=== PATIENT | female | born 1970 | race Caucasian/White ===

== ENCOUNTER 2020-09-08 06:05 | Outpatient (REF) | payer OTHER, SELFPAY ==
--- NOTE | 2020-09-08 08:57 | XR_ITS ---
EXAMINATION: XR ANKLE, BILATERAL CLINICAL INFORMATION: Bilateral ankle pain COMPARISON: None TECHNIQUE: Bilateral ankles each 3 views. FINDINGS: RIGHT ANKLE: No evidence of acute fracture or dislocation. Ankle mortise is maintained. Minimal spurring of the tip of the medial malleolus. Small spurring from the dorsal aspect of navicula. Small plantar and posterior calcaneal spur. Base of the 5th metatarsal is intact. LEFT ANKLE: Mild lateral ankle soft tissue swelling. There are corticated ossifications adjacent to the medial malleolus/talar dome. Ankle mortise is maintained. No evidence of acute fracture or dislocation. Base of the 5th metatarsal is intact. Small plantar and posterior calcaneal spurring. XR/XR ankle LT min 3V IMPRESSION: 1. No radiographic evidence of discrete acute fracture. 2. Calcaneal spurring. 3. Additional chronic-appearing findings, as detailed above.
--- NOTE | 2020-09-08 08:57 | XR_ITS ---
EXAMINATION: XR ANKLE, BILATERAL CLINICAL INFORMATION: Bilateral ankle pain COMPARISON: None TECHNIQUE: Bilateral ankles each 3 views. FINDINGS: RIGHT ANKLE: No evidence of acute fracture or dislocation. Ankle mortise is maintained. Minimal spurring of the tip of the medial malleolus. Small spurring from the dorsal aspect of navicula. Small plantar and posterior calcaneal spur. Base of the 5th metatarsal is intact. LEFT ANKLE: Mild lateral ankle soft tissue swelling. There are corticated ossifications adjacent to the medial malleolus/talar dome. Ankle mortise is maintained. No evidence of acute fracture or dislocation. Base of the 5th metatarsal is intact. Small plantar and posterior calcaneal spurring. XR/XR ankle RT min 3V IMPRESSION: 1. No radiographic evidence of discrete acute fracture. 2. Calcaneal spurring. 3. Additional chronic-appearing findings, as detailed above.
--- NOTE | 2020-09-08 08:57 | XR_ITS ---
EXAMINATION: XR HIPS, BILATERAL CLINICAL INFORMATION: Bilateral hip pain COMPARISON: None TECHNIQUE: Two views of each hip were obtained. FINDINGS: LEFT HIP: Normal alignment. Joint space is maintained. No fracture or dislocation. RIGHT HIP: Normal alignment. Joint spaces are relatively maintained. Small ossicle or osteophyte along the lateral acetabular rim. No acute fracture or dislocation. Regional soft tissue appears unremarkable. XR/XR hips AMERICA min 3V IMPRESSION: 1. Small ossicle or osteophyte along the lateral acetabular rim of the right hip. Otherwise unremarkable right hip radiographs. 2. No evidence of acute osseous abnormality.
[2020-09-08 11:38] LABS: Rheumatoid Factor < 15.0 IU/mL (<15.0)
[2020-09-08 12:18] LABS: Erythrocyte Sedimentation Rate 14 MM/HR (0-20)
[2020-09-09 15:32] LABS: Cyclic Citrullinated Peptide <16 UNITS
== END 2020-09-08 06:06 | disposition home or self-care (01) ==
LOC: HO.HMGCLDS 06:05
PROVIDERS: PCP Internal Medicine; Visit Provider Internal Medicine
DX: Z20.828 Contact with and (suspected) exposure to other viral communicable diseases (principal); M25.571 Pain in right ankle and joints of right foot; M25.572 Pain in left ankle and joints of left foot; M25.552 Pain in left hip; M25.551 Pain in right hip
CPT/HCPCS: 36415; 73522; 73610; 85652; 86200; 86431

== ENCOUNTER 2021-02-01 13:03 | Outpatient (REF) | payer OTHER, SELFPAY | END 2021-02-01 13:04 | disposition home or self-care (01) | LOC: HO.LAB 13:03 | PROVIDERS: Visit Provider Internal Medicine | DX: Z20.822 Contact with and (suspected) exposure to COVID-19 (principal) | CPT/HCPCS: C9803; U0003; U0005 ==

== ENCOUNTER 2021-05-26 12:08 | Outpatient (REF) | payer OTHER, SELFPAY | END 2021-05-26 12:09 | disposition home or self-care (01) | LOC: HO.LNP 12:08 | PROVIDERS: Visit Provider Internal Medicine | DX: Z20.822 Contact with and (suspected) exposure to COVID-19 (principal); J06.9 Acute upper respiratory infection, unspecified | CPT/HCPCS: U0003; U0005 ==

== ENCOUNTER 2021-11-09 09:08 | Outpatient (REF) | payer OTHER, SELFPAY ==
[2021-11-09 11:43] LABS: Hematocrit 41.4 % (37.0-47.0); Hemoglobin 13.3 g/dl (12.0-16.0); Mean Corpuscular HGB Conc 32.1 g/dl (31.0-35.0); Mean Corpuscular Hemoglobin 28.5 pg (27.0-33.0); Mean Corpuscular Volume 88.7 fL (80.0-98.0); Mean Platelet Volume 10.3 fL (9.4-12.3); Platelet Count 198 X10*3/uL (160-400); Red Blood Count 4.67 X10*6/uL (4.20-5.50); Red Cell Distribution Width 13.4 % (11.0-16.0); White Blood Count 6.1 X10*3/uL (4.8-10.8)
[2021-11-09 12:07] LABS: Alanine Aminotransferase 11 U/L (0-31); Albumin Level 4.1 g/dL (3.5-5.0); Alkaline Phosphatase 73 U/L (39-117); Anion Gap 11 (12-20); Aspartate Amino Transferase 14 U/L (5-31); Bilirubin Total 0.4 mg/dL (0.0-1.0); Blood Urea Nitrogen 14 mg/dL (9-16); C Reactive Protein 0.37 mg/dL (< or = 0.50); Calcium 9.5 mg/dL (8.4-10.2); Carbon Dioxide 29 mmol/L (22-29); Chloride 107 mmol/L (96-108); Cholesterol 214 mg/dL; Estimated Glomerular Filt Rate > 60; Glucose Fasting 88 mg/dL (60-99); HDL Cholesterol 36 mg/dL; LDL Cholesterol Calculated 146 mg/dl; Potassium 4.7 mmol/L (3.3-5.1); Sodium 142 mmol/L (135-145); Total Protein 6.6 g/dL (6.5-8.0); Triglycerides 164 mg/dL
[2021-11-09 12:15] LABS: TSH reflex Free T4 0.52 uIU/mL (0.32-4.0); Vitamin D 25-OH Total 31.8 ng/mL (>30)
[2021-11-09 12:36] LABS: Folate 7.2 ng/mL (> or = 4.0); Vitamin B12 292 pg/mL (200-900)
== END 2021-11-09 09:09 | disposition home or self-care (01) ==
LOC: HO.HMGCLDS 09:08
PROVIDERS: PCP Internal Medicine; Visit Provider Internal Medicine
DX: Z00.00 Encounter for general adult medical examination without abnormal findings (principal)
CPT/HCPCS: 36415; 80053; 80061; 82306; 82607; 82746; 84443; 85027; 86140

== ENCOUNTER 2022-02-03 14:09 | Outpatient (REF) | payer OTHER, SELFPAY ==
[2022-02-03 14:58] LABS: Influenza A PCR NEGATIVE (Negative); Influenza B PCR NEGATIVE (Negative); Resp Syncy Virus RNA Qual PCR NEGATIVE (Negative); SARS COV2 PCR INHOUSE POSITIVE (Negative)
== END 2022-02-03 14:10 | disposition home or self-care (01) ==
LOC: HO.LNP 14:09
PROVIDERS: Visit Provider Internal Medicine
DX: Z20.822 Contact with and (suspected) exposure to COVID-19 (principal); J34.89 Other specified disorders of nose and nasal sinuses; M79.10 Myalgia, unspecified site; R50.9 Fever, unspecified; R51.9 Headache, unspecified; R53.83 Other fatigue
CPT/HCPCS: 0241U

== ENCOUNTER 2022-04-27 07:45 | Outpatient (REF) | payer OTHER, SELFPAY | END 2022-04-27 07:46 | disposition home or self-care (01) | LOC: HO.HOSX 07:45 | PROVIDERS: Visit Provider Physician Assistant | DX: Z13.89 Encounter for screening for other disorder (principal) ==

== ENCOUNTER 2022-04-29 07:00 | Outpatient (REF) | payer OTHER, SELFPAY ==
[2022-04-29 12:18] LABS: Cholesterol 222 mg/dL; HDL Cholesterol 38 mg/dL; LDL Cholesterol Calculated 147 mg/dl; Triglycerides 189 mg/dL
== END 2022-04-29 07:01 | disposition home or self-care (01) ==
LOC: HO.HMGCLDS 07:00
PROVIDERS: Visit Provider Internal Medicine
DX: E78.5 Hyperlipidemia, unspecified (principal)
CPT/HCPCS: 36415; 80061

== ENCOUNTER 2023-06-06 06:33 | Emergency (ER) | payer OTHER, SELFPAY ==
--- NOTE | ~2023-06-06 | XR_ITS ---
EXAMINATION: XR LUMBOSACRAL SPINE CLINICAL INFORMATION: Pain COMPARISON: MRI lumbar spine from 04/01/2017 TECHNIQUE: Three views of the lumbosacral spine. FINDINGS: Transitional lumbosacral anatomy. There is lumbarization of S1. The lumbar vertebra have well preserved height and alignment. No compression fractures. No pars interarticularis defects. Degenerative narrowing of disc space is qpbu-to-tawzozbs at L4-L5 and ajbzyfzj-ax-zfznjs at L5-S1. There is vacuum disc phenomenon at L5-S1. There appears to be moderate facet arthropathy at L5-S1. No suspicious lytic or blastic lesion. Atherosclerotic calcification of the aorta is noted. XR/XR lumbar spine 2-3V IMPRESSION: * No acute abnormalities in the lumbar spine. No fracture or malalignment. * Disc degenerative changes of lower lumbar spine is worst at lumbosacral junction (and there is transitional lumbosacral anatomy).
[2023-06-06 06:45] VITALS: BP 136/82; PULSE 80; RESP 20; TEMP 36.8; O2SAT 98; BMI 31.2
[2023-06-06 07:02] VITALS: BP 127/77; PULSE 77; RESP 18; TEMP 36.8; O2SAT 98
--- NOTE | 2023-06-06 07:02 | ED_ITS ---
HPI - Back Pain/Injury General Chief Complaint: Back Pain/Injury Stated Complaint: Back Time Seen by Provider: 06/06/23 07:00 Source: patient and old records reviewed Mode of arrival: ambulatory Limitations: no limitations History of Present Illness HPI Narrative: 53 yo female with hx of HLD, asthma, fibromyalgia, here with c/o low back pain has known issues states she needs a vaughn reports she woke up Monday AM with mid low back pain worse with movements stabbing across without b/b incontinence, fevers, GI or symptoms. No AC Therapy, IVDA. Took motrin with little relief. no saddle anesthesia MD elicited complaint: back pain Pertinent past history: prior back pain Onset (ago): day(s) (2) Timing: constant Severity: severe Similar Symptoms Previously: Yes Quality: sharp Location: lumbar spine Radiation: none Exacerbating factors: movement Relieving factors: immobilization Context: unknown Associated symptoms: denies other symptoms Treatments prior to arrival: NSAIDS Related Data Home Medications Medication Instructions Recorded Confirmed nystatin 100,000 unit/mL oral 3 PO PRN 09/07/20 09/07/20 suspension pregabalin 100 mg capsule (Lyrica) 100 mg PO BID 09/07/20 09/07/20 Previous Rx's Medication Instructions Recorded meclizine 25 mg tablet 25 mg PO TID PRN dizziness #30 tabs 07/27/21 buspirone 5 mg tablet 5 mg PO BID #180 tabs 11/09/21 nicotine 21 mg/24 hr daily 1 patch transdermal DAILY #28 ea 11/09/21 transdermal patch albuterol sulfate 90 mcg/actuation 2 puff inhalation Q6H PRN 12/23/21 aerosol inhaler shortness of breath or wheezing #8.5 grams nirmatrelvir 300 mg (150 mg See Rx Instructions PO .COMPLEX 02/03/22 x2)-ritonavir 100 mg tablet,dose #30 tabs pack oseltamivir 75 mg capsule (Tamiflu) 75 mg PO BID 5 days #10 caps 02/03/22 amoxicillin 875 mg-potassium 1 tab PO Q12H 7 days #14 tabs 03/15/22 clavulanate 125 mg tablet ProAir HFA 90 mcg/actuation 2 puff inhalation Q6H PRN 04/08/22 aerosol inhaler (albuterol sulfate) shortness of breath or wheezing #8.5 grams montelukast 10 mg tablet 10 mg PO DAILY #90 tabs 04/08/22 ezetimibe 10 mg tablet (Zetia) 10 mg PO DAILY #90 tabs 05/03/22 Breo Ellipta 100 mcg-25 mcg/dose 1 inh inhalation DAILY #60 ea 06/02/22 powder for inhalation (fluticasone furoate-vilanterol) meloxicam 15 mg tablet 15 mg PO DAILY #30 tabs 06/08/22 lidocaine 5 % topical patch 1 patch topical DAILY #30 ea 06/06/23 Allergies Allergy/AdvReac Type Severity Reaction Status Date / Time citalopram [From CELEXA] Allergy Unknown PANIC Verified 04/27/22 08:08 ATTACK clarithromycin [From BIAXIN] Allergy Unknown UNKNOWN Verified 04/27/22 08:08 moxifloxacin [From AVELOX] Allergy Unknown RASH Verified 04/27/22 08:08 Sulfa (Sulfonamide Allergy Unknown rash/joint Verified 04/27/22 08:08 Antibiotics) pain Review of Systems Review of Systems: Constitutional : No Weight loss, No Fever, No Chills, ENT/Mouth : No Hearing loss, No Ear Pain, No Nasal Congestion, No Sinus Pain, No Hoarseness, No sore throat, No Rhinorrhea, No Swallowing Difficulty Cardiovascular : No Chest Pain, No SOB Respiratory : No Cough, No Dyspnea Gastrointestinal : No Nausea, No Vomiting, No Diarrhea, No abdominal Pain, No Hematochezia, No Melena Genitourinary : No Dysuria, No Urinary Frequency, No Hematuria, No Urinary Incontinence, Musculoskeletal : positive back pain Skin : No Skin Lesions, No rash Neuro : No Weakness, No Numbness, No Paresthesias, no loss of bowel or bladder incontinence, no saddle anesthesia All other systems reviewed and are negative [facility] Past Medical History Attestation statement: The following information was validated with the patient. Source: old records reviewed Medical History Hyperlipidemia Annual physical exam Vertigo Shoulder pain, bilateral Injury of left brachial plexus Normal Pap smear Tobacco dependence Fibromyalgia Degeneration of lumbar intervertebral disc Cervical radiculopathy due to degenerative joint disease of spine Arthritis Bilateral ankle pain Hip pain, bilateral Neck pain Surgical History No pertinent past surgical history Family History Family History Father Bladder cancer History of heart attack Mother No problems noted. Brother Substance use disorder Brother Substance use disorder Social History Social History Housing: House Alcohol intake: never Cigarette Packs Per Day: 0 Cigarettes Per Day: 15 Advance Directives: No Advance Directives Information Provided: No Patient : No Current occupational status: disabled Physical Exam Vital Signs: Vital Signs: Last Vital Signs Temp 98.3 F 06/06/23 07:02 Pulse 77 06/06/23 07:02 Resp 18 06/06/23 07:02 BP 127/77 06/06/23 07:02 Pulse Ox 98 06/06/23 07:02 O2 Del Method Room Air 06/06/23 07:02 BMI result Body Mass Index 31.2 Appearance: Alert. Oriented X3. No acute distress. Eyes: Pupils equal, round and reactive to light. ENT: Pharynx normal. Neck: Normal inspection. Neck supple. CVS: Normal heart rate and rhythm. Pulses normal. Respiratory: No respiratory distress. Breath sounds normal. Abdomen: Soft and nontender. Back: ttp along mid lumbar spine area Skin: Skin warm and dry. Normal skin color. Normal skin turgor. Extremities: No lower extremity edema. Neuro: Oriented X 3. No motor deficit. No sensory deficit. SILT intact 2+ DTR in patella bilaterally Medications Administered Discontinued Medications Generic Name Dose Route Start Last Admin Trade Name Phillipq PRN Reason Stop Dose Admin Acetaminophen 650 mg 06/06/23 07:18 06/06/23 07:34 Acetaminophen 325 Mg Tablet PO 06/06/23 07:19 650 mg ONCE ONE Administration Lidocaine 1 patch 06/06/23 07:18 06/06/23 07:34 Lidocaine 4 % Patch Adh..Patch TRANSDERMA 06/06/23 07:19 1 patch ONCE ONE Administration Protocol Medical Decision Making Medical Decision Making MDM Narrative: 53 yo female with hx of HLD, asthma, fibromyalgia, prior back pain here with low back pain no trauma - NV intact, no b/b incontinence no saddle anesthesia it is midline no abdominal pain, fevers, AC therapy, IVDA or red flags at this time s eems MSK will start on tylenol, pain patches obtain xray for compression fracture/alignment. Differential Diagnosis Differential Diagnoses: The differential diagnosis associated with the presentation includes strain, disc protrusion, compression fracture Admission/Observation Consideration of admission/observation: Escalation of care including admission/observation considered able to walk no need for high dose narcotics stable for DC Lab Data [facility] Lab Attestation statement: I reviewed the patient's lab results. Independent Interpretation I performed an independent interpretation of an: Plain X-Ray Interpretation: no fracture Radiology Impression Discussion of test interpretation with radiology: I have reviewed the radiologist's reading. External Record Review External record reviewed: Inpatient record Prescription Management I considered prescription management with: Other (lidocaine patches) Discharge Plan Discharge Clinical Impression: Acute lumbar back pain Qualifiers: Back pain laterality: bilateral Sciatica presence: without sciatica Qualified Code(s): M54.50 - Low back pain, unspecified Patient Disposition: Home, Self-Care Instructions: Acute Low Back Pain (ED) Additional Instructions: return for worsening back pain, numbness, weakness, loss of control of bowel and bladder, fevers or any other concerns. talk to your doctor about possible MRI and physical therapy if not better. XR/XR lumbar spine 2-3V IMPRESSION: * No acute abnormalities in the lumbar spine. No fracture or malalignment. * Disc degenerative changes of lower lumbar spine is worst at lumbosacral junction (and there is transitional lumbosacral anatomy). Prescriptions: New lidocaine 5 % adhesive patch,medicated 1 patch topical DAILY Qty: 30 0RF Rx Instructions: leave on most painful area for up to 12 hrs No Action meclizine 25 mg tablet 25 mg PO TID PRN (Reason: dizziness) Qty: 30 2RF albuterol sulfate 90 mcg/actuation HFA aerosol inhaler 2 puff inhalation Q6H PRN (Reason: shortness of breath or wheezing) Qty: 8.5 1RF nirmatrelvir-ritonavir 150 mg x 2- 100 mg tablet See Rx Instructions PO .COMPLEX Qty: 30 0RF Rx Instructions: take TWO 150 mg tablets of nirmatrelvir with ONE 100 mg tablet of ritonavir twice daily for 5 days PO albuterol sulfate [ProAir HFA] 90 mcg/actuation HFA aerosol inhaler 2 puff inhalation Q6H PRN (Reason: shortness of breath or wheezing) Qty: 8.5 1RF montelukast 10 mg tablet 10 mg PO DAILY Qty: 90 1RF ezetimibe [Zetia] 10 mg tablet 10 mg PO DAILY Qty: 90 3RF Breo Ellipta 100-25 mcg/dose blister with device 1 inh inhalation DAILY Qty: 60 6RF meloxicam 15 mg tablet 15 mg PO DAILY Qty: 30 4RF pregabalin [Lyrica] 100 mg capsule 100 mg PO BID nystatin 100,000 unit/mL suspension 3 PO PRN nicotine 21 mg/24 hr patch 24 hour 1 patch transdermal DAILY Qty: 28 4RF buspirone 5 mg tablet 5 mg PO BID Qty: 180 3RF oseltamivir [Tamiflu] 75 mg capsule 75 mg PO BID 5 Days Qty: 10 0RF amoxicillin-pot clavulanate 875-125 mg tablet 1 tab PO Q12H 7 Days Qty: 14 0RF
--- OUTSIDE RECORDS SUMMARY | 2023-06-06 07:14 | XMS_ITS | Continuity of Care Document ---
Author Name Unknown Organization [facility] Address [address] [place] [address], [address], [address] [place] [address]- Care Team Providers Care Cook Pie Name Role Phone Vannessa Rivas MD Primary Care Physician [place] [facility] [place] [facility] [address] [facility], 3rd Floor, [address] [place] [address]- [place] Allergies, Adverse Reactions, Alerts Substance Reaction Severity Status Biaxin diarrhea Active Vicodin shallow breathing Active Avelox rash Active CeleXA tachycardia, burning sensation Active Immunizations Given and Recorded Vaccine Date Status Refusal Reason influenza virus vaccine, inactivated 08/21/13 Give n influenza virus vaccine, inactivated 1, 2 08/11/11 Given pneumococcal 23-valent vaccine 03/12/10 Given tetanus/diphtheria/pertussis, acel(Tdap) 03/12/10 Given 1Result Comment: wrong patient 2Admin Note: CDC info given to patient Medications Aerochamber See Instructions, # 1 units, Maintenance, use with Q bryanna bid, 09/22/17 8:48:39, Compound Start Date: 09/22/17 Status: Ordered Aerochamber for Pro air inhaler. Aerochamber for Pro air inhaler., See Instructions, # 1 each, Refills 0, Tot. Refills 0, Maintenance, Uses with Pro Air inhaler. 2 puffs q 4 hours for wheezing, 01/07/14 16:09:44, Compound Start Date: 01/07/14 Status: Ordered atorvastatin 10 mg oral tablet 1 tablet = 10 mg, By Mouth, Daily, # 30 tablet, 5 Refills, Maintenance, Route to Pharmacy Electronically, [id number], [facility] [id number] Start Date: 10/01/18 Status: Ordered Azithromycin 5 Day Dose Pack 250 mg oral tablet 1 pack/packet, By Mouth, Once, # 6 tablet, 0 Refills, Soft Stop, 08/13/18 9:14:21 EST, Tablet Start Date: 08/13/18 Status: Ordered Flonase 50 mcg/inh nasal spray 2 sprays, Nares, Both, Daily, # 16 Gm, 0 Refills, Maintenance, 10/02/21 10:00:00 EST, [place], [facility]/pharmacy #[id number], Partial fill upon patient request if the prescription is for a schedule II opioid drug., 2 sprays Nares, Both Daily, 175.26, cm, 10/02/21... Start Date: 10/02/21 Status: Ordered Flonase 50 mcg/inh nasal spray 1 sprays, Nares, Both, 2 times a day, # 1 each, 5 Refills, Maintenance, 09/22/17 8:21:25, [place], 1 sprays Nares, Both 2 times a day Start Date: 09/22/17 Status: Ordered gabapentin 300 mg oral capsule 300 mg, 1, capsule, By Mouth, 3 times a day, # 90 capsule, Refills 0, Maintenance, 02/26/18 14:00:41 EDT Start Date: 02/26/18 Status: Ordered gabapentin 400 mg oral capsule 400 mg, 1, capsule, By Mouth, 3 times a day, # 90 capsule, Refills 5, Tot. Refills 5, Maintenance, 11/02/18 11:25:40 EST, Route to Pharmacy Electronically, [id number], [facility] [id number] Start Date: 11/02/18 Stop Date: 05/01/19 Status: Ordered left arm sling left arm sling, See Instructions, # 1 units, Refills 0, Tot. Refills 0, Maintenance, use daily dx: arm pain neuropathic, 10/08/18 10:58:37 EST, [facility] Start Date: 10/08/18 Status: Ordered montelukast 10 mg oral tablet See Instructions, # 90 tablet, TAKE 1 TABLET BY MOUTH DAILY IN THE EVENING, [facility] [id number] Start Date: 01/09/19 Status: Ordered ProAir HFA 90 mcg/inh inhalation aerosol with adapter 2, puffs, Inhalation, 4 times a day, # 1 each, Refills 6, Tot. Refills 6, Maintenance, wheezing, 10/01/18 10:34:38 EST, Route to Pharmacy Electronically, [id number], [facility] [id number] Start Date: 10/01/18 Stop Date: 04/29/19 Status: Ordered Qvar with Dose Counter 80 mcg/inh inhalation aerosol 1 puffs, Inhalation, 2 times a day, # 1 each, 7 Refills, Maintenance, 10/01/18 10:33:40 EST, 1 puffs Inhalation 2 times a day Start Date: 10/01/18 Status: Ordered Problem List Condition Effective Dates Status Health Status Inform ant Abnormal findings on diagnos tic imaging of breast(Confirmed) Active Asthma(Confirmed)(Stable) Active FH(Confirmed) 1, 2 03/12/10 Active Fibromyalgia(Confirmed) Active Gastroesophageal reflux disease(Confirmed) Active Hyperlipidemia(Confirmed) Active [place]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 Panic attacks(Confirmed) Active Photosensitivity dermatitis(Confirmed) Active SH - Social history(Confirmed) 3 03/12/10 Active Lateral meniscal tear(Confirmed) Active Tobacco abuse(Confirmed) Active 1hepatitis C and depression 2high cholesterol, alcoholism, hypertension, paternal grandmother with head and neck cancer and 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
--- OUTSIDE RECORDS SUMMARY | 2023-06-06 07:14 | XMS_ITS | Continuity of Care Document ---
Author Name Unknown Organization [facility] Address [address] [facility] [place] [address]- Care Team Providers Care Member Services Representative Name Role Phone Vannessa Rivas MD Primary Care Physician [phone] Encounter 12/09/20 - 12/16/20 [facility] [address], [address] [place], [place] [address] Attending Physician: Albania Martin MD Admitting Physician: Albania Martin MD Referring Physician: Albania Martin MD Allergies, Adverse Reactions, Alerts Substance Reaction Severity [...] 5 Refills, Maintenance, Route to Pharmacy Electronically, [id number], [facility] [id number] Start Date: 10/01/18 Status: Ordered Azithromycin 5 Day Dose Pack 250 mg oral tablet 1 pack/packet, By Mouth, Once, # 6 tablet, 0 Refills, Soft Stop, 08/13/18 9:14:21 EST, Tablet Start Date: 08/13/18 Status: Ordered Flonase 50 mcg/inh nasal spray 1 sprays, Nares, Both, 2 times a day, # 1 each, 5 Refills, Maintenance, 09/22/17 8:21:25, [facility] [place], 1 sprays Nares, Both 2 times a [...] 11/02/18 11:25:40 EST, Route to Pharmacy Electronically, [id number], [facility] [id number] Start Date: 11/02/18 Stop Date: 05/01/19 Status: Ordered left arm sling left arm sling, See Instructions, # 1 units, Refills 0, Tot. Refills 0, Maintenance, use daily dx: arm pain neuropathic, 10/08/18 10:58:37 EST, [facility] Start Date: 10/08/18 Status: Ordered montelukast 10 mg oral tablet See Instructions, # 90 tablet, TAKE 1 TABLET BY MOUTH DAILY IN THE EVENING, [facility] [id number] Start Date: 01/09/19 Status: Ordered ProAir HFA 90 mcg/inh inhalation aerosol with adapter 2, puffs, Inhalation, 4 times a day, # 1 each, Refills 6, Tot. 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
--- OUTSIDE RECORDS SUMMARY | 2023-06-06 07:14 | XMS_ITS | Continuity of Care Document ---
Author Name Unknown Organization [facility] Address [address] [place] [address]- Care Team Providers Care Furniture Repair Technician Name Role Phone Vannessa Rivas MD Primary Care Physician [phone] Encounter [facility] Date(s): 10/02/21 - 11/01/21 [facility] [address] [place], [place] [address] Attending Physician: Admtr, [id number] Admitting Physician: Admtr, Ar8 Referring Physician: Admtr, Ar8 Allergies, Adverse Reactions, Alerts Substance Reaction Severity Status Avelox rash Active Biaxin diarrhea Active CeleXA tachycardia, burning sensation Active Vicodin shallow breathing Active Immunizations Given and Recorded Vaccine Date [...] 5 Refills, Maintenance, Route to Pharmacy Electronically, [id number], [facility] [id number] Start Date: 10/01/18 Status: Ordered Azithromycin 5 Day Dose Pack 250 mg oral tablet 1 pack/packet, By Mouth, Once, # 6 tablet, 0 Refills, Soft Stop, 08/13/18 9:14:21 EST, Tablet Start Date: 08/13/18 Status: Ordered Flonase 50 mcg/inh nasal spray 2 sprays, Nares, Both, Daily, # 16 Gm, 0 Refills, Maintenance, 10/02/21 10:00:00 EST, [place], [facility]/pharmacy #[id number], Partial fill upon patient request if the prescription is for a schedule II opioid drug., 2 sprays Nares, Both Daily, 175.26, cm, 10/02/21... Start Date: 10/02/21 Status: Ordered Flonase 50 mcg/inh nasal spray 1 sprays, Nares, Both, 2 times a day, # 1 each, 5 Refills, Maintenance, 09/22/17 8:21:25, [place], 1 sprays Nares, Both 2 times a [...] 11/02/18 11:25:40 EST, Route to Pharmacy Electronically, [id number], [facility] [id number] Start Date: 11/02/18 Stop Date: 05/01/19 Status: Ordered left arm sling left arm sling, See Instructions, # 1 units, Refills 0, Tot. Refills 0, Maintenance, use daily dx: arm pain neuropathic, 10/08/18 10:58:37 EST, Compound Start Date: 10/08/18 Status: Ordered montelukast 10 mg oral tablet See Instructions, # 90 tablet, TAKE 1 TABLET BY MOUTH DAILY IN THE EVENING, [facility] Start Date: 01/09/19 Status: Ordered ProAir HFA 90 mcg/inh inhalation aerosol with adapter 2, puffs, Inhalation, 4 times a day, # 1 each, Refills 6, Tot. Refills 6, Maintenance, wheezing, 10/01/18 10:34:38 EST, Route to Pharmacy Electronically, [id number], [facility] Start Date: 10/01/18 Stop Date: 04/29/19 Status: [...]
--- OUTSIDE RECORDS SUMMARY | 2023-06-06 07:14 | XMS_ITS | Patient Health Record ---
Author Name Unknown [facility] Address [address] [place] [address] Care Team Providers Care Mines Inspector Name Role Phone Vannessa Rivas MD Primary Care Provider Shanthi Limon Unavailable [phone] ALLERGIES Allergen (clinical drug ingredient) Drug/Non Drug Allergy documented on EMR Reaction Allergy Type Onset Date Status sulfamethoxazole / trimethoprim Bactrim rash Drug Allergy Active clarithromycin Biaxin Diarrhea Drug Allergy Ac tive REASON FOR REFERRAL No Information MEDICATIONS Medication SIG (Take, Route, Frequency, Duration) Notes Start Date End Date Status Nightsplint . . . AFO - L1930 for . Active ProAir HFA Active busPIRone HCl 5 MG 1 tablet Orally Twic e a day Active Singulair 10 MG 1 tablet Orally Once a day for 30 day(s) Active Lyrica Active Lynox Active Vitamin D Active Atorvastatin Calcium 10 MG 1 tablet Oral ly Once a day for 30 day(s) Active Breo Ellipta Active IMMUNIZATIONS Vaccine Route Administration Date Status Comme nts COVID-19 Moderna Vaccine Unknown 05/08/2021 Administered First Dose: 03/25 SOCIAL HISTORY Tobacco Use: Social History Observation Description Date Details (start date - stop date) Current Smoker NA - NA Sex Assigned At : Social History Observation Description Sex Assigned At Unknown Tobacco Use/Smoking Question Answer Notes Are you a: current smoker How often do you smoke cigarettes? every day Alcohol Screen Question Answer Notes Did you have a drink containing alcohol in the p ast year? No Points 0 Interpretation Negative Tobacco use other than smoking: Question Answer Notes Are you an other tobacco user? No PLAN OF TREATMENT Pending Test Test Name Order Date X ray : Foot, right 3V 05/19/2021 Insurance Providers Payer Name Payer Address Payer Phone Subscriber Number Group Number Insured Name Patient Relationship to Insured Coverage Start Date Coverage End Date [facility] [employer] Claims [address] [place] [address] [phone] [id number] Dorina Holguin Self - patient is the insured MEDICAL (GENERAL) HISTORY Medical History History ICD Code Anxiety asthma Back,Hip,and Knee pain CAD (Cholesterol) Fibromyalgia Gall bladder problems Numbness Reflux ( GERD) chronic sinusitis Surgical History Surgery Date(Month/Year) gall bladder 2005 ablation surgery 2013
--- OUTSIDE RECORDS SUMMARY | 2023-06-06 07:14 | XMS_ITS | Continuity of Care Document ---
Author Name Unknown Organization [facility] Address [address] [place] [address]- Care Team Providers Care Engraver Pantograph Name Role Phone Vannessa Rivas MD Primary Care Physician [phone] [place] [facility] Date(s): 10/02/21 - 10/09/21 [facility] [address], [place] [address] Attending Physician: Sandra Hilario MD Referring Physician: Vannessa Rivas MD Allergies, Adverse Reactions, Alerts Substance Reaction [...] 5 Refills, Maintenance, Route to Pharmacy Electronically, [id number], [facility] [id number] Start Date: 10/01/18 Status: Ordered Azithromycin 5 Day Dose Pack 250 mg oral tablet 1 pack/packet, By Mouth, Once, # 6 tablet, 0 Refills, Soft Stop, 08/13/18 9:14:21 EST, Tablet Start Date: 08/13/18 Status: Ordered Flonase 50 mcg/inh nasal spray 2 sprays, Nares, Both, Daily, # 16 Gm, 0 Refills, Maintenance, 10/02/21 10:00:00 EST, [place], [facility]/pharmacy #[id number], Partial fill upon patient request if [...] 11/02/18 11:25:40 EST, Route to Pharmacy Electronically, [id number], [facility] [id number] Start Date: 11/02/18 Stop Date: 05/01/19 Status: Ordered left arm sling left arm sling, See Instructions, # 1 units, Refills 0, Tot. Refills 0, Maintenance, use daily dx: arm pain neuropathic, 10/08/18 10:58:37 EST, Compound Start Date: 10/08/18 Status: Ordered montelukast 10 mg oral tablet See Instructions, # 90 tablet, TAKE 1 TABLET BY MOUTH DAILY IN THE EVENING, [email or web address] Start Date: 01/09/19 Status: Ordered ProAir HFA 90 mcg/inh inhalation aerosol with adapter 2, puffs, Inhalation, 4 times a day, # 1 each, Refills 6, Tot. 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, smokes one pack of cigarettes daily, and rarely drinks alcohol Vital Signs Most recent to oldest [Reference Range]: 1 Height 175.26 cm (10/02/21 9:11 AM) Oxygen Saturation [94-100 %] 100 % (10/02/21 9:11 AM) Pulse Rate [55-90 bpm] 81 bpm (10/02/21 9:11 AM) Blood Pressure [90-138/55-84 mm Hg] 130/ 77mm Hg (10/02/21 9:11 AM) Respiratory Rate [16-30 br/min] 18 br/mi n (10/02/21 9:11 AM) Temperature [96.8-100.4 DegF] 98.5 DegF (10/02/21 9:11 AM) Blood pressure sites Arm, left (10/02/21 9:11 AM) Temperature Route Temporal (10/02/21 9:11 AM) Social History Social History Type Response Smoking Status Current every day rahul moreno; Tobacco use times per day: 3/4 pack; entered on: 08/26/14 Sex
--- OUTSIDE RECORDS SUMMARY | 2023-06-06 07:14 | XMS_ITS | Continuity of Care Document ---
Author Name Unknown Organization [facility] Address [address] [place] [address]- Care Team Providers Care Syrup Machine Laborer Name Role Phone Vannessa Rivas MD Primary Care Physician [phone] Encounter 11/03/21 - 01/09/22 [facility] [address], [facility] [address] [place], [place] [address] Attending Physician: Harry Choi MD Admitting Physician: Harry Choi MD Referring Physician: Harry Choi MD Allergies, Adverse Reactions, Alerts Substance Reaction [...] 5 Refills, Maintenance, Route to Pharmacy Electronically, [id number], [id number] Start Date: 10/01/18 Status: Ordered Azithromycin 5 Day Dose Pack 250 mg oral tablet 1 pack/packet, By Mouth, Once, # 6 tablet, 0 Refills, Soft Stop, 08/13/18 9:14:21 EST, Tablet Start Date: 08/13/18 Status: Ordered Flonase 50 mcg/inh nasal spray 2 sprays, Nares, Both, Daily, # 16 Gm, 0 Refills, Maintenance, 10/02/21 10:00:00 EST, [place], [facility]/pharmacy #[id number], Partial fill upon patient request if the prescription is for a schedule II opioid drug., 2 sprays Nares, Both Daily, 175.26, cm, 10/02/21... Start Date: 10/02/21 Status: Ordered Flonase 50 mcg/inh nasal spray 1 sprays, Nares, Both, 2 times a day, # 1 each, 5 Refills, Maintenance, 09/22/17 8:21:25, [place], 1 sprays Nares, Both 2 times a [...] 11/02/18 11:25:40 EST, Route to Pharmacy Electronically, [id number], [facility] [id number] Start Date: 11/02/18 Stop Date: 05/01/19 Status: Ordered left arm sling left arm sling, See Instructions, # 1 units, Refills 0, Tot. Refills 0, Maintenance, use daily dx: arm pain neuropathic, 10/08/18 10:58:37 EST, Compound Start Date: 10/08/18 Status: Ordered montelukast 10 mg oral tablet See Instructions, # 90 tablet, TAKE 1 TABLET BY MOUTH DAILY IN THE EVENING, [facility] Start Date: 01/09/19 Status: Ordered ProAir HFA 90 mcg/inh inhalation aerosol with adapter 2, puffs, Inhalation, 4 times a day, # 1 each, Refills 6, Tot. 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
--- OUTSIDE RECORDS SUMMARY | 2023-06-06 07:14 | XMS_ITS | Continuity of Care Document ---
Author Name Unknown Organization [facility] Address [address] [place] [address]- Care Team Providers Care Jewelry Casting Model Maker Apprentice Name Role Phone Vannessa Rivas MD Primary Care Physician [phone] Encounter 12/05/19 - 12/12/19 [facility] [address], [facility] [address] [place] [address]- [phone] Attending Physician: Albania Martin MD Admitting Physician: [...] 5 Refills, Maintenance, Route to Pharmacy Electronically, [id number], [facility] [id number] Start Date: 10/01/18 Status: Ordered Azithromycin 5 Day Dose Pack 250 mg oral tablet 1 pack/packet, By Mouth, Once, # 6 tablet, 0 Refills, Soft Stop, 08/13/18 9:14:21 EST, Tablet Start Date: 08/13/18 Status: Ordered Flonase 50 mcg/inh nasal spray 1 sprays, Nares, Both, 2 times a day, # 1 each, 5 Refills, Maintenance, 09/22/17 8:21:25, [place], 1 sprays Nares, Both 2 times a [...] 11/02/18 11:25:40 EST, Route to Pharmacy Electronically, [id number], [facility] [address] Start Date: 11/02/18 Stop Date: 05/01/19 Status: Ordered left arm sling left arm sling, See Instructions, # 1 units, Refills 0, Tot. Refills 0, Maintenance, use daily dx: arm pain neuropathic, 10/08/18 10:58:37 EST, Compound Start Date: 10/08/18 Status: Ordered montelukast 10 mg oral tablet See Instructions, # 90 tablet, TAKE 1 TABLET BY MOUTH DAILY IN THE EVENING, [facility] Start Date: 01/09/19 Status: Ordered ProAir HFA 90 mcg/inh inhalation aerosol with adapter 2, puffs, Inhalation, 4 times a day, # 1 each, Refills 6, Tot. 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
--- OUTSIDE RECORDS SUMMARY | 2023-06-06 07:14 | XMS_ITS | Continuity of Care Document ---
Author Name Unknown Organization [facility] Address [address] [place] [address]- Care Team Providers Care Cnc Maintenance Technician Name Role Phone Albania Martin MD Primary Care Physician [phone] Encounter [facility] Date(s): 11/07/22 - 01/13/[address] [address]- Attending Physician: Albania Martin MD Admitting Physician: Albania Martin MD Referring Physician: Albania Martin MD Allergies, Adverse Reactions, Alerts Substance Reaction Severity Status sulfADIAZINE Active Biaxin diarrhea Active Vicodin shallow breathing Active Avelox rash Active CeleXA tachycardia, burning sensation Active Immunizations Given and Recorded Vaccine Date Status Refusal Reason tetanus/diphtheria/pertussis, acel(Tdap) 08/08/22 Given tetanus/diphtheria/pertussis, acel(Tdap) 03/12/10 Given SARS-CoV-2 (COVID-19) mRNA-1273 vaccine 05/08/21 R ecorded SARS-CoV-2 (COVID-19) mRNA-1273 vaccine 04/10/21 R ecorded influenza virus vaccine, inactivated 08/21/13 Give n influenza virus vaccine, inactivated 1, 2 08/11/11 Given pneumococcal 23-valent vaccine 03/12/10 Given 1Result Comment: wrong patient 2Admin [...] 16:09:44, Compound Start Date: 01/07/14 Status: Ordered Breo Ellipta 100 mcg-25 mcg/inh inhalation powder 1 puffs, Inhalation, Daily, # 30 each, 5 Refills, Maintenance, 01/09/23 9:26:00 EDT, Powder, [id number], Partial fill upon patient request if the prescription is for a schedule II opioid drug., 1 puffs Inhalation Daily,x30 days, 175.26, cm, 04... Start Date: 01/09/23 Stop Date: 07/08/23 Status: Ordered busPIRone 5 mg oral tablet 5 mg, 1, tablet, By Mouth, 2 times a day, # 180 tablet, Refills 2, Tot. Refills 2, Maintenance, 01/09/23 9:27:00 EDT, Route to Pharmacy Electronically, [id number], Partial fill upon patient request if the prescription is for a schedule II opio... Start Date: 01/09/23 Stop Date: 10/06/23 Status: Ordered ezetimibe 10 mg oral tablet 1 tablet = 10 mg, By Mouth, Daily, # 90 tablet, 3 Refills, Maintenance, 01/09/23 9:25:00 EDT, Tablet, [id number], Partial fill upon patient request if the prescription is for a schedule II opioid drug., 175.26, cm, 01/09/23 8:54:00 EDT, Height Start Date: 01/09/23 Status: Ordered fluticasone 50 mcg/inh nasal spray See Instructions, USE 1 SPRAY IN BOTTH NOSTRILS TWICE A DAY NEEDED FOR NASAL AND SINUS CONGESTION, # 48 mL, 1 Refills, Maintenance, 12/14/22 7:35:00 EDT, [id number], 90, USE 1 SPRAY IN BOTTH NOSTRILS TWICE A DAY NEEDED FOR NASAL AND SINU... Start Date: 12/14/22 Status: Ordered left arm sling left arm sling, See Instructions, # 1 units, Refills 0, Tot. Refills 0, Maintenance, use daily dx: arm pain neuropathic, 10/08/18 10:58:37 EST, Compound Start Date: 10/08/18 Status: Ordered meloxicam 15 mg oral tablet 1 tablet = 15 mg, By Mouth, Daily, # 90 tablet, 1 Refills, Maintenance, 08/08/22 9:48:00 EST, Tablet, [facility]/pharmacy #[id number], Partial fill upon patient request if the prescription is for a schedule II opioid drug., 175.26, cm, 08/08/22 9:28:00 EST, Height Start Date: 08/08/22 Stop Date: 02/04/23 Status: Ordered montelukast 10 mg oral tablet See Instructions, TAKE 1 TABLET BY MOUTH DAILY IN THE EVENING, # 90 tablet, Refills 2, Tot. Refills2, Soft Stop, 08/08/22 9:47:00 EST, Instructions Replace Required Details, Route to Pharmacy Electronically, [facility]/pharmacy #[id number], 175.26, cm, 08/08/22 9... Start Date: 08/08/22 Status: Ordered nystatin 116828 u/ml oral suspension 5 mL = 500,000 units, By Mouth, 4 times a day, for 7 days, swish and swallow, # 140 mL, 3 Refills, Acute 02/06/23 9:27:00 EDT, 01/09/23 9:27:00 EDT, Suspension, [id number], Partial fill upon patient request if the prescription is for a schedul... Start Date: 01/09/23 Stop Date: 02/06/23 Status: Ordered Ventolin HFA 108 mcg/inh inhalation aerosol with adapter 2 puffs, Inhalation, Every 4 hours, PRN for wheezing, # 18 Gm, 4 Refills, Maintenance, 08/08/22 9:46:00 EST, Aerosol, [facility]/pharmacy #[id number], Partial fill upon patient request if the prescription is for a schedule II opioid drug., 175.26, cm, 08/08/22 9:2... 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 Obese class I Confirmed Active Panic attacks Confirmed Active Photosensitivity dermatitis Confirmed Active SH - Social history 3 Confirmed 03/12/10 Active Lateral meniscal tear Confirmed Active Tobacco abuse Confirmed Active 1hepatitis C and depression 2high cholesterol, alcoholism, hypertension, paternal grandmother with head and neck cancer 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, 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, 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, smokes one pack of cigarettes daily, and rarely drinks alcohol Social History Social History Type Response Smoking Status Current every day sm oker; Tobacco use times per day: 3/4 pack; entered on: 08/26/14 Sex Female Patient Care team information Care Team Personnel Name: Albania Martin MD Position: [facility] Primary Care Physician Member Role: PCP Address: Address: [address] [place] [address] [place] [address]- [place] Care Team Related Persons Name: FAVIAN SWARTZ Address: home [address] [place] [address] Name: FAVIAN SWARTZ Address: home [address] [place] [address]
--- OUTSIDE RECORDS SUMMARY | 2023-06-06 07:14 | XMS_ITS | Continuity of Care Document ---
Author Name Unknown Organization [facility] Address [address] [place] [address]- Care Team Providers Care Spreading Machine Operator Name Role Phone Albania Martin MD Primary Care Physician [phone] Encounter 12/19/22 - 12/26/22 [facility] [address], [address] [place], [place] [address] Attending Physician: Albania Martin MD Admitting [...] 16:09:44, Compound Start Date: 01/07/14 Status: Ordered azithromycin 250 mg oral tablet 1 tablet = 250 mg, By Mouth, Daily, 2 tablets on first day, then one tablet daily for 4 days, # 6 tablet, 0 Refills, Acute 12/27/22 10:15:00 EDT, 12/21/22 10:14:00 EDT, Tablet, [facility]/pharmacy #[id number], Partial fill upon patient request if the prescription... Start Date: 12/21/22 Stop Date: 12/27/22 Status: Ordered Breo Ellipta 100 mcg-25 mcg/inh inhalation powder 1 puffs, Inhalation, Daily, # 30 each, 5 Refills, Maintenance, 08/08/22 14:55:00 EST, Powder, [facility]/pharmacy #[id number], Partial fill upon patient request if the prescription is for a schedule II opioid drug., 1 puffs Inhalation Daily,x30 days, 175.26, cm, 1... Start Date: 08/08/22 Stop Date: 02/04/23 Status: Ordered busPIRone 5 mg oral tablet 5 mg, 1, tablet, By Mouth, 2 times a day, # 180 tablet, Refills 1, Tot. Refills 1, Maintenance, 08/16/22 16:25:00 EST, Route to Pharmacy Electronically, [facility]/pharmacy #[id number], Partial fill upon patient request if the prescription is for a schedule II opi... Start Date: 08/16/22 Stop Date: 02/12/23 Status: Ordered ezetimibe 10 mg oral tablet 1 tablet = 10 mg, By Mouth, Daily, # 90 tablet, 1 Refills, Maintenance, 08/08/22 10:06:00 EST, Tablet, [facility]/pharmacy #[id number], Partial fill upon patient request if the prescription is for a schedule II opioid drug., 175.26, cm, 08/08/22 9:28:00 EST, Height Start Date: 08/08/22 Status: Ordered fluticasone 50 mcg/inh nasal spray See Instructions, USE 1 SPRAY IN BOTTH NOSTRILS TWICE A DAY NEEDED FOR NASAL AND SINUS CONGESTION, # 48 mL, 1 Refills, Maintenance, 12/14/22 7:35:00 EDT, [facility]/pharmacy #[id number], 90, USE 1 SPRAY IN BOTTH [...] 1 Refills, Maintenance, 08/08/22 9:48:00 EST, Tablet, [facility]/pharmacy #[id number], Partial fill upon patient request if [...] Replace Required Details, Route to Pharmacy Electronically, [facility]/pharmacy #[id number], 175.26, cm, 08/08/22 9... Start Date: 08/08/22 Status: Ordered Qvar with Dose Counter 80 mcg/inh inhalation aerosol 1 puffs, Inhalation, 2 times a day, # 1 each, 7 Refills, Maintenance, 10/01/18 10:33:40 EST, 1 puffs Inhalation 2 times a day Start Date: 10/01/18 Status: Ordered Tessalon Perles 100 mg oral capsule 1 capsule = 100 mg, By Mouth, 3 times a day, for 10 days, # 30 capsule, 0 Refills, Acute 12/31/22 10:15:00 EDT, 12/21/22 10:15:00 EDT, Capsule, [facility]/pharmacy #[id number], Partial fill upon patient request if the prescription is for a schedule II opioid drug.... 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 COMPARISON: Multiple priors, most recent from 12/11/2021. TECHNIQUE: Full-field digital CC and MLO 3-D tomosynthesis images of both breasts were acquired. Computer-aided detection (CAD) was utilized in the interpretation of this study. DENSITY: The breast tissue contains scattered areas of fibroglandular density. FINDINGS: No suspicious masses, suspicious microcalcifications, or areas of architectural distortion are seen in either breast to suggest malignancy. Unchanged mass with a ribbon-shaped clip in the upper outer right breast, corresponding with the biopsy-proven fibroadenoma. Top hat clip noted at the mid depth of the right breast laterally. IMPRESSION: No mammographic evidence of malignancy. RECOMMENDATION: Annual mammographic screening BI-RADS: 2 (Benign) Lay letter mailed to patient I have personally reviewed the images and I agree with this report. WSN: [id number] Ordering Physician: Albania Martin Dictated By: Paulo Grigsby MD Dictated Date/Time: 12/19/22 11:10 am Reviewed By: Jose Cortez MD Signed By: Jose Cortez MD Signed Date/Time: 12/19/22 11:15 am Transcribed By: JESSE Engineering Director Date/Time: 12/19/22 11:05 am Birads: Social History Social History Type Response Smoking Status Current every day sm oker; Tobacco use times per day: 3/4 pack; entered on: 08/26/14 Sex Female MG Breast Screening * BHSPowerscribe , CIS S: TRANSCRIBE Jose Cortez MD: VERIFY Paulo Grigsby MD: SIGN Event Display: Result: Authored Date: PROCEDURE: MM Digital Mammo Screening INDICATION: Screening for breast cancer. COMPARISON: Multiple priors, most recent from 12/11/2021. TECHNIQUE: Full-field digital CC and MLO 3-D tomosynthesis images of both breasts were acquired. Computer-aided detection (CAD) was utilized in the interpretation of this study. DENSITY: The breast tissue contains scattered areas of fibroglandular density. FINDINGS: No suspicious masses, suspicious microcalcifications, or areas of architectural distortion are seen in either breast to suggest malignancy. Unchanged mass with a ribbon-shaped clip in the upper outer right breast, corresponding with the biopsy-proven fibroadenoma. Top hat clip noted at the mid depth of the right breast laterally. IMPRESSION: No mammographic evidence of malignancy. RECOMMENDATION: Annual mammographic screening BI-RADS: 2 (Benign) Lay letter mailed to patient I have personally reviewed the images and I agree with this report. WSN: [id number] Ordering Physician: Albania Martin Dictated By: Paulo Grigsby MD Dictated Date/Time: 12/19/22 11:10 am Reviewed By: Jose Cortez MD Signed By: Jose Cortez MD Signed Date/Time: 12/19/22 11:15 am Transcribed By: JESSE Engineering Director Date/Time: 12/19/22 11:05 am Birads: Patient Care team information Care Team Personnel Name: Albania Martin MD Position: [facility] Primary Care Physician Member Role: PCP Address: Address: [address] [place] [address] [place] [address]- Care Team Related Persons Name: FAVIAN SWARTZ Address: home [address] [place] [address] Name: FAVIAN SWARTZ Address: home [address] [place] [address]
--- OUTSIDE RECORDS SUMMARY | 2023-06-06 07:14 | XMS_ITS | Continuity of Care Document ---
Author Name Unknown Organization [facility] Address [address] [place] [address], [address] d Floor, [address] [place] [address]- Care Team Providers Care Reed Press Feeder Name Role Phone Vannessa Rivas MD Primary Care Physician [place] [facility] [place]): [place]06[place]22 - 06/05/22 [facility] [address] [facility], 3rd Floor, [address] [place] [address]- Attending Physician: AdmRica avila Admitting Physician: Admtr, Ar8 Referring Physician: Admtr, [...] 5 Refills, Maintenance, Route to Pharmacy Electronically, [id number], [facility] [id number] Start Date: 10/01/18 Status: Ordered Azithromycin 5 Day Dose Pack 250 mg oral tablet 1 pack/packet, By Mouth, Once, # 6 tablet, 0 Refills, Soft Stop, 08/13/18 9:14:21 EST, Tablet Start Date: 08/13/18 Status: Ordered Flonase 50 mcg/inh nasal spray 2 sprays, Nares, Both, Daily, # 16 Gm, 0 Refills, Maintenance, 10/02/21 10:00:00 EST, [place], [facility]/pharmacy #[id number], Partial fill upon patient request if the prescription is for a schedule II opioid drug., 2 sprays Nares, Both Daily, 175.26, cm, 10/02/21... Start Date: 10/02/21 Status: Ordered Flonase 50 mcg/inh nasal spray 1 sprays, Nares, Both, 2 times a day, # 1 each, 5 Refills, Maintenance, 09/22/17 8:21:25, [place], 1 sprays Nares, Both 2 times a [...] 11/02/18 11:25:40 EST, Route to Pharmacy Electronically, [id number], [facility] [id number] Start Date: 11/02/18 Stop Date: 05/01/19 Status: Ordered left arm sling left arm sling, See Instructions, # 1 units, Refills 0, Tot. Refills 0, Maintenance, use daily dx: arm pain neuropathic, 10/08/18 10:58:37 EST, [facility] Start Date: 10/08/18 Status: Ordered montelukast 10 mg oral tablet See Instructions, # 90 tablet, TAKE 1 TABLET BY MOUTH DAILY IN THE EVENING, [facility] Start Date: 01/09/19 Status: Ordered ProAir HFA 90 mcg/inh inhalation aerosol with adapter 2, puffs, Inhalation, 4 times a day, # 1 each, Refills 6, Tot. 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
[2023-06-06] MEDS: Lidocaine 4 % Patch ADH..PATCH 1 PATCH TRANSDERMA (07:34)
[2023-06-06] MEDS: Acetaminophen 325 MG TABLET 650 MG PO (07:34)
--- NOTE | 2023-06-06 09:49 | PC.NURSE ---
FIRST ENCOUNTER WITH PATIENT FOR DC PURPOSES. PT AWAKE, ALERT AND ORIENTED X 3. SKIN WARM AND DRY. RESP UNLABORED. PT DRESSED, SITTING UP IN CHAIR AWAITING DC INSTRUCTIONS. DC REVIEWED WITH PATIENT BY DR TRAN. NEUROS INTACT. NO ACUTE DISTRESS NOTED. +CMS. PT AWARE AND AGREEABLE TO PLAN
== END 2023-06-06 09:53 | disposition home or self-care (01) ==
PROVIDERS: Emergency Provider Emergency Medicine; PCP Internal Medicine
DX: M54.50 Low back pain, unspecified (principal); E78.5 Hyperlipidemia, unspecified; F17.210 Nicotine dependence, cigarettes, uncomplicated; Z79.899 Other long term (current) drug therapy
CPT/HCPCS: 72100; 99283; 99284

== ENCOUNTER 2024-02-01 15:42 | Outpatient (AMB) | payer OTHER, SELFPAY ==
--- NOTE | 2024-02-01 15:48 | MHC.PC.OV ---
Vital Signs 02/01/24 15:50 Height 5 ft 8 in Weight 206 lb BMI 31.3 BP 120/80 Blood Pressure Location Rt brachial Position Sitting Pulse 86 Pulse Source Pulse Oximeter Pulse Oximetry (%) 97 Oxygen Delivery Method Room Air Intake Visit Reasons: NPV/ requesting phy Intake Note: Patient here to establish care Allergies citalopram [From CELEXA] Allergy (Unknown, Verified 02/01/24 15:57) PANIC ATTACK clarithromycin [From BIAXIN] Allergy (Unknown, Verified 02/01/24 15:57) UNKNOWN moxifloxacin [From AVELOX] Allergy (Unknown, Verified 02/01/24 15:57) RASH Sulfa (Sulfonamide Antibiotics) Allergy (Unknown, Verified 02/01/24 15:57) rash/joint pain Medication List - Last Reconciled 02/01/24 by MATI Johnson- acetaminophen 325 mg PO Q6H PRN albuterol sulfate 90 mcg/actuation 2 puffs inhalation Q6H PRN Breo Ellipta 100-25 mcg/dose (fluticasone furoate-vilanterol) 1 inh inhalation DAILY NS buspirone 5 mg PO BID ezetimibe (Zetia) 10 mg PO DAILY lorazepam (Ativan) 0.5 mg PO BEDTIME PRN meclizine 25 mg PO TID PRN montelukast 10 mg PO DAILY nirmatrelvir-ritonavir 300 mg (150 mg x 2)-100 mg take TWO 150 mg tablets of nirmatrelvir with ONE 100 mg tablet of ritonavir twice daily for 5 days PO nystatin 3 PO PRN pregabalin (Lyrica) 100 mg PO BID ProAir HFA 90 mcg/actuation (albuterol sulfate) 2 puffs inhalation Q6H PRN NS Tobacco use date assessed: 02/01/24 Dental Screening Dental Screen Date: 02/01/24 Did you have a dental visit in the last 12 months?: Yes Did you have a dental problem in the last 6 months where you did not have access to dental care?: No Was dental information given to patient?: Patient has dentist HPI NPV/ requesting phy HPI Details New pt is here for a PE. Will order labs. Due for colon screen, will refer to GI. Mammo is up to date according to pt. 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 Pt follows up with neurosurgery and ortho. She also goes to PT and acupuncture. Pt has a hx of left-sided ulnar neuropathy. Pt is a smoker, she will think about low-dose CTs. Pt sees a therapist. Pt c/o pelvic pain. She reports that this is constant. Will order US. Pt reports enlarged thyroid. Will order US PENDING SALE TO [facility] Medical History (Updated 02/01/24 @ 16:52 by HARDY Johnson) JORDAN (obstructive sleep apnea) PAC (premature atrial contraction) Hyperlipidemia Annual physical exam Vertigo Shoulder pain, bilateral Injury of left brachial plexus Normal Pap smear Tobacco dependence Fibromyalgia Degeneration of lumbar intervertebral disc Cervical radiculopathy due to degenerative joint disease of spine Arthritis Bilateral ankle pain Hip pain, bilateral Neck pain Surgical History No pertinent past surgical history Family History Father Bladder cancer History of heart attack Mother No problems noted. Brother Substance use disorder Brother Substance use disorder Social History Housing: House Alcohol intake: never Cigarette Packs Per Day: 0 Cigarettes Per Day: 15 Current occupational status: disabled Cognitive needs: No Hearing needs: No Vision needs: No Questionnaire Thrive Questionnaire Date Thrive assessed: 11/09/21 GENEVA-7 AMB Questionnaire GENEVA-7 Date GENEVA - 7 assessed: 11/09/21 Source: Developed by Drs. David Boyd, Antoinette Johnson, Andreas Guzmán and colleagues, with an educational addie from [employer]. Review of Systems Const Denies chills and Denies fever(s) Eyes Denies blurry vision ENT Reports vertigo, Reports dizziness and Denies sore throat Card Denies chest pain at rest, Denies chest pain with activity, Denies diaphoresis, Denies dyspnea and Denies dyspnea on exertion Resp Denies cough, Denies dyspnea, Denies dyspnea on exertion and Denies wheezing GI Reports abdominal pain, Denies melena, Denies hematochezia, Denies constipation, Denies diarrhea and Denies loose stools Denies hematuria Musc Reports numbness and Reports tingling Skin/Breast Denies lesions Neuro Reports vertigo, Reports dizziness, Reports numbness and Reports tingling Psych Denies anxiety, Denies depression, Denies homicidal ideation, Denies suicidal ideation and Denies other (substance abuse) Aller/Immun Denies wheezing Physical exam (Primary Care) Vital Signs: Last Vital Signs Pulse 86 02/01/24 15:50 BP 120/80 02/01/24 15:50 Pulse Ox 97 02/01/24 15:50 Oxygen Delivery Method Room Air 02/01/24 15:50 BMI result Body Mass Index 31.3 Tobacco/Smoking Status: Tobacco use Status Tobacco use date assessed 02/01/24 02/01/24 16:05 Thrive Assessment: Date of Thrive Assessment Date Thrive assessed 11/09/21 02/01/24 15:49 Const General: cooperative Nutritional Appearance: well nourished Orientation/consciousness: patient oriented x3 HENMT Head: Yes normal to inspection, Yes normocephalic and Yes atraumatic Ears: TM's normal bilaterally Eyes General: appearance normal, both eyes and all related structures Alignment and Position: alignment normal and position normal Neck Neck: Yes normal visual inspection and Yes no lymphadenopathy Thyroid: Thyroid normal Resp Other: lungs fairly clear Effort & Inspection: normal respiratory effort Cardio Rate: regular rate Rhythm: regular rhythm Heart sounds: S1 normal heart sound present, S2 normal heart sound present and no murmurs GI Other: tenderness with palpation of right pelvic region Palpation (GI): Soft to palpation Auscultation: normal bowel sounds Skin Rashes: no rashes Neuro General: patient oriented x3, moves all extremities, no focal motor deficits and deep tendon reflexes 2+ bilaterally Romberg Test: Negative Extrem Other: large hinged knee brace attached to mid thigh to calf Psych Appearance: grossly normal Mental Status: mental status grossly normal Speech and movement: Normal speech and movement present Affect: normal affect Attitude: cooperative Thought process: Normal thought process present Thought content: Normal thought content present Insight: Good insight present (Psych) Judgement: Good judgement present (Psych) Assessment and Plan Assessment & Plan (1) Screening for colon cancer: Code(s): Z12.11 - Encounter for screening for malignant neoplasm of colon (2) Physical exam: Code(s): Z00.00 - Encounter for general adult medical examination without abnormal findings (3) Postmenopausal: Code(s): Z78.0 - Asymptomatic menopausal state (4) Pelvic pain: Code(s): R10.2 - Pelvic and perineal pain (5) Enlarged thyroid: Code(s): E04.9 - Nontoxic goiter, unspecified Plan The patient agreed to the use of a medical authorization specialist for this encounter. Scribed for MATI Ardon- by Nicole Martinez medical authorization specialist, on 02/01/2024 at 16:15 EST. Orders: Orders Complete Blood Count Auto Diff Today Z00.00 - Encounter for general adult medical examination without abnormal findings Comprehensive [place]. Panel Fast Today Z00.00 - Encounter for general adult medical examination without abnormal findings TSH reflex Free T4 Today Z00.00 - Encounter for general adult medical examination without abnormal findings Vitamin D 25-OH Total Today Z78.0 - Asymptomatic menopausal state UA CC w/rflx Micro + Cult Today Z00.00 - Encounter for general adult medical examination without abnormal findings Lipid Panel Today Z00.00 - Encounter for general adult medical examination without abnormal findings US pelvic and transvaginal Today R10.2 - Pelvic and perineal pain US thyroid Today E04.9 - Nontoxic goiter, unspecified Referrals Gastroenterology Referral Z12.11 - Encounter for screening for malignant neoplasm of colon Medications: New fluticasone propionate 50 mcg/actuation (Allergy Relief (fluticasone)) administer into each nostril 1 spray intranasal BID 16 grams 2RF 30 days Changed From nystatin 3 PO PRN To nystatin 4 mL PO TID PRN 60 mL 2RF thrush 10 days Refilled ezetimibe (Zetia) 10 mg PO DAILY 90 tabs 3RF montelukast 10 mg PO DAILY 90 tabs 1RF J45.909 - Unspecified asthma, uncomplicated Breo Ellipta 100-25 mcg/dose (fluticasone furoate-vilanterol) 1 inh inhalation DAILY 60 ea 6RF NS J45.909 - Unspecified asthma, uncomplicated Coding Level of Care Code New Pt Prev Care 40-64y([address]) Diagnoses Screening for colon cancer Z12.11 Physical exam Z00.00 Postmenopausal Z78.0 Pelvic pain R10.2 Enlarged thyroid E04.9
[2024-02-01 15:50] VITALS: BP 120/80; PULSE 86; O2SAT 97; BMI 31.3
== END 2024-02-01 16:56 | disposition home or self-care (01) ==
PROVIDERS: PCP Internal Medicine; Visit Provider Nurse Practitioner Family
DX: Z12.11 Encounter for screening for malignant neoplasm of colon (principal); Z00.00 Encounter for general adult medical examination without abnormal findings; Z78.0 Asymptomatic menopausal state; R10.2 Pelvic and perineal pain; E04.9 Nontoxic goiter, unspecified
CPT/HCPCS: 99386

== ENCOUNTER 2024-02-12 06:14 | Outpatient (REF) | payer OTHER, SELFPAY ==
[2024-02-12 10:29] LABS: MANUAL DIFF FLAG NO
[2024-02-12 10:35] LABS: Basophils Absolute Auto 0.1 X10*3/uL (0.0-0.2); Basophils Percent Auto 0.8 % (0-2); Eosinophils Absolute Auto 0.3 X10*3/uL (0.0-0.4); Eosinophils Percent Auto 5.2 % (0-4); Hematocrit 39.1 % (37.0-47.0); Hemoglobin 12.4 g/dl (12.0-16.0); Imm Gran Abs Auto 0.02 X10*3/uL (0.00-0.03); Imm Gran Pct Auto 0.3 % (0.0-0.4); Lymphocytes Absolute Auto 1.8 X10*3/uL (1.2-4.9); Lymphocytes Percent Auto 28.6 % (20-40); Mean Corpuscular HGB Conc 31.7 g/dl (31.0-35.0); Mean Corpuscular Hemoglobin 26.8 pg (27.0-33.0); Mean Corpuscular Volume 84.4 fL (80.0-98.0); Mean Platelet Volume 10.3 fL (9.4-12.3); Monocytes Absolute Auto 0.4 X10*3/uL (0.1-1.2); Neutrophils Absolute Auto 3.7 x10*3/uL (2.0-8.3); Neutrophils Percent Auto 59.1 % (45-73); Platelet Count 221 X10*3/uL (160-400); Red Blood Count 4.63 X10*6/uL (4.20-5.50); Red Cell Distribution Width 14.3 % (11.0-16.0); White Blood Count 6.2 X10*3/uL (4.8-10.8)
[2024-02-12 10:38] LABS: Appearance Urine Clear; Color Urine Yellow; Glucose Urine UA Negative (Negative); Leukocyte Esterase Urine Negative (Negative); Nitrite Urine Negative (Negative); PH 5.5 (5.0-9.0); Urine Blood Negative (Negative); Urine Ketones Negative (Negative); Urine Protein Negative (Neg-Trace)
[2024-02-12 11:05] LABS: Alanine Aminotransferase 12 U/L (0-31); Albumin Level 3.8 g/dL (3.5-5.0); Alkaline Phosphatase 81 U/L (39-117); Anion Gap 15 (12-20); Aspartate Amino Transferase 14 U/L (5-31); Bilirubin Total 0.4 mg/dL (0.0-1.0); Blood Urea Nitrogen 12 mg/dL (9-16); Calcium 9.4 mg/dL (8.4-10.2); Carbon Dioxide 25 mmol/L (22-29); Chloride 107 mmol/L (96-108); Cholesterol 162 mg/dL (<200); Estimated Glomerular Filt Rate > 60; Glucose Fasting 87 mg/dL (60-99); HDL Cholesterol 36 mg/dL (>40); LDL Cholesterol Calculated 98 mg/dL (<100); Potassium 3.9 mmol/L (3.3-5.1); Sodium 143 mmol/L (135-145); Total Protein 6.9 g/dL (6.5-8.0); Triglycerides 142 mg/dL (<150)
[2024-02-12 11:10] LABS: TSH reflex Free T4 0.71 uIU/mL (0.32-4.0); Vitamin D 25-OH Total 32.9 ng/mL (>30)
== END 2024-02-12 06:15 | disposition home or self-care (01) ==
LOC: HO.HMGCLDS 06:14
PROVIDERS: PCP Nurse Practitioner Family; Visit Provider Nurse Practitioner Family
DX: Z00.00 Encounter for general adult medical examination without abnormal findings (principal); Z78.0 Asymptomatic menopausal state
CPT/HCPCS: 36415; 80053; 80061; 81003; 82306; 84443; 85025

== ENCOUNTER 2024-02-12 16:52 | Emergency (ER) | payer OTHER, SELFPAY ==
--- NOTE | ~2024-02-12 | US_ITS ---
STUDY: Focused right lower quadrant ultrasound. INDICATION/CLINICAL HISTORY: Right lower quadrant pain. White blood cell count is 7.5. COMPARISON: None available. TECHNIQUE: Focused ultrasound of the right lower quadrant was performed. US/US appendix FINDINGS/IMPRESSION: The appendix is not identified by ultrasound. There is no free fluid identified within the right lower quadrant. The right ovary is not identified.
[2024-02-12 17:28] VITALS: BP 120/87; PULSE 86; RESP 16; TEMP 36.6; O2SAT 100; BMI 31.7
--- NOTE | 2024-02-12 17:31 | ED_ITS ---
HPI - Abdominal Pain General Chief Complaint: Abdominal Pain Stated Complaint: abd pain Related Data Home Medications ?Medication ?Instructions ?Recorded ?Confirmed pregabalin 100 mg capsule (Lyrica) 100 mg PO BID 09/07/20 02/01/24 lorazepam 0.5 mg tablet (Ativan) 0.5 mg PO BEDTIME PRN 02/01/24 02/01/24 Previous Rx's ?Medication ?Instructions ?Recorded meclizine 25 mg tablet 25 mg PO TID PRN dizziness #30 tabs 07/27/21 buspirone 5 mg tablet 5 mg PO BID #180 tabs 11/09/21 albuterol sulfate 90 mcg/actuation 2 puff inhalation Q6H PRN 12/23/21 aerosol inhaler shortness of breath or wheezing #8.5 grams nirmatrelvir 300 mg (150 mg See Rx Instructions PO .COMPLEX 02/03/22 x2)-ritonavir 100 mg tablet,dose #30 tabs pack ProAir HFA 90 mcg/actuation 2 puff inhalation Q6H PRN 04/08/22 aerosol inhaler (albuterol sulfate) shortness of breath or wheezing #8.5 grams acetaminophen 325 mg tablet 325 mg PO Q6H PRN pain #60 tabs 06/06/23 Breo Ellipta 100 mcg-25 mcg/dose 1 inh inhalation DAILY #60 ea 02/01/24 powder for inhalation (fluticasone furoate-vilanterol) ezetimibe 10 mg tablet (Zetia) 10 mg PO DAILY #90 tabs 02/01/24 fluticasone propionate 50 1 spray intranasal BID 30 days #16 02/01/24 mcg/actuation nasal grams spray,suspension (Allergy Relief (fluticasone)) montelukast 10 mg tablet 10 mg PO DAILY #90 tabs 02/01/24 nystatin 100,000 unit/mL oral 4 ml PO TID PRN thrush 10 days #60 02/01/24 suspension mL Allergies Allergy/AdvReac Type Severity Reaction Status Date / Time citalopram [From CELEXA] Allergy Unknown PANIC Verified 02/13/24 08:36 ATTACK clarithromycin [From BIAXIN] Allergy Unknown UNKNOWN Verified 02/13/24 08:36 moxifloxacin [From AVELOX] Allergy Unknown RASH Verified 02/13/24 08:36 Sulfa (Sulfonamide Allergy Unknown rash/joint Verified 02/13/24 08:36 Antibiotics) pain PMFSH Past Medical History Medical History (Updated 02/13/24 @ 17:00 by CORINNA Estes) JORDAN (obstructive sleep apnea) PAC (premature atrial contraction) Hyperlipidemia Annual physical exam Vertigo Shoulder pain, bilateral Injury of left brachial plexus Normal Pap smear Tobacco dependence Fibromyalgia Degeneration of lumbar intervertebral disc Cervical radiculopathy due to degenerative joint disease of spine Arthritis Bilateral ankle pain Hip pain, bilateral Neck pain Surgical History No pertinent past surgical history Family History Family History Father Bladder cancer History of heart attack Mother No problems noted. Brother Substance use disorder Brother Substance use disorder Social History Social History Housing: House Alcohol intake: never Patient Tobacco Use Status: Current everyday Tobacco user Cigarette Packs Per Day: 0 Cigarettes Per Day: 15 Current occupational status: disabled Cognitive needs: No Hearing needs: No Vision needs: No Physical Exam ED Vital Signs: Vital Signs - 24 hr 02/12/24 17:28 Temperature 97.8 F Pulse Rate 86 Respiratory Rate 16 Blood Pressure 120/87 Pulse Oximetry 100 Oxygen Delivery Method Room Air BMI result Body Mass Index 31.7 Course Course Course Narrative: This is an RME: Additional HPI, ROS, PE not included below will be deferred to primary provider. RME assessment and note performed by: Arpita aSnchez PA-C This is a 34-qxut-ski-female presenting to the emergency department with complaints of right lower abdominal pain. Patient states that she has had ongoing right lower quadrant pain for ?some time?, however states that this has since worsened since yesterday. Reporting sharp pain starting in her umbilical region and radiates into her right lower quadrant. Positive Rovsing's as well as sharp right-sided abdominal pain with palpation. Plan: Labs, ultrasound appendix, UA, further ER evaluation needed. Reevaluation(s) Reevaluation #1: Patient left without completing treatment. Medical Decision Making Lab Data 02/12/24 17:50 02/12/24 17:50 Labs: Lab Results 02/12/24 Range/Units 17:50 WBC 7.5 (4.8-10.8) X10*3/uL RBC 4.81 (4.20-5.50) X10*6/uL Hgb 13.2 (12.0-16.0) g/dl Hct 40.5 (37.0-47.0) % MCV 84.2 (80.0-98.0) fL MCH 27.4 (27.0-33.0) pg MCHC 32.6 (31.0-35.0) g/dl RDW 13.9 (11.0-16.0) % Plt Count 225 (160-400) X10*3/uL MPV 9.9 (9.4-12.3) fL Immature Gran % (Auto) 0.3 (0.0-0.4) % Neut % (Auto) 62.0 (45-73) % Lymph % (Auto) 27.3 (20-40) % Chambers % (Auto) 5.7 (2-11) % Eos % (Auto) 4.0 (0-4) % Baso % (Auto) 0.7 (0-2) % Lymph # (Auto) 2.1 (1.2-4.9) X10*3/uL Chambers # (Auto) 0.4 (0.1-1.2) X10*3/uL Eos # (Auto) 0.3 (0.0-0.4) X10*3/uL Baso # (Auto) 0.1 (0.0-0.2) X10*3/uL Abs Immat Gran (auto) 0.02 (0.00-0.03) X10*3/uL Absolute Neuts (auto) 4.7 (2.0-8.3) x10*3/uL Absolute Nucleated RBC 0.000 (0.0-0.012) X10*3/uL Nucleated RBC % (auto) 0.0 (0.0-0.2) /100WBC Sodium 142 (135-145) mmol/L Potassium 4.2 (3.3-5.1) mmol/L Chloride 106 (96-108) mmol/L Carbon Dioxide 23 (22-29) mmol/L Anion Gap 17 (12-20) BUN 14 (9-16) mg/dL Creatinine 0.81 (0.5-1.4) mg/dL Estim Creat Clear Calc 98.7 Estimated GFR > 60 Random Glucose 94 (60-115) mg/dL Calcium 10.3 H D (8.4-10.2) mg/dL Magnesium 2.2 (1.6-2.6) mg/dL Total Bilirubin 0.3 (0.0-1.0) mg/dL Direct Bilirubin 0.1 (0.0-0.5) mg/dL AST 14 (5-31) U/L ALT 11 (0-31) U/L Alkaline Phosphatase 94 (39-117) U/L Total Protein 7.4 (6.5-8.0) g/dL Albumin 4.2 (3.5-5.0) g/dL Lipase 29 (8-78) U/L Urine Color Yellow Urine Appearance Clear Urine pH 5.5 (5.0-9.0) Ur Specific [place] 1.020 (1.005-1.025) Urine Protein Negative (Neg-Trace) mg/dL Urine Glucose (UA) Negative (Negative) mg/dL Urine Ketones Negative (Negative) mg/dL Urine Blood Negative (Negative) Urine Nitrite Negative (Negative) Ur Leukocyte Esterase Negative (Negative) Discharge Plan Discharge Clinical Impression: Abdominal pain Patient Disposition: Left W/O Completing Treatment Prescriptions: No Action meclizine 25 mg tablet 25 mg PO TID PRN (Reason: dizziness) Qty: 30 2RF albuterol sulfate 90 mcg/actuation HFA aerosol inhaler 2 puff inhalation Q6H PRN (Reason: shortness of breath or wheezing) Qty: 8.5 1RF nirmatrelvir-ritonavir 150 mg x 2- 100 mg tablet See Rx Instructions PO .COMPLEX Qty: 30 0RF Rx Instructions: take TWO 150 mg tablets of nirmatrelvir with ONE 100 mg tablet of ritonavir twice daily for 5 days PO albuterol sulfate [ProAir HFA] 90 mcg/actuation HFA aerosol inhaler 2 puff inhalation Q6H PRN (Reason: shortness of breath or wheezing) Qty: 8.5 1RF acetaminophen 325 mg tablet 325 mg PO Q6H PRN (Reason: pain) Qty: 60 0RF pregabalin [Lyrica] 100 mg capsule 100 mg PO BID buspirone 5 mg tablet 5 mg PO BID Qty: 180 3RF lorazepam [Ativan] 0.5 mg tablet 0.5 mg PO BEDTIME PRN ezetimibe [Zetia] 10 mg tablet 10 mg PO DAILY Qty: 90 3RF nystatin 100,000 unit/mL suspension 4 ml PO TID PRN (Reason: thrush) 10 Days Qty: 60 2RF montelukast 10 mg tablet 10 mg PO DAILY Qty: 90 1RF Breo Ellipta 100-25 mcg/dose blister with device 1 inh inhalation DAILY Qty: 60 6RF fluticasone propionate [Allergy Relief (fluticasone)] 50 mcg/actuation spray,suspension 1 spray intranasal BID 30 Days Qty: 16 2RF Rx Instructions: administer into each nostril Discharge Date/Time: 02/12/24 23:04
[2024-02-12 17:55] LABS: MANUAL DIFF FLAG NO
[2024-02-12 17:56] LABS: Basophils Absolute Auto 0.1 X10*3/uL (0.0-0.2); Basophils Percent Auto 0.7 % (0-2); Eosinophils Absolute Auto 0.3 X10*3/uL (0.0-0.4); Hematocrit 40.5 % (37.0-47.0); Hemoglobin 13.2 g/dl (12.0-16.0); Imm Gran Abs Auto 0.02 X10*3/uL (0.00-0.03); Imm Gran Pct Auto 0.3 % (0.0-0.4); Lymphocytes Absolute Auto 2.1 X10*3/uL (1.2-4.9); Lymphocytes Percent Auto 27.3 % (20-40); Mean Corpuscular HGB Conc 32.6 g/dl (31.0-35.0); Mean Corpuscular Hemoglobin 27.4 pg (27.0-33.0); Mean Corpuscular Volume 84.2 fL (80.0-98.0); Mean Platelet Volume 9.9 fL (9.4-12.3); Monocytes Absolute Auto 0.4 X10*3/uL (0.1-1.2); Monocytes Percent Auto 5.7 % (2-11); Neutrophils Absolute Auto 4.7 x10*3/uL (2.0-8.3); Platelet Count 225 X10*3/uL (160-400); Red Blood Count 4.81 X10*6/uL (4.20-5.50); Red Cell Distribution Width 13.9 % (11.0-16.0); White Blood Count 7.5 X10*3/uL (4.8-10.8)
[2024-02-12 17:57] LABS: Appearance Urine Clear; Color Urine Yellow; Glucose Urine UA Negative (Negative); Leukocyte Esterase Urine Negative (Negative); Nitrite Urine Negative (Negative); PH 5.5 (5.0-9.0); Urine Blood Negative (Negative); Urine Ketones Negative (Negative); Urine Protein Negative (Neg-Trace)
[2024-02-12 18:19] LABS: Alanine Aminotransferase 11 U/L (0-31); Albumin Level 4.2 g/dL (3.5-5.0); Alkaline Phosphatase 94 U/L (39-117); Anion Gap 17 (12-20); Aspartate Amino Transferase 14 U/L (5-31); Bilirubin Direct 0.1 mg/dL (0.0-0.5); Bilirubin Total 0.3 mg/dL (0.0-1.0); Blood Urea Nitrogen 14 mg/dL (9-16); Calcium 10.3 mg/dL (8.4-10.2); Carbon Dioxide 23 mmol/L (22-29); Chloride 106 mmol/L (96-108); Creatinine Clr Calc Pharmacy 98.7; Estimated Glomerular Filt Rate > 60; Glucose Random 94 mg/dL (60-115); Lipase 29 U/L (8-78); Magnesium 2.2 mg/dL (1.6-2.6); Potassium 4.2 mmol/L (3.3-5.1); Sodium 142 mmol/L (135-145); Total Protein 7.4 g/dL (6.5-8.0)
--- OUTSIDE RECORDS SUMMARY | 2024-02-12 23:02 | XMS_ITS | Continuity of Care Document ---
Author Organization [facility] Address [address] [facility] [address] [facility] [address] [place] [address]- Care Team Providers Care Salesperson Art Objects Name Role Phone Albania Martin MD Primary Care Physician Encounter 12/22/23 - 12/29/23 [facility] [address], [address] [place], [place] [address] Attending Physician: Harry Choi MD Admitting [...] influenza virus vaccine, inactivated 08/21/13 Give n pneumococcal 23-valent vaccine 03/12/10 Given Medications Aerochamber See Instructions, # 1 units, Maintenance, use with Q bryanna bid, 09/22/17 8:48:39, Compound Start Date: 09/22/17 Status: Ordered Aerochamber for Pro air inhaler. Aerochamber for Pro air inhaler., See Instructions, # 1 each, Refills 0, Tot. Refills 0, Maintenance, Uses with Pro Air inhaler. 2 puffs q 4 hours for wheezing, 01/07/14 16:09:44, Compound Start Date: 01/07/14 Status: Ordered Ativan 0.5 mg oral tablet 1 tablet = 0.5 mg, By Mouth, 2 times a day, PRN as needed for anxiety, # 14 tablet, 0 Refills, Acute 03/05/24 12:37:00 EDT, 12/04/23 12:36:00 EDT, Tablet, [facility]/pharmacy #[id number], Partial fill upon patient request if the prescription is for a schedule II o... Start Date: 12/04/23 Stop Date: 03/05/24 Status: Ordered Breo Ellipta 100 mcg-25 mcg/inh inhalation powder See Instructions, INHALE 1 PUFF EVERY DAY FOR 30 DAYS, # 60 each, 5 Refills, Maintenance, 12/04/23 12:37:00 EDT, [id number], 30, INHALE 1 PUFF EVERY DAY FOR 30 DAYS, 175.26, cm, 11/13/23 12:38:00 EST, Height Start Date: 12/04/23 Status: Ordered Breo Ellipta 100 mcg-25 mcg/inh inhalation powder 1 puffs, Inhalation, Daily, # 30 each, 1 Refills, Maintenance, 11/30/23 10:04:00 EST, Powder, [facility]/pharmacy #[id number], Partial fill upon patient request if the prescription is for a schedule II opioid drug., 1 puffs Inhalation Daily,x30 days, 175.26, cm, 0... Start Date: 11/30/23 Stop Date: 01/29/24 Status: Ordered busPIRone 5 mg oral tablet 1, tablet, By Mouth, 2 times a day, # 180 tablet, Refills 1, Maintenance, 11/13/23 16:57:00 EST, Route to Pharmacy Electronically, [id number], 175.26, cm, 11/13/23 12:38:00 EST, Height Start Date: 11/13/23 Status: Ordered cyclobenzaprine 5 mg oral tablet 1 tablet = 5 mg, By Mouth, 3 times a day, # 40 tablet, 1 Refills, Acute 09/04/24 12:10:00 EST, 07/05/23 12:10:00 EDT, [id number], Partial fill upon patient request if the prescription is for a schedule II opioid drug., 175.26, cm, 07/05/23 11:... Start Date: 07/05/23 Stop Date: 09/04/24 Status: Ordered Diflucan 150 mg oral tablet See Instructions, 1 tablet By mouth every 3 days, # 3 tablet, 0 Refills, Maintenance, 11/13/23 13:09:00 EST, Tablet, [id number], Partial fill upon patient request if the prescription is for aschedule II opioid drug., 175.26, cm, 11/13/23 12:3... Start Date: 11/13/23 Status: Ordered ezetimibe 10 mg oral tablet 1 tablet = 10 mg, By Mouth, Daily, # 90 tablet, 0 Refills, Maintenance, 10/11/23 10:51:00 EST, Tablet, [id number], Partial fill upon patient request if the prescription is for a schedule II opioid drug., 175.26, cm, 08/01/23 8:35:00 EST, Height Start Date: 10/11/23 Status: Ordered fluticasone 50 mcg/inh nasal spray [...] EST, Compound Start Date: 10/08/18 Status: Ordered Lidocaine Viscous 2% solution See Instructions, PRN for mouth sore pain, 10 mL by mouth, Swish, hold in mouth then Spit , 3x Daily, # 100 mL, 0 Refills, Maintenance, 11/13/23 13:12:00 EST, Solution, [id number], Partial fill upon patient request if the prescription is for a... Start Date: 11/13/23 Status: Ordered montelukast 10 mg oral tablet See Instructions, TAKE 1 TABLET BY MOUTH DAILY IN THE EVENING, # 90 tablet, Refills 3, Tot. Refills3, Soft Stop, 07/05/23 12:11:00 EDT, Instructions Replace Required Details, Route to Pharmacy Electronically, [id number], 175.26, cm, 07/05/23... Start Date: 07/05/23 Status: Ordered pregabalin 100 mg oral capsule 1 capsule = 100 mg, By Mouth, 3 times a day, # 90 capsule, 5 Refills, Maintenance, 07/05/23 12:12:00 EDT, Capsule, [id number], Partial fill upon patient request if the prescription is for a schedule II opioid drug., 175.26, cm, 07/05/23 11:35:... Start Date: 07/05/23 Stop Date: 01/01/24 Status: Ordered Ventolin HFA 108 mcg/inh inhalation aerosol with adapter 2 puffs, Inhalation, Every 4 hours, PRN for wheezing, # 18 Gm, 5 Refills, Maintenance, 07/05/23 12:13:00 EDT, Aerosol, [id number], Partial fill upon patient request if the prescription is fora schedule II opioid drug., 175.26, cm, 07/05/23 11... 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 No known palpable abnormalities. History of benign right needle biopsies in 2012 and 2016. COMPARISON: Priors, most recent dated 12/19/2022 TECHNIQUE: Full-field digital CC and MLO 3D tomosynthesis images of both breasts were acquired. Computer-aided detection (CAD) was utilized in the interpretation of this study. DENSITY: The breast tissue There are scattered areas of fibroglandular density. FINDINGS: No suspicious masses, suspicious microcalcifications, or areas of architectural distortion are seen in either breast to suggest malignancy. Stable biopsy-proven fibroadenoma with associatedbiopsy clip in the upper outer right breast. Stable additional biopsy clip in the lateral midright breast. IMPRESSION: No mammographic evidence of malignancy. RECOMMENDATION: Annual mammographic screening BI-RADS: 2 (Benign) Lay letter mailed to patient WSN: [id number] Ordering Physician: Harry Choi MD Dictated By: Soumya Mcfadden MD Dictated Date/Time: 12/22/23 10:35 am Reviewed By: Soumya Mcfadden MD Signed By: Soumya Mcfadden MD Signed Date/Time: 12/22/23 10:35 am Transcribed By: JESSE Enologist Date/Time: 12/22/23 10:24 am Birads: Social History Social History Type Response Smoking Status Current every day sm oker; Tobacco use times per day: 3/4 pack; entered on: 08/26/14 Sex Female Patient Care team information Care Team Personnel Name: Albania Martin MD Position: [facility] Physician - Primary Care Member Role: PCP Address: Address: [address] [place] [address]- [place] Care Team Related Persons Name: FAVIAN SWARTZ Address: [address] [place] [address] Name: FAVIAN SWARTZ Address: home [address] [place] [address]
--- OUTSIDE RECORDS SUMMARY | 2024-02-12 23:02 | XMS_ITS | Continuity of Care Document ---
Author Organization [facility] Address [address] [place] [address] [address], [address] [place] [address]- Care Team Providers Care Service Order Dispatcher Chief Name Role Phone Albania Martin MD Primary Care Physician [phone] Encounter [facility] [place] Date(s): 07/06/23 - 08/05/23 [facility] [address] [place] [address], [address] [place], [place] [address] Allergies, Adverse Reactions, Alerts Substance Reaction Severity Status sulfADIAZINE Active Vicodin shallow breathing Active Avelox rash Active Biaxin diarrhea Active CeleXA tachycardia, burning sensation Active Immunizations [...] Date: 01/09/23 Stop Date: 10/06/23 Status: Ordered cyclobenzaprine 5 mg oral tablet 1 tablet = 5 mg, By Mouth, 3 times a day, # 40 tablet, 1 Refills, Acute 09/04/24 12:10:00 EST, 07/05/23 12:10:00 EDT, [facility]/pharmacy #[id number], Partial fill upon patient request if the prescription is for a schedule II opioid drug., 175.26, cm, 07/05/23 11:... Start Date: 07/05/23 Stop Date: 09/04/24 Status: Ordered ezetimibe 10 mg oral tablet [...] AND SINU... Start Date: 12/14/22 Status: Ordered ibuprofen 800 mg oral tablet 800 mg, 1, tablet, By Mouth, 3 times a day, with food or milk, may take less , may give abdominal pain, # 90 tablet, Refills 1, Tot. Refills 1, Acute 10/05/23 12:14:00 EST, 07/05/23 12:14:00 EDT, Route to Pharmacy Electronically, [facility]/pharmacy #[id number], P... Start Date: 07/05/23 Stop Date: 10/05/23 Status: Ordered left arm sling left arm sling, See Instructions, # 1 units, Refills 0, Tot. Refills 0, Maintenance, use daily dx: arm pain neuropathic, 10/08/18 10:58:37 EST, Compound Start Date: 10/08/18 Status: Ordered meclizine 25 mg oral tablet 1 tablet = 25 mg, By Mouth, 3 times a day, PRN for dizziness, # 30 tablet, 1 Refills, Acute 11/11/23 15:43:00 EST, 07/11/23 15:43:00 EDT, Tablet, [facility]/pharmacy #[id number], 175.26, cm, 07/05/23 11:35:00 EDT, Height Start Date: 07/11/23 Stop Date: 11/11/23 Status: Ordered montelukast 10 mg oral tablet See Instructions, TAKE 1 TABLET BY MOUTH DAILY IN THE EVENING, # 90 tablet, Refills 3, Tot. Refills3, Soft Stop, 07/05/23 12:11:00 EDT, Instructions Replace Required Details, Route to Pharmacy Electronically, [facility]/pharmacy #[id number], 175.26, cm, 07/05/23... Start Date: 07/05/23 Status: Ordered nicotine 4 mg oral transmucosal gum 1 each = 4 mg, Chew, Every 2 hours, PRN as needed for smoking cessation, for 6 week(s), as directedon package labeling, # 160 each, 1 Refills, Acute 09/27/23 12:15:00 EST, 07/05/23 12:15:00 EDT, Gum, [facility]/pharmacy #[id number], Partial fill upon patient requ... 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
--- OUTSIDE RECORDS SUMMARY | 2024-02-12 23:02 | XMS_ITS | Patient Health Record ---
Author [facility] Address [address] [facility] [place] [address] Care Team Providers Care Sales Trader Name Role Phone Vannessa Rivas MD Primary Care Provider Unavaila Shanthi Fermin Unavailable [phone] Lyndon Villavicencio Unavailable [phone] ALLERGIES Allergen (clinical drug ingredient) Drug/Non Drug Allergy documented on EMR Reaction Allergy Type Onset Date Status nicotine patch (uncoded) drooling at night Allergy Active sulfamethoxazole / trimethoprim Bactrim rash Drug Allergy Active clarithromycin Biaxin Diarrhea Drug Allergy Ac tive REASON FOR REFERRAL No Information MEDICATIONS Medication SIG (Take, Route, Frequency, Duration) Notes Start Date End Date Status Atorvastatin Calcium 10 MG 1 tablet Orally Once a day for 30 day(s) Not-Taking Myrbetriq Active Zetia Active Vitamin D Active Breo Ellipta Active ProAir HFA Active busPIRone HCl 5 MG 1 tablet Orally Twic e a day Active Singulair 10 MG 1 tablet Orally Once a day for 30 day(s) Active Lyrica Active Nightsplint . . . AFO - L1930 for . Active Lynox Not-Taking Ativan PRN Active Ciclopirox 0.77 % 1 application Externally Twice a day for 365 days Active IMMUNIZATIONS Vaccine Route Administration Date Status [...] often do you smoke cigarettes? every day How many cigarettes a day do you smoke? 11-20 How soon after you wake up do you smoke your fir st cigarette? 6-30 minutes Are you interested in quitting? Ready to quit Alcohol Screen Question Answer Notes Did you have a drink containing alcohol in the p ast year? No Points 0 Interpretation Negative Tobacco use other than smoking: Question Answer Notes Are you an other tobacco user? No VITAL SIGNS Height 5 ft 8 in in 01/23/2024 Weight 205 lbs 01/23/2024 BMI 31.17 kg/m2 01/23/2024 Encounters Encounter Location Date [facility] [address] [place] [address] 01/23/2024 Shanthi Marrufoa Fungal infection of nail B35.1 and Pain in left toe(s) M79.675 [facility] [address] [place] [address] 01/24/2024 [facility] Donovan [facility] [address] [facility] [address] [place] [address] 01/29/2024 Lyndon Villavicencio ASSESSMENTS Encounter Date Diagnosis Assessment Notes Treatment Notes Treatment Clinical Notes 01/23/2024 Pain in left toe(s) (ICD-10 - M79.675) 01/23/2024 Fungal infection of nail (ICD-10 - B35.1) Rx management (4) PLAN OF TREATMENT Pending Test Test Name Order Date X ray : Foot, right 3V 05/19/2021 Insurance Providers Payer Name Payer Address Payer Phone Subscriber Number Group Number Insured Name Patient Relationship to Insured Coverage Start Date Coverage End Date [facility] [employer] Claims [address] [place] [phone] [id number] Dorina Holguin Self - patient is the insured MEDICAL (GENERAL) HISTORY Medical History History ICD Code Anxiety asthma Back,Hip,and Knee pain CAD (Cholesterol) Fibromyalgia Gall bladder problems Numbness Reflux ( GERD) chronic sinusitis Surgical History Surgery Date(Month/Year) gall bladder 2005 ablation surgery 2013
--- OUTSIDE RECORDS SUMMARY | 2024-02-12 23:03 | XMS_ITS | Continuity of Care Document ---
Author Organization [facility] Address [address] [place] [address]- Care Team Providers Care Pest Control Service Technician Name Role Phone Albania Martin MD Primary Care Physician En[place] [facility] [place] Date(s): 08/07/23 - 09/06/23 [facility] [address] [place], [place] [address] Attending Physician: Rica Tony Admitting Physician: AdmtrRica Referring Physician: Admtr, ArMike Allergies, Adverse Reactions, Alerts Substance Reaction Severity Status sulfADIAZINE Active Biaxin diarrhea Active Vicodin shallow breathing Active CeleXA tachycardia, burning sensation Active Avelox rash Active Immunizations Given and Recorded Vaccine Date [...] 5 Refills, Maintenance, 01/09/23 9:26:00 EDT, Powder, [facility]/pharmacy #[id number], Partial fill upon patient request [...] 01/09/23 9:27:00 EDT, Route to Pharmacy Electronically, [facility]/pharmacy #[id number], Partial fill upon patient request [...] 3 Refills, Maintenance, 01/09/23 9:25:00 EDT, Tablet, [facility]/pharmacy #[id number], Partial fill upon patient request [...] 07/05/23 12:14:00 EDT, Route to Pharmacy Electronically, [facility]/pharmacy #[id number], P... Start Date: 07/05/23 Stop Date: [...] 11/11/23 15:43:00 EST, 07/11/23 15:43:00 EDT, Tablet, [facility]/pharmacy #[id number], 175.26, cm, 07/05/23 11:35:00 EDT, Height Start Date: 07/11/23 Stop Date: 11/11/23 Status: Ordered montelukast 10 mg oral tablet See Instructions, TAKE 1 TABLET BY MOUTH DAILY IN THE EVENING, # 90 tablet, Refills 3, Tot. Refills3, Soft Stop, 07/05/23 12:11:00 EDT, Instructions Replace Required Details, Route to Pharmacy Electronically, [facility]/pharmacy #[id number], 175.26, cm, 07/05/23... Start Date: 07/05/23 Status: Ordered nicotine 4 mg oral transmucosal gum 1 each = 4 mg, Chew, Every 2 hours, PRN as needed for smoking cessation, for 6 week(s), as directedon package labeling, # 160 each, 1 Refills, Acute 09/27/23 12:15:00 EST, 07/05/23 12:15:00 EDT, Gum, [facility]/pharmacy #[id number], Partial fill upon patient requ... 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, smokes one pack of cigarettes daily, and rarely drinks alcohol Social History Social History Type Response Smoking Status Current every day sm oker; Tobacco use times per day: 3/4 pack; entered on: 08/26/14 Sex Female Patient Care team information Care Team Personnel Name: Albania Martin MD Position: [facility] Physician - Primary Care Member Role: PCP Address: Address: [address] [place] [address] [place] [address]- Care Team Related Persons Name: FAVIAN SWARTZ Address: [address] [address] Name: FAVIAN SWARTZ Address: home [address] [place] [address]
--- OUTSIDE RECORDS SUMMARY | 2024-02-12 23:03 | XMS_ITS | Continuity of Care Document ---
Author Organization [facility] [address], [address] [place] [address]- Care Team Providers Care Machine Filler Name Role Phone Albania Martin MD Primary Care Physician [phone] [place] [facility] [place] - 08/08/[address], [address] [place], [place] [address] Attending Physician: Michael MELENDEZ, Fatmata Lance Referring Physician: Albania Martin MD Allergies, Adverse [...] 01/09/23 9:27:00 EDT, Route to Pharmacy Electronically, [facility]/pharmacy #[id number], Partial fill upon [...] 07/05/23 12:14:00 EDT, Route to Pharmacy Electronically, [facility]/pharmacy #[id number], P... Start Date: 07/05/23 Stop Date: [...] 11/11/23 15:43:00 EST, 07/11/23 15:43:00 EDT, Tablet, [facility]/pharmacy #[id number], 175.26, cm, 07/05/23 11:35:00 EDT, Height Start Date: 07/11/23 Stop Date: 11/11/23 Status: Ordered montelukast 10 mg oral tablet See Instructions, TAKE 1 TABLET BY MOUTH DAILY IN THE EVENING, # 90 tablet, Refills 3, Tot. Refills3, Soft Stop, 07/05/23 12:11:00 EDT, Instructions Replace Required Details, Route to Pharmacy Electronically, [facility]/pharmacy #[id number], 175.26, cm, 07/05/23... Start Date: 07/05/23 Status: Ordered nicotine 4 mg oral transmucosal gum 1 each = 4 mg, Chew, Every 2 hours, PRN as needed for smoking cessation, for 6 week(s), as directedon package labeling, # 160 each, 1 Refills, Acute 09/27/23 12:15:00 EST, 07/05/23 12:15:00 EDT, Gum, [facility]/pharmacy #[id number], Partial fill upon patient requ... 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, smokes one pack of cigarettes daily, and rarely drinks alcohol Vital Signs Most recent to oldest [Reference Range]: 1 Height 175.26 cm (08/01/23 8:35 AM) Weight 93 kg (08/01/23 8:35 AM) Body Mass Index [18.5-24.99 kg/m2] 30.28 kg/m2 *>HHI* (08/01/23 8:35 AM) Social History Social History Type Response Smoking Status Current every day sm oker; Tobacco use times per day: 3/4 pack; entered on: 08/26/14 Sex Female Patient Care team information Care Team Personnel Name: Albania Martin MD Position: [facility] Physician - Primary Care Member Role: PCP Address: Address: [address] [place] [address] [place] [address]- Care Team Related Persons Name: FAVIAN SWARTZ Address: home [address] [place] [address] Name: FAVIAN SWARTZ Address: [address] [address]
--- OUTSIDE RECORDS SUMMARY | 2024-02-12 23:03 | XMS_ITS | Continuity of Care Document ---
Author Organization [facility] ter Address [address] [place] [address]- Care Team Providers Care It Consulting Director Name Role Phone Albania Martin MD Primary Care Physician [place] [facility] [place] - 12/02/[address] [address]- Encounter Diagnosis Anxiety(Final) - 12/02/23 Panic attack(Final) - 12/02/23 Premature atrial complexes(Final) - 12/02/23 Discharge Disposition: A-D/C Home Attending Physician: Karyn Zhou MD Admitting Physician: Karyn Zhou MD Referring Physician: Not on Staff, Referring MD Allergies, Adverse Reactions, Alerts Substance Reaction [...] 1 Refills, Maintenance, 11/30/23 10:04:00 EST, Powder, [facility]/pharmacy #[id number], Partial fill upon patient request if the prescription is for a schedule II opioid drug., 1 puffs Inhalation Daily,x30 days, 175.26, cm, 0... Start Date: 11/30/23 Stop Date: 01/29/24 Status: Ordered busPIRone 5 mg oral tablet 1, tablet, By Mouth, 2 times a day, # 180 tablet, Refills 1, Maintenance, 11/13/23 16:57:00 EST, Route to Pharmacy Electronically, [id number], 175.26, cm, 11/13/23 12:38:00 EST, Height Start Date: 11/13/23 Status: Ordered cyclobenzaprine 5 mg oral tablet 1 tablet = 5 mg, By Mouth, 3 times a day, # 40 tablet, 1 Refills, Acute 09/04/24 12:10:00 EST, 07/05/23 12:10:00 EDT, [facility]/pharmacy #[id number], Partial fill upon patient request if the prescription is for a schedule II opioid drug., 175.26, cm, 07/05/23 11:... Start Date: 07/05/23 Stop Date: 09/04/24 Status: Ordered Diflucan 150 mg oral tablet See Instructions, 1 tablet By mouth every 3 days, # 3 tablet, 0 Refills, Maintenance, 11/13/23 13:09:00 EST, Tablet, [facility]/pharmacy #[id number], Partial fill upon patient request if the prescription is for aschedule II opioid drug., 175.26, cm, 11/13/23 12:3... Start Date: 11/13/23 Status: Ordered ezetimibe 10 mg oral tablet 1 tablet = 10 mg, By Mouth, Daily, # 90 tablet, 0 Refills, Maintenance, 10/11/23 10:51:00 EST, Tablet, [facility]/pharmacy #[id number], Partial fill upon patient request if the prescription is for a schedule II opioid drug., 175.26, cm, 08/01/23 8:35:00 EST, Height Start Date: 10/11/23 Status: Ordered fluticasone 50 mcg/inh nasal spray See Instructions, USE 1 SPRAY IN BOTTH NOSTRILS TWICE A DAY NEEDED FOR NASAL AND SINUS CONGESTION, # 48 mL, 1 Refills, Maintenance, 12/14/22 7:35:00 EDT, [facility]/pharmacy #[id number], 90, USE 1 SPRAY IN BOTTH [...] 0 Refills, Maintenance, 11/13/23 13:12:00 EST, Solution, [facility]/pharmacy #[id number], Partial fill upon patient request if the prescription is for a... Start Date: 11/13/23 Status: Ordered montelukast 10 mg oral tablet See Instructions, TAKE 1 TABLET BY MOUTH DAILY IN THE EVENING, # 90 tablet, Refills 3, Tot. Refills3, Soft Stop, 07/05/23 12:11:00 EDT, Instructions Replace Required Details, Route to Pharmacy Electronically, [facility]/pharmacy #[id number], 175.26, cm, 07/05/23... Start Date: 07/05/23 Status: Ordered pregabalin 100 mg oral capsule 1 capsule = 100 mg, By Mouth, 3 times a day, # 90 capsule, 5 Refills, Maintenance, 07/05/23 12:12:00 EDT, Capsule, [facility]/pharmacy #[id number], Partial fill upon patient request if the prescription is for a schedule II opioid drug., 175.26, cm, 07/05/23 11:35:... 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 she says this time it felt like her heart was skipping a beat. hx anxiety panic attacks. denies sob, nvd, dizziness; Reason: Angina; Clinical Question(s): Atelectasis COMPARISON: None. FINDINGS: LINES AND TUBES: None. LUNGS AND PLEURA: No pneumothorax. No pleural effusion. The lungs are clear. Pulmonary vascularity is normal. HEART, MEDIASTINUM AND MARCELINO: Heart is normal in size. Normal mediastinal silhouette. BONES AND SOFT TISSUES: No acute bony abnormalities. IMPRESSION: No acute abnormality. WSN: [id number] Ordering Physician: Keith Owen Dictated By: Sean Pimentel MD Dictated Date/Time: 12/02/23 9:55 pm Reviewed By: Sean Pimentel MD Signed By: Sean Pimentel MD Signed Date/Time: 12/02/23 9:55 pm Transcribed By: JESSE Transcribed Date/Time: 12/02/23 9:54 pm Vital Signs Most recent to oldest [Reference Range]: 1 2 Oxygen Saturation [94-100 %] 100 % (12/02/23 10:24 PM) 99 % (12/02/23 8:33 PM) Pulse Rate [55-90 bpm] 86 bpm (12/02/23 10:24 PM) 88 bpm (12/02/23 8:33 PM) Blood Pressure [90-138/55-84 mm Hg] 126/ 73mm Hg (12/02/23 10:24 PM) 135/89mm Hg (12/02/23 8:33 PM) Respiratory Rate [16-30 br/min] 18 br/mi n (12/02/23 10:24 PM) 17 br/min (12/02/23 8:33 PM) Temperature [96.8-100.4 DegF] 98.0 DegF (12/02/23 8:33 PM) Mode of Delivery (Oxygen) Room air (12/02/23 10:24 PM) Room air (12/02/23 8:33 PM) Blood pressure sites Arm, left (12/02/23 10:24 PM) Arm, right (12/02/23 8:33 PM) Temperature Route Oral (12/02/23 8:33 PM) Social History Social History Type Response Smoking Status Current every day sm oker; Tobacco use times per day: 3/4 pack; entered on: 08/26/14 Sex Female Note * Keith Owen DO: PERFORM Event Display: Patient Education Leaflets Authored Date: [id number] Heart Palpitations ?? [id number] Heart Palpitations Palpitations are the feeling that your heart is beating hard, fast, or irregular. Some describe it as pounding, flip-flopping in the chest, or skipped beats. Palpitations may occur in someone with heart disease. But they can also occur in a healthy person. Heart-related causes: ??? Heart rhythm problem (arrhythmia) ??? Heart valve disease ??? Disease of the heart muscle (cardiomyopathy) ??? Coronary artery disease ??? High blood pressure Dhi-yxtmi-amvrjtp causes: ??? Certain medicines such as asthma inhalers and decongestants ??? Some herbal supplements, energydrinks and pills, and weight loss pills ??? Illegal stimulant drugs such as cocaine, crank, methamphetamine, PCP, and ecstasy ??? Caffeine, alcohol, and tobacco ??? Health conditions such as thyroid disease, anemia, anxiety, and panic disorder Sometimes the cause can't be found. Home care Follow these home care tips: ??? Don't use too much caffeine, alcohol, or tobacco, or any stimulantdrugs. ??? Tell your doctor about any prescription or oegg-ucp-bkonbiw or herbal medicines you take. ?? Follow-up care ??? Follow up with your doctor, or as advised. ?? Call 911 This is the fastest and safest way to get to the emergency department. The paramedics can also start treatment on the way to the hospital, if needed. Don't wait until your symptoms are severe to call 911. These are reasons to call 911: ??? Chest pain ??? Shortness of breath ??? Feeling lightheaded, faint, or dizzy, or losing consciousness ??? Veryirregular heartbeat ??? Rapid heartbeat that makes you uncomfortable ??? Slower than usual heart rate along with symptoms ??? Chest pain with weakness, dizziness,??heavy sweating, nausea, or vomiting??? Extreme drowsiness, confusion, or weakness ??? Weakness of an arm or leg, or on one side of theface ??? Trouble with speech or vision ?? When to seek medical advice Call your healthcare provider right away if you have palpitations that last longer than normal, or are different from your past palpitations. ?? Last Reviewed Date: 2021 ?? [id number] The [employer]. All rights reserved. This information is not intended as a substitute for professional medical care. Always follow your healthcare professional's instructions. ?? * Keith Owen DO: PERFORM Event Display: Patient Education Leaflets Authored Date: [id number] Panic Attack ?? [id number] Panic Attack A panic attack is an extreme fear reaction that happens for no clear reason. You may have a fear that something terrible will happen or that you may . The attack may last a few minutes up to a fewhours. Between attacks, things will seem quite normal. This condition is a mental health disorder that can be treated with the help of a therapist or psychiatrist. If panic attacks happen often, you may have a panic disorder. Medicine and psychotherapy can be very helpful for a panic disorder. Panic attacks usually come on suddenly, reach a peak within minutes, and include at least 4 of these symptoms: ??? Fluttering feeling in the heart (palpitations), pounding heart, or fast heart rate ??? Sweating??? Chills or feeling warm ??? Trembling or shaking ??? Sensations of shortness of breath or smothering ??? Feelings of choking ??? Chest pain or discomfort ??? Nausea or stomachache ??? Feeling dizzy, unsteady, lightheaded, or faint ??? Numbness or tingling sensations ??? Fear of dying ??? Fear ofgoing crazy or of losing control ??? Feelings of unreality, strangeness, or detachment from the environment Many of these symptoms can be linked to??physical problems. Sometimes a healthcare provider will need to rule out conditions such as thyroid disorders, heart disease, or digestive problems. These conditions can also start as physical symptoms. But you may react to the symptoms in a fearful way. That can make you feel worse. Home care ??? Try to find the sources of stress in your life.??They may not be obvious. These may include: o Daily hassles of life piling up (traffic jams, missed appointments, or car troubles). o Major life changes, both good (new baby, job promotion) and bad (loss of job, loss of loved one). o Feeling that you have too many responsibilities and can't take care of everything at once. o Helplessness. This is feeling like your problems are too much for you to handle. ??? Notice how your body reacts to stress. Learn to listen to your body signals so that you can take action before the stress becomes severe. ??? Try to be aware of what you were doing before the reaction started. This may give you clues to things that can trigger a reaction. It may be situations in your life, or what you weredoing at the time. ??? When possible,??prevent or reduce your stress. Avoid hassles and limit the amount of change that is happening in your life at one time. Or take a break when you feel overloaded. ??? Unfortunately, you can't stay away from all stressful situations. So you need to??learn how to manage stress better. Many proven methods??will reduce your anxiety. These include simple things like exercise, good nutrition, and adequate rest. Certain techniques also are helpful: relaxation and breathing exercises, visualization, biofeedback, meditation, or simply taking??time out to clear your mind. For more information about this, ask your healthcare provider. ?? Follow-up care Follow-up with your healthcare provider as advised. If you keep having panic attacks or change yourbehaviors to avoid situations that may cause an attack, you may have a panic disorder. Treatment usually helps control the symptoms of a panic disorder. Psychotherapy (cognitive -behavior therapy, exposure therapy) and medicines (anti-depressants or benzodiazepines) are the primary ways it is treated. A panic disorder is a chronic (long-term) condition. Without treatment, the symptoms will continue to be disabling. ?? Call or text 988 Call 988 if you: ??? Have suicidal thoughts, a suicide plan, and the means to carry out the plan ??? Have serious thoughts of hurting someone else ??? Have trouble breathing ??? Are very confused ??? Feel very drowsyor have trouble awakening ??? Faint or lose consciousness ??? Have new chest pain that becomes moresevere, lasts longer, or spreads into your shoulder, arm, neck, jaw, or back ??? Have a very rapid or irregular heartbeat ??? Have a seizure When you call or text 988, you will be connected to trained crisis counselors. An online chat option is also available. [employer] is free and available 17/04. The 988 counselors will work closely with [facility] to get you the care you need. ?? When to seek medical advice Call your healthcare provider right away if any of these occur: ??? Panic attacks happen often and are no longer isolated events ??? Symptoms get worse to the point of feeling tne-wk-ubfvbac ??? Feeling that you may try to harm yourself or another (call or text 988) ??? Can't sleep or eat for 3 days in a row ??? Increased pain with breathing ??? Increasing feeling of weakness or dizziness ??? Cough with dark-colored sputum (phlegm) or blood ??? Fever of 100.4??F (38??C) or higher, or as advisedby??your healthcare provider ??? Swelling, pain, or redness in one leg ??? Requests by family or friends for you to seek help for your symptoms ?? Last Reviewed Date: 2023 ?? [employer]. All rights reserved. This information is not intended as a substitute for professional medical care. Always follow your healthcare professional's instructions. ?? * Keith Owen DO: PERFORM Event Display: Patient Education Leaflets Authored Date: [id number] Anxiety??Reaction ?? [id number] Anxiety??Reaction Anxiety is the feeling we all get when we think something bad might happen. It is a normal responseto stress. It most often causes only a mild reaction. But it can interfere with daily life when anxiety is more severe. In some cases, you may not know what you???re anxious about. Anxiety seems to have both mental and physical triggers. You may have stress from home and family. Or work and social relationships. Anxiety tends to run in families. This may mean it???s linked to genes. During an anxiety reaction, you may feel: ??? Helpless ??? Nervous ??? Depressed ??? Grouchy Your body may show signs of anxiety in many ways. You may have: ??? Dry mouth ??? Shakiness ??? Dizziness ??? Weakness ??? Trouble breathing ??? Fast breathing ???Chest pressure ??? Sweating ??? Headache ??? Nausea ??? Diarrhea ??? Tiredness ??? Inability to sleep ??? Sexual problems Home care Try to find those things that set off anxiety in your life. They may not be obvious. They may include: ??? Daily hassles of life. This can include traffic jams, missed appointments, or car troubles. ???Major life changes. This means both good changes, such as a new baby or job promotion. This can also mean tough life changes, such as loss of a job or loss of a loved one. ??? Overload. This means feeling that you have too many responsibilities. And that you can't take care of all of them. ??? Feeling helpless. You may feel you don???t have any control or choices. You may feel that your problems can't be solved. Notice how your body reacts to stress. This will help you take action before the stress sets off anxiety. When you can, make changes to reduce the sources of your stress. But stress in life often can't be prevented. It is important to learn how to manage stress to reduce anxiety. There are many proven methods that will reduce your anxiety. These include: ??? Exercise ??? Good nutrition ??? Getting enough sleep ??? Relaxation methods ??? Breathing exercises ??? Visualization ??? Biofeedback ??? Meditation ??? Counseling ??? Medicine For more information about this, talk with your healthcare provider. Or check online or at your local library or bookstore. You'll find many books and audiobooks on this subject. ?? Follow-up care If you feel your anxiety is not getting better with self-help, call your healthcare provider. Or make an appointment with a counselor. You may need short-term counseling or medicine to help you manage anxiety. ?? Call 911 Call 911 if any of the following occur: ??? Trouble breathing ??? Confusion ??? Drowsiness or trouble waking up ??? Fainting ??? Rapid heart rate ??? Seizure ??? New chest pain that becomes more severe, lasts longer, or spreads into your shoulder, arm, neck, jaw, or back Call or text 988 if you have thoughts of harming yourself or others. You will be connected to trained crisis counselors at the National Suicide Prevention Lifeline. An online chat option is also available at www.suicidepreventionlifeline.org. You can also call Lifeline at 749-869-DQSE (109-434-1446). Lifeline is free and available 17/04. ?? When to get medical advice Call your healthcare provider right away if any of the following occur: ??? Symptoms that don't improve or get worse, such as feelings of hopelessness or overwhelming sadness ??? Severe headache not eased by rest and mild pain medicine The National Suicide Prevention Lifeline is available at 800-273-talk (325.822.3029). The Lifeline is available 17/04 and provides free and confidential support. The [employer] also has an online chat at www.suicidepreventionlifeline.org. ?? Last Reviewed Date: 2022 ?? 3334-8351 The [employer]. All rights reserved. This information is not intended as a substitute for professional medical care. Always follow your healthcare professional's instructions. ?? Patient Care team information Care Team Personnel Name: Albania Martin MD Position: [facility] Physician - Primary Care Member Role: PCP Address: Address: [address] [place] [address]- Care Team Related Persons Name: FAVIAN SWARTZ Address: home [address] [place] [id number] Name: FAVIAN SWARTZ Address: [address] [address]
--- OUTSIDE RECORDS SUMMARY | 2024-02-12 23:03 | XMS_ITS | Continuity of Care Document ---
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 Name Role Phone Veronica MELENDEZ, [place] Primary Care Physician [phone] [place] [facility] [place]): [place] - 08/31/[address], [address] [place], [place] [address] Attending Physician: AdmRica avila Admitting Physician: AdmtrRica Referring Physician: Admtr, Ar8 Allergies, Adverse Reactions, Alerts Substance Reaction Severity Status sulfADIAZINE Active Avelox rash Active Biaxin diarrhea Active [...] 5 Refills, Maintenance, 01/09/23 9:26:00 EDT, Powder, [facility]/pharmacy #[id number], Partial fill upon patient request [...] 01/09/23 9:27:00 EDT, Route to Pharmacy Electronically, [facility]/pharmacy #[id number], Partial fill upon patient request [...] 07/05/23 12:14:00 EDT, Route to Pharmacy Electronically, [facility]/pharmacy #[id number], P... Start Date: 07/05/23 Stop [...] 11/11/23 15:43:00 EST, 07/11/23 15:43:00 EDT, Tablet, [facility]/pharmacy #[id number], 175.26, cm, 07/05/23 11:35:00 EDT, Height Start Date: 07/11/23 Stop Date: 11/11/23 Status: Ordered montelukast 10 mg oral tablet See Instructions, TAKE 1 TABLET BY MOUTH DAILY IN THE EVENING, # 90 tablet, Refills 3, Tot. Refills3, Soft Stop, 07/05/23 12:11:00 EDT, Instructions Replace Required Details, Route to Pharmacy Electronically, [facility]/pharmacy #[id number], 175.26, cm, 07/05/23... Start Date: 07/05/23 Status: Ordered nicotine 4 mg oral transmucosal gum 1 each = 4 mg, Chew, Every 2 hours, PRN as needed for smoking cessation, for 6 week(s), as directedon package labeling, # 160 each, 1 Refills, Acute 09/27/23 12:15:00 EST, 07/05/23 12:15:00 EDT, Gum, [facility]/pharmacy #[id number], Partial fill upon patient requ... 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, smokes one pack of cigarettes daily, and rarely drinks alcohol Social History Social History Type Response Smoking Status Current every day sm oker; Tobacco use times per day: 3/4 pack; entered on: 08/26/14 Sex Female Patient Care team information Care Team Personnel Name: Albania Martin MD Position: [facility] Physician - Primary Care Member Role: PCP Address: Address: [address] [place] [address] [place] [address]- Care Team Related Persons Name: FAVIAN SWARTZ Address: home [address] [place] [id number] Name: FAVIAN SWARTZ Address: home [address] [place] [address]
--- OUTSIDE RECORDS SUMMARY | 2024-02-12 23:03 | XMS_ITS | Continuity of Care Document ---
Author Organization [facility] Address [address] [place] [address]- Care Team Providers Care Vice President Of Software Engineering Name Role Phone Albania Martin MD Primary Care Physician Encounter [facility] [place] Date(s): 08/07/23 - 08/14/23 [facility] [address] [place], [place] [address] Attending Physician: Not on Staff, Attending MD Referring Physician: Albania Martin MD Allergies, [...] 5 Refills, Maintenance, 01/09/23 9:26:00 EDT, Powder, [facility]/pharmacy #[id number], Partial fill upon patient request if the prescription is for a schedule II opioid drug., 1 puffs Inhalation Daily,x30 days, 175.26, cm, 04... Start Date: 01/09/23 Stop Date: 07/08/23 Status: Ordered busPIRone 5 mg oral tablet 5 mg, 1, tablet, By Mouth, 2 times a day, # 180 tablet, Refills 2, Tot. Refills 2, Maintenance, 01/09/23 9:27:00 EDT, Route to Pharmacy Electronically, [facility]/pharmacy #[id number], Partial fill upon patient request if the prescription is for a schedule II opio... Start Date: 01/09/23 Stop Date: 10/06/23 Status: Ordered cyclobenzaprine 5 mg oral tablet 1 tablet = 5 mg, By Mouth, 3 times a day, # 40 tablet, 1 Refills, Acute 09/04/24 12:10:00 EST, 07/05/23 12:10:00 EDT, [facility]/pharmacy #[id number], Partial fill upon patient request if the prescription is for a schedule II opioid drug., 175.26, cm, 07/05/23 11:... Start Date: 07/05/23 Stop Date: 09/04/24 Status: Ordered ezetimibe 10 mg oral tablet 1 tablet = 10 mg, By Mouth, Daily, # 90 tablet, 3 Refills, Maintenance, 01/09/23 9:25:00 EDT, Tablet, [facility]/pharmacy #[id number], Partial fill upon patient request if [...] EDT, Route to Pharmacy Electronically, [facility]/pharmacy #[id number], P... Start Date: 07/05/23 Stop Date: [...] EST, 07/11/23 15:43:00 EDT, Tablet, [facility]/pharmacy #[id number], 175.26, cm, 07/05/23 11:35:00 EDT, Height Start Date: 07/11/23 Stop Date: 11/11/23 Status: Ordered montelukast 10 mg oral tablet See Instructions, TAKE 1 TABLET BY MOUTH DAILY IN THE EVENING, # 90 tablet, Refills 3, Tot. Refills3, Soft Stop, 07/05/23 12:11:00 EDT, Instructions Replace Required Details, Route to Pharmacy Electronically, [facility]/pharmacy #[id number], 175.26, cm, 07/05/23... Start Date: 07/05/23 Status: Ordered nicotine 4 mg oral transmucosal gum 1 each = 4 mg, Chew, Every 2 hours, PRN as needed for smoking cessation, for 6 week(s), as directedon package labeling, # 160 each, 1 Refills, Acute 09/27/23 12:15:00 EST, 07/05/23 12:15:00 EDT, Gum, [facility]/pharmacy #[id number], Partial fill upon patient requ... 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, smokes one pack of cigarettes daily, and rarely drinks alcohol Social History Social History Type Response Smoking Status Current every day sm oker; Tobacco use times per day: 3/4 pack; entered on: 08/26/14 Sex Female Patient Care team information Care Team Personnel Name: Albania Martin MD Position: [facility] Physician - Primary Care Member Role: PCP Address: Address: [address] [place] [address] [place] [address]- Care Team Related Persons Name: FAVIAN SWARTZ Address: home [address] [place] [id number] Name: FAVIAN SWARTZ Address: [address] [address]
--- OUTSIDE RECORDS SUMMARY | 2024-02-12 23:03 | XMS_ITS | Continuity of Care Document ---
Author Organization [facility] Address [address] [place] [address]- Care Team Providers Care Windows Phone Developer Name Role Phone Veronica MELENDEZ, [place] Primary Care Physician [phone] Encounter [facility] Date(s): 07/14/23 - 08/13/23 [facility] [address] [address] Attending Physician: Rica Tony Admitting Physician: AdmRica avila Referring Physician: Admtr ArMike Allergies, Adverse Reactions, Alerts Substance Reaction [...] 5 Refills, Maintenance, 01/09/23 9:26:00 EDT, Powder, [facility]/pharmacy #[id number], Partial fill upon patient request if the prescription is for a schedule II opioid drug., 1 puffs Inhalation Daily,x30 days, 175.26, cm, 04... Start Date: 01/09/23 Stop Date: 07/08/23 Status: Ordered busPIRone 5 mg oral tablet 5 mg, 1, tablet, By Mouth, 2 times a day, # 180 tablet, Refills 2, Tot. Refills 2, Maintenance, 01/09/23 9:27:00 EDT, Route to Pharmacy Electronically, [facility]/pharmacy #[id number], Partial fill upon patient request if [...] 07/05/23 12:14:00 EDT, Route to Pharmacy Electronically, [facility]/pharmacy #[id number], P... Start Date: 07/05/23 Stop Date: [...] 11/11/23 15:43:00 EST, 07/11/23 15:43:00 EDT, Tablet, [facility]/pharmacy #[id number], 175.26, cm, 07/05/23 11:35:00 EDT, Height Start Date: 07/11/23 Stop Date: 11/11/23 Status: Ordered montelukast 10 mg oral tablet See Instructions, TAKE 1 TABLET BY MOUTH DAILY IN THE EVENING, # 90 tablet, Refills 3, Tot. Refills3, Soft Stop, 07/05/23 12:11:00 EDT, Instructions Replace Required Details, Route to Pharmacy Electronically, [facility]/pharmacy #[id number], 175.26, cm, 07/05/23... Start Date: 07/05/23 Status: Ordered nicotine 4 mg oral transmucosal gum 1 each = 4 mg, Chew, Every 2 hours, PRN as needed for smoking cessation, for 6 week(s), as directedon package labeling, # 160 each, 1 Refills, Acute 09/27/23 12:15:00 EST, 07/05/23 12:15:00 EDT, Gum, [facility]/pharmacy #[id number], Partial fill upon patient requ... 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, smokes one pack of cigarettes daily, and rarely drinks alcohol Social History Social History Type Response Smoking Status Current every day sm oker; Tobacco use times per day: 3/4 pack; entered on: 08/26/14 Sex Female Patient Care team information Care Team Personnel Name: Albania Martin MD Position: [facility] Physician - Primary Care Member Role: PCP Address: Address: [address] [place] [address] [place] [address]- Care Team Related Persons Name: FAVIAN SWARTZ Address: home [address] [place] [address] Name: FAVIAN SWARTZ Address: home [address] [place] [address]
== END 2024-02-12 23:04 | disposition left against medical advice (07) ==
LOC: HO.ED 23:00
PROVIDERS: Physician Assistant Medical; Emergency Provider Emergency Medicine; PCP Nurse Practitioner Family
DX: R10.31 Right lower quadrant pain (principal); Z53.21 Procedure and treatment not carried out due to patient leaving prior to being seen by health care provider; E78.5 Hyperlipidemia, unspecified; F17.200 Nicotine dependence, unspecified, uncomplicated; Z79.899 Other long term (current) drug therapy
CPT/HCPCS: 36415; 76705; 80048; 80076; 81003; 83690; 83735; 85025; 99282; 99284

== ENCOUNTER 2024-02-13 08:08 | Outpatient (AMB) | payer OTHER, SELFPAY ==
--- OUTSIDE RECORDS SUMMARY | 2024-02-13 08:10 | XMS_ITS | Patient Health Record ---
Author Organization [facility] Address [address] [facility] [place] [address] Care Team Providers Care Insole Tack Puller Hand Name Role Phone Vannessa Rivas MD Primary Care Provider Unavaila Shanthi Fermin Unavailable [phone] Lyndon Villavicencio Unavailable [phone] ALLERGIES Allergen (clinical drug ingredient) Drug/Non Drug [...] 01/23/2024 Encounters Encounter Location Date Provider Diagnosis [facility] [address] [place] [address] 01/23/2024 Shanthi Marrufoa Fungal infection of nail B35.1 and Pain in left toe(s) M79.675 [facility] [address] [place] [address] 01/24/2024 [facility] [address] [facility] [address] [place] [address] 01/29/2024 Lyndon Villavicencio ASSESSMENTS Encounter Date Diagnosis [...] Insured Coverage Start Date Coverage End Date [facility] SCO Claims [address] [place] [phone] [id number] Dorina Holguin Self - patient is the insured MEDICAL (GENERAL) HISTORY Medical History History ICD Code Anxiety asthma Back,Hip,and Knee pain CAD (Cholesterol) Fibromyalgia Gall bladder problems Numbness Reflux ( GERD) chronic sinusitis Surgical History Surgery Date(Month/Year) gall bladder 2005 ablation surgery 2013
[2024-02-13 08:33] VITALS: BP 116/70; PULSE 82; TEMP 36.4; O2SAT 97; BMI 31.3
--- NOTE | 2024-02-13 08:33 | MHC.OFFWIV ---
Intake Vital Signs 02/13/24 08:33 Height 5 ft 8 in Weight 206 lb BMI 31.3 BP 116/70 Blood Pressure Location Lt brachial Position Sitting Pulse 82 Pulse Source Pulse Oximeter Temp 97.6 F Temp Source Temporal Artery Scan Pulse Oximetry (%) 97 Oxygen Delivery Method Room Air Intake Visit Reasons: ep/stomach pain lower right Intake Note: pt is here today for stomach pain started 1 week ago Patient Tobacco Use Status: Current everyday Tobacco user Allergies citalopram [From CELEXA] Allergy (Unknown, Verified 02/13/24 08:36) PANIC ATTACK clarithromycin [From BIAXIN] Allergy (Unknown, Verified 02/13/24 08:36) UNKNOWN moxifloxacin [From AVELOX] Allergy (Unknown, Verified 02/13/24 08:36) RASH Sulfa (Sulfonamide Antibiotics) Allergy (Unknown, Verified 02/13/24 08:36) rash/joint pain Do you need a note to return to daycare/school/sports/work: No HPI HPI Comments History of Present Illness Details 53-year-old female presents today complaining of right lower quadrant pain for the last 3 or 4 days. She was seen at the emergency department but left prior to completion of the workup. She presents today with increasing pain. Also has diarrhea associated with the symptoms [facility] Medical History (Updated 02/13/24 @ 13:53 by CORINNA Carrington) JORDAN (obstructive sleep apnea) PAC (premature atrial contraction) Hyperlipidemia Annual physical exam Vertigo Shoulder pain, bilateral Injury of left brachial plexus Normal Pap smear Tobacco dependence Fibromyalgia Degeneration of lumbar intervertebral disc Cervical radiculopathy due to degenerative joint disease of spine Arthritis Bilateral ankle pain Hip pain, bilateral Neck pain Surgical History No pertinent past surgical history Family History Father Bladder cancer History of heart attack Mother No problems noted. Brother Substance use disorder Brother Substance use disorder Social History Housing: House Alcohol intake: never Patient Tobacco Use Status: Current everyday Tobacco user Cigarette Packs Per Day: 0 Cigarettes Per Day: 15 Current occupational status: disabled Cognitive needs: No Hearing needs: No Vision needs: No Review of Systems Const All systems reviewed & are unremarkable except as noted in HPI and below GI Reports abdominal pain (Right lower quadrant) and Reports diarrhea Reports no additional complaints Physical Exam Vital Signs: Last Vital Signs Temp 97.6 F 02/13/24 08:33 Pulse 82 02/13/24 08:33 BP 116/70 02/13/24 08:33 Pulse Ox 97 02/13/24 08:33 Oxygen Delivery Method Room Air 02/13/24 08:33 BMI result Body Mass Index 31.3 Const General: healthy appearing and acute distress moderate GI Inspection: Yes normal to inspection Palpation (GI): Tenderness to palpation present (GI) in the RLQ, Guarding due to palpation present (GI) and Rebound tenderness present Auscultation: abnormal bowel sounds and Hyperactive bowel sounds present Assessment & Plan Assessment & Plan (1) Acute abdominal pain in right lower quadrant: Code(s): R10.31 - Right lower quadrant pain Plan: The patient agreed to go to the ER for acute abdomen work -up. PCP assisted with the patient so is aware of the ER visit Coding Level of Care Code Est Pt Level 3 (23011) Diagnoses Acute abdominal pain in right lower quadrant R10.31
== END 2024-02-13 09:50 | disposition home or self-care (01) ==
PROVIDERS: PCP Nurse Practitioner Family; Visit Provider Physician Assistant Medical
DX: R10.31 Right lower quadrant pain (principal)
CPT/HCPCS: 99213

== ENCOUNTER 2024-02-26 07:58 | Outpatient (AMB) | payer OTHER, SELFPAY ==
--- NOTE | 2024-02-26 08:07 | MHC.PC.OV ---
Vital Signs 02/26/24 08:09 Height 5 ft 8 in Weight 202 lb BMI 30.7 BP 120/80 Blood Pressure Location Rt brachial Position Sitting Pulse 74 Pulse Source Pulse Oximeter Pulse Oximetry (%) 98 Oxygen Delivery Method Room Air Intake Visit Reasons: HDF ~ Post hospital discharge FU Intake Note: Patient here to follow up on Hospital visit where she was diagnosed with colon cancer Allergies citalopram [From CELEXA] Allergy (Unknown, Verified 02/26/24 08:10) PANIC ATTACK clarithromycin [From BIAXIN] Allergy (Unknown, Verified 02/26/24 08:10) UNKNOWN moxifloxacin [From AVELOX] Allergy (Unknown, Verified 02/26/24 08:10) RASH Sulfa (Sulfonamide Antibiotics) Allergy (Unknown, Verified 02/26/24 08:10) rash/joint pain Tobacco use date assessed: 02/01/24 Dental Screening Dental Screen Date: 02/01/24 HPI HDF ~ Post hospital discharge FU HPI Details Pt was seen in the ER on 02/15 c/o nausea and abdominal pain. She had undergone a laparoscopic right colectomy for cecal mass on 02/13. Imaging was consistent with expected postoperative ileus. She was admitted and made NPO with IV fluids. Pt's symptoms improved the following day, placed on sips of clear liquids. On 02/18 pt developed belching and vomiting. NG tube was placed with immediate output of 500cc. Pt was started on peripheral nutrition on 02/19. On 02/20 pt had several loose BMs with no nausea or vomiting. She passed NG tube clamp trial, this was removed and she was started on sips of clear liquids. Pt was feeling well on post-op day 8 and was d/c. Pt reports doing well overall. She is still having diarrhea with every bowel movement, though reports it is getting more solid. Pt will be following up with general surgery in 2 days. Denies fever, chills, rectal bleeding, and N/V. She is tolerating small amounts of bland food. [facility] Medical History JORDAN (obstructive sleep apnea) PAC (premature atrial contraction) Hyperlipidemia Annual physical exam Vertigo Shoulder pain, bilateral Injury of left brachial plexus Normal Pap smear Tobacco dependence Fibromyalgia Degeneration of lumbar intervertebral disc Cervical radiculopathy due to degenerative joint disease of spine Arthritis Bilateral ankle pain Hip pain, bilateral Neck pain Surgical History History of colectomy No pertinent past surgical history Family History Father Bladder cancer History of heart attack Mother No problems noted. Brother Substance use disorder Brother Substance use disorder Social History Housing: House Alcohol intake: never Patient Tobacco Use Status: Former Tobacco user Cigarette Packs Per Day: 0 Cigarettes Per Day: 15 Current occupational status: disabled Cognitive needs: No Hearing needs: No Vision needs: No Questionnaire Thrive Questionnaire Date Thrive assessed: 11/09/21 GENEVA-7 AMB Questionnaire GENEVA-7 Date GENEVA - 7 assessed: 11/09/21 Source: Developed by Drs. David Boyd, Antoinette Johnson, Andreas Guzmán and colleagues, with an educational addie from [employer]. Review of Systems Const Reports as per HPI Physical exam (Primary Care) Vital Signs: Last Vital Signs Pulse 74 02/26/24 08:09 BP 120/80 02/26/24 08:09 Pulse Ox 98 02/26/24 08:09 Oxygen Delivery Method Room Air 02/26/24 08:09 BMI result Body Mass Index 30.7 Tobacco/Smoking Status: Tobacco use Status Tobacco use date assessed 02/01/24 02/26/24 08:08 Patient Tobacco Use Status Former Tobacco user 02/26/24 08:14 Thrive Assessment: Date of Thrive Assessment Date Thrive assessed 11/09/21 02/26/24 08:08 Const General: cooperative Orientation/consciousness: patient oriented x3 Resp Other: lungs fairly clear Effort & Inspection: normal respiratory effort Cardio Rate: regular rate Rhythm: regular rhythm Heart sounds: S1 normal heart sound present and S2 normal heart sound present GI Other: minimal tenderness to generalized abd with palpation Auscultation: Hypoactive bowel sounds present Skin Other: just above umbilicus with vertical incision, nina intact, well approximated, no signs of infection, LLQ with lap site with 2 nina, no signs of infection, RUQ with a well approximated healing lap site, 2 nina intact, no signs of infection, scattered ecchymosis throughout abdomen Neuro General: patient oriented x3 Assessment and Plan Assessment & Plan (1) Acute abdominal pain in right lower quadrant: Code(s): R10.31 - Right lower quadrant pain Plan: following up with [facility] in 2 days, ? oncology eval. (2) Cecum mass: Code(s): K63.89 - Other specified diseases of intestine (3) S/P right colectomy: Comment: 02/14/2024 Code(s): Z90.49 - Acquired absence of other specified parts of digestive tract Plan The patient agreed to the use of a certified medical aide for this encounter. Scribed for MATI Ardon-RAIZA by Nicole Martinez certified medical aide, on 02/26/2024 at 08:35 EST. Coding Level of Care Code Est Pt Level 3 (49481) Diagnoses Acute abdominal pain in right lower quadrant R10.31 Cecum mass K63.89 S/P right colectomy Z90.49
[2024-02-26 08:09] VITALS: BP 120/80; PULSE 74; O2SAT 98; BMI 30.7
== END 2024-02-26 08:53 | disposition home or self-care (01) ==
PROVIDERS: PCP Nurse Practitioner Family; Visit Provider Nurse Practitioner Family
DX: R10.31 Right lower quadrant pain (principal); K63.89 Other specified diseases of intestine; Z90.49 Acquired absence of other specified parts of digestive tract
CPT/HCPCS: 99213

== ENCOUNTER 2024-03-04 15:35 | Outpatient (AMB) | payer OTHER, SELFPAY ==
--- NOTE | 2024-03-04 16:12 | MHC.PC.OV ---
Vital Signs 03/04/24 16:15 03/04/24 16:46 Height 5 ft 8 in Weight 205 lb BMI 31.2 BP 140/80 H 124/80 Blood Pressure Location Rt brachial Rt brachial Position Sitting Sitting Pulse 76 Pulse Source Pulse Oximeter Pulse Oximetry (%) 97 Oxygen Delivery Method Room Air Intake Visit Reasons: Elevated BP Intake Note: Patient here to discuss elevated BP Allergies citalopram [From CELEXA] Allergy (Unknown, Verified 03/04/24 16:15) PANIC ATTACK clarithromycin [From BIAXIN] Allergy (Unknown, Verified 03/04/24 16:15) UNKNOWN moxifloxacin [From AVELOX] Allergy (Unknown, Verified 03/04/24 16:15) RASH Sulfa (Sulfonamide Antibiotics) Allergy (Unknown, Verified 03/04/24 16:15) rash/joint pain Tobacco use date assessed: 02/01/24 Dental Screening Dental Screen Date: 02/01/24 HPI Elevated BP HPI Details Pt reports having elevated blood pressure at her oncology visit. BP is stable in office today. Denies chest pain, shortness of breath, headache, dizziness, and blurred vision. She is starting chemo in the near future. [facility] Medical History JORDAN (obstructive sleep apnea) PAC (premature atrial contraction) Hyperlipidemia Annual physical exam Vertigo Shoulder pain, bilateral Injury of left brachial plexus Normal Pap smear Tobacco dependence Fibromyalgia Degeneration of lumbar intervertebral disc Cervical radiculopathy due to degenerative joint disease of spine Arthritis Bilateral ankle pain Hip pain, bilateral Neck pain Surgical History History of colectomy No pertinent past surgical history Family History Father Bladder cancer History of heart attack Mother No problems noted. Brother Substance use disorder Brother Substance use disorder Social History Housing: House Alcohol intake: never Patient Tobacco Use Status: Former Tobacco user Cigarette Packs Per Day: 0 Cigarettes Per Day: 15 Current occupational status: disabled Cognitive needs: No Hearing needs: No Vision needs: No Questionnaire Thrive Questionnaire Date Thrive assessed: 11/09/21 GENEVA-7 AMB Questionnaire GENEVA-7 Date GENEVA - 7 assessed: 11/09/21 Source: Developed by Drs. David Boyd, Antoinette Johnson, Andreas Guzmán and colleagues, with an educational addie from [employer]. Review of Systems Const Reports as per HPI Physical exam (Primary Care) Vital Signs: Last Vital Signs Pulse 76 03/04/24 16:15 BP 140/80 H 03/04/24 16:15 Pulse Ox 97 03/04/24 16:15 Oxygen Delivery Method Room Air 03/04/24 16:15 BMI result Body Mass Index 31.2 Tobacco/Smoking Status: Tobacco use Status Tobacco use date assessed 02/01/24 03/04/24 16:14 Patient Tobacco Use Status Former Tobacco user 03/04/24 16:14 Thrive Assessment: Date of Thrive Assessment Date Thrive assessed 11/09/21 03/04/24 16:14 Const General: cooperative Nutritional Appearance: obese Orientation/consciousness: patient oriented x3 Resp Effort & Inspection: normal respiratory effort Auscultation: clear to auscultation bilaterally Cardio Rate: regular rate Rhythm: regular rhythm Heart sounds: S1 normal heart sound present and S2 normal heart sound present Neuro General: patient oriented x3 Psych Appearance: grossly normal Mental Status: mental status grossly normal Speech and movement: Normal speech and movement present Affect: normal affect Attitude: cooperative Thought process: Normal thought process present Thought content: Normal thought content present Insight: Good insight present (Psych) Judgement: Good judgement present (Psych) Assessment and Plan Assessment & Plan (1) Colon cancer: Code(s): C18.9 - Malignant neoplasm of colon, unspecified (2) Elevated BP without diagnosis of hypertension: Code(s): R03.0 - Elevated blood-pressure reading, without diagnosis of hypertension Plan: reinforced importance of relaxation techniques Plan The patient agreed to the use of a medical transcription supervisor for this encounter. Scribed for HARDY Ardon by Nicole Martinez medical transcription supervisor, on 03/04/2024 at 16:35 EST. Coding Level of Care Code Est Pt Level 3 (52680) Diagnoses Colon cancer C18.9 Elevated BP without diagnosis of hypertension R03.0
[2024-03-04 16:15] VITALS: BP 140/80; PULSE 76; O2SAT 97; BMI 31.2
[2024-03-04 16:46] VITALS: BP 124/80
== END 2024-03-04 17:31 | disposition home or self-care (01) ==
PROVIDERS: PCP Nurse Practitioner Family; Visit Provider Nurse Practitioner Family
DX: C18.9 Malignant neoplasm of colon, unspecified (principal); R03.0 Elevated blood-pressure reading, without diagnosis of hypertension
CPT/HCPCS: 99213

== ENCOUNTER 2024-03-25 08:01 | Outpatient (AMB) | payer OTHER, SELFPAY ==
--- OUTSIDE RECORDS SUMMARY | 2024-03-25 08:03 | XMS_ITS | Continuity of Care Document ---
Author Organization [facility] Address [address] [place] [address]- Care Team Providers Care Support Architect Name Role Phone [place] Martin MD Primary Care Physician [place] [facility] [place] Date(s): 01/19/24 - 02/18/[address] [address] Attending Physician: Admtr, Ar8 Admitting Physician: Admtr, Ar8 Referring Physician: Admtr, [...] 03/05/24 12:37:00 EDT, 12/04/23 12:36:00 EDT, Tablet, [facility]/pharmacy #[id number], Partial fill upon patient request if the prescription is for a schedule II o... Start Date: 12/04/23 Stop Date: 03/05/24 Status: Ordered Breo Ellipta 100 mcg-25 mcg/inh inhalation powder See Instructions, INHALE 1 PUFF EVERY DAY FOR 30 DAYS, # 60 each, 5 Refills, Maintenance, 12/04/23 12:37:00 EDT, [id number], 30, INHALE 1 PUFF EVERY DAY FOR 30 DAYS, 175.26, cm, 11/13/23 12:38:00 EST, Height Start Date: 12/04/23 Status: Ordered Breo Ellipta 100 mcg-25 mcg/inh inhalation powder 1 puffs, Inhalation, Daily, # 30 each, 1 Refills, Maintenance, 11/30/23 10:04:00 EST, Powder, [facility]/pharmacy #[id number], Partial fill upon patient request if the prescription is for a schedule II opioid drug., 1 puffs Inhalation Daily,x30 days, 175.26, cm, 0... 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, smokes one pack of cigarettes daily, and rarely drinks alcohol Social History Social History Type Response Smoking Status Current every day sm oker; Tobacco use times per day: 3/4 pack; entered on: 08/26/14 Sex Female Patient Care team information Care Team Personnel Name: Albania Martin MD Position: S Physician - Primary Care Member Role: PCP Address: Address: [address] [place] [address] [place] [address]- Care Team Related Persons Name: FAVIAN SWARTZ Address: home [address] [place] [address] Name: FAVIAN SWARTZ Address: home [address] [place] [address] Name: ALVARADO ROBERTSON Address: home [address] [place] [address]
--- OUTSIDE RECORDS SUMMARY | 2024-03-25 08:04 | XMS_ITS | Patient Health Record ---
Author Organization [facility] Address [address] [facility] [place] [address] Care Team Providers Care Product Distribution Specialist Name Role Phone Vannessa Rivas MD Primary Care Provider Unavaila Shanthi Fermin Unavailable [phone] Lyndon Villavicencio Unavailable [phone] ALLERGIES Allergen (clinical drug ingredient) Drug/Non Drug [...] 01/23/2024 Encounters Encounter Location Date [facility] [address] [place] [address] 01/23/2024 Shanthi Marrufoa Fungal infection of nail B35.1 and Pain in left toe(s) M79.675 [facility] [address] [place] [address] 01/24/2024 [facility] Donovan [facility] [address] [facility] [address] [place] [address] 01/29/2024 Lyndon Villavicencio ASSESSMENTS Encounter Date Diagnosis [...] Insured Coverage Start Date Coverage End Date [facility] SCO Claims [address] [place] [phone] [id number] Dorina Holguin Self - patient is the insured MEDICAL (GENERAL) HISTORY Medical History History ICD Code Anxiety asthma Back,Hip,and Knee pain CAD (Cholesterol) Fibromyalgia Gall bladder problems Numbness Reflux ( GERD) chronic sinusitis Surgical History Surgery Date(Month/Year) gall bladder 2005 ablation surgery 2013
--- OUTSIDE RECORDS SUMMARY | 2024-03-25 08:04 | XMS_ITS | Continuity of Care Document ---
Author Organization [facility] [facility] Address [address] [place] [address], [address] [place] [address]- Care Team Providers Care Gun Synchronizer Name Role Phone Albania Martin MD Primary Care Physician [phone] Encounter [facility] Date(s): 02/12/24 - 03/13/24 [facility] [address], [address]th [address] [place], [place] [address] Allergies, Adverse Reactions, Alerts [...] each, 5 Refills, Maintenance, 12/04/23 12:37:00 EDT, Issue STORE [id number], 30, INHALE 1 PUFF EVERY DAY FOR 30 DAYS, 175.26, cm, 11/13/23 12:38:00 EST, Height Start Date: 12/04/23 Status: Ordered Breo Ellipta 100 mcg-25 mcg/inh inhalation powder 1 puffs, Inhalation, Daily, # 30 each, 1 Refills, Maintenance, 11/30/23 10:04:00 EST, Powder, [facility]/pharmacy #[id number], Partial fill upon patient request if the prescription is for a schedule II opioid drug., 1 puffs Inhalation Daily,x30 days, 175.26, cm, 0... Start Date: 11/30/23 Stop Date: 01/29/24 Status: Ordered busPIRone 5 mg oral tablet 1, tablet, By Mouth, 2 times a day, # 180 tablet, Refills 1, Maintenance, 11/13/23 16:57:00 EST, Route to Pharmacy Electronically, Issue STORE [id number], 175.26, cm, 11/13/23 12:38:00 EST, Height Start Date: 11/13/23 Status: Ordered cyclobenzaprine 5 mg oral tablet 1 tablet = 5 mg, By Mouth, 3 times a day, # 40 tablet, 1 Refills, Acute 09/04/24 12:10:00 EST, 07/05/23 12:10:00 EDT, [facility]/pharmacy #[id number], Partial fill upon patient request if the prescription is for a schedule II opioid drug., 175.26, cm, 07/05/23 11:... Start Date: 07/05/23 Stop Date: 09/04/24 Status: Ordered Diflucan 150 mg oral tablet See Instructions, 1 tablet By mouth every 3 days, # 3 tablet, 0 Refills, Maintenance, 11/13/23 13:09:00 EST, Tablet, [facility]/pharmacy #[id number], Partial fill upon patient request if the prescription is for aschedule II opioid drug., 175.26, cm, 11/13/23 12:3... Start Date: 11/13/23 Status: Ordered ezetimibe 10 mg oral tablet 1 tablet = 10 mg, By Mouth, Daily, # 90 tablet, 0 Refills, Maintenance, 10/11/23 10:51:00 EST, Tablet, [facility]/pharmacy #[id number], Partial fill upon patient request if the prescription is for a schedule II opioid drug., 175.26, cm, 08/01/23 8:35:00 EST, Height Start Date: 10/11/23 Status: Ordered fluticasone 50 mcg/inh nasal spray See Instructions, USE 1 SPRAY IN BOTTH NOSTRILS TWICE A DAY NEEDED FOR NASAL AND SINUS CONGESTION, # 48 mL, 1 Refills, Maintenance, 12/14/22 7:35:00 EDT, [facility]/pharmacy #[id number], 90, USE 1 SPRAY IN BOTTH [...] 0 Refills, Maintenance, 11/13/23 13:12:00 EST, Solution, [facility]/pharmacy #[id number], Partial fill upon patient request [...] 5 Refills, Maintenance, 07/05/23 12:12:00 EDT, Capsule, [facility]/pharmacy #[id number], Partial fill upon patient request if the prescription is for a schedule II opioid drug., 175.26, cm, 07/05/23 11:35:... 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, no children, smokes one pack of cigarettes daily, and rarely drinks alcohol Social History Social History Type Response Smoking Status Current every day sm oker; Tobacco use times per day: 3/4 pack; entered on: 08/26/14 Sex Female Patient Care team information Care Team Personnel Name: Albania Martin MD Position: [facility] Physician - Primary Care Member Role: PCP Address: Address: [address] [place] [address] [place] [address]- Care Team Related Persons Name: FAVIAN SWARTZ Address: home [address], [place] Name: FAVIAN SWARTZ Address: home [address], [place] Name: ALVARADO ROBERTSON Address: home [address] [place] [id number]
[2024-03-25 08:05] VITALS: BP 120/82; PULSE 79; O2SAT 97; BMI 31.2
--- NOTE | 2024-03-25 08:05 | AM.OFFWIN_ITS ---
Intake Vital Signs 03/25/24 08:05 Height 5 ft 8 in Weight 205 lb BMI 31.2 BP 120/82 Blood Pressure Location Lt brachial Position Sitting Pulse 79 Pulse Source Pulse Oximeter Pulse Oximetry (%) 97 Oxygen Delivery Method Room Air Intake Visit Reasons: EP ?UTI Intake Note: pt is here for possible uti which has been present for about 2 weeks. pt recent ly had procedure done and had a catheter Patient Tobacco Use Status: Former Tobacco user Allergies citalopram [From CELEXA] Allergy (Unknown, Verified 03/25/24 08:17) PANIC ATTACK clarithromycin [From BIAXIN] Allergy (Unknown, Verified 03/25/24 08:17) UNKNOWN moxifloxacin [From AVELOX] Allergy (Unknown, Verified 03/25/24 08:17) RASH Sulfa (Sulfonamide Antibiotics) Allergy (Unknown, Verified 03/25/24 08:17) rash/joint pain Do you need a note to return to daycare/school/sports/work: No HPI HPI Comments History of Present Illness Details Patient is a 53-year-old female complaining of 2 days of 10.0 suprapubic pain and low back pain and increased frequency of urination. She denies any fevers, history of kidney stones are possibility of an STI. [facility] Medical History JORDAN (obstructive sleep apnea) PAC (premature atrial contraction) Hyperlipidemia Annual physical exam Vertigo Shoulder pain, bilateral Injury of left brachial plexus Normal Pap smear Tobacco dependence Fibromyalgia Degeneration of lumbar intervertebral disc Cervical radiculopathy due to degenerative joint disease of spine Arthritis Bilateral ankle pain Hip pain, bilateral Neck pain Surgical History History of colectomy No pertinent past surgical history Family History Father Bladder cancer History of heart attack Mother No problems noted. Brother Substance use disorder Brother Substance use disorder Social History Housing: House Alcohol intake: never Patient Tobacco Use Status: Former Tobacco user Cigarette Packs Per Day: 0 Cigarettes Per Day: 15 Current occupational status: disabled Cognitive needs: No Hearing needs: No Vision needs: No Physical Exam Vital Signs: Last Vital Signs Pulse 79 03/25/24 08:05 BP 120/82 03/25/24 08:05 Pulse Ox 97 03/25/24 08:05 Oxygen Delivery Method Room Air 03/25/24 08:05 BMI result Body Mass Index 31.2 Const General: cooperative, healthy appearing, comfortable, no acute distress and well developed Orientation/consciousness: patient oriented x3 Limitations: no limitations HEENT Head: Yes normal to inspection Eyes General: appearance normal, both eyes and all related structures Neck Neck: Yes normal visual inspection and Yes full ROM Resp Effort & Inspection: normal respiratory effort and able to speak in complete sentences General: Yes bladder normal to palpation and Yes no CVA tenderness Bimanual exam- vagina & uterus: bladder normal to palpation Back/Spine/Pelvis Back: no CVA tenderness Skin General skin exam: no rashes or lesions noted Neuro General: patient oriented x3 Extrem General: Yes normal to inspection Results AMB Urinalysis, Automated UA Leukoctes 0 Mireille/uL Last Edit by MAGGI Caldwell on 03/25/24 08:24 UA Nitrite Negative Last Edit by MAGGI Caldwell on 03/25/24 08:24 UA Urobilinogen 0.2 mg/dL Last Edit by MAGGI Caldwell on 03/25/24 08:24 UA Protein 0 mg/dL Last Edit by MAGGI Caldwell on 03/25/24 08:24 UA pH 6.0 Last Edit by MAGGI Caldwell on 03/25/24 08:24 UA Blood 0 Cosme/uL Last Edit by MAGGI Caldwell on 03/25/24 08:24 UA Specific Delight 1.030 Last Edit by MAGGI Caldwell on 03/25/24 08:24 UA Ketone Negative Last Edit by MAGGI Caldwell on 03/25/24 08:24 UA Bilirubin 0 mg/dL Last Edit by MAGGI Caldwell on 03/25/24 08:24 UA Glucose 0 mg/dL Last Edit by MAGGI Caldwell on 03/25/24 08:24 Results Reviewed Results Reviewed: Laboratory Last Values Urine pH (Auto) 6.0 03/25/24 08:21 Specific Delight (Auto) 1.030 03/25/24 08:21 Urine Protein (Auto) 0 mg/dL 03/25/24 08:21 Glucose (UA)(Auto) 0 mg/dL 03/25/24 08:21 Urine Ketones (Auto) Negative 03/25/24 08:21 Urine Blood (Auto) 0 Cosme/uL 03/25/24 08:21 Urine Nitrite (Auto) Negative 03/25/24 08:21 Urine Bilirubin (Auto) 0 mg/dL 03/25/24 08:21 Urine Urobilinogen (Auto) 0.2 mg/dL 03/25/24 08:21 Leukocyte Esterase (Auto) 0 Mireille/uL 03/25/24 08:21 Assessment & Plan Assessment & Plan (1) Urinary tract infection: Code(s): N39.0 - Urinary tract infection, site not specified Qualifiers: Urinary tract infection type: acute cystitis Hematuria presence: without hematuria Qualified Code(s): N30.00 - Acute cystitis without hematuria Plan: As patient is symptomatic and her at home UA was positive, will treat. Also will send for culture as she is starting chemotherapy on April 02, want to verify we have the right antibiotic for the pathogen Plan see above Orders: Orders AMB Urinalysis Automated Today Z13.9 - Encounter for screening, unspecified Urine Culture Today N39.0 - Urinary tract infection, site not specified Medications: New cefuroxime axetil 500 mg PO Q12H 10 tabs 0RF Coding Level of Care Code Est Pt Level 3 (71986) Diagnoses Acute cystitis without hematuria N30.00 Urinary tract infection type: acute cystitis Hematuria presence: without hematuria
== END 2024-03-25 08:42 | disposition home or self-care (01) ==
PROVIDERS: PCP Nurse Practitioner Family; Visit Provider Physician Assistant
DX: N30.00 Acute cystitis without hematuria (principal)
CPT/HCPCS: 81003; 99213

== ENCOUNTER 2024-03-25 08:39 | Outpatient (REF) | payer OTHER, SELFPAY | END 2024-03-25 08:40 | disposition home or self-care (01) | LOC: HO.LAB 08:39 | PROVIDERS: Visit Provider Physician Assistant | DX: Z13.89 Encounter for screening for other disorder (principal) ==

== ENCOUNTER 2024-04-22 05:56 | Emergency (ER) | payer OTHER, SELFPAY ==
--- NOTE | ~2024-04-22 | CT_ITS ---
EXAMINATION: CT ABDOMEN AND PELVIS WITH CONTRAST CLINICAL INFORMATION: Abdominal pain. COMPARISON: 07/03/2019 TECHNIQUE: Multidetector volumetric images were obtained from the superior aspect of the liver through the pubic symphysis following administration 85 mL of Omnipaque 350 intravenous contrast. Sagittal and coronal reformatted images were obtained on the technologist's workstation. Oral contrast: No This CT examination was performed using dose optimization techniques as appropriate, variously including the following: *Automated exposure control *Adjustment of mA and/or kV according to patient size (this includes techniques or standardized protocols for targeted exams where dose is matched to indication/reason for exam; i.e. extremities or head) *Use of iterative reconstruction technique DLP: 820 mGy-cm FINDINGS: LUNG BASES: No pleural or pericardial effusion. LIVER, GALLBLADDER, AND BILIARY TREE: The liver is normal in size and contour. No focal hepatic lesion or biliary ductal dilatation is present. The gallbladder is surgically absent. PANCREAS: Unremarkable. SPLEEN: Unremarkable. ADRENAL GLANDS: Unremarkable. KIDNEYS AND URETERS: The kidneys are symmetric in size and enhancement. 8 mm lower pole left renal cyst. No further imaging follow-up is needed. No hydronephrosis. No perinephric stranding. BLADDER: Unremarkable. GASTROINTESTINAL TRACT: Appendix is surgically absent. Minimal stranding/nodularity in the right lower quadrant may represent postsurgical changes. Submucosal fatty infiltration of the right colon/hepatic flexure and sigmoid colon. No small bowel obstruction. ABDOMINAL WALL: No significant hernia is appreciated. LYMPH NODES: No bulky lymphadenopathy. Marked atherosclerotic vascular calcification of the distal abdominal aorta. VASCULAR: Normal caliber abdominal aorta. Retroaortic left renal vein. PELVIC VISCERA: Fibroid uterus. OSSEOUS STRUCTURES: No destructive bone lesions. CT/CT abdomen pelvis w IV con IMPRESSION: Minimal peritoneal stranding/nodularity in the right lower quadrant at the site of appendectomy may represent postsurgical changes. There is no focal or drainable fluid collection. Short interval follow-up imaging is advised to assess for resolution of these findings.
[2024-04-22 06:03] VITALS: BP 115/74; PULSE 83; RESP 16; TEMP 36.6; O2SAT 97; BMI 29.8
--- OUTSIDE RECORDS SUMMARY | 2024-04-22 06:12 | XMS_ITS | Patient Health Record ---
[facility] Address [address] [facility] [place] [address] Care Team Providers Care Wire Preparation Machine Tender Name Role Phone Vannessa Rivas MD Primary Care Provider Unavaila Shanthi Fermin Unavailable [phone] Lyndon Villavicencio Unavailable [phone] ALLERGIES Allergen (clinical drug ingredient) Drug/Non Drug Allergy documented on EMR Reaction Allergy Type Onset Date Status nicotine patch (uncoded) drooling at night Allergy Active sulfamethoxazole / trimethoprim Bactrim rash Drug Allergy Active Biaxin Diarrhea Drug Allergy Active REASON FOR REFERRAL No Information MEDICATIONS Medication [...] 01/23/2024 Encounters Encounter Location Date [facility] [address] [place] [address] 01/23/2024 Shanthi Marrufoa Fungal infection of nail B35.1 and Pain in left toe(s) M79.[address] [facility] [address] 01/24/2024 [facility] [address] [facility] [address] [place] [address] 01/29/2024 Lyndon Villavicencio ASSESSMENTS Encounter Date Diagnosis [...] Insured Coverage Start Date Coverage End Date [facility] [employer] Claims [address] [place] [address] [phone] [id number] Dorina Holguin Self - patient is the insured MEDICAL (GENERAL) HISTORY Medical History History ICD Code Anxiety asthma Back,Hip,and Knee pain CAD (Cholesterol) Fibromyalgia Gall bladder problems Numbness Reflux ( GERD) chronic sinusitis Surgical History Surgery Date(Month/Year) gall bladder 2005 ablation surgery 2013
--- OUTSIDE RECORDS SUMMARY | 2024-04-22 06:12 | XMS_ITS ---
Author Organization [facility] Address [address] [place] [address] Care Team Providers Care Training Executive Name Role Phone Vannessa Rivas MD Primary Care Provider Unavaila Shanthi Fermin [phone] REASON FOR VISIT cx appt 01/28 Encounters Encounter Location Date Provider Diagnosis [facility] [address] [place] [address] 01/24/2024 Shanthi Donovan PLAN OF TREATMENT No Information
--- OUTSIDE RECORDS SUMMARY | 2024-04-22 06:12 | XMS_ITS ---
Author Organization [facility] Address [address] [place] [address] Care Team Providers Care Building Serviceman Name Role Phone Vannessa Rivas MD Primary Care Provider Unavaila Shanthi Fermin Unavailable [phone] Lyndon Villavicencio Unavailable [phone] Encounters Encounter Location Date Provider Diagnosis [facility] [address] 01/29/2024 Lyndon Villavicencio PLAN OF TREATMENT No Information
--- OUTSIDE RECORDS SUMMARY | 2024-04-22 06:12 | XMS_ITS ---
Author [facility] Address [address] [facility] [place] [address] Care Team Providers Care Gas Line Installer Name Role Phone Vannessa Rivas MD Primary Care Provider Shanthi Limon Unavailable [phone] ALLERGIES Allergen (clinical drug ingredient) Drug/Non Drug Allergy documented on EMR Reaction Allergy Type Onset Date Status nicotine patch (uncoded) drooling at night Allergy Active sulfamethoxazole / trimethoprim Bactrim rash Drug Allergy Active Biaxin Diarrhea Drug Allergy Active REASON FOR VISIT Pcp- 07/17, Fungal Nails MEDICATIONS Medication SIG (Take, Route, Frequency, Duration) Notes Start Date End Date Status Myrbetriq Active Zetia Active Vitamin D Active Breo Ellipta Active Ativan PRN Active Atorvastatin Calcium 10 MG 1 tablet Orally Once a day for 30 day(s) Not-Taking Lyrica Active Nightsplint . . . AFO - L1930 for . Active Lynox Not-Taking Ciclopirox 0.77 % 1 application Externally Twice a day for 365 days Active ProAir HFA Active busPIRone HCl 5 MG 1 tablet Orally Twic e a day Active Singulair 10 MG 1 tablet Orally Once a day for 30 day(s) Active SOCIAL HISTORY Tobacco Use: Social History Observation [...] 01/23/2024 Encounters Encounter Location Date Provider Diagnosis [facility] [address] [place] [address] 01/23/2024 Shanthi Donovan Fungal infection of nail B35.1 and Pain in left toe(s) M79.675 ASSESSMENTS Encounter Date Diagnosis Assessment Notes Treatment Notes Treatment Clinical Notes 01/23/2024 Fungal infection of nail (ICD-10 - B35.1) Rx management (4) 01/23/2024 Pain in left toe(s) (ICD-10 - M79.675) PLAN OF TREATMENT Medication Medication Name Sig Start Date Stop Date Notes Ciclopirox 0.77 % 1 application Morning Caregiver ally Twice a day for 365 days Next Appt Details Follow Up: prn, Reason: Progress Notes * Examination Category Sub-Category Detail Notes Neurological SENSORY: Neurological exa m reveals intact sensorium, pain sensation normal, vibration sensation intact, pinprick sensation is normal in the lower extremities, Pt denies, anesthesia, burning, paresthesia, tingling, B/L DEEP TENDON REFLEXES: Achilles, 2/4, B/L Dermatologic SKIN FINDINGS: Skin exam reveal s normal texture, elasticity, and turgor. There are no masses. The interspaces are clear Orthopedic MUSCLE STRENGTH: 5/5 all groups in a symmetrical fashion , B/L General Examination GENERAL APPEARANCE: Reveals a pleasant, alert, well- nourished, well-developed, well hydrated individual, who demonstrates proper attention to hygiene/body habitus, and is in no acute distress, Pt serves as own historian for office visit today ORIENTED: person, place, and t pelon Vascular DP PULSES: 3/4, B/L PT PULSES: 3/4, B/L CAPILLARY FILL TIME: immediate, all digi ts, B/L SKIN TEMPERTURE GRADIENT OF THE LOWER EXTERMITIES: warm to cool, proximal to distal, B/L HAIR GROWTH/TEXTURE/ELASTICITY/TURGOR: n ormal, B/L EDEMA: absent, B/L PIGMENTATION: normal, B/L Nails NAILS are: Elongated, overg rown, dystrophic, lytic, greater than 3mm thick, discolored and friable with crumbly malodorous subungual debris, with pain on palpation TA History and Physical Notes * HPI (History of Present Illness) Category Sub-Category Detail Notes Painful Nails Aggravated by: shoegear causing difficulty standing/walking Course: worse Location: Great toe Left foot Nature: aching, tender, disc olored, thick Treatments: none
--- NOTE | 2024-04-22 07:11 | ED.GENADULT ---
HPI - General Adult General Chief complaint: Nausea/Vomiting/Diarrhea Stated complaint: Diarrhea from chemo meds Time Seen by Provider: 04/22/24 07:04 Source: patient Mode of arrival: ambulatory Limitations: no limitations History of Present Illness HPI narrative: 53 years old patient with history of colon cancer on chemotherapy presented to emergency department complaining of diarrhea rectal pain the area systemic symptoms. Pain is localized in the anal area Onset (ago): day(s) (2) Location: abdomen (rectal area) Radiation: non-radiation Severity: moderate Quality: burning Pain Consistency: constant Exacerbating factors: none Associated symptoms: denies other symptoms Related Data Home Medications ?Medication ?Instructions ?Recorded ?Confirmed pregabalin 100 mg capsule (Lyrica) 100 mg PO BID 09/07/20 02/01/24 lorazepam 0.5 mg tablet (Ativan) 0.5 mg PO BEDTIME PRN 02/01/24 02/01/24 enoxaparin 40 mg/0.4 mL 40 mg subcut DAILY 02/26/24 subcutaneous syringe (Lovenox) Previous Rx's ?Medication ?Instructions ?Recorded meclizine 25 mg tablet 25 mg PO TID PRN dizziness #30 tabs 07/27/21 buspirone 5 mg tablet 5 mg PO BID #180 tabs 11/09/21 albuterol sulfate 90 mcg/actuation 2 puff inhalation Q6H PRN 12/23/21 aerosol inhaler shortness of breath or wheezing #8.5 grams nirmatrelvir 300 mg (150 mg See Rx Instructions PO .COMPLEX 02/03/22 x2)-ritonavir 100 mg tablet,dose #30 tabs pack acetaminophen 325 mg tablet 325 mg PO Q6H PRN pain #60 tabs 06/06/23 Breo Ellipta 100 mcg-25 mcg/dose 1 inh inhalation DAILY #60 ea 02/01/24 powder for inhalation (fluticasone furoate-vilanterol) ezetimibe 10 mg tablet (Zetia) 10 mg PO DAILY #90 tabs 02/01/24 fluticasone propionate 50 1 spray intranasal BID 30 days #16 02/01/24 mcg/actuation nasal grams spray,suspension (Allergy Relief (fluticasone)) montelukast 10 mg tablet 10 mg PO DAILY #90 tabs 02/01/24 nystatin 100,000 unit/mL oral 4 ml PO TID PRN thrush 10 days #60 02/01/24 suspension mL cefuroxime axetil 500 mg tablet 500 mg PO Q12H #10 tabs 03/25/24 fluconazole 150 mg tablet 150 mg PO Q3D 2 doses #2 tabs 03/27/24 hydrocortisone 2.5 % topical cream 1 appl MS BID-QID PRN hemorrhoids 04/18/24 with perineal applicator #30 grams (Proctosol HC) hydrocortisone acetate 25 mg 25 mg MS DAILY #12 ea 04/18/24 rectal suppository (Anusol-HC) Allergies Allergy/AdvReac Type Severity Reaction Status Date / Time citalopram [From CELEXA] Allergy Unknown PANIC Verified 04/22/24 06:07 ATTACK clarithromycin [From BIAXIN] Allergy Unknown UNKNOWN Verified 04/22/24 06:07 moxifloxacin [From AVELOX] Allergy Unknown RASH Verified 04/22/24 06:07 Sulfa (Sulfonamide Allergy Unknown rash/joint Verified 04/22/24 06:07 Antibiotics) pain Review of Systems Constitutional: Constitutional: Reports no additional constitutional complaints Cardiovascular: Cardiovascular: Reports no additional cardiovascular complaints [facility] Past Medical History [facility] Narrative: Colon cancer Medical History JORDAN (obstructive sleep apnea) PAC (premature atrial contraction) Hyperlipidemia Annual physical exam Vertigo Shoulder pain, bilateral Injury of left brachial plexus Normal Pap smear Tobacco dependence Fibromyalgia Degeneration of lumbar intervertebral disc Cervical radiculopathy due to degenerative joint disease of spine Arthritis Bilateral ankle pain Hip pain, bilateral Neck pain Surgical History History of colectomy No pertinent past surgical history Family History Family History Father Bladder cancer History of heart attack Mother No problems noted. Brother Substance use disorder Brother Substance use disorder Social History Social History Housing: House Alcohol intake: never Patient Tobacco Use Status: Former Tobacco user Cigarette Packs Per Day: 0 Cigarettes Per Day: 15 Advance Directives: No Advance Directives Information Provided: Yes Do you have a plan to hurt others: No Plan Current occupational status: disabled Cognitive needs: No Hearing needs: No Vision needs: No Physical Exam ED Vital Signs: Vital Signs - 24 hr 04/22/24 06:03 04/22/24 08:00 Temperature 97.9 F 97.9 F Pulse Rate 83 68 Respiratory Rate 16 16 Blood Pressure 115/74 143/76 H Pulse Oximetry 97 100 Oxygen Delivery Method Room Air Room Air BMI result Body Mass Index 29.8 She looks well she is not toxic-appearing Const General: cooperative Nutritional Appearance: average body habitus Orientation/consciousness: oriented to person, oriented to place, oriented to time and patient oriented x3 Limitations: no limitations HENMT Head: Yes normal to inspection Face and sinus: Yes normal facial exam Mouth: Normal oral and palatal mucosa present Throat: Yes posterior oropharynx normal Neck Neck: Yes normal visual inspection Chest Chest palpation & inspection: normal inspection of the chest Resp Effort & Inspection: normal respiratory effort Auscultation: clear to auscultation bilaterally Cardio Jugular venous distension: no JVD Rate: regular rate Rhythm: regular rhythm GI Inspection: Yes normal to inspection Palpation (GI): Soft to palpation, not firm, nontender and no guarding Auscultation: normal bowel sounds Skin General skin exam: no rashes or lesions noted, elasticity normal and turgor normal Lesions: no lesions Rashes: no rashes Neuro General: oriented to person, oriented to place, oriented to time and patient oriented x3 Cranial nerves: Yes CN's II-XII intact bilaterally Extrem General: Yes normal to inspection, Yes full ROM and Yes capillary refill normal Course Reevaluation(s) Reevaluation #1: Feels better CT no perf no bowel obstruction,labs ok wbc down expected with chemo, I think she can be discharged home follow-up with the primary care physician she has an appointment coming up with clinical resource nurse for colonoscopy Time: 10:48 Medications Administered Discontinued Medications Generic Name Dose Route Start Last Admin Trade Name Freq PRN Reason Stop Dose Admin Sodium Chloride 1,000 mls @ 999 mls/hr 04/22/24 07:15 04/22/24 09:12 Ns IVCONT 04/22/24 08:15 Infused .Q1H1M TERE Infusion Iohexol 100 ml 04/22/24 09:04 04/22/24 09:05 Iohexol 350 Mg/Ml 100 Ml Infus..Btl IV 04/22/24 09:05 85 ml ONCE ONE Administration Lidocaine HCl 1 appl 04/22/24 07:10 04/22/24 07:13 Lidocaine 4 % Cream Kit TOPICAL 04/22/24 07:11 1 appl ONCE ONE Administration Protocol Medical Decision Making Medical Decision Making [facility] Narrative: Patient presented with rectal pain and diarrhea, will obtain labs administer IV fluid and reassessed Differential Diagnosis Differential Diagnoses: The differential diagnosis associated with the presentation includes Gastroenteritis/hematuria side effect/proctitis Admission/Observation Consideration of admission/observation: Escalation of care including admission/observation considered Lab Data [facility] Lab Attestation statement: I reviewed the patient's lab results. 04/22/24 07:32 04/22/24 07:32 Labs: Lab Results 04/22/24 Range/Units 07:32 WBC 2.7 L (4.8-10.8) X10*3/uL RBC 4.39 (4.20-5.50) X10*6/uL Hgb 12.0 (12.0-16.0) g/dl Hct 36.0 L (37.0-47.0) % MCV 82.0 (80.0-98.0) fL MCH 27.3 (27.0-33.0) pg MCHC 33.3 (31.0-35.0) g/dl RDW 14.9 (11.0-16.0) % Plt Count 133 L D (160-400) X10*3/uL MPV 9.7 (9.4-12.3) fL Immature Gran % (Auto) 0.4 (0.0-0.4) % Neut % (Auto) 44.9 L (45-73) % Lymph % (Auto) 41.5 H (20-40) % Glascock % (Auto) 4.4 (2-11) % Eos % (Auto) 7.7 H (0-4) % Baso % (Auto) 1.1 (0-2) % Lymph # (Auto) 1.1 L (1.2-4.9) X10*3/uL Glascock # (Auto) 0.1 (0.1-1.2) X10*3/uL Eos # (Auto) 0.2 (0.0-0.4) X10*3/uL Baso # (Auto) 0.0 (0.0-0.2) X10*3/uL Abs Immat Gran (auto) 0.01 (0.00-0.03) X10*3/uL Absolute Neuts (auto) 1.2 L (2.0-8.3) x10*3/uL Absolute Nucleated RBC 0.000 (0.0-0.012) X10*3/uL Nucleated RBC % (auto) 0.0 (0.0-0.2) /100WBC Sodium 141 (135-145) mmol/L Potassium 4.1 (3.3-5.1) mmol/L Chloride 107 (96-108) mmol/L Carbon Dioxide 25 (22-29) mmol/L Anion Gap 13 (12-20) BUN 12 (9-16) mg/dL Creatinine 0.76 (0.5-1.4) mg/dL Estim Creat Clear Calc 102.1 Estimated GFR > 60 Random Glucose 85 (60-115) mg/dL Calcium 9.2 D (8.4-10.2) mg/dL Total Bilirubin 0.4 (0.0-1.0) mg/dL AST 29 (5-31) U/L ALT 35 H (0-31) U/L Alkaline Phosphatase 72 (39-117) U/L Total Protein 6.5 (6.5-8.0) g/dL Albumin 3.8 (3.5-5.0) g/dL Independent Interpretation I performed an independent interpretation of an: CT Scan Radiology Impression Discussion of test interpretation with radiology: I have reviewed the radiologist's reading. Discharge Plan Discharge Clinical Impression: Pain, rectal Patient Disposition: Home, Self-Care Instructions: Rectal Pain (ED) Additional Instructions: Follow-up with you primary care physician return if you worse also keep your appointment with the clinical resource nurse for the colonoscopy Prescriptions: No Action meclizine 25 mg tablet 25 mg PO TID PRN (Reason: dizziness) Qty: 30 2RF albuterol sulfate 90 mcg/actuation HFA aerosol inhaler 2 puff inhalation Q6H PRN (Reason: shortness of breath or wheezing) Qty: 8.5 1RF nirmatrelvir-ritonavir 150 mg x 2- 100 mg tablet See Rx Instructions PO .COMPLEX Qty: 30 0RF Rx Instructions: take TWO 150 mg tablets of nirmatrelvir with ONE 100 mg tablet of ritonavir twice daily for 5 days PO fluconazole 150 mg tablet 150 mg PO Q3D Qty: 2 0RF hydrocortisone acetate [Anusol-HC] 25 mg suppository 25 mg MS DAILY Qty: 12 0RF hydrocortisone [Proctosol HC] 2.5 % cream with perineal applicator 1 appl MS BID-QID PRN (Reason: hemorrhoids) Qty: 30 0RF acetaminophen 325 mg tablet 325 mg PO Q6H PRN (Reason: pain) Qty: 60 0RF pregabalin [Lyrica] 100 mg capsule 100 mg PO BID buspirone 5 mg tablet 5 mg PO BID Qty: 180 3RF lorazepam [Ativan] 0.5 mg tablet 0.5 mg PO BEDTIME PRN ezetimibe [Zetia] 10 mg tablet 10 mg PO DAILY Qty: 90 3RF nystatin 100,000 unit/mL suspension 4 ml PO TID PRN (Reason: thrush) 10 Days Qty: 60 2RF montelukast 10 mg tablet 10 mg PO DAILY Qty: 90 1RF Breo Ellipta 100-25 mcg/dose blister with device 1 inh inhalation DAILY Qty: 60 6RF fluticasone propionate [Allergy Relief (fluticasone)] 50 mcg/actuation spray,suspension 1 spray intranasal BID 30 Days Qty: 16 2RF Rx Instructions: administer into each nostril enoxaparin [Lovenox] 40 mg/0.4 mL syringe 40 mg subcut DAILY cefuroxime axetil 500 mg tablet 500 mg PO Q12H Qty: 10 0RF Referrals: Kevin Early, [employer] [Primary Care Provider] - 2 days Print Language: Divehi
[2024-04-22] MEDS: Lidocaine 4 % Cream KIT 1 APPL TOPICAL (07:13)
[2024-04-22] MEDS: 0.9 % Sodium Chloride 1,000 ML 999 ML IVCONT (07:37)
[2024-04-22 07:38] LABS: MANUAL DIFF FLAG NO
[2024-04-22 07:56] LABS: Basophils Percent Auto 1.1 % (0-2); Eosinophils Absolute Auto 0.2 X10*3/uL (0.0-0.4); Eosinophils Percent Auto 7.7 % (0-4); Imm Gran Abs Auto 0.01 X10*3/uL (0.00-0.03); Imm Gran Pct Auto 0.4 % (0.0-0.4); Lymphocytes Absolute Auto 1.1 X10*3/uL (1.2-4.9); Lymphocytes Percent Auto 41.5 % (20-40); Mean Corpuscular HGB Conc 33.3 g/dl (31.0-35.0); Mean Corpuscular Hemoglobin 27.3 pg (27.0-33.0); Mean Platelet Volume 9.7 fL (9.4-12.3); Monocytes Absolute Auto 0.1 X10*3/uL (0.1-1.2); Monocytes Percent Auto 4.4 % (2-11); Neutrophils Absolute Auto 1.2 x10*3/uL (2.0-8.3); Neutrophils Percent Auto 44.9 % (45-73); Platelet Count 133 X10*3/uL (160-400); Red Blood Count 4.39 X10*6/uL (4.20-5.50); Red Cell Distribution Width 14.9 % (11.0-16.0); White Blood Count 2.7 X10*3/uL (4.8-10.8)
[2024-04-22 08:00] VITALS: BP 143/76; PULSE 68; RESP 16; TEMP 36.6; O2SAT 100
[2024-04-22 08:02] LABS: Alanine Aminotransferase 35 U/L (0-31); Albumin Level 3.8 g/dL (3.5-5.0); Alkaline Phosphatase 72 U/L (39-117); Anion Gap 13 (12-20); Aspartate Amino Transferase 29 U/L (5-31); Bilirubin Total 0.4 mg/dL (0.0-1.0); Blood Urea Nitrogen 12 mg/dL (9-16); Calcium 9.2 mg/dL (8.4-10.2); Carbon Dioxide 25 mmol/L (22-29); Chloride 107 mmol/L (96-108); Creatinine Clr Calc Pharmacy 102.1; Estimated Glomerular Filt Rate > 60; Glucose Random 85 mg/dL (60-115); Potassium 4.1 mmol/L (3.3-5.1); Sodium 141 mmol/L (135-145); Total Protein 6.5 g/dL (6.5-8.0)
[2024-04-22] MEDS: iohexoL 350 MG/ML 100 ML INFUS..BTL IV (09:05)
[2024-04-22 11:07] VITALS: BP 133/81; PULSE 61; RESP 16; TEMP 36.6; O2SAT 98
== END 2024-04-22 11:07 | disposition home or self-care (01) ==
PROVIDERS: Emergency Provider Emergency Medicine; PCP Nurse Practitioner Family
DX: K62.89 Other specified diseases of anus and rectum (principal); R11.2 Nausea with vomiting, unspecified; Z85.038 Personal history of other malignant neoplasm of large intestine; Z79.899 Other long term (current) drug therapy; Z87.891 Personal history of nicotine dependence
CPT/HCPCS: 36415; 74177; 80053; 85025; 96360; 96361; 99284; Q9967

== ENCOUNTER 2024-04-26 15:32 | Outpatient (AMB) | payer OTHER, SELFPAY ==
[2024-04-26 15:45] VITALS: BP 162/80; PULSE 78; BMI 30.2
--- NOTE | 2024-04-26 15:45 | MHC.OFFVIS ---
Vital Signs 04/26/24 15:45 Height 5 ft 8 in Weight 198 lb 6.656 oz BMI 30.2 BP 162/80 H Blood Pressure Location Lt brachial Position Sitting Pulse 78 Intake Visit Reasons: *URGENT* Diarrhea, melena due to chemo Intake Note: Keith presents in the office as a new patient for diarrhea and melena. CC: She states that she started chemo April 02 and was having diarrhea. She states that the toilet would be bright red. Her rectum has been burning to the point she was unable to wipe - having almost 16 BM a day. She states that there will be bright red on the stool and she is not sure if she has a fissure or hemorrhoids. Special Makeup Fx Artist Instructor Required: No Allergies citalopram [From CELEXA] Allergy (Unknown, Verified 04/26/24 15:48) PANIC ATTACK clarithromycin [From BIAXIN] Allergy (Unknown, Verified 04/26/24 15:48) UNKNOWN moxifloxacin [From AVELOX] Allergy (Unknown, Verified 04/26/24 15:48) RASH Sulfa (Sulfonamide Antibiotics) Allergy (Unknown, Verified 04/26/24 15:48) rash/joint pain HPI HPI *URGENT* Diarrhea, melena due to chemo: Details: 53-year-old female with past medical history of hypertension, colon CA, right colectomy, hyperlipidemia, tobacco dependence, fibromyalgia, arthritis, asthma is here today for initial consultation. Patient was sent to us by his PCP. Patient has been treated by oncologist with chemo and recently developed severe diarrhea and rectal pain. Patient is scheduled for colonoscopy, however incidental finding of stage III adenocarcinoma of ascending colon was found patient has been going for chemotherapy. Patient reports melena and hematochezia occasional. Severe diarrhea. Patient also admits rectal pain from multiple loose stools each day. Patient states that she never had colonoscopy in the past. No family history of CRC. No trouble with anesthesia in the past. Patient is not on any anticoagulation medication. No history of sleep apnea. [facility] Medical History JORDAN (obstructive sleep apnea) PAC (premature atrial contraction) Hyperlipidemia Annual physical exam Vertigo Shoulder pain, bilateral Injury of left brachial plexus Normal Pap smear Tobacco dependence Fibromyalgia Degeneration of lumbar intervertebral disc Cervical radiculopathy due to degenerative joint disease of spine Arthritis Bilateral ankle pain Hip pain, bilateral Neck pain Surgical History History of colectomy No pertinent past surgical history Family History Father Bladder cancer History of heart attack Mother No problems noted. Brother Substance use disorder Brother Substance use disorder Social History Housing: House Alcohol intake: never Patient Tobacco Use Status: Former Tobacco user Cigarette Packs Per Day: 0 Cigarettes Per Day: 15 Current occupational status: disabled Cognitive needs: No Hearing needs: No Vision needs: No Review of Systems Const Denies weight gain and Denies weight loss ENT Reports no additional complaints, Denies dysphagia and Denies odynophagia Card Reports no additional complaints Resp Reports no additional complaints GI Denies abdominal pain, Denies belching, Denies melena, Denies bloating, Denies change in bowel habits, Denies dysphagia, Denies excessive flatus, Denies dyspepsia, Denies heartburn, Reports diarrhea, Denies loose stools, Denies nausea, Denies odynophagia and Denies vomiting Reports no additional complaints Musc Reports no additional complaints Neuro Reports no additional complaints Psych Reports no additional complaints Endo Reports no additional complaints Physical Exam Vital Signs: Last Vital Signs Pulse 78 04/26/24 15:45 BP 162/80 H 04/26/24 15:45 BMI result Body Mass Index 30.2 Const General: healthy appearing and no acute distress Nutritional Appearance: obese Orientation/consciousness: patient oriented x3 Resp Effort & Inspection: normal respiratory effort, able to speak in complete sentences, no tracheal deviation and symmetric chest movement Auscultation: clear to auscultation bilaterally Cardio Rate: regular rate GI Inspection: Yes normal to inspection, No distended and Yes obesity Palpation (GI): Soft to palpation, not firm, nontender and No hepatosplenomegaly present Auscultation: normal bowel sounds Rectal Exam - Female: External hemorrhoid(s) present General: Yes no CVA tenderness Back/Spine/Pelvis Back: no CVA tenderness Skin General skin exam: elasticity normal, turgor normal and dry skin Neuro General: patient oriented x3 Psych Appearance: grossly normal Mental Status: mental status grossly normal Assessment & Plan Assessment & Plan (1) Colon cancer: Comment: stage 3 Code(s): C18.9 - Malignant neoplasm of colon, unspecified Category: Medical Qualifiers: Colon location: ascending Qualified Code(s): C18.2 - Malignant neoplasm of ascending colon (2) S/P right colectomy: Comment: 02/14/2024 Code(s): Z90.49 - Acquired absence of other specified parts of digestive tract Category: Surgical (3) Screening for colon cancer: Code(s): Z12.11 - Encounter for screening for malignant neoplasm of colon Category: Medical Plan Patient will increase fiber intake. She will start taking Colace. Proctosol. Please book patient for colonoscopy. Patient wants to wait as she just recently had right collectomy and wants to heal. Currently going for chemotherapy. Patient will return in 2 months to discuss the prep and the procedure. Patient will call our office if her symptoms will get worse or she will experience any additional GI concerning symptoms. Patient is agreeable to this plan and verbalizes understanding of instructions. She was given the opportunity to ask questions and all questions answered. Thank you for allowing me to participate in her care Medications: New docusate sodium 100 mg PO BEDTIME 90 caps 3RF K59.00 - Constipation, unspecified Refilled hydrocortisone 2.5% (Proctosol HC) 1 appl OR BID-QID PRN 30 grams 2RF hemorrhoids Coding Level of Care Code New Pt Level 4 (76423) Diagnoses Malignant neoplasm of ascending colon C18.2 Colon location: ascending S/P right colectomy Z90.49 Screening for colon cancer Z12.11 Time Spent (min) 45 Comment 30 minutes spent with patient and additional 15 minutes spent reviewing her records
== END 2024-04-26 16:25 | disposition home or self-care (01) ==
PROVIDERS: PCP Nurse Practitioner Family; Visit Provider Nurse Practitioner Family
DX: C18.2 Malignant neoplasm of ascending colon (principal); Z90.49 Acquired absence of other specified parts of digestive tract; Z12.11 Encounter for screening for malignant neoplasm of colon
CPT/HCPCS: 99204

== ENCOUNTER → 2024-04-26 15:32 | Outpatient (BNVA) | payer OTHER, SELFPAY | PROVIDERS: PCP Nurse Practitioner Family; Visit Provider Nurse Practitioner Family | DX: Z12.11 Encounter for screening for malignant neoplasm of colon (principal); C18.2 Malignant neoplasm of ascending colon; Z90.49 Acquired absence of other specified parts of digestive tract | CPT/HCPCS: 99202 ==

== ENCOUNTER 2024-05-21 06:07 | Outpatient (REF) | payer OTHER, SELFPAY ==
[2024-05-21 10:43] LABS: D Dimer High Sensitivity 224 NG/ML
[2024-05-21 10:51] LABS: Basophils Absolute Auto 0.1 X10*3/uL (0.0-0.2); Basophils Percent Auto 2.8 % (0-2); Eosinophils Absolute Auto 0.1 X10*3/uL (0.0-0.4); Eosinophils Percent Auto 5.6 % (0-4); Hematocrit 39.3 % (37.0-47.0); Imm Gran Abs Auto 0.01 X10*3/uL (0.00-0.03); Imm Gran Pct Auto 0.5 % (0.0-0.4); Lymphocytes Absolute Auto 1.4 X10*3/uL (1.2-4.9); Lymphocytes Percent Auto 64.8 % (20-40); MANUAL DIFF FLAG SCAN; Mean Corpuscular HGB Conc 33.1 g/dl (31.0-35.0); Mean Corpuscular Hemoglobin 27.7 pg (27.0-33.0); Mean Corpuscular Volume 83.8 fL (80.0-98.0); Monocytes Absolute Auto 0.1 X10*3/uL (0.1-1.2); Monocytes Percent Auto 5.2 % (2-11); Neutrophils Absolute Auto 0.5 x10*3/uL (2.0-8.3); Neutrophils Percent Auto 21.1 % (45-73); Red Blood Count 4.69 X10*6/uL (4.20-5.50); Red Cell Distribution Width 17.2 % (11.0-16.0); SCAN SMEAR FLAG 1
[2024-05-21 10:53] LABS: Appearance Urine Clear; Color Urine Yellow; Glucose Urine UA Negative (Negative); Leukocyte Esterase Urine Negative (Negative); Nitrite Urine Negative (Negative); PH 5.5 (5.0-9.0); Specific Gravity - Urine 1.025 (1.005-1.025); Urine Blood Negative (Negative); Urine Ketones Negative (Negative); Urine Protein Negative (Neg-Trace)
[2024-05-21 10:54] LABS: White Blood Count 2.1 X10*3/uL (4.8-10.8)
[2024-05-21 11:02] LABS: Alanine Aminotransferase 47 U/L (0-31); Albumin Level 3.9 g/dL (3.5-5.0); Alkaline Phosphatase 78 U/L (39-117); Anion Gap 14 (12-20); Aspartate Amino Transferase 28 U/L (5-31); Bilirubin Total 0.8 mg/dL (0.0-1.0); Blood Urea Nitrogen 12 mg/dL (9-16); Calcium 9.6 mg/dL (8.4-10.2); Carbon Dioxide 24 mmol/L (22-29); Chloride 108 mmol/L (96-108); Cholesterol 171 mg/dL (<200); Estimated Glomerular Filt Rate > 60; Glucose Fasting 94 mg/dL (60-99); HDL Cholesterol 46 mg/dL (>40); LDL Cholesterol Calculated 101 mg/dL (<100); Potassium 4.5 mmol/L (3.3-5.1); Sodium 141 mmol/L (135-145); Total Protein 6.9 g/dL (6.5-8.0); Triglycerides 123 mg/dL (<150)
[2024-05-21 11:07] LABS: Platelet Count 74 X10*3/uL (160-400); SLIDE REVIEW VERIFIED
[2024-05-21 11:20] LABS: TSH reflex Free T4 1.06 uIU/mL (0.32-4.0)
== END 2024-05-21 06:08 | disposition home or self-care (01) ==
LOC: HO.HMGCLDS 06:07
PROVIDERS: PCP Nurse Practitioner Family; Visit Provider Nurse Practitioner Family
DX: R00.0 Tachycardia, unspecified (principal)
CPT/HCPCS: 36415; 80053; 80061; 81003; 84443; 85025; 85379

== ENCOUNTER 2024-05-31 09:50 | Outpatient (AMB) | payer OTHER, SELFPAY ==
[2024-05-31 09:52] VITALS: BP 118/70; PULSE 68; TEMP 37.1; O2SAT 97; BMI 30.4
--- NOTE | 2024-05-31 09:52 | AM.OFFWIN_ITS ---
Intake Vital Signs 05/31/24 09:52 Height 5 ft 8 in Weight 200 lb BMI 30.4 BP 118/70 Blood Pressure Location Lt brachial Position Sitting Pulse 68 Pulse Source Pulse Oximeter Temp 98.7 F Temp Source Oral Pulse Oximetry (%) 97 Oxygen Delivery Method Room Air Intake Visit Reasons: EP cough, congestion Intake Note: pt c/o cough and congestion. Ongoing for 2 weeks Patient Tobacco Use Status: Former Tobacco user Allergies citalopram [From CELEXA] Allergy (Unknown, Verified 05/31/24 10:03) PANIC ATTACK clarithromycin [From BIAXIN] Allergy (Unknown, Verified 05/31/24 10:03) UNKNOWN moxifloxacin [From AVELOX] Allergy (Unknown, Verified 05/31/24 10:03) RASH Sulfa (Sulfonamide Antibiotics) Allergy (Unknown, Verified 05/31/24 10:03) rash/joint pain Do you need a note to return to daycare/school/sports/work: No HPI EP cough, congestion HPI Details This is a 54 year old female patient who presents to the walk-in clinic today with report of a 2 week history of persistent productive cough, shortness of breath, nasal congestion. Denies any fever or chills. Has not had any treatment for this. Does have a history of asthma and has an albuterol inhaler home, however she does not like the side effect of the palpitations. She denies known exposure to sick contacts. [facility] Medical History JORDAN (obstructive sleep apnea) PAC (premature atrial contraction) Hyperlipidemia Annual physical exam Vertigo Shoulder pain, bilateral Injury of left brachial plexus Normal Pap smear Tobacco dependence Fibromyalgia Degeneration of lumbar intervertebral disc Cervical radiculopathy due to degenerative joint disease of spine Arthritis Bilateral ankle pain Hip pain, bilateral Neck pain Surgical History History of colectomy No pertinent past surgical history Family History Father Bladder cancer History of heart attack Mother No problems noted. Brother Substance use disorder Brother Substance use disorder Social History Housing: House Alcohol intake: never Patient Tobacco Use Status: Former Tobacco user Cigarette Packs Per Day: 0 Cigarettes Per Day: 15 Current occupational status: disabled Cognitive needs: No Hearing needs: No Vision needs: No Review of Systems Const All systems reviewed & are unremarkable except as noted in HPI and below Physical Exam Vital Signs: Last Vital Signs Temp 98.7 F 05/31/24 09:52 Pulse 68 05/31/24 09:52 BP 118/70 05/31/24 09:52 Pulse Ox 97 05/31/24 09:52 Oxygen Delivery Method Room Air 05/31/24 09:52 BMI result Body Mass Index 30.4 Const General: cooperative, no acute distress, ill appearing acutely and tired appearing HEENT Head: Yes normal to inspection Ears: hearing grossly normal bilaterally General nose exam: Normal external nose present and Nasal discharge present mucoid Face and sinus: Yes sinuses nontender Mouth: Normal oral and palatal mucosa present Throat: Yes posterior oropharynx abnormal (mild erythema) Neck Neck: Yes no lymphadenopathy Resp Effort & Inspection: able to speak in complete sentences and Actively coughing Quality: productive Auscultation: rhonchi left upper, right upper and right lower Cardio Rate: regular rate Rhythm: regular rhythm Skin General skin exam: no rashes or lesions noted Extrem General: Yes capillary refill normal and Yes no clubbing, cyanosis or edema Psych Appearance: grossly normal Mental Status: mental status grossly normal Speech and movement: Normal speech and movement present Assessment & Plan Assessment & Plan (1) Upper respiratory tract infection: Code(s): J06.9 - Acute upper respiratory infection, unspecified Qualifiers: URI type: unspecified URI Qualified Code(s): J06.9 - Acute upper respiratory infection, unspecified Plan: CXR was obtained in the office today and does not show acute process, however given history and LS at this time, I am going to start patient on Augmentin, which she has done well on in previous years. Her cough is severe and persiste nt, and I will start her on a short course of PO Prednisone for this. We reviewed indications, use, possible side effects of these medications. I encouraged some coughing/deep breathing exercises. She has a follow-up with PCP Kevin Early next week, however we discussed that in the meantime, should her symptoms worsen, or if she develops increasing shortness of breath or fever, she should go to the emergency department for evaluation. She verbalizes understanding and agrees to plan. (2) Asthma: Code(s): J45.909 - Unspecified asthma, uncomplicated Plan: History of asthma, exacerbated at this time with upper respiratory infection. Does not like to utilize albuterol due to the side effects. Has a Breo inhaler however reports that it is ineffective and she does not like it, and requests an alternate inhaler. I will start her on Symbicort to see if this provides any added benefit. Orders: Orders XR chest 2V Today J06.9 - Acute upper respiratory infection, unspecified SARS-CoV2/FLU/RSV Today J06.9 - Acute upper respiratory infection, unspecified Medications: New prednisone Take one tablet by mouth twice a day for 5 days. 20 mg PO BID 5 days 10 tabs 0RF J06.9 - Acute upper respiratory infection, unspecified amoxicillin-pot clavulanate 875-125 mg Take one tablet by mouth twice a day for 7 days. 1 tab PO BID 7 days 14 tabs 0RF J06.9 - Acute upper respiratory infection, unspecified budesonide-formoterol 80-4.5 mcg/actuation (Symbicort) 2 puffs inhalation BID 10.2 grams 0RF J45.909 - Unspecified asthma, uncomplicated, R06.02 - Shortness of breath Coding Level of Care Code Est Pt Level 4 (54448) Diagnoses Upper respiratory tract infection, unspecified type J06.9 URI type: unspecified URI Asthma J45.909
--- OUTSIDE RECORDS SUMMARY | 2024-05-31 09:52 | XMS_ITS ---
Author Organization [facility] Address [address] [place] [address] Care Team Providers Care Forensic Examiner Name Role Phone Vannessa Rivas MD Primary Care Provider Unavaila Shanthi Fermin Unavailable [phone] Lyndon Villavicencio Unavailable [phone] Encounters Encounter Location Date Provider Diagnosis [facility] [address] 01/29/2024 Lyndon Villavicencio PLAN OF TREATMENT No Information
--- OUTSIDE RECORDS SUMMARY | 2024-05-31 09:52 | XMS_ITS ---
Author Organization [facility] Address [address] [place] [address] Care Team Providers Care Clipper Machine Operator Name Role Phone Vannessa Rivas MD Primary Care Provider Unavaila Shanthi Fermin [phone] REASON FOR VISIT cx appt 01/28 Encounters Encounter Location Date Provider Diagnosis [facility] [address] [place] [address] 01/24/2024 Shanthi Donovan PLAN OF TREATMENT No Information
--- OUTSIDE RECORDS SUMMARY | 2024-05-31 09:52 | XMS_ITS ---
[facility] Address [address] [facility] [place] [address] Care Team Providers Care Career Development Consultant Name Role Phone Vannessa Rivas MD Primary Care Provider Shanthi Limon Unavailable [phone] ALLERGIES Allergen (clinical drug ingredient) Drug/Non Drug [...] 01/23/2024 Encounters Encounter Location Date Provider Diagnosis [facility] [address] [place] [address] 01/23/2024 Shanthi Donovan Fungal infection of nail B35.1 and Pain in left toe(s) M79.675 ASSESSMENTS Encounter Date Diagnosis Assessment Notes Treatment Notes Treatment Clinical Notes 01/23/2024 Fungal infection of nail (ICD-10 - B35.1) Rx management (4) 01/23/2024 Pain in left toe(s) (ICD-10 - M79.675) PLAN OF TREATMENT Medication Medication Name Sig Start Date Stop Date Notes Ciclopirox 0.77 % 1 application Check Processor ally Twice a day for 365 days [...]
--- OUTSIDE RECORDS SUMMARY | 2024-05-31 09:52 | XMS_ITS | Patient Health Record ---
Author Organization [facility] Address [address] [facility] [place] [address] Care Team Providers Care Data Warehousing Manager Name Role Phone Vannessa Rivas MD Primary Care Provider Unavaila Shanthi Fermin Unavailable [phone] Lyndon Villavicencio Unavailable [phone] ALLERGIES Allergen (clinical drug ingredient) Drug/Non Drug [...] 01/23/2024 Encounters Encounter Location Date [facility] [address] [place] [address] 01/23/2024 Shanthi Marrufoa Fungal infection of nail B35.1 and Pain in left toe(s) M79.[address] [facility] [address] 01/24/2024 [facility] [address] [facility] [address] [place] [address] 01/29/2024 Lyndon Villavicencio ASSESSMENTS Encounter Date Diagnosis [...] Coverage Start Date Coverage End Date [facility] [employer] Claims [address] [place] [address] [phone] [id number] Dorina Holguin Self - patient is the insured MEDICAL (GENERAL) HISTORY Medical History History ICD Code Anxiety asthma Back,Hip,and Knee pain CAD (Cholesterol) Fibromyalgia Gall bladder problems Numbness Reflux ( GERD) chronic sinusitis Surgical History Surgery Date(Month/Year) gall bladder 2005 ablation surgery 2013
--- OUTSIDE RECORDS SUMMARY | 2024-05-31 09:52 | XMS_ITS | Continuity of Care Document ---
Author Organization [facility] Address [address] [place] [address], [address] [place] [address]- Care Team Providers Care Rand Butter Name Role Phone Albania Martin MD Primary Care Physician [place] [facility] [place]): 04/08[place]24 - 05/08/24 [facility] Irvin Muñizs [facility] [address] [facility], 4th [address] [place], [place] [address] Allergies, Adverse Reactions, Alerts Substance Reaction Severity [...] each, 5 Refills, Maintenance, 12/04/23 12:37:00 EDT, [id number], 30, INHALE 1 PUFF EVERY DAY FOR 30 DAYS, 175.26, cm, 11/13/23 12:38:00 EST, Height Start Date: 12/04/23 Status: Ordered Breo Ellipta 100 mcg-25 mcg/inh inhalation powder 1 puffs, Inhalation, Daily, # 30 each, 1 Refills, Maintenance, 11/30/23 10:04:00 EST, Powder, [facility]/pharmacy #[id number], Partial fill upon patient request if the prescription is for a schedule II opioid drug., 1 puffs Inhalation Daily,x30 days, 175.26, cm, 0... Start Date: 11/30/23 Stop Date: 01/29/24 Status: Ordered busPIRone 5 mg oral tablet 1, tablet, By Mouth, 2 times a day, # 180 tablet, Refills 1, Maintenance, 11/13/23 16:57:00 EST, Route to Pharmacy Electronically, [id number], 175.26, cm, 11/13/23 12:38:00 EST, Height Start Date: 11/13/23 Status: Ordered cyclobenzaprine 5 mg oral tablet 1 tablet = 5 mg, By Mouth, 3 times a day, # 40 tablet, 1 Refills, Acute 09/04/24 12:10:00 EST, 07/05/23 12:10:00 EDT, [facility]/pharmacy #[id number], Partial fill upon patient request if the prescription is for a schedule II opioid drug., 175.26, cm, 07/05/23 11:... Start Date: 07/05/23 Stop Date: 09/04/24 Status: Ordered Diflucan 150 mg oral tablet See Instructions, 1 tablet By mouth every 3 days, # 3 tablet, 0 Refills, Maintenance, 11/13/23 13:09:00 EST, Tablet, [facility]/pharmacy #[id number], Partial fill upon patient request if the prescription is for aschedule II opioid drug., 175.26, cm, 11/13/23 12:3... Start Date: 11/13/23 Status: Ordered ezetimibe 10 mg oral tablet 1 tablet = 10 mg, By Mouth, Daily, # 90 tablet, 0 Refills, Maintenance, 10/11/23 10:51:00 EST, Tablet, [facility]/pharmacy #[id number], Partial fill upon patient request if the prescription is for a schedule II opioid drug., 175.26, cm, 08/01/23 8:35:00 EST, Height Start Date: 10/11/23 Status: Ordered fluticasone 50 mcg/inh nasal spray See Instructions, USE 1 SPRAY IN BOTTH NOSTRILS TWICE A DAY NEEDED FOR NASAL AND SINUS CONGESTION, # 48 mL, 1 Refills, Maintenance, 12/14/22 7:35:00 EDT, [facility]/pharmacy #[id number], 90, USE 1 SPRAY IN BOTTH [...] 0 Refills, Maintenance, 11/13/23 13:12:00 EST, Solution, [facility]/pharmacy #[id number], Partial fill upon [...] 5 Refills, Maintenance, 07/05/23 12:12:00 EDT, Capsule, [facility]/pharmacy #[id number], Partial fill upon patient request if the prescription is for a schedule II opioid drug., 175.26, cm, 07/05/23 11:35:... 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, no children, smokes one pack of cigarettes daily, and rarely drinks alcohol Social History Social History Type Response Smoking Status Current every day sm oker; Tobacco use times per day: 3/4 pack; entered on: 08/26/14 Sex Female Patient Care team information Care Team Personnel Name: Albania Martin MD Position: [facility] Physician - Primary Care Member Role: PCP Address: Address: [address] [place] [address] [place] [address]- Care Team Related Persons Name: FAVIAN [place] Address: home [address], [place] Name: FAVIAN [place] Address: home [address], [place] Name: ALVARADO ROBERTSON Address: home [address] [place] [address]
== END 2024-05-31 10:47 | disposition home or self-care (01) ==
PROVIDERS: PCP Nurse Practitioner Family; Visit Provider Nurse Practitioner Family
DX: J06.9 Acute upper respiratory infection, unspecified (principal); J45.909 Unspecified asthma, uncomplicated
CPT/HCPCS: 99214

== ENCOUNTER 2024-05-31 10:09 | Outpatient (REF) | payer OTHER, SELFPAY ==
[2024-05-31 13:54] LABS: Influenza A PCR NEGATIVE (Negative); Influenza B PCR NEGATIVE (Negative); Resp Syncy Virus RNA Qual PCR NEGATIVE (Negative); SARS COV2 PCR INHOUSE NEGATIVE (Negative)
== END 2024-05-31 10:10 | disposition home or self-care (01) ==
LOC: HO.LAB 10:09
PROVIDERS: Visit Provider Nurse Practitioner Family
DX: Z13.89 Encounter for screening for other disorder (principal)
CPT/HCPCS: 0241U

== ENCOUNTER 2024-05-31 10:22 | Outpatient (REF) | payer OTHER, SELFPAY ==
--- NOTE | ~2024-05-31 | XR_ITS ---
EXAMINATION: XR CHEST CLINICAL INFORMATION: Acute upper respiratory infection COMPARISON: Chest radiograph 06/13/2019 TECHNIQUE: 2 views of the chest were obtained. FINDINGS: Right chest port with central venous catheter tip projecting over the cavoatrial junction. Lungs are adequately expanded. No focal consolidation. No pleural effusions, edema or pneumothorax. The cardiac mediastinal silhouette is within normal limits. No acute osseous pathology. XR/XR chest 2V IMPRESSION: No acute pulmonary disease. Electronically signed by: Francis Fatima MD 05/31/2024 12:33 PM EDT
== END 2024-05-31 10:23 | disposition home or self-care (01) ==
LOC: HO.HMGCX 10:22
PROVIDERS: PCP Nurse Practitioner Family; Visit Provider Nurse Practitioner Family
DX: J06.9 Acute upper respiratory infection, unspecified (principal)
CPT/HCPCS: 71046

== ENCOUNTER → 2024-05-31 13:01 | Outpatient (REF) | payer OTHER, SELFPAY ==
--- NOTE | 2024-05-31 13:04 | HM_ITS ---
* Total monitoring time 3 days. * Underlying rhythm is sinus. Average ventricular rate 94/Min. About 27% of the time, rate > 100/Min. * Rare supraventricular ectopy. Very brief runs. * No significant pauses or high-grade AV blocks. * Patient markers used in association with sinus tachycardia and supraventricular ectopy. * Rapid/fast heartbeat during coughing, mentioned in patient diary, associated with mild sinus tachycardia and artifact. MTDD
== END ==
LOC: HO.CARD 13:01
PROVIDERS: PCP Nurse Practitioner Family; Visit Provider Nurse Practitioner Family
DX: R00.0 Tachycardia, unspecified (principal)
CPT/HCPCS: 0241U; 71046; 93242

== ENCOUNTER → 2024-05-31 13:04 | Outpatient (BNV) | payer OTHER, SELFPAY | PROVIDERS: PCP Nurse Practitioner Family; Visit Provider Internal Medicine | DX: R00.0 Tachycardia, unspecified (principal) | CPT/HCPCS: 93244 ==

== ENCOUNTER 2024-06-06 08:00 | Outpatient (AMB) | payer OTHER, SELFPAY ==
--- NOTE | 2024-06-06 08:03 | A.OFFPC_ITS ---
Vital Signs 06/06/24 08:04 Height 5 ft 8 in Weight 195 lb BMI 29.6 BP 130/78 Blood Pressure Location Rt brachial Position Sitting Pulse 106 H Pulse Source Pulse Oximeter Pulse Oximetry (%) 97 Intake Visit Reasons: 4 month follow up Intake Note: pt s here for 4 month follow up Allergies citalopram [From CELEXA] Allergy (Unknown, Verified 06/06/24 08:09) PANIC ATTACK clarithromycin [From BIAXIN] Allergy (Unknown, Verified 06/06/24 08:09) UNKNOWN moxifloxacin [From AVELOX] Allergy (Unknown, Verified 06/06/24 08:09) RASH Sulfa (Sulfonamide Antibiotics) Allergy (Unknown, Verified 06/06/24 08:09) rash/joint pain Tobacco use date assessed: 02/01/24 Dental Screening Dental Screen Date: 02/01/24 HPI 4 month follow up HPI Details Pt is currently seeing oncology due to colon cancer. She is receiving chemotherapy, has her last treatment on Monday. Denies fever and chills. Pt is tearful today. Pt reports increased anxiety. She is currently taking buspirone 5mg bid. Will increase this to 7.5mg bid. Denies any SI and HI. Pt was recently on augmentin which caused worsening diarrhea. Does not appear dehydrated. Encoruaged to push fluids PFSH Medical History JORDAN (obstructive sleep apnea) PAC (premature atrial contraction) Hyperlipidemia Annual physical exam Vertigo Shoulder pain, bilateral Injury of left brachial plexus Normal Pap smear Tobacco dependence Fibromyalgia Degeneration of lumbar intervertebral disc Cervical radiculopathy due to degenerative joint disease of spine Arthritis Bilateral ankle pain Hip pain, bilateral Neck pain Surgical History History of colectomy No pertinent past surgical history Family History Father Bladder cancer History of heart attack Mother No problems noted. Brother Substance use disorder Brother Substance use disorder Social History Housing: House Alcohol intake: never Patient Tobacco Use Status: Former Tobacco user Cigarette Packs Per Day: 0 Cigarettes Per Day: 15 Current occupational status: disabled Cognitive needs: No Hearing needs: No Vision needs: No Questionnaire PHQ-9 Over the last 2 weeks, how often have you been bothered by any of the following problems? 1. Little interest or pleasure in doing things: several days 2. Feeling down, depressed, or hopeless: not at all 3. Trouble falling or staying asleep, or sleeping too much: more than half the days 4. Feeling tired or having little energy: several days 5. Poor appetite or overeating: several days 6. Feeling bad about yourself - or that you are a failure or have let yourself or your family down: not at all 7. Trouble concentrating on things, such as reading the newspaper or watching television: not at all 8. Moving or speaking so slowly that other people could have noticed. Or the opposite - being so fidgety or restless that you have been moving around a lot more than usual: not at all 9. Thoughts that you would be better off or of hurting yourself in some way: not at all Total score: 5 Source: Developed by Drs. David Boyd, Antoinette Johnson, Andreas Guzmán and colleagues, with an educational addie from [employer]. Thrive Questionnaire Date Thrive assessed: 05/30/24 I am a: Patient What is your living situation today?: I have a steady place to live Within the past 12 months, did the food you bought not last and you didn't have the money to get more?: Never true Within the past 12 months, did you worry whether your food would run out before you got money to buy more?: Never true Do you have trouble paying for medicines?: No Do you have trouble getting transportation to medical appointments?: No Do you have trouble paying your heating and electricity bill?: No Do you have trouble taking care of your child, family member or friend?: I choose not to answer this question Do you have trouble with day-to-day activities such as bathing, preparing meals, shopping, managing finances, etc.?: Yes Are you currently unemployed and looking for a job?: No Are you interested in more education?: No Please select the resources that you would like help with: None Currently or been in a relationship where the following occur: No concerns reported THRIVE Score: 0 AUDIT C Alcohol Use Questionnaire (AUDIT-C) 1. How often do you have a drink containing alcohol?: Never 3. How often do you have six or more drinks on one occasion?: Never Total Score: 0 GENEVA-7 AMB Questionnaire GENEVA-7 Date GENEVA - 7 assessed: 11/09/21 Feeling nervous, anxious, or on edge: 2 = More than half the days Not being able to stop or control worryin = More than half the days Worrying too much about different things: 2 = More than half the days Trouble relaxin = Several days Being so restless that it is hard to sit still: 0 = Not at all Becoming easily annoyed or irritable: 1 = Several days Feeling afraid as if something awful might happen: 2 = More than half the days Total GENEVA-7 score (0-4 normal; 5-9 mild; 10-14 moderate; 15-21 severe): 10 Source: Developed by Drs. David Boyd, Antoinette Johnson, Andreas Guzmán and colleagues, with an educational addie from [employer]. Review of Systems Const Reports as per HPI Physical exam (Primary Care) Vital Signs: Last Vital Signs Pulse 106 H 06/06/24 08:04 BP 130/78 06/06/24 08:04 Pulse Ox 97 06/06/24 08:04 BMI result Body Mass Index 29.6 Tobacco/Smoking Status: Tobacco use Status Tobacco use date assessed 02/01/24 06/06/24 08:06 Patient Tobacco Use Status Former Tobacco user 06/06/24 08:06 PHQ-9: PHQ-9 Score PHQ-9: Total score 5 06/06/24 08:37 Thrive Assessment: Date of Thrive Assessment Date Thrive assessed 05/30/24 06/06/24 08:06 Currently or been in a relationship where the following occur: No concerns reported Const General: cooperative Orientation/consciousness: patient oriented x3 Resp Effort & Inspection: normal respiratory effort Auscultation: wheezes throughout Cardio Rate: regular rate Rhythm: regular rhythm Heart sounds: S1 normal heart sound present and S2 normal heart sound present Neuro General: patient oriented x3 Psych Appearance: grossly normal Mental Status: mental status grossly normal Speech and movement: Normal speech and movement present Affect: normal affect Attitude: cooperative Thought process: Normal thought process present Thought content: Normal thought content present Insight: Good insight present (Psych) Judgement: Good judgement present (Psych) Assessment and Plan Assessment & Plan (1) Colon cancer: Comment: stage 3 Code(s): C18.9 - Malignant neoplasm of colon, unspecified Qualifiers: Colon location: ascending Qualified Code(s): C18.2 - Malignant neoplasm of ascending colon Plan: Following up with oncology (2) S/P right colectomy: Comment: 02/14/2024 Code(s): Z90.49 - Acquired absence of other specified parts of digestive tract Plan: Following up with oncology (3) Chemotherapy adverse reaction: Code(s): T45.1X5A - Adverse effect of antineoplastic and immunosuppressive drugs, initial encounter Plan: Following up with oncology (4) Anxiety: Code(s): F41.9 - Anxiety disorder, unspecified Plan: Increasing buspirone from 5mg bid to 7.5mg bid Plan The patient agreed to the use of a bio medical technician for this encounter. Scribed for HARDY Ardon by Nicole Martinez bio medical technician, on 06/06/2024 at 08:15 EST. Medications: Changed From buspirone 5 mg PO BID 180 tabs 3RF To buspirone 7.5 mg PO BID 30 days 60 tabs 3RF From mirabegron ER (Myrbetriq) 25 mg PO DAILY To mirabegron ER (Myrbetriq) 25 mg PO DAILY 90 days 90 tabs 0RF From pregabalin (Lyrica) 100 mg PO BID To pregabalin (Lyrica) 100 mg PO BID 30 days 60 caps 2RF Refilled nystatin 4 mL PO TID 10 days PRN 60 mL 2RF thrush budesonide-formoterol 80-4.5 mcg/actuation (Symbicort) 2 puffs inhalation BID 10.2 grams 0RF J45.909 - Unspecified asthma, uncomplicated, R06.02 - Shortness of breath Coding Level of Care Code Est Pt Level 3 (45854) Diagnoses Malignant neoplasm of ascending colon C18.2 Colon location: ascending S/P right colectomy Z90.49 Chemotherapy adverse reaction T45.1X5A Anxiety F41.9
[2024-06-06 08:04] VITALS: BP 130/78; PULSE 106; O2SAT 97; BMI 29.6
== END 2024-06-06 09:43 | disposition home or self-care (01) ==
PROVIDERS: PCP Internal Medicine; Visit Provider Nurse Practitioner Family
DX: C18.2 Malignant neoplasm of ascending colon (principal); Z90.49 Acquired absence of other specified parts of digestive tract; T45.1X5A Adverse effect of antineoplastic and immunosuppressive drugs, initial encounter; F41.9 Anxiety disorder, unspecified
CPT/HCPCS: 99213

== ENCOUNTER → 2024-06-13 07:50 | Outpatient (REF) | payer OTHER, SELFPAY ==
--- NOTE | 2024-06-13 07:53 | CA_ITS ---
Transthoracic Echocardiogram Patient (Last, First, Middle): Dorina Holguin A Gender: Female Date of : 1970 Age: 54 Procedure Date: 06/13/2024 Procedure Type: Transthoracic Echocardiogram Location: OP Height: 172.72 cm Weight: 88. kg BSA: 2.02 m2 Heart Rate: bpm BP: 110 / 70 mmHg Medical Authorization Specialist: TO Referring MD: Kevin Early [facility] Building Services Supervisor: Williams Vicente MD Symptoms: R06.02 - Shortness of breath Study Quality: Adequate ECG Rhythm: Sinus Conclusions: - 1. Normal LV systolic function with LVEF of 60 65% 2. Normal cardiac valvular Dopplers 3. Trivial pericardial effusion Findings Left Ventricle Normal left ventricular size, thickness, and systolic function. The visually estimated ejection fraction is between 60-65%. Spectral Doppler is indicative of a normal filling pattern. Peak GLS is -17.9%, borderline normal Right Ventricle Normal right ventricular cavity size and systolic function. Atria Both atria are normal in size. There is no evidence of interatrial shunt. Aortic Valve Normal aortic valve structure and function. There is no aortic valve stenosis. There is no aortic valve regurgitation. Mitral Valve Normal mitral valve structure and function. There is trace mitral valve regurgitation. There is no mitral valve stenosis. Pulmonic Valve The pulmonic valve is likely normal. There is trace pulmonic valve regurgitation. Tricuspid Valve Normal tricuspid valve structure. Tricuspid regurgitation envelope is inadequate for calculation of right ventricular systolic pressure. Normal right atrial pressure. Great Vessels All visible segments of the aorta are normal in size. The pulmonary artery was not well visualized. There is no dilatation of the ascending aorta measuring 2.90 cm. Venous The inferior vena cava is normal in size and collapses greater than 50% with inspiration. Pericardium/Pleural There is a trivial circumferential pericardial effusion. Prior Study Comparison No prior study available for comparison. Measurements 2D Linear Measurements IVSd: 0.90 0.6-0.9/0.6-1.0 cm LVIDd: 4.50 3.9-5.3/4.2-5.9 cm LVIDd Index: 2.23 2.4-3.2/2.2-3.1 cm/m2 LVIDs: 3.05 2.0-3.6 cm LVPWd: 0.99 0.7-1.1 cm LA Diam: 2.80 2.7-3.8/3.0-4.0 cm LAIDs Index: 1.39 1.5-2.3 cm/m2 LV Mass: 175.95 67-162/88-224 g LV Mass Index: 87.10 43-95/49-115 g/m2 LVOT Diam: 2.10 3.0+(-)1.3 cm 2D Systolic Function EF 4C: 58.70 >55% EF 2C: 61.90 >55% EF BiP: 60.10 >55% Mitral Valve MV Pk E: 0.60 MV PK A: 0.49 MV Decel Time: 147.00 E/A: 1.20 E'Lateral: 9.68 E'Medial: 7.94 E/E' Med: 7.50 E/E' Lat: 6.20 PHT: 43.00 MVA PHT: 5.12 Decel [place]: 4.04 Aortic Valve AoV Pk Ethan: 1.61 AoV Mn Ethan: 1.06 AoV VTI: 0.29 AoV Pk Grad: 10.00 Aov Mn Grad: 5.00 ANIBAL Cont.VTI: 2.91 LVOT LVOT Pk Ethan: 1.29 LVOT Mn Ethan: 0.83 LVOT VTI: 0.24 LVOT Pk Grad: 7.00 LVOT Mn Grad: 3.00 LVOT Diam: 2.10 LVOT Area: 3.46 Diastolic Function MV Pk E: 0.60 MV Pk A: 0.49 E/A: 1.20 E'Medial: 7.94 E/E' Med: 7.50 E' Laterial: 9.68 E/E' Lat: 6.20 Right Ventricle TAPSE (mm): 18.00 TVS' Ethan: 9.57 Tricuspid Valve RA Press: 3.00 Great Vessels Aorta Sinus of Valsalva: 3.29 2.0-3.5 cm Ao Asc: 2.90 2.1-3.4 cm Ao Arch: 2.70 Updated in Other Vendor System with Status of Final Williams Vicente MD electronically signed on 06/13/2024 10:26:26 AM with status of Final
== END ==
LOC: HO.CARD 07:50
PROVIDERS: Absent Provider Internal Medicine; PCP Nurse Practitioner Family; Visit Provider Nurse Practitioner Family
DX: R06.02 Shortness of breath (principal)
CPT/HCPCS: 93005; 93306; 93356; 99212

== ENCOUNTER 2024-06-13 13:39 | Outpatient (AMB) | payer OTHER, SELFPAY ==
[2024-06-13 14:05] VITALS: BP 116/64; PULSE 111; BMI 30.4
--- NOTE | 2024-06-13 14:05 | MHC.OFFVIS ---
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 Life Cycle Assessment Analyst Required: No Accompanied by: Nephew or Niece Allergies citalopram [From CELEXA] Allergy (Unknown, Verified 06/06/24 08:09) PANIC ATTACK clarithromycin [From BIAXIN] Allergy (Unknown, Verified 06/06/24 08:09) UNKNOWN moxifloxacin [From AVELOX] Allergy (Unknown, Verified 06/06/24 08:09) RASH Sulfa (Sulfonamide Antibiotics) Allergy (Unknown, Verified 06/06/24 08:09) rash/joint pain Medication List - Last Reconciled 06/13/24 by Nolberto Elizabeth MD acetaminophen 325 mg PO Q6H PRN albuterol sulfate 90 mcg/actuation 2 puffs inhalation Q6H PRN albuterol sulfate 2.5 mg (3 mL) inhalation QID PRN 30 days betamethasone valerate 0.1% 1 appl topical BID budesonide-formoterol 80-4.5 mcg/actuation (Symbicort) 2 puffs inhalation BID buspirone 7.5 mg PO BID 30 days ciclopirox 0.77% topical PRN clindamycin phosphate 1% 1 ea topical BID PRN docusate sodium 100 mg PO BEDTIME PRN ezetimibe (Zetia) 10 mg PO DAILY fluticasone propionate 50 mcg/actuation (Allergy Relief (fluticasone)) 1 spray intranasal BID 30 days hydrocortisone 2.5% (Proctosol HC) 1 appl [place] BID-QID PRN ibuprofen 800 mg PO TID PRN ketoconazole 2% topical PRN latex gloves (Latex Gloves, Large) As directed-using 10 per day lorazepam (Ativan) 0.5 mg PO BEDTIME PRN meclizine 25 mg PO TID PRN mirabegron ER (Myrbetriq) 25 mg PO DAILY 90 days montelukast 10 mg PO DAILY nebulizers As directed for updraft treatments- with all needed supplies nystatin 1 appl topical BID-TID PRN nystatin 4 mL PO TID PRN 10 days polyethylene glycol 3350 (Purelax) grams PO PRN pregabalin (Lyrica) 100 mg PO BID 30 days simethicone mg PO BID PRN HPI Comments Details: Dorina is here for consultation regarding chest tightness. She got recently diagnosed with colon cancer and is getting chemotherapy for the same. During the times when she is actually getting the infusion, she is noticing chest tightness. Not at other times. In fact when she is doing something physical like walking, going up stairs, doing inclines, any form of physical exertion, she has got no symptoms. Otherwise, no known coronary disease or myocardial infarction or cardiomyopathy. She also gets palpitations /heart racing but she also has extreme degree of anxiety. Additionally, she states that her blood counts are low, which could be related to the chemotherapy. Chronic smoker. Suspect she has got some COPD. Significant baseline anxiety. [facility] Medical History JORDAN (obstructive sleep apnea) PAC (premature atrial contraction) Hyperlipidemia Annual physical exam Vertigo Shoulder pain, bilateral Injury of left brachial plexus Normal Pap smear Tobacco dependence Fibromyalgia Degeneration of lumbar intervertebral disc Cervical radiculopathy due to degenerative joint disease of spine Arthritis Bilateral ankle pain Hip pain, bilateral Neck pain Surgical History History of colectomy No pertinent past surgical history Family History Father Bladder cancer History of heart attack Mother No problems noted. Brother Substance use disorder Brother Substance use disorder Social History Housing: House Alcohol intake: never Patient Tobacco Use Status: Former Tobacco user Cigarette Packs Per Day: 0 Cigarettes Per Day: 15 Current occupational status: disabled Cognitive needs: No Hearing needs: No Vision needs: No Review of Systems Const Denies chills, Denies daytime sleepiness, Denies fatigue, Denies fever(s), Denies poor appetite, Denies snoring, Denies stops breathing during sleep, Denies weakness, Denies weight gain and Denies weight loss Eyes Denies loss of vision ENT Denies dizziness and Denies hearing loss Card Denies chest pain, Denies irregular heart rhythm, Denies claudication, Denies leg edema, Denies lightheadedness, Denies palpitations, Denies dyspnea on exertion and Denies orthopnea Resp Denies cough, Denies excessive phlegm production, Denies dyspnea on exertion, Denies snoring and Denies wheezing GI Denies abdominal pain, Denies hematochezia, Denies change in bowel habits, Denies nausea and Denies vomiting Denies urinary frequency and Denies dysuria Musc Denies arthralgias, Denies muscle weakness, Denies numbness and Denies other Skin/Breast Denies nail changes and Denies rash Neuro Denies Abnormal speech present, Denies dizziness, Denies loss of vision, Denies memory loss, Denies numbness and Denies weakness Psych Denies depression and Denies memory loss Endo Denies fatigue and Denies palpitations Jw/Lymph Denies easy bruising Aller/Immun Denies wheezing Physical Exam Vital Signs: Last Vital Signs Pulse 111 H 06/13/24 14:05 BP 116/64 06/13/24 14:05 BMI result Body Mass Index 30.4 Const General: comfortable and no acute distress Orientation/consciousness: patient oriented x3 HEENT Other: Unremarkable Head: Yes normal to inspection Neck Neck: Yes normal visual inspection Chest Chest palpation & inspection: normal inspection of the chest Resp Other: Some wheeze Cardio Palpation: normal PMI Heart sounds: S1 normal heart sound present, S2 normal heart sound present, no gallops, no murmurs and no rubs GI Palpation (GI): Soft to palpation Back/Spine/Pelvis Other: unremarkable Skin General skin exam: no rashes or lesions noted Neuro General: patient oriented x3 Speech: No Abnormal speech present Extrem General: Yes normal to inspection Psych Mental Status: mental status grossly normal Office Procedures EKG Details: EKG with mild sinus tachycardia 104/Min; no significant ST-T changes and otherwise unremarkable. Somewhat of low-voltage complexes. 43667-[id number], Complete Assessment & Plan Assessment & Plan (1) Chest tightness: Code(s): R07.89 - Other chest pain Category: Medical (2) Tachycardia: Code(s): R00.0 - Tachycardia, unspecified Category: Medical (3) Chemotherapy adverse reaction: Code(s): T45.1X5A - Adverse effect of antineoplastic and immunosuppressive drugs, initial encounter Category: Medical Plan In the echocardiogram, LVEF 60-65%; peak global longitudinal strain within limits; no significant valvular findings and trivial pericardial effusion. In the Holter, underlying rhythm is sinus with an average rate of 94/Min. About 27% the time, rate > 100/Min. Rare supraventricular ectopy. Overall, with regard to the chest tightness during chemo infusions, doubt any angina as she is not having these symptoms during physical exertion. She states she is getting her last chemo session in a couple of weeks. We can get an exercise stress perfusion study for further evaluation, but obstructive coronary disease seems less likely. With regard to the tachycardia, she does have sinus tachycardia. Could be related to underlying lung disease, smoking, inhaler use, ongoing chemotherapy, anxiety and hence multifactorial etiology. With preserved LVEF, no specific management for that. Would rather avoid beta-blockers as it may provoke wheezing. Could consider diltiazem if this issue is persisting. Plan discussed with patient. If any change in symptoms or worsening, she will contact us immediately. We will plan on following up after the stress test. Orders: Orders CA stress test Today R07.2 - Precordial pain NM cardiolite stress test Today R07.2 - Precordial pain Coding Level of Care Code New Pt Level 4 (06253) Diagnoses Chest tightness R07.89 Tachycardia R00.0 Chemotherapy adverse reaction T45.1X5A CPT Codes EKG - CPT: 86624-[id number], Complete ([id number])
== END 2024-06-13 14:48 | disposition home or self-care (01) ==
PROVIDERS: PCP Nurse Practitioner Family; Visit Provider Internal Medicine
DX: T45.1X5A Adverse effect of antineoplastic and immunosuppressive drugs, initial encounter (principal); R07.89 Other chest pain; R00.0 Tachycardia, unspecified
CPT/HCPCS: 93010; 93306; 93356; 99214

== ENCOUNTER 2024-07-03 07:50 | Outpatient (AMB) | payer OTHER, SELFPAY ==
[2024-07-03 08:07] VITALS: BP 122/64; PULSE 84; O2SAT 97; BMI 29.8
--- NOTE | 2024-07-03 08:07 | A.OFFVIS_ITS ---
Vital Signs 07/03/24 08:07 Height 5 ft 8 in Weight 196 lb 3.382 oz BMI 29.8 BP 122/64 Blood Pressure Location Lt brachial Position Sitting Pulse 84 Pulse Source Pulse Oximeter Pulse Oximetry (%) 97 Oxygen Delivery Method Room Air Intake Visit Reasons: Discuss colonoscopy Intake Note: Dorina presents in office today for a scheduled FUV. CC; Pt is here to discuss a possible colo procedure today. Pt denies any new sx or concerns that they need to discuss at this time. Pt reports that they could use a refill of the hemorrhoid cream if possible. Pt has been using PRN based on diarrhea per chemo tx. Data Base Design Analyst Required: No Allergies citalopram [From CELEXA] Allergy (Unknown, Verified 07/03/24 08:08) PANIC ATTACK clarithromycin [From BIAXIN] Allergy (Unknown, Verified 07/03/24 08:08) UNKNOWN moxifloxacin [From AVELOX] Allergy (Unknown, Verified 07/03/24 08:08) RASH Sulfa (Sulfonamide Antibiotics) Allergy (Unknown, Verified 07/03/24 08:08) rash/joint pain HPI HPI Discuss colonoscopy: Details: LAST VISIT Colon cancer S/P right colectomy Screening for colon cancer Plan Patient will increase fiber intake. She will start taking Colace. Proctosol. Please book patient for colonoscopy. Patient wants to wait as she just recently had right collectomy and wants to heal. Currently going for chemotherapy. Patient will return in 2 months to discuss the prep and the procedure. Patient w ill call our office if her symptoms will get worse or she will experience any additional GI concerning symptoms. Patient is agreeable to this plan and verbalizes understanding of instructions. She was given the opportunity to ask questions and all questions answered. ? Thank you for allowing me to participate in her care Medications New docusate sodium 100 mg PO BEDTIME 90 caps 3RF K59.00 Refilled hydrocortisone 2.5% (Proctosol HC) 1 appl AL BID-QID PRN 30 grams 2RF hemorrhoids TODAY'S VISIT: Patient is here today for follow-up and to discuss prep and what to expect before colonoscopy. Patient has a colonoscopy scheduled for August. This will be her 1st colonoscopy. Patient finished chemo treatment. As mentioned above patient had been diagnosed with colon cancer, incidental finding with CT scan when seen in the ER at [facility]. Patient never had colonoscopy in the past. Currently patient is having bowel movements, stops taking Colace. Patient believes that she is taking enough fiber. Patient denies any trouble with anesthesia in the past. No history of infectious diseases in the past or present. [facility] Medical History JORDAN (obstructive sleep apnea) PAC (premature atrial contraction) Hyperlipidemia Annual physical exam Vertigo Shoulder pain, bilateral Injury of left brachial plexus Normal Pap smear Tobacco dependence Fibromyalgia Degeneration of lumbar intervertebral disc Cervical radiculopathy due to degenerative joint disease of spine Arthritis Bilateral ankle pain Hip pain, bilateral Neck pain Surgical History History of colectomy No pertinent past surgical history Family History Father Bladder cancer History of heart attack Mother No problems noted. Brother Substance use disorder Brother Substance use disorder Social History Housing: House Alcohol intake: never Patient Tobacco Use Status: Former Tobacco user Cigarette Packs Per Day: 0 Cigarettes Per Day: 15 Current occupational status: disabled Cognitive needs: No Hearing needs: No Vision needs: No Review of Systems Const Denies weight gain and Denies weight loss ENT Reports no additional complaints, Denies dysphagia and Denies odynophagia Card Reports no additional complaints Resp Reports no additional complaints GI Denies abdominal pain, Denies belching, Denies melena, Denies bloating, Denies change in bowel habits, Denies dysphagia, Denies excessive flatus, Denies dyspepsia, Denies heartburn, Reports diarrhea, Denies loose stools, Denies nausea, Denies odynophagia and Denies vomiting Reports no additional complaints Musc Reports no additional complaints Neuro Reports no additional complaints Psych Reports no additional complaints Endo Reports no additional complaints Physical Exam Vital Signs: Last Vital Signs Pulse 84 07/03/24 08:07 BP 122/64 07/03/24 08:07 Pulse Ox 97 07/03/24 08:07 Oxygen Delivery Method Room Air 07/03/24 08:07 BMI result Body Mass Index 29.8 Const General: healthy appearing and no acute distress Nutritional Appearance: obese Orientation/consciousness: patient oriented x3 Resp Effort & Inspection: normal respiratory effort, able to speak in complete sentences, no tracheal deviation and symmetric chest movement Auscultation: clear to auscultation bilaterally Cardio Rate: regular rate GI Inspection: Yes normal to inspection, No distended and Yes obesity Palpation (GI): Soft to palpation, not firm, nontender and No hepatosplenomegaly present Auscultation: normal bowel sounds Rectal Exam - Female: External hemorrhoid(s) present General: Yes no CVA tenderness Back/Spine/Pelvis Back: no CVA tenderness Skin General skin exam: elasticity normal, turgor normal and dry skin Neuro General: patient oriented x3 Psych Appearance: grossly normal Mental Status: mental status grossly normal Assessment & Plan Assessment & Plan (1) Colon cancer: Comment: stage 3 Code(s): C18.9 - Malignant neoplasm of colon, unspecified Category: Medical Qualifiers: Colon location: ascending Qualified Code(s): C18.2 - Malignant neoplasm of ascending colon (2) S/P right colectomy: Comment: 02/14/2024 Code(s): Z90.49 - Acquired absence of other specified parts of digestive tract Category: Surgical (3) Screening for colon cancer: Code(s): Z12.11 - Encounter for screening for malignant neoplasm of colon Category: Medical Plan What to expect before during and after procedure discussed with patient. Stressed the importance of good bowel prep and clear liquid diet day before procedure. Currently patient is having loose bowel movements. Will start her on fiber supplement, however patient should fiber therapy before procedure to make sure that she has a good prep. Increase fluid intake and activity to promote better bowel motility. Patient is scheduled for colonoscopy in August. I will see her after the procedure, sooner on as needed basis. Patient is agreeable to plan of care and verbalizes understanding of instructions. She was given the opportunity to ask questions and all questions answered. Thank you for allowing me to participate in her care Medications: New methylcellulose (laxative) (Citrucel) take it with full glass of water 500 mg PO DAILY 30 tabs 2RF K59.00 - Constipation, unspecified Refilled hydrocortisone 2.5% (Proctosol HC) 1 appl AL BID-QID PRN 30 grams 2RF hemorrhoids Coding Level of Care Code Est Pt Level 3 (53642) Diagnoses Malignant neoplasm of ascending colon C18.2 Colon location: ascending S/P right colectomy Z90.49 Screening for colon cancer Z12.11 Time Spent (min) 30 Comment 20 minutes spent with patient and additional 10 minutes spent reviewing her records
== END 2024-07-03 08:42 | disposition home or self-care (01) ==
PROVIDERS: PCP Nurse Practitioner Family; Visit Provider Nurse Practitioner Family
DX: C18.2 Malignant neoplasm of ascending colon (principal); Z90.49 Acquired absence of other specified parts of digestive tract; Z12.11 Encounter for screening for malignant neoplasm of colon
CPT/HCPCS: 99213

== ENCOUNTER → 2024-07-03 07:50 | Outpatient (BNVA) | payer OTHER, SELFPAY | PROVIDERS: PCP Nurse Practitioner Family; Visit Provider Nurse Practitioner Family | DX: Z12.11 Encounter for screening for malignant neoplasm of colon (principal); C18.2 Malignant neoplasm of ascending colon; Z90.49 Acquired absence of other specified parts of digestive tract | CPT/HCPCS: 99212 ==

== ENCOUNTER → 2024-09-16 08:05 | Outpatient (REF) | payer OTHER, SELFPAY ==
--- NOTE | ~2024-09-16 | NM_ITS ---
EXERCISE MYOCARDIAL PERFUSION STUDY INDICATION: Chest discomfort TECHNIQUE: The patient was brought in for an exercise perfusion study on 09/16/2024. Patient performed exercise as per Tee protocol and was injected 28 mCi of sestamibi once target heart rate was achieved. Images were obtained using the SPECT gamma camera interlaced with the gating device. Images were obtained in supine position. Resting perfusion study was performed on 09/17/2024. Patient was administered 28 mCi of sestamibi intravenously at rest. Images were then obtained in supine position. Total DLP 149 mGy-cm. Images were processed with the software and compared side to side in short axis, horizontal long axis and vertical long axis views. FINDINGS: Raw aquisition reviewed. The stress perfusion study showed decreased tracer uptake in the distal part of lateral wall. There is improvement with CT attenuation correction suggestive of soft tissue attenuation artifact. The gated study shows normal LV systolic function with calculated LVEF of 56%. LV cavity is normal in size. The gated study shows normal wall thickening and contraction of segments. Resting study shows diminished tracer uptake in the distal part of lateral wall. There is improvement with CT attenuation correction suggestive of soft tissue attenuation artifact. Gating at rest reveals normal wall motion with ejection fraction at 68%. The findings are consistent with fixed lateral defect suspected to be from soft tissue attenuation artifact. No clear reversible defects. NM/NM cardiolite stress test IMPRESSION: 1. Myocardial perfusion imaging study shows probably normal myocardial perfusion. 2. Gated LVEF is 56% during stress and 68% during rest. 3. Transient ischemic dilatation not present. EKG component of the test reported separately. Electronically signed by: Nolberto Elizabeth MD 09/17/2024 09:17 AM EMILIA
--- NOTE | 2024-09-16 08:07 | CA_ITS ---
Acquisition Time: 2024-09-16 08:20:23 Total Exercise Time: 00:05:15 Test Indications: CP, PAC'S, TACHYCARDIA Medications: SEE H Protocol: TEE Max HR: 151 BPM 89% of Pred: 168 BPM Max BP: 152/086 mmHG Max Work Load: 7.0 METS Exercise Stress Test with exercise 5 mins 15 secs of Tee Protocol, achieving 89% MPHR, without any anginal symptoms, without any arrythmias, with normotensive response to exercise. Without EKG changes meeting criteria for ischemia. Nuclear images pending. Test reviewed with Dr. Cope. Test performed by Apple Renee NP and Azeem Han NP Referred By: Nolberto Elizabeth Overread By: APPLE RENEE
== END ==
LOC: HO.CARD 08:05
PROVIDERS: PCP Nurse Practitioner Family; Visit Provider Internal Medicine
DX: R07.2 Precordial pain (principal)
CPT/HCPCS: 78452; 93017; A9500

== ENCOUNTER → 2024-09-16 08:07 | Outpatient (BNV) | payer OTHER, SELFPAY | PROVIDERS: PCP Nurse Practitioner Family; Visit Provider Nurse Practitioner Family | DX: R07.9 Chest pain, unspecified (principal) | CPT/HCPCS: 78452; 93016; 93018 ==

== ENCOUNTER 2024-09-24 12:39 | Outpatient (AMB) | payer OTHER, SELFPAY ==
--- NOTE | 2024-09-24 12:58 | A.OFFVIS_ITS ---
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: No Accompanied by: Self / Same As Patient Allergies citalopram [From CELEXA] Allergy (Unknown, Verified 09/24/24 13:26) PANIC ATTACK clarithromycin [From BIAXIN] Allergy (Unknown, Verified 09/24/24 13:26) UNKNOWN moxifloxacin [From AVELOX] Allergy (Unknown, Verified 09/24/24 13:26) RASH Sulfa (Sulfonamide Antibiotics) Allergy (Unknown, Verified 09/24/24 13:26) rash/joint pain Medication List - Last Reconciled 09/24/24 by Azeem Han NP acetaminophen 325 mg PO Q6H PRN albuterol sulfate 90 mcg/actuation 2 puffs inhalation Q6H PRN albuterol sulfate 2.5 mg (3 mL) inhalation QID PRN 30 days betamethasone valerate 0.1% 1 appl topical BID bisacodyl (Dulcolax (bisacodyl)) 10 mg (2 x 5 mg) PO BEDTIME budesonide-formoterol 80-4.5 mcg/actuation (Symbicort) 2 puffs inhalation BID buspirone 7.5 mg PO BID 30 days ciclopirox 0.77% topical PRN clindamycin phosphate 1% 1 ea topical BID PRN docusate sodium 100 mg PO BEDTIME PRN ezetimibe (Zetia) 10 mg PO DAILY fluticasone propionate 50 mcg/actuation (Allergy Relief (fluticasone)) 1 spray intranasal BID 30 days hydrocortisone 2.5% (Proctosol HC) 1 appl NH BID-QID PRN ibuprofen 800 mg PO TID PRN ketoconazole 2% topical PRN latex gloves (Latex Gloves, Large) As directed-using 10 per day lorazepam (Ativan) 0.5 mg PO BEDTIME PRN meclizine 25 mg PO TID PRN methylcellulose (laxative) (Citrucel) 500 mg PO DAILY mirabegron ER (Myrbetriq) 25 mg PO DAILY 90 days montelukast 10 mg PO DAILY nebulizers As directed for updraft treatments- with all needed supplies nystatin 1 appl topical BID-TID PRN nystatin 4 mL PO TID PRN 10 days polyethylene glycol 3350 (Purelax) grams PO PRN polyethylene glycol 3350 (Miralax) 238 grams PO ONCE pregabalin (Lyrica) 100 mg PO BID 30 days simethicone 80 mg PO BID PRN HPI Comments Details: This is a 54-year-old female patient presenting for a follow-up after a stress test. She was undergoing chemotherapy for colon cancer and noticed chest tightness during the infusions. However, she reports no symptoms during physical exertion, such as walking or exercising. The patient has a significant history of anxiety and asthma, along with chronic smoking, raising concerns about potential COPD. She has completed her chemotherapy infusions and denies any chest tightness, pain, dizziness, presyncope, or syncope since finishing treatment. She states the she experiences palpitations at night, which she attributes to anxiety, and reports that her as-needed anxiolytic medication has been effective in managing these symptoms. [facility] Medical History (Updated 09/24/24 @ 15:20 by Azeem Han NP) Preop cardiovascular exam JORDAN (obstructive sleep apnea) PAC (premature atrial contraction) Hyperlipidemia Annual physical exam Vertigo Shoulder pain, bilateral Injury of left brachial plexus Normal Pap smear Tobacco dependence Fibromyalgia Degeneration of lumbar intervertebral disc Cervical radiculopathy due to degenerative joint disease of spine Arthritis Bilateral ankle pain Hip pain, bilateral Neck pain Surgical History History of colectomy Family History Father Bladder cancer History of heart attack Mother No problems noted. Brother Substance use disorder Brother Substance use disorder Social History Housing: House Alcohol intake: never Patient Tobacco Use Status: Former Tobacco user Cigarette Packs Per Day: 0 Cigarettes Per Day: 15 Current occupational status: disabled Cognitive needs: No Hearing needs: No Vision needs: No Review of Systems Const Denies chills, Denies fatigue, Denies fever(s), Denies weight gain and Denies weight loss ENT Denies dizziness Card Denies chest pain, Denies leg edema, Denies lightheadedness, Denies palpitations, Denies dyspnea on exertion, Denies orthopnea and Denies other Resp Denies cough and Denies dyspnea on exertion GI Denies hematochezia and Denies change in stool character Musc Denies abnormal gait, Denies muscle weakness, Denies numbness, Denies radiating pain into limb and Denies tingling Neuro Denies abnormal gait, Denies dizziness, Denies numbness and Denies tingling Endo Denies fatigue and Denies palpitations Jw/Lymph Denies no additional complaints, Denies as per HPI, Denies easy bleeding, Denies easy bruising, Denies lymphadenopathy and Denies other Physical Exam Vital Signs: Last Vital Signs Pulse 94 09/24/24 12:59 BP 110/52 L 09/24/24 12:59 BMI result Body Mass Index 32.4 Const General: cooperative, healthy appearing, comfortable and no acute distress Orientation/consciousness: patient oriented x3 HEENT Head: Yes normal to inspection Neck Neck: Yes normal visual inspection, Yes trachea midline and Yes supple Chest Chest palpation & inspection: normal inspection of the chest Resp Effort & Inspection: normal respiratory effort Auscultation: clear to auscultation bilaterally, no crackles, no rales, no rhon chi and no wheezes Cardio Jugular venous distension: no JVD Palpation: normal PMI Rate: regular rate Rhythm: regular rhythm Heart sounds: S1 normal heart sound present, S2 normal heart sound present, no click, no gallops, no murmurs and no rubs Peripheral pulses: Peripheral pulses 2+ throughout GI Inspection: Yes normal to inspection Palpation (GI): Soft to palpation Auscultation: normal bowel sounds Skin General skin exam: no rashes or lesions noted Neuro General: patient oriented x3 Extrem General: Yes normal to inspection, No no pedal edema and No calf tenderness Psych Appearance: grossly normal Mental Status: mental status grossly normal Speech and movement: Normal speech and movement present Assessment & Plan Assessment & Plan (1) Chest tightness: Code(s): R07.89 - Other chest pain Category: Medical Plan: 06/13/24- normal echo. 09/16/24-patient underwent exercise nuclear stress test, achieved an 89% MPHR with 7.0 Mets without any anginal symptoms or EKG changes; myocardial perfusion imaging was normal. No chest discomfort since completion of the chemotherapy treatment, likelihood patient has some sort of reaction to the chemo agent. (2) Tachycardia: Code(s): R00.0 - Tachycardia, unspecified Category: Medical Plan: 05/31/2024- Holter monitor showed sinus tach about 27% of the time. Today, the patient's heart rate is 94 beats per minute. Blood pressure within normal limitsl. At this time no med changes are necessary. Discussed diet, exercise, smoking cessation, stress management, staying hydrated and limiting caffeine. Advised to call if persisting palpitations/fluttering especially if accompanied with chest pain, shortness of breath, fatigue, or dizziness. (3) Preop cardiovascular exam: Code(s): Z01.810 - Encounter for preprocedural cardiovascular examination Category: Medical Plan: Patient states has an upcoming appointment for colonoscopy. Low risk from cardiac standpoint. Coding Level of Care Code Est Pt Level 4 (53721) Diagnoses Chest tightness R07.89 Tachycardia R00.0 Preop cardiovascular exam Z01.810 Time Spent (min) 31 Comment Time spent in reviewing the chart, test results, assessment, counseling and documentation.
[2024-09-24 12:59] VITALS: BP 110/52; PULSE 94; BMI 32.4
== END 2024-09-24 13:26 | disposition home or self-care (01) ==
PROVIDERS: PCP Nurse Practitioner Family
DX: R07.89 Other chest pain (principal); R00.0 Tachycardia, unspecified; Z01.810 Encounter for preprocedural cardiovascular examination
CPT/HCPCS: 99214

== ENCOUNTER → 2024-09-24 12:39 | Outpatient (BNVA) | payer OTHER, SELFPAY | PROVIDERS: PCP Nurse Practitioner Family | DX: Z01.810 Encounter for preprocedural cardiovascular examination (principal); R07.89 Other chest pain; R00.0 Tachycardia, unspecified | CPT/HCPCS: 99212 ==

== ENCOUNTER 2024-10-02 09:19 | Outpatient (AMB) | payer OTHER, SELFPAY ==
[2024-10-02 09:24] VITALS: BP 132/80; PULSE 91; O2SAT 98; BMI 32.4
--- NOTE | 2024-10-02 09:24 | MHC.PC.OV ---
Vital Signs 10/02/24 09:24 Height 5 ft 8 in Weight 213 lb BMI 32.4 BP 132/80 Blood Pressure Location Rt brachial Position Sitting Pulse 91 Pulse Source Pulse Oximeter Pulse Oximetry (%) 98 Intake Visit Reasons: 3 months f/up- appt from 09/24 Intake Note: pt is here for 3 mon f/up Winchman/Crane Operator Required: No Accompanied by: Self / Same As Patient Allergies citalopram [From CELEXA] Allergy (Unknown, Verified 10/02/24 09:49) PANIC ATTACK clarithromycin [From BIAXIN] Allergy (Unknown, Verified 10/02/24 09:49) UNKNOWN moxifloxacin [From AVELOX] Allergy (Unknown, Verified 10/02/24 09:49) RASH Sulfa (Sulfonamide Antibiotics) Allergy (Unknown, Verified 10/02/24 09:49) rash/joint pain Medication List - Last Reconciled 10/02/24 by Kevin Early, [facility]- acetaminophen 325 mg PO Q6H PRN albuterol sulfate 90 mcg/actuation 2 puffs inhalation Q6H PRN albuterol sulfate 2.5 mg (3 mL) inhalation QID PRN 30 days betamethasone valerate 0.1% 1 appl topical BID budesonide-formoterol 80-4.5 mcg/actuation (Symbicort) 2 puffs inhalation BID buspirone 7.5 mg PO BID 30 days ciclopirox 0.77% topical PRN clindamycin phosphate 1% 1 ea topical BID PRN docusate sodium 100 mg PO BEDTIME PRN ezetimibe (Zetia) 10 mg PO DAILY fluticasone propionate 50 mcg/actuation (Allergy Relief (fluticasone)) 1 spray intranasal BID 30 days hydrocortisone 2.5% (Proctosol HC) 1 appl SD BID-QID PRN ibuprofen 800 mg PO TID PRN ketoconazole 2% topical PRN latex gloves (Latex Gloves, Large) As directed-using 10 per day lorazepam (Ativan) 0.5 mg PO BEDTIME PRN meclizine 25 mg PO TID PRN methylcellulose (laxative) (Citrucel) 500 mg PO DAILY mirabegron ER (Myrbetriq) 25 mg PO DAILY 90 days montelukast 10 mg PO DAILY nebulizers As directed for updraft treatments- with all needed supplies nystatin 1 appl topical BID-TID PRN nystatin 4 mL PO TID PRN 10 days polyethylene glycol 3350 (Purelax) grams PO PRN polyethylene glycol 3350 (Miralax) 238 grams PO ONCE pregabalin (Lyrica) 100 mg PO BID 30 days simethicone 80 mg PO BID PRN Tobacco use date assessed: 10/02/24 Dental Screening Dental Screen Date: 10/02/24 Did you have a dental visit in the last 12 months?: Yes Did you have a dental problem in the last 6 months where you did not have access to dental care?: No Was dental information given to patient?: Patient has dentist HPI 3 months f/up- appt from 09/24 HPI Details Patient is here for generalized follow-up. She a subsequent colectomy for colon cancer back in January of 2024. She still does follow-up with oncology. She did have prior history of neuropathy to her bilateral lower extremities (feet). She reports since chemo which he finished approximately 3 months ago, she has worsening neuropathy. I plan to increase her Lyrica from 100 twice a day to 150 twice a day. She also reports ongoing Achilles calf tightness, which she has had previously, he reports that physical therapy did help. The plan is to get her into physical therapy. Her biggest complaint today is ongoing for a right axillary protrusion. She reports having this for many years without any tenderness or erythema. She reports that her mammogram is up-to-date. Of noted she does have a right chest port. NOTE: smoker, refuses LDCTs. [facility] Medical History Preop cardiovascular exam JORDAN (obstructive sleep apnea) PAC (premature atrial contraction) Hyperlipidemia Annual physical exam Vertigo Shoulder pain, bilateral Injury of left brachial plexus Normal Pap smear Tobacco dependence Fibromyalgia Degeneration of lumbar intervertebral disc Cervical radiculopathy due to degenerative joint disease of spine Arthritis Bilateral ankle pain Hip pain, bilateral Neck pain Surgical History History of colectomy Family History Father Bladder cancer History of heart attack Mother No problems noted. Brother Substance use disorder Brother Substance use disorder Social History Housing: House Alcohol intake: never Patient Tobacco Use Status: Former Tobacco user Cigarette Packs Per Day: 0 Cigarettes Per Day: 15 e-Cigarette/Vaping Use: Never Used service: No Current occupational status: disabled Current occupational exposures/hazards: No Cognitive needs: No Hearing needs: No Vision needs: No Questionnaire PHQ-9 Over the last 2 weeks, how often have you been bothered by any of the following problems? 1. Little interest or pleasure in doing things: several days 2. Feeling down, depressed, or hopeless: several days 3. Trouble falling or staying asleep, or sleeping too much: several days 4. Feeling tired or having little energy: several days 5. Poor appetite or overeating: not at all 6. Feeling bad about yourself - or that you are a failure or have let yourself or your family down: not at all 7. Trouble concentrating on things, such as reading the newspaper or watching television: not at all 8. Moving or speaking so slowly that other people could have noticed. Or the opposite - being so fidgety or restless that you have been moving around a lot more than usual: not at all 9. Thoughts that you would be better off or of hurting yourself in some way: not at all Total score: 4 Depression Screening Interpretation: Negative Depression Screening Done: Yes 28621 - PHQ-9 Billing: Yes Source: Developed by Drs. David Boyd, Antoinette Johnson, Andreas Guzmán and colleagues, with an educational addie from [employer]. Thrive Questionnaire Date Thrive assessed: 10/02/24 I am a: Patient What is your living situation today?: I have a steady place to live Within the past 12 months, did the food you bought not last and you didn't have the money to get more?: Never true Within the past 12 months, did you worry whether your food would run out before you got money to buy more?: Never true Do you have trouble paying for medicines?: No Do you have trouble getting transportation to medical appointments?: No Do you have trouble paying your heating and electricity bill?: No Do you have trouble taking care of your child, family member or friend?: No Do you have trouble with day-to-day activities such as bathing, preparing meals, shopping, managing finances, etc.?: Yes Are you currently unemployed and looking for a job?: No Are you interested in more education?: No Please select the resources that you would like help with: None Currently or been in a relationship where the following occur: No concerns reported THRIVE Score: 0 AUDIT C Alcohol Use Questionnaire (AUDIT-C) 1. How often do you have a drink containing alcohol?: Never 3. How often do you have six or more drinks on one occasion?: Never Total Score: 0 Score Reviewed/Action Taken: Yes GENEVA-7 AMB Questionnaire GENEVA-7 Date GENEVA - 7 assessed: 10/02/24 Feeling nervous, anxious, or on edge: 1 = Several days Not being able to stop or control worryin = Several days Worrying too much about different things: 1 = Several days Trouble relaxin = Several days Being so restless that it is hard to sit still: 0 = Not at all Becoming easily annoyed or irritable: 0 = Not at all Feeling afraid as if something awful might happen: 1 = Several days Total GENEVA-7 score (0-4 normal; 5-9 mild; 10-14 moderate; 15-21 severe): 5 Source: Developed by Drs. David Boyd, Antoinette Johnson, Andreas Guzmán and colleagues, with an educational addie from [employer]. GENEVA-7 Assessment Billing GENEVA-7 Assessment Tool: GENEVA-7 Assessment 49052 Review of Systems Const Details: Denies any fevers, chills, chest pain, shortness of breath, nausea, vomiting, inability to walk, axillary drainage. Physical exam (Primary Care) Vital Signs: Last Vital Signs Pulse 91 10/02/24 09:24 BP 132/80 10/02/24 09:24 Pulse Ox 98 10/02/24 09:24 BMI result Body Mass Index 32.4 Tobacco/Smoking Status: Tobacco use Status Tobacco use date assessed 10/02/24 10/02/24 09:27 Patient Tobacco Use Status Former Tobacco user 10/02/24 09:27 e-Cigarette/Vaping Use Never Used 10/02/24 09:27 PHQ-9: PHQ-9 Score PHQ-9: Total score 4 10/02/24 09:27 Depression Screening Interpretation: Negative Thrive Assessment: Date of Thrive Assessment Date Thrive assessed 10/02/24 10/02/24 09:27 Currently or been in a relationship where the following occur: No concerns reported Const General: cooperative, healthy appearing, comfortable, no acute distress and well developed Resp Effort & Inspection: normal respiratory effort Auscultation: clear to auscultation bilaterally (dim bilat) Cardio Rate: regular rate Rhythm: regular rhythm Heart sounds: S1 normal heart sound present and S2 normal heart sound present Extrem Other: Right axillary region with slight protrusion soft, nontender, North the erythema noted. Just inferior to this region with a slightly indurated region not tender with touch and no erythema. There is this also slight protrusion to her left axillary region, question genetic makeup. 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 (2) Achilles tendinosis: Code(s): M67.88 - Other specified disorders of synovium and tendon, other site Category: Medical Plan: Referred for physical therapy. (3) Neuropathy: Code(s): G62.9 - Polyneuropathy, unspecified Category: Medical Plan Increase her Lyrica from 100 twice a day to 150 twice a day Orders: Orders US extremity nonvascular hernández Today M79.89 - Other specified soft tissue disorders PT Evaluation and Treatment Today M67.88 - Other specified disorders of synovium and tendon, other site Medications: New docusate sodium 100 mg PO BEDTIME PRN 90 caps 0RF Constipation K59.00 - Constipation, unspecified Changed From ibuprofen 800 mg PO TID PRN Pain To ibuprofen 800 mg PO TID 30 days PRN 90 tabs 1RF Pain From lorazepam (Ativan) 0.5 mg PO BEDTIME PRN Anxiety To lorazepam (Ativan) 0.5 mg PO BEDTIME 20 days PRN 20 tabs 0RF Anxiety From pregabalin (Lyrica) 100 mg PO BID 30 days 60 caps 2RF To pregabalin 150 mg PO BID 30 days 60 caps 2RF Refilled albuterol sulfate for nebulizer 2.5 mg (3 mL) inhalation QID 30 days PRN 180 mL 0RF shortness of breath or wheezing J44.9 - Chronic obstructive pulmonary disease, unspecified budesonide-formoterol 80-4.5 mcg/actuation (Symbicort) 2 puffs inhalation BID 30.6 grams 1RF J45.909 - Unspecified asthma, uncomplicated, R06.02 - Shortness of breath ezetimibe (Zetia) 10 mg PO DAILY 90 tabs 3RF pregabalin (Lyrica) 100 mg PO BID 30 days 60 caps 2RF albuterol sulfate 90 mcg/actuation 2 puffs inhalation Q6H PRN 8.5 grams 1RF shortness of breath or wheezing buspirone 7.5 mg PO BID 30 days 60 tabs 1RF mirabegron ER (Myrbetriq) 25 mg PO DAILY 90 days 90 tabs 0RF montelukast 10 mg PO DAILY 90 tabs 1RF J45.909 - Unspecified asthma, uncomplicated
== END 2024-10-02 10:43 | disposition home or self-care (01) ==
PROVIDERS: PCP Nurse Practitioner Family; Visit Provider Nurse Practitioner Family
DX: M79.89 Other specified soft tissue disorders (principal); M67.88 Other specified disorders of synovium and tendon, other site; G62.9 Polyneuropathy, unspecified

== ENCOUNTER → 2024-10-02 09:19 | Outpatient (BNVA) | payer OTHER, SELFPAY | PROVIDERS: PCP Nurse Practitioner Family; Visit Provider Nurse Practitioner Family | DX: M79.89 Other specified soft tissue disorders (principal); M67.88 Other specified disorders of synovium and tendon, other site; G62.9 Polyneuropathy, unspecified; J44.9 Chronic obstructive pulmonary disease, unspecified; K59.00 Constipation, unspecified; Z87.891 Personal history of nicotine dependence | CPT/HCPCS: 96127; 99212 ==

== ENCOUNTER 2024-10-07 11:17 | Outpatient (REF) | payer OTHER, SELFPAY ==
--- NOTE | ~2024-10-07 | US_ITS ---
CLINICAL HISTORY: M79.89 - Other specified soft tissue disorders Examination: Limited soft tissue ultrasound of the right axilla Indication: Lump x years Comparison: None. Findings: No suspicious mass or fluid collection. There is a somewhat elongated lymph node noted, measuring 3.9 x 1.3 x 2.9 cm. The cortex is thin and the hilum demonstrates a normal fatty appearance. Impression: No suspicious mass. There is a lymph node image which is mildly enlarged by short axis criteria but appears normal with respect to cortex and fatty hilum. This document has been electronically signed by: Tyler Tomas MD on 10/08/2024 13:00:20
== END 2024-10-07 11:18 | disposition home or self-care (01) ==
LOC: HO.HMGCX 11:17
PROVIDERS: PCP Nurse Practitioner Family; Visit Provider Nurse Practitioner Family
DX: M79.89 Other specified soft tissue disorders (principal)
CPT/HCPCS: 76882

== ENCOUNTER → 2024-10-07 11:19 | Outpatient (BNV) | payer OTHER, SELFPAY | PROVIDERS: PCP Nurse Practitioner Family; Visit Provider Radiology Vascular & Interventional Radiology | DX: M79.89 Other specified soft tissue disorders (principal) | CPT/HCPCS: 76882 ==

== ENCOUNTER 2024-10-23 08:01 | Outpatient (REF) | payer OTHER, SELFPAY ==
--- OUTSIDE RECORDS SUMMARY | 2024-10-23 08:51 | XMS_ITS | Encounter Summary ---
Author Organization [facility] Address [address] [place] [address] Care Team Providers Care Social Media Intern Name Role Phone Kevin Early NP Primary Care Provider Encounter Details Date Type Department Care Team (Late st Contact Info) Description 06/25/2024 8:05 AM EDT Hospital Encounter TH HISTORIC ENCOUNTERS [facility] CONVERSION ONLY Social History Tobacco Use Types Packs/Day Years Used Date Smoking Tobacco: Every Day Smokeless Tobacco: Never Sex and Gender Information Value Date Recorded Sex Assigned at Female 06/30/2024 6:41 AM EDT Gender Identity Female 06/30/2024 6:41 AM EDT Sexual Orientation Not on file Job Start Date Occupation Industry Not on file Not on file Not on file documented as of this encounter Last Filed [...] Zarxio injections with this cycle of treatment. advised yes he would like Zarxio given [...] Care Team (Late st Contact Info) Description 11/11/2024 8:00 AM EST Appointment [facility] [address] [place] [phone] 11/19/2024 9:00 AM EST Office Visit [facility] Hematology Oncology [address] [place] [phone] Kelly Siddiqi MD [address] [place] [address] documented as of this encounter Visit Diagnoses Not on filedocumented in this encounter Care Teams Social Media Intern Relationship Specialty Start Date End Date Kevin Early NP [address] [place], [place] PCP - General 06/25/24 documented as of this encounter
--- OUTSIDE RECORDS SUMMARY | 2024-10-23 08:51 | XMS_ITS | Encounter Summary ---
Author Organization [facility] Address [address] [place] [address] Care Team Providers Care Furniture Shampooer Name Role Phone Kevin Early NP Primary [...] Info) Description 11/11/2024 8:00 AM EST Appointment [facility]fusion Center [address] [phone] 11/19/2024 9:00 AM EST Office Visit [facility] Hematology Oncology [address] [place] [phone] Kelly Siddiqi MD [address] [place] [address] documented as of this encounter Visit Diagnoses Not on filedocumented in this encounter Care Teams Furniture Shampooer Relationship Specialty Start Date End Date Kevin Early NP [address] [place], [place] PCP - General 06/25/24 documented as of this encounter
--- OUTSIDE RECORDS SUMMARY | 2024-10-23 08:51 | XMS_ITS | Encounter Summary ---
Author Organization [facility] Address [address] [place] [address] Care Team Providers Care Telephone Repairer Name Role Phone Kevin Early NP [...] Info) Description 11/11/2024 8:00 AM EST Appointment [facility] Infusion [facility] [address] [place] [phone] 11/19/2024 9:00 AM EST Office Visit [facility] Hematology Oncology [address] [place] [phone] Kelly Siddiqi MD [address] [place] [address] documented as of this encounter Visit Diagnoses Not on filedocumented in this encounter Care Teams Telephone Repairer Relationship Specialty Start Date End Date Kevin Early NP [address] [place], [place] PCP - General 06/25/24 documented as of this encounter
--- OUTSIDE RECORDS SUMMARY | 2024-10-23 08:51 | XMS_ITS | Encounter Summary ---
Author Organization [facility] Address [address] [place] [address] Care Team Providers Care Cardiac Catheterization Technician Name Role Phone Kevin Early NP [...] Info) Description 11/11/2024 8:00 AM EST Appointment [facility] [address] [phone] 11/19/2024 9:00 AM EST Office Visit [facility] Hematology Oncology [address] [place] [phone] Kelly Siddiqi MD [address] [place] [address] documented as of this encounter Visit Diagnoses Not on filedocumented in this encounter Care Teams Cardiac Catheterization Technician Relationship Specialty Start Date End Date Kevin Early NP [address] [place], [place] PCP - General 06/25/24 documented as of this encounter
--- OUTSIDE RECORDS SUMMARY | 2024-10-23 08:51 | XMS_ITS | Encounter Summary ---
Author Organization [facility] Address [address] [place] [address] Care Team Providers Care Asset Protection Agent Name Role Phone Kevin Early NP Primary [...] Info) Description 11/11/2024 8:00 AM EST Appointment [facility] In[facility] Center [address] [place] [phone] 11/19/2024 9:00 AM EST Office Visit [facility] Hematology Oncology [address] [place] [phone] Kelly Siddiqi MD [address] [place] [address] documented as of this encounter Visit Diagnoses Not on filedocumented in this encounter Care Teams Asset Protection Agent Relationship Specialty Start Date End Date Kevin Early NP [address] [place], [place] PCP - General 06/25/24 documented as of this encounter
--- OUTSIDE RECORDS SUMMARY | 2024-10-23 08:51 | XMS_ITS ---
Author Organization [facility] Address [address] [place] [address] Care Team Providers Care [employer] Consultant Name Role Phone Kevin Chadwick Primary Care Provider Unav ailable Shanthi Donovan Unavailable [phone] Evelyn MELENDEZ, Vannessa Hackett Unavailable REASON FOR VISIT [employer] 10/04/24 Encounters Encounter Location Date Provider Diagnosis [address] [phone] 08/16/2024 Shanthi Donovan Plan Of Treatment Next Appt Details Provider Name:Shanthi peña, 11/29/2024 01:45:00 PM, [address] [place], [address], Progress Notes * Federico HOLGUINOB:1970 (54 yo F)Acc No.[id number]:08/16/2024 Patient:?HOLGUINDorina :1970???Age:54 Y???Sex:Female Address:[address] [place] [address] [place], [address] * true * Date:? Generated for Printi ng/Faxing/eTransmitting on:?10/23/2024 08:51 AM EST
--- OUTSIDE RECORDS SUMMARY | 2024-10-23 08:51 | XMS_ITS | Encounter Summary ---
Author Organization [facility] Address [address] [place] [address] Care Team Providers Care Can Cleaner Name Role Phone Kevin Early NP Primary Care Provider Encounter Details Date Type Department Care Team (Late st Contact Info) Description 10/22/2024 Telephone [facility] Hematology Oncology [address] [place] [phone] Kelly Siddiqi MD [address] [place] [address] Social History Tobacco Use Types Packs/Day Years Used Date Smoking Tobacco: Every Day Smokeless Tobacco: Never Sex and Gender Information Value Date Recorded Sex Assigned at Female 06/30/2024 6:41 AM EDT Gender Identity Female 06/30/2024 6:41 AM EDT Sexual Orientation Not on file Job Start Date Occupation Industry Not on file Not on file Not on file documented as of this encounter Progress Notes * Stevan Scott MA - 10/22/2024 1:11 PM EST Returned call to pt, explained that Dr. Siddiqi said it is more than ok to get mammogram done while having port in. Pt had no further questions. * Lexus Tyler - 10/22/2024 11:49 AM EST Patient is due for a mammogram but they will not schedule w/o clearance from you as she has a port.Please call her at [phone] documented in this encounter Plan of Treatment Upcoming Encounters Date Type Department Care Team (Late st Contact Info) Description 11/11/2024 8:00 AM EST Appointment [facility] [address] [place] [phone] 11/19/2024 9:00 AM EST Office Visit [facility] Hematology Oncology [address] [place] [phone] Kelly Siddiqi MD [address] [place] [address] documented as of this encounter Visit Diagnoses Not on filedocumented in this encounter Care Teams Can Cleaner Relationship Specialty Start Date End Date Kevin Early NP [address] [place], [place] PCP - General 06/25/24 documented as of this encounter
--- OUTSIDE RECORDS SUMMARY | 2024-10-23 08:52 | XMS_ITS | Encounter Summary ---
Author Organization [facility] Address [address] [place] [address] Care Team Providers Care Counselor Supervisor Name Role Phone Kevin Early Primary Care Provider [phone] Encounter Details Date Type Department Care Team Description 04/02/2024 Social Work [facility] Oncology Services [address] [place] [address] Vinny Young [facility] Social History Tobacco Use Types Packs/Day Years Used Date Smoking Tobacco: Every Day Cigarettes Smokeless Tobacco: Never Sex and Gender Information Value Date Recorded Sex Assigned at Female 06/11/2024 3:47 PM EDT Gender Identity Not on file Sexual Orientation Not on file Job Start Date Occupation Industry Not on file Not on file Not on file documented as of this encounter Plan of Treatment Not on file documented as of this encounter Visit Diagnoses Not on filedocumented in this encounter Care Teams Counselor Supervisor Relationship Specialty Start Date End Date Kevin Early [address] [place] [address] PCP - General Family Medicine 02/28/24 documented as of this encounter
--- OUTSIDE RECORDS SUMMARY | 2024-10-23 08:52 | XMS_ITS | Encounter Summary ---
Author Organization [facility] Address [address] [place] [address] Care Team Providers Care Cake Icer And Packer Name Role Phone Kevin Early NP Primary [...] Info) Description 11/11/2024 8:00 AM EST Appointment [facility] Infusion [facility] [address] [phone] 11/19/2024 9:00 AM EST Office Visit [facility] Hematology Oncology [address] [place] [phone] Kelly Siddiqi MD [address] [place] [address] documented as of this encounter Visit Diagnoses Not on filedocumented in this encounter Care Teams Cake Icer And Packer Relationship Specialty Start Date End Date Kevin Early NP [address] [place], [place] PCP - General 06/25/24 documented as of this encounter
--- OUTSIDE RECORDS SUMMARY | 2024-10-23 08:52 | XMS_ITS | Encounter Summary ---
Author Organization [facility] Address [address] [place] [address] Care Team Providers Care Instrumentation And Control Technician Name Role Phone Kevin Early NP Primary Care Provider Encounter Details Date Type Department Care Team (Late st Contact Info) Description 10/10/2024 Telephone [facility] Hematology Oncology [address] [place] [phone] Kelly Siddiqi MD [address] [place] [address] Social History Tobacco Use Types Packs/Day Years [...] Progress Notes * Stevan Scott MA - 10/10/2024 9:38 AM EST Returned call to pt, explained that Dr. Siddiqi said it is more than okay to get hair colored at upcoming appt. Pt had no further questions. * Mellissa William - 10/10/2024 9:11 AM EST Pt calling she had her last infusion Jun 25, she is wondering if she can color her hair she has a hair appt coming up please call pt documented in this encounter Plan of Treatment Upcoming Encounters Date Type Department Care Team (Late st Contact Info) Description 11/11/2024 8:00 AM EST Appointment [facility] [address] [phone] 11/19/2024 9:00 AM EST Office Visit [facility] Hematology Oncology [address] [place] [phone] Kelly Siddiqi MD [address] [place] [address] documented as of this encounter Visit Diagnoses Not on filedocumented in this encounter Care Teams Instrumentation And Control Technician Relationship Specialty Start Date End Date Kevin Early NP [address] [place], [place] PCP - General 06/25/24 documented as of this encounter
--- OUTSIDE RECORDS SUMMARY | 2024-10-23 08:52 | XMS_ITS | Encounter Summary ---
Author Organization [facility] Address [address] [place] [address] Care Team Providers Care Overlock Sewing Machine Operator Name Role Phone Kevin Early NP Primary Care Provider Encounter Details Date Type Department Care Team (Latest Contact Info) Description 10/07/2024 8:23 AM EST - 10/07/2024 11:59 PM [facility] Encounter [facility] Infusion [facility] [address] [phone] Kelly Siddiqi MD [address] [place] [address] Malignant neoplasm of ascending colon (CMS/HCC) [C18.2] (Primary Dx) Discharge Disposition: Home or Self Care Social History Tobacco Use Types Packs/Day Years Used Date Smoking Tobacco: Every Day Smokeless Tobacco: Never Sex and Gender Information Value Date Recorded Sex Assigned at Female 06/30/2024 6:41 AM EDT Gender Identity Female 06/30/2024 6:41 AM EDT Sexual Orientation Not on file Job Start Date Occupation Industry Not on file Not on file Not on file documented as of this encounter Medications at Time of Discharge Medication Sig Dispensed Refills Start Date End Date albuterol HFA (PROVENTIL HFA;VENTOLIN HFA) 108 (90 Base) MCG/ACT inhaler Inhale by mouth. busPIRone (BUSPAR) 5 mg tablet Take 1 tablet (5 mg total) by mouth 2 (two) times a day. docusate sodium (COLACE) 100 mg capsule Take 1 capsule (100 mg total) by mouth. at bedtime 07/21/2024 ezetimibe (ZETIA) 10 mg tablet Take 1 tablet (10 mg total) by mouth daily. - Oral lidocaine-prilocaine (EMLA) 2.5-2.5 % cream Apply topically. Apply topically as needed. - Topical mirabegron 25 mg tablet extended release 24 hr Take 1 tablet (25 mg total) by mouth daily. - Oral montelukast (SINGULAIR) 10 mg tablet Take 1 tablet (10 mg total) by mouth 1 (one) time each day. pregabalin (LYRICA) 100 mg capsule Twice A Day documented as of this encounter Discharge Disposition Disposition Code Departure Means Destination Home or Self Care documented in this encounter Progress Notes * Tammy Boggs RN - 10/07/2024 8:30 AM EST Pt arrived today for port flush. Port accessed without difficulty. +BR noted after multiple flushes. Port flushed and deaccessed per protocol. Next appts made/provided. Pt reports needing blood work before next OV in October. This RN spoke to Dr. Siddiqi and obtained orders for pt to have CBC-D, CMP, and CEA drawn. Pt left unit, stable at D/C. documented in this encounter Plan of Treatment Upcoming Encounters Date Type Department Care Team (Late st Contact Info) Description 11/11/2024 8:[address] [facility] Infusion [facility] [address] [place] [phone] 11/19/2024 9:00 AM EST Office Visit [facility] Hematology Oncology [address] [place] [phone] Kelly Siddiqi MD [address] [place] [address] documented as of this encounter Visit Diagnoses Diagnosis Malignant neoplasm of ascending colon (CMS/HCC) [C18.2]- Primary Malignant neoplasm of ascending colon documented in this encounter Care Teams Overlock Sewing Machine Operator Relationship Specialty Start Date End Date Kevin Early NP [address] [facility] [place] PCP - General 06/25/24 documented as of this encounter
--- OUTSIDE RECORDS SUMMARY | 2024-10-23 08:52 | XMS_ITS ---
[facility] Organization [facility] Address [address] [place] [address] Care Team Providers Care Printing And Stamping Supervisor Name Role Phone Kevin Chadwick Primary Care Provider Unav ailShanthi Odom Unavailable [phone] Vannessa Rivas MD Unavailable Unavailable Allergies Allergen (clinical drug ingredient) Drug/Non Drug Allergy documented on EMR Reaction Allergy Type Onset Date Status nicotine patch (uncoded) drooling at night Allergy Active moxifloxacin Avelox Unknown Drug Allergy Acti ve sulfamethoxazole / trimethoprim Bactrim rash Drug Allergy Active Biaxin Diarrhea Drug Allergy Active REASON FOR VISIT Ankle pain, Fungal Nails, Heel pain Medications Medication SIG (Take, Route, Frequency, Duration) Notes Start Date End Date Status Physical Therapy . . . 2-3x/week for 3- 4 weeks 10/04/2024 Active Myrbetriq Active Zetia Active Vitamin D Active ProAir HFA Active Physical Therapy . . . 2-3x/week for 3- 4 weeks 10/04/2024 Active Symbicort 80-4.5 MCG/ACT 1 puff as neede d Inhalation every 4 hrs Active Ativan PRN Active Lynox Not-Taking Atorvastatin Calcium 10 MG 1 tablet Orally Once a day for 30 day(s) Not-Taking Singulair 10 MG 1 tablet Orally Once a day for 30 day(s) Active Lyrica 150mg Active Nightsplint . . . AFO - L1930 for . Active Ciclopirox 0.77 % 1 application Externally Twice a day for 365 days Active Breo Ellipta Not-Papi ing busPIRone HCl 7.5 MG 1 tablet Orally Twi ce a day Active Social History Tobacco Use: Social History Observation Description Date Details (start date - stop date) Current Smoker NA - NA Tobacco Use/Smoking Question Answer Notes Are you a: current smoker How often do you smoke cigarettes? every day How many cigarettes a day do you smoke? 11-20 How soon after you wake up do you smoke your fir st cigarette? 6-30 minutes Are you interested in quitting? Ready to quit Tobacco use other than smoking: Question Answer Notes Are you an other tobacco user? 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32 ; Interstitial myositis of left foot M60.172 and Bursitis of left foot M77.52 Assessments Encounter Date Diagnosis (ICD Code) Assessment Notes Treatment Notes Treatment Clinical Notes Section Notes 10/04/2024 Osteoarthritis of right ankle or foot (ICD-10 - M19.071) 10/04/2024 Plantar fasciitis, bilateral (ICD-10 - M72.2) 10/04/2024 Arthralgia of right ankle (ICD-10 - M25.571) 10/04/2024 Arthralgia of left ankle (ICD-10 - M25.572) 10/04/2024 Osteoarthritis of left ankle or foot (ICD-10 - M19.072) 10/04/2024 Onychomycosis (ICD-10 - B35.1) 10/04/2024 Calcaneal spur, left foot (ICD-10 - M77.32) 10/04/2024 Interstitial myositis of left foot (ICD-10 - M60.172) 10/04/2024 Bursitis of left foot (ICD-10 - M77.52) 10/04/2024 Other Patient Educated with: HEEL CORD STRETCHES.pdf (HEEL CORD STRETCHES.pdf ) Patient Educated with: RICE THERAPY.pdf (RICE THERAPY.pdf) Plan Of Treatment Medication Medication Name Sig Start Date Stop Date Notes Physical Therapy . . . 2-3x/week for 3-4 weeks 10/04/2024 Physical Therapy . . . 2-3x/week for 3-4 weeks 10/04/2024 Treatment Notes Assessment Notes Other Patient Educated wit h: HEEL CORD STRETCHES.pdf (HEEL CORD STRETCHES.pdf) Patient Educated with: RICE THERAPY.pdf (RICE THERAPY.pdf) Next Appt Details Follow Up: 2 Months, Reason: Provider Name:Shanthi peña, 11/29/2024 01:45:00 PM, [address] [place] [address], [id number], Progress Notes * Federico HOLGUINOB:1970 (54 yo F)Acc No.[id number]:10/04/2024 Progress Note Patient:?Dorina HOLGUIN Provider:?Shanthi Donovan DPM :1970???Age:54 Y???Sex:Female D ate:10/04/2024 Address:[address] [place] [address] [facility] Pcp:WILVER Ardon Subjective: * Chief Complaints: * ???Ankle painFungal NailsHee l pain * HPI: ???Ankle Pain:?Nature:?aching, throbbing.?Location:?B/L ankles.?Duration: ?several months.?Onset/Cause:?gradual, denies trauma.?Aggravated by:?any pressure, standing, walking.?Treatments:?rest/alter normal daily activity, change in shoes.?Painful Nails:?Nature:?aching, tender, discolored, thick.?Location:?Great toe, Right foot, Left foot.?Aggravated by:?shoegear causing difficulty standing/walking.?Treatments:?Ciclopirox topical gel.?Heel pain:?Nature:?aching, tenderness, throbbing.?Location:?Proximal plantar aspect of Heel, LEFT.?Duration:?several weeks.?Course:?worse.?Aggravated:?standing, walking, walking first thing in the morning/after rest.?Treatments:?rest/alter normal daily activity, oral anti-inflammatories.? * ROS:?General/Constitutional:?Nausea?denies, denies.?Vomiting?denies, denies.?Hunger Thirst?denies, denies.?Loss appetite?denies, denies.?Chills?denies, denies.?Fatigue?denies, denies.?Fever?denies, denies.?Night Sweats denies, denies.?Unexplained weight loss?denies, denies.?Unexplained weight gain?denies, denies.?HEENTM:?Dentures?denies, denies.?Dizziness?denies, denies.?Glasses/contacts?admits, admits.?Retinopathy?denies, denies.?Blurred/double vision?denies, denies.?TMJ?denies, denies.?Discharge/drainage?denies, denies.?Implants?denies, denies.?Sore throat?denies, denies.?Dental implants?denies, denies.?Hard of hearing ?denies, denies.?Difficulty chewing/swallowing/speaking?denies, denies.?Nose bleeds?denies, denies.?Sore mouth?denies, denies.?Respiratory:?On Oxygen?denies, denies.?Pneumonia/pleurisy?denies, denies.?Bronchitis?denies, denies.?Emphysema?denies, denies.?Coughing?denies, denies.?Cough blood?denies, denies.?Shortness of breath?denies, denies.?Wheezing?denies, denies.?Cardiovascular:?Pacemaker?denies, denies.?MVP?denies, denies.?WPW?denies, denies.?CHF?denies, denies.?Heart attack?denies, denies.?Septal defect?denies, denies.?Rapid beat?denies, denies.?Chest pain ?denies, denies.?Atrial Fib.?denies, denies.?Murmur/Palpitations?denies, denies.?Gastrointestinal:?Hemorrhoids?denies, denies.?Stomach/Abdominal pain?denies, denies.?Dark blood stool?denies, denies.?Irritable bowel ?denies, denies.?Constipation?denies, denies.?Diarrhea?denies, denies.?Hematology:?Swelling?denies, denies.?Clots?denies, denies.?Varicose Veins?denies, denies.?Bruising?denies, denies.?Bleeding problem?denies, denies.?Genitourinary:?Blood urine?denies, denies.?Frequent/Painfu/urination/bladder control?denies, denies.?Kidney stones?denies, denies.?Infection (UTI)?denies, denies.?Nephropathy?denies, denies.?sex trans dis (STD)?denies, denies.?Prostate?denies, denies.?Musculoskeletal:?Hammertoes?denies, denies.?Bunions?denies, denies.?Back Pain?admits, admits.?Muscle Cramps/ Resting?denies, denies.?Muscle cramps / walking?denies, denies.?Generalized aches and pains?admits, admits.?Weakness?denies, denies.?Integ.:?Mullins?denies, denies.?Scars?denies, denies.?Corns/calluses?denies, denies.?Ingrown nails?denies, denies.?Painful nails?denies, denies.?Open Sores?denies, denies.?Rashes?denies, denies.?Neurologic:?Difficulty sleeping?admits, admits.?Brain disorder?denies, denies.?Numbness?admits, admits.?Balance trouble?denies, denies.?Confusion?denies, denies.?Fainting/blackouts?denies, denies.?Tingling?denies, denies.?Tremors?denies, denies.? * Medical History:? * Surgical History:?[facility] 2005ablation surgery 2014colon cancer 02/14/2024 * Hospitalization/Major Diagno stic Procedure:?[facility] days colon cancer surgery 02/14/2024 * Family History:?Paternal unc le: diagnosed with Unspecified essential hypertension.? * Social History:?Tobacco Use:?Tobacco Use/Smoking?Are you a:?current smoker ?How often do you smoke cigarettes??every day ?How many cigarettes a day do you smoke??11-20 ?How soon after you wake up do you smoke your first cigarette??6-30 minutes ?Are you interested in quitting??Ready to quit ?Tobacco use other than smoking?Are you an other tobacco user??No ???Miscellaneous:?Caffeine: yes, 1-2 cups per day. ?Children: no. ?Exercise: yes, walking. ?Marital status: single. ?Occupation: Disabled. * Medications:?TakingSymbicort 80-4.5 MCG/ACT Aerosol 1 puff as needed Inhalation every 4 hrs Ativan , Notes to Pharmacist: PRNMyrbetriq Zetia Vitamin D ProAir HFA busPIRone HCl 7.5 MG Tablet 1 tablet Orally Twice a day Singulair 10 MG Tablet 1 tablet Orally Once a day Lyrica , Notes to Pharmacist: 150mgNightsplint . . . . AFO - L1930 Ciclopirox 0.77 % Gel 1 application Externally Twice a day Taking Symbicort 80- 4.5 MCG/ACT Aerosol 1 puff as needed Inhalation every 4 hrs Taking Ativan , Notes to Pharmacist: PRNTaking Myrbetriq Taking Zetia Taking Vitamin D Taking ProAir HFA Taking busPIRone HCl 7.5 MG Tablet 1 tablet Orally Twice a day Taking Singulair 10 MG Tablet 1 tablet Orally Once a day Taking Lyrica , Notes to Pharmacist: 150mgTaking Nightsplint . . . . AFO - L1930 Taking Ciclopirox 0.77 % Gel 1 application Externally Twice a day Not-Taking/PRNBreo Ellipta Lynox Atorvastatin Calcium 10 MG Tablet 1 tablet Orally Once a day Medication List reviewed and reconciled with the patientNot-Taking/PRN Breo Ellipta Not-Taking/PRN Lynox Not-Taking/PRN Atorvastatin Calcium 10 MG Tablet 1 tablet Orally Once a day Medication List reviewed and reconciled with the patient * Allergies:?Bactrim: rashBiax in: Diarrheanicotine patch: drooling at night - Side EffectsAveloxyes[Allergies Verified] Objective: * Vitals:?Ht: 5ft8in, Wt:205, BMI:31.17, Shoe size: 10.5-11, BP:120/80mm Hg, Ht- cm: 172.72 cm, Wt-k.99 kg. * Examination: ???Orthopedic: ?MUSCLE STRENGTH:?5/5 all groups in a symmetrical fashion, B/L.?GAIT ABNORMALITY:?Supinated , antalgic.?FOOT MORPHOLOGY:?B/L, Pes Cavus structure, Semi-flexible?.?ANKLE PAIN LOCATED:?B/L, Pain on palpation to, Lateral ankle, pain with ankle joint ROM, limited ankle joint range of motion.?FOOTWEAR:?good condition.?Nails: ?NAILS are:?Elongated, overgrown, dystrophic, lytic, greater than 3mm thick, discolored and friable with crumbly malodorous subungual debris, with pain on palpation, proximal clearing of nail approximately _20__ percent TA.?General Examination: ?GENERAL APPEARANCE:?Reveals a pleasant, alert, well nourished, well- developed, well hydrated individual, who demonstrates proper attention to hygiene/body habitus, and is in no acute distress, Pt serves as own historian for office visit today.?ORIENTED:?person, place, and time.?Vascular: ?DP PULSES (B):?3/4, B/L.?PT PULSES (B):?3/4, B/L.?CAPILLARY FILL TIME:?immediate, all digits, B/L.?TROPHIC CONDITION-TEXTURE/ELASTICITY/TURGOR/HAIR GROWTH (B):?normal, B/L.?TEMPERTURE GRADIENT (C):?normal, warm to cool, proximal to distal, B/L, B/L.?PIGMENTATION:?normal, B/L.?Neurological: ?SENSORY:?Neurological exam reveals intact sensorium, pain sensation normal, vibration sensation intact, pinprick sensation is normal in the lower extremities, Pt denies, anesthesia, burning, paresthesia, tingling, B/L.?Dermatologic: ?SKIN FINDINGS:?Skin exam reveals normal color, texture, elasticity, and turgor. There are no masses, nor excrescences. The interspaces are clear, B/L.?Heel Pain: ?INSPECTION:? Pain on Palpation to Plantar Fascia med. and central bands, intrinsic musc., infra-calcaneal bursa, and med calc tubercle , LEFT foot, No pain: posterior/superior heel, achilles bursa/tendon, sinus tarsi, peroneals, or with lateral heel compression; no limited STJ ROM, calor, or ecchymosis.?X-Rays - IMAGING REPORT: ?Views:?Are reviewed with the Pt.?Findings:?positive infra-calcaneal exostosis, positive retro-calcaneal exostosis.? * Physical Examination:?L3000 Custom Fabricated OT:?Custom Orthotic?Custom Fabricated Orthoses.? Assessment: * Assessment: 1.?Osteoarthritis of right a nkle or foot - M19.071???Specify :Acute problem, Complicated w/ Multiple Tx Options(4),Dx New problem, Prognosis Uncertain (4)???2.?Plantar fasciitis, bilateral - M72.2 (Primary)???3.?Arthralgia of right ankle - M25.571???4.?Arthralgia of left ankle - M25.572???5.?Osteoarthritis of left ankle or foot - M19.072???Specify :Acute problem, Complicated w/ Multiple Tx Options(4),Dx New problem, Prognosis Uncertain (4)???6.?Onychomycosis - B35.1???7.?Calcaneal spur, left foot - M77.32???8.?Interstitial myositis of left foot - M60.172???9.?Bursitis of left foot - M77.52??? Plan: * Treatment: 2.?Others? Start Physical Therapy ., ., ., ., 2-3x/week, 3-4 weeks, Dx:, Refills ..?? Notes: Patient Educated with: HEEL CORD STRETCHES.pdf (HEEL CORD STRETCHES.pdf) Patient Educated with: RICE THERAPY.pdf (RICE THERAPY.pdf)?? * Procedure Codes:? * Preventive Medicine:? ??Counseling:?Discussion:?-14: Office or other outpatient visit for the evaluation and management of an established patient, which required a medically appropriate history and/or examination and MODERATE level of DECISION MAKING for: 1 OR MORE CHRONIC PROBLEM(S) THATS WORSENING, 2 STABLE CHRONIC PROBLEMS, A NEWLY DIAGNOSED PROBLEM WITH UNCERTAIN PROGNOSIS, AN ACUTE COMPLICATED INJURY WITH MULTIPLE TREATMENT OPTIONS, OR AN ACUTE PROBLEM WITH ACCOMPANYING SYSTEMIC SYMPTOMS, THAT POSE(S) A MODERATE RISK OF MORBIDITY. THIS CONDITION MAY ALSO INCLUDE RX DRUG MANAGEMENT, OR A DECISON FOR MINOR SURGERY. The visit on the day of the encounter encompassed interpreting the data and educating the patient as to the nature of their condition, treatment options available according to their individual PMH, meds, allergies, and overall health/living conditions, as well as any potential risks or complications that may occur from a failure to adhere to, and participate in, the recommended course of therapy. The discussion included a complete verbal, and/or written explanation of the examination results, any x-rays taken, the proposed diagnosis, and outline of the treatment plan. A schedule for future care needs was also explained. The patient verbalized an understanding of the instructions at this time and agreed to be an active participant in their treatment. If the patient should think of any questions or concerns after the visit, I have encouraged the patient to call the office.?BioMech.:?I discussed the Pts foot biomechanics with them and how it relates to their problem.?Heel pain:?FASCIITIS: I explained to the patient the possible etiologies of Plantar Fasciitis including foot type/shoegear/activity level/exercise routine and the risks/benefits of all the different treatment options for heel pain including: No treatment at all, Rest, Ice, NSAIDs(only if well tolerated after meals), New/supportive Shoegear, Strappings and Tapings, Stretching exercises, Deep Tissue Massage, Heel cups/cushions, Arch support/shoe inserts, Custom orthoses, Topical analgesics including Aspercream/Voltaren gel, Night splint AFO for am stiffness, Cortisone injection therapy, Cast boot with crutches/cane/or walker for assisted ambulation, Physical Therapy, EPAT/ESWT, Interfil injection therapy, as well as surgical [place]/Endoscopic Fasciitomy surgical procedures if needed. Recommendations were made to limit barefoot walking, eliminate wearing nonsupportive shoegear (i.e. flip-flops or sandals, or a shoe with an easily bendable, foldable, or twistable sole) and wear shoegear with a good solid sole, a supportive arch, and plenty of room for an insert/orthotic if necessary. If wearing sandals was required by the patient, we recommended orthopedic sandals such as Orthoheel or Birkenstock even while in the home. If the patient wore heels in the past, we recommended they continue, but eliminate the use of flats. The advantages and disadvantages of each option were discussed and the patients questions re: types of shoegear, custom vs prefabricated inserts, activity level, PO vs Topical medications (and their respective potential complications/drug interactions/side effects), and consistency in home treatment regimens for optimal success were answered to their satisfaction. Literature detailing plantar fasciitis and the various treatment options were dispensed and reviewed.?Orthotic Dispensing:?The patient presents today for fitting and dispensing of orthotics. The inserts were checked against the prescription and found to be accurate. They were properly fitted to the patients feet and shoes in both weight-bearing and non-weight bearing attitudes. The patient was instructed to gradually increase the amount of time they are wearing the orthoses, starting with one hour the first day and thereon progressively increasing the amount of time used by one hours per day until they are comfortable to be worn all day and with all activities. They were asked to call the office if any signs of skin irritation were noted including redness, blistering or callous formation. The patient verbally indicated a full understanding of all the above information, Handout reviewed and dispensed, The patient signed confirmation form indicating receipt of DME device.?P.R.I.C.E.:?The patient was counseled on the use of P.R.I.C.E. and NSAIDS (if well tolerated) to aid in the recovery from their painful condition, Recommended Topical analgesics including Aspercream/Biofreeze/Voltaren gel as directed, The patient was counseled on the use of P.R.I.C.E. and NSAIDS (if well tolerated) to aid in the recovery from their painful condition.?Shoe Gear Counseling:?The patient and I reviewed the types of shoes they should be wearing. My recommendation included obtaining a well-fitted shoe with a good supportive, non-foldable nor twistable sole, plenty of toe/room for the forefoot, and proper arch support. Based on todays examination, I recommended the patient look for new shoes, by having their feet professionally measured. We discussed that generally the best time of the day for a shoe fitting is the afternoon. Different shoes types and brands to best match the patients occupation and vocation were discussed. Specific brand selection will be up to the patient, their individual foot condition/deformities, and fit. The patient and I reviewed the standard new shoe break in period by wearing them for a few hours a day while checking for redness or sores as wear time is increased. The patient verbally confirmed to understanding the information discussed, The patient and I reviewed the types of shoes they should be wearing. My recommendation included obtaining a well-fitted shoe with a good supportive, non-foldable nor twistable sole, plenty of toe/room for the forefoot, and proper arch support. Based on todays examination, I recommended the patient look for new shoes, by having their feet professionally measured. We discussed that generally the best time of the day for a shoe fitting is the afternoon. Different shoes types and brands to best match the patients occupation and vocation were discussed. Specific brand selection will be up to the patient, their individual foot condition/deformities, and fit. The patient and I reviewed the standard new shoe break in period by wearing them for a few hours a day while checking for redness or sores as wear time is increased. The patient verbally confirmed to understanding the information discussed.?Stretching Exercises:?Stretching and deep tissue massage exercises for the patients injury/diagnosis were discussed and demonstrated, handouts were dispensed.? ??Screening/Special Tests:?Fall Risk?Screening:?No falls in the past year ?FALLS: Screening for Future Fall Risk?Have you had any falls with injury in the past year??No * Follow Up:?2 Months * Images: * Sign off status: Completed true * Provider:?Shanthi Donovan, DPRosalinda Date:?06/2025 Generated for Marc stapleton/Sabra/eTransmitting on:?10/23/2024 08:51 AM EST History and Physical Notes * HPI (History of Present Illness) Category Sub-Category Detail Notes Category Not es Heel pain Duration: several weeks Nature: aching, tenderness, throbbing Location: Proximal plantar asp ect of Heel, LEFT Aggravated: standing, walking, w alking first thing in the morning/after rest Course: worse Treatments: rest/alter normal da laurie activity, oral anti-inflammatories Ankle Pain Duration: several months Nature: aching, throbbing Treatments: rest/alter normal da laurie activity, change in shoes Location: B/L ankles Onset/Cause: gradual, denies trau ma Aggravated by: any pressure, standi ng, walking Painful Nails Aggravated by: shoegear causing difficul ty standing/walking Location: Great toe, Right derrick t, Left foot Nature: aching, tender, disc olored, thick Treatments: Ciclopirox topical g el Physical Examination Category Sub-Category Detail Notes Section Note s L3000 Custom Fabricated OT Custom Orthotic Custom Fabricated Orthoses Examination Category Sub-Category Detail Notes Category Not es Neurological SENSORY: Neurological exa m reveals intact sensorium, pain sensation normal, vibration sensation intact, pinprick sensation is normal in the lower extremities, Pt denies, anesthesia, burning, paresthesia, tingling, B/L Dermatologic SKIN FINDINGS: Skin exam reveal s normal color, texture, elasticity, and turgor. There are no masses, nor excrescences. The interspaces are clear, B/L Orthopedic GAIT ABNORMALITY: Supinated , antalgic FOOT MORPHOLOGY: B/L, Pes Cavus struc ture, Semi-flexible ANKLE PAIN LOCATED: B/L, Pain on palpati on to, Lateral ankle, pain with ankle joint ROM, limited ankle joint range of motion FOOTWEAR: good condition MUSCLE STRENGTH: 5/5 all groups in a symmetrical fashion, B/L General Examination GENERAL APPEARANCE: Reveals a pleasant, alert, well nourished, well-developed, well hydrated individual, who demonstrates proper attention to hygiene/body habitus, and is in no acute distress, Pt serves as own historian for office visit today ORIENTED: person, place, and t pelon Vascular DP PULSES (B): 3, B/L PT PULSES (B): 3/4, B/L CAPILLARY FILL TIME: immediate, all digi ts, B/L TEMPERTURE GRADIENT (C): normal, warm to cool, proximal to distal, B/L, B/L TROPHIC CONDITION-TEXTURE/ELASTICITY/TURGOR/HAIR GROWTH (B): normal, B/L PIGMENTATION: normal, B/L Nails NAILS are: Elongated, overg rown, dystrophic, lytic, greater than 3mm thick, discolored and friable with crumbly malodorous subungual debris, with pain on palpation, proximal clearing of nail approximately _20__ percent TA X-Rays - IMAGING REPORT Findings: positive infra-calcaneal exostosis, positive retro-calcaneal exostosis Views: Are reviewed with th e Pt Heel Pain INSPECTION: Pain on Palpatio n to Plantar Fascia med. and central bands, intrinsic musc., infra-calcaneal bursa, and med calc tubercle , LEFT foot, No pain: posterior/superior heel, achilles bursa/tendon, sinus tarsi, peroneals, or with lateral heel compression; no limited STJ ROM, calor, or ecchymosis
--- OUTSIDE RECORDS SUMMARY | 2024-10-23 08:53 | XMS_ITS ---
Author Organization [facility] Address [address] [place] [address] Care Team Providers Care Systems Integrator Name Role Phone Kevin Chadwick Primary Care Provider Unav ailable Shanthi Donovan Unavailable [phone] Evelyn MELENDEZ, Vannessa Hackett Unavailable REASON FOR VISIT Purchased Formula 7 Encounters Encounter Location Date Provider Diagnosis [facility] [address] [place] [address] 08/16/2024 Shanthi Donovan Plan Of Treatment Next Appt Details Provider Name:Shanthi peña, 11/29/2024 01:45:00 PM, [address] [place], [address], Progress Notes * Federico HOLGUINOB:1970 (54 yo F)Acc No.[id number]:08/16/2024 Patient:?Dorina HOLGUIN :1970???Age:54 Y???Sex:Female Address:[address] [place] [address] [place], [address] * true * Date:? Generated for Printi ng/Faitalog/eTransmitting on:?10/23/2024 08:53 AM EST
--- OUTSIDE RECORDS SUMMARY | 2024-10-23 08:54 | XMS_ITS | Clinical Summary ---
Author Organization [facility] Address [address] [place] [address] Care Team Providers Care Mercury Purifier Name Role Phone Kevin Early Primary Care Provider [phone] Allergies Active Allergy Reactions Criticality Noted Date Comments Moxifloxacin 03/01/2024 Clarithromycin 03/01/2024 Citalopram 03/01/2024 Sulfa Antibiotics 03/01/2024 Medications Medication Sig Dispensed Refills Start Date End Date Status Fluticasone Furoate-Vilanterol (Breo Ellipta) 50-25 MCG/ACT AEPB Inhale into the lungs daily. 0 Active albuterol 108 (90 Base) MCG/ACT inhaler Inhale 2 puffs into the lungs as needed for wheezing. 0 Active pregabalin (LYRICA) capsule 100 mg Take 1 capsule (100 mg total) by mouth 2 (two) times a day. 0 Active busPIRone (BUSPAR) 5 MG tablet Take 1.5 tablets (7.5 mg total) by mouth 2 (two) times a day. 0 Active ezetimibe (ZETIA) tablet 10 mg Take 1 tablet (10 mg total) by mouth daily. 0 Active Mirabegron ER (Myrbetriq) 25 MG TB24 24 hr tablet Take 1 tablet (25 mg total) by mouth daily. 0 Active lidocaine-prilocaine (EMLA) cream Apply topically as needed. 30 g 1 03/18/2024 Active ondansetron (ZOFRAN-ODT) 8 MG disintegrating tablet Take 1 tablet (8 mg total) by mouth every 8 (eight) hours as needed for nausea. 20 tablet 0 04/04/2024 Active prochlorperazine (COMPAZINE) 10 MG tablet Take 1 tablet (10 mg total) by mouth every 6 (six) hours as needed. 30 tablet 0 04/04/2024 Active polyethylene glycol (MIRALAX) 17 g packet Take 17 g by mouth daily. 14 each 0 04/04/2024 Active diphenoxylate-atropine (LOMOTIL) 2.5-0.025 MG per tablet Take 1 tablet by mouth 4 (four) times a day as needed for diarrhea. 30 tablet 2 04/10/2024 Active fluconazole (DIFLUCAN) 100 MG tablet Take 1 tablet (100 mg total) by mouth 2 (two) times a day. 28 tablet 3 06/24/2024 Active Active Problems Problem Noted Date Diagnosed Date Malignant neoplasm of ascending colon 03/01/2024 Family History Medical History Relation Name Comments Cancer Father Relation Name Status Comments Father Social History Tobacco Use Types Packs/Day Years Used Date Smoking Tobacco: Every Day Cigarettes Smokeless Tobacco: Never Sex and Gender Information Value Date Recorded Sex Assigned at Female 06/11/2024 3:47 PM EDT Gender Identity Not on file Sexual Orientation Not on file Job Start Date Occupation Industry Not on file Not on file Not on file Last Filed Vital Signs Vital Sign Reading Time Taken Comments Blood Pressure 127/68 06/28/2024 8:33 AM EDT Pulse 100 06/28/2024 8:33 AM EDT Temperature 36.6 ??C (97.9 ??F) 06/28/2024 8:33 AM ED T Respiratory Rate 20 06/27/2024 9:35 AM EDT Oxygen Saturation 99% 06/28/2024 8:33 AM EDT Inhaled Oxygen Concentration - - Weight 92.9 kg (204 lb 12.8 oz) 06/25/2024 8:11 AM EDT Height 172.7 cm (5' 8 ) 03/01/2024 3:21 PM EDT Body Mass Index 31.14 03/01/2024 3:21 PM EDT Plan of Treatment Health Maintenance Due Date Last Done Comments Hepatitis B Vaccines (1 of 3 - 3-dose series) 1972 Hepatitis C Screening 1972 COVID-19 Vaccine (#1) 1977 Depression Screening 1984 BMI Counseling 1990 Preventative Health Evaluation 1990 Tobacco Cessation Counseling 1990 DTap / Tdap / Td (1 - Tdap) 1991 Shingrix-Zoster Vaccine (1 of 2) 1991 Cervical Cancer Screening (P ap Smear) 1993 Pneumococcal Vaccine (2 of 2 - PCV) 03/12/2011 03/12/2010 Colon Cancer Screening (Colonoscopy) 2017 Breast Cancer Screening (Mammogram) 2022 Influenza Vaccine (#1) 2024 08/21/2013 RSV Ped < 20 months Aged Out No longe r eligible based on patient's age to complete this topic Care Teams Mercury Purifier Relationship Specialty Start Date End Date Kevin Early [address] [place] [address] PCP - General Family Medicine 02/28/24
--- OUTSIDE RECORDS SUMMARY | 2024-10-23 08:54 | XMS_ITS | Patient Health Record ---
Author Organization [facility] Address [address] [facility] [place] [address] Care Team Providers Care Color Expert Name Role Phone Kevin Chadwick Primary Care Provider Unav ailable Shanthi Donovan Unavailable [phone] Vannessa Rivas MD Unavailable Unavailable Lyndon Villavicencio Unavailable [phone] Allergies Allergen (clinical drug ingredient) Drug/Non Drug Allergy documented on EMR Reaction Allergy Type Onset Date Status nicotine patch (uncoded) drooling at night Allergy Active moxifloxacin Avelox Unknown Drug Allergy Acti ve sulfamethoxazole / trimethoprim Bactrim rash Drug Allergy Active Biaxin Diarrhea Drug Allergy Active Reason For Referral No Information Medications Medication SIG (Take, Route, Frequency, Duration) Notes Start Date End Date Status Nightsplint . . . AFO - L1930 for . Active Physical Therapy . . . 2-3x/week for 3- 4 weeks 10/04/2024 Active Ciclopirox 0.77 % 1 application Externally Twice a day for 365 days Active Symbicort 80-4.5 MCG/ACT 1 puff as neede d Inhalation every 4 hrs Active Breo Ellipta Not-Papi ing Ativan PRN Active Lynox Not-Taking Physical Therapy . . . 2-3x/week for 3- 4 weeks 10/04/2024 Active Myrbetriq Active Atorvastatin Calcium 10 MG 1 tablet Orally Once a day for 30 day(s) Not-Taking Zetia Active Vitamin D Active ProAir HFA Active busPIRone HCl 7.5 MG 1 tablet Orally Twi ce a day Active Singulair 10 MG 1 tablet Orally Once a day for 30 day(s) Active Lyrica 150mg Active Immunizations Vaccine Route Administration Date Status Comme nts COVID-19 Moderna Vaccine Unknown 05/08/2021 Administered First Dose: 03/25 Social History Tobacco Use: Social History Observation [...] Notes Problem Plantar fasciitis of left foot (8990608950152038 1) Plantar fasciitis of left foot (M72.2) Active confirmed Problem Interstitial myositis (63725009) 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) Active confirmed Problem Localized, primary osteoarthritis of the ankle and/or foot (112863171) 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) Active confirmed Problem Localized, primary osteoarthritis of the ankle and/or foot (460553305) 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.072) Active confirmed Vital Signs Blood pressure diastolic 80 mm Hg 10/04/2024 Height 5ft8in in 10/04/2024 Blood pressure systolic 120 mm Hg 10/04/2024 Weight 205 lbs 10/04/2024 BMI 31.17 kg/m2 10/04/2024 Encounters Encounter Location Date Provider Diagnosis [facility] [address] [address] 01/23/2024 Shanthi Donovan Fungal infection of nail B35.1 and Pain in left toe(s) M79.675 [facility] [address] [address] 08/16/2024 Shanthi Donovan Arthralgia of right ankle M25.571 ; Osteoarthritis of right ankle or foot M19.071 ; Arthralgia of left ankle M25.572 ; Osteoarthritis of left ankle or foot M19.072 ; Pain in right toe(s) M79.674 and Onychomycosis B35.1 [facility] [address] 10/04/2024 Shanthi Donovan Osteoarthritis of right ankle or foot M19.071 ; Plantar fasciitis, bilateral M72.2 ; Arthralgia of right ankle M25.571 ; Arthralgia of left ankle M25.572 ; Osteoarthritis of left ankle or foot M19.072 ; Onychomycosis B35.1 ; Calcaneal spur, left foot M77.32 ; Interstitial myositis of left foot M60.172 and Bursitis of left foot M77.[address] [address] 01/24/2024 Shanthi Donovan [address] [address] 08/12/2024 Shanthi Donovan [facility] [address] 08/16/2024 Shanthi Donovan [address] [address] 08/16/2024 Shanthi Donovan Assessments Encounter Date Diagnosis (ICD Code) Assessment Notes Treatment Notes Treatment Clinical Notes Section Notes 01/23/2024 Pain in left toe(s) (ICD-10 - M79.675) 01/23/2024 Fungal infection of nail (ICD-10 - B35.1) Rx management (4) 08/16/2024 Arthralgia of right ankle (ICD-10 - M25.571) 08/16/2024 Osteoarthritis of right ankle or foot (ICD-10 - M19.071) 10/04/2024 Osteoarthritis of right ankle or foot (ICD-10 - M19.071) 10/04/2024 Plantar fasciitis, bilateral (ICD-10 - M72.2) 10/04/2024 Arthralgia of right ankle (ICD-10 - M25.571) 08/16/2024 Arthralgia of left ankle (ICD-10 - M25.572) 08/16/2024 Osteoarthritis of left ankle or foot (ICD-10 - M19.072) 10/04/2024 Arthralgia of left ankle (ICD-10 - M25.572) 10/04/2024 Osteoarthritis of left ankle or foot (ICD-10 - M19.072) 08/16/2024 Pain in right toe(s) (ICD-10 - M79.674) 08/16/2024 Onychomycosis (ICD-10 - B35.1) 10/04/2024 Onychomycosis (ICD-10 - B35.1) 10/04/2024 Calcaneal spur, left foot (ICD-10 - M77.32) 10/04/2024 Interstitial myositis of left foot (ICD-10 - M60.172) 10/04/2024 Bursitis of left foot (ICD-10 - M77.52) 10/04/2024 Other Patient Educated with: HEEL CORD STRETCHES.pdf (HEEL CORD STRETCHES.pdf ) Patient Educated with: RICE THERAPY.pdf (RICE THERAPY.pdf) Plan Of Treatment Pending Test Test Name Order Date X ray : Ankle, left 3V 08/16/2024 X ray : Foot, right 3V 05/19/2021 X ray : Ankle, right 3V 08/16/2024 Next Appt Details Provider Name:Shanthi peña, 11/29/2024 01:45:00 PM, [address] [place], [address], Insurance Providers Payer Name Payer Address Payer Phone Subscriber Number Group Number Insured Name Patient Relationship to Insured Coverage Start Date Coverage End Date [facility] [employer] Claims [address] [place] [id number] Dorina Holguin Self - patient is the insured Medical (General) History Medical History History ICD Code Anxiety asthma Back,Hip,and Knee pain CAD (Cholesterol) Fibromyalgia Gall bladder problems Numbness Reflux ( GERD) chronic sinusitis Surgical History Surgery Date(Month/Year) gall bladder 2005 ablation surgery 2014 colon cancer 02/14/2024 Hospitalization History Reason Date(Month/Year) [facility] - 8 days colon cancer surgery 01/24
--- OUTSIDE RECORDS SUMMARY | 2024-10-23 08:54 | XMS_ITS | Clinical Summary ---
Author Organization [facility] Address [address] [place] [address] Phone Care Team Providers Care Value Engineer Name Role Phone Kevin Early NP Primary Care Provider Allergies Active Allergy Reactions Criticality Noted Date Comments Moxifloxacin 06/12/2024 Citalopram Hives High 02/14/2024 Clarithromycin Diarrhea Low 02/14/2024 Biaxin Sulfa (Sulfonamide Antibiotics) 05/26 Medications Medication Sig Dispensed Refills Start Date End Date Status pregabalin (LYRICA) 100 mg capsule Twice A Day Active albuterol HFA (PROVENTIL HFA;VENTOLIN HFA) 108 (90 Base) MCG/ACT inhaler Inhale by mouth. Active busPIRone (BUSPAR) 5 mg tablet Take 1 tablet (5 mg total) by mouth 2 (two) times a day. Active ezetimibe (ZETIA) 10 mg tablet Take 1 tablet (10 mg total) by mouth daily. - Oral Active lidocaine-prilocaine (EMLA) 2.5-2.5 % cream Apply topically. Apply topically as needed. - Topical Active mirabegron 25 mg tablet extended release 24 hr Take 1 tablet (25 mg total) by mouth daily. - Oral Active montelukast (SINGULAIR) 10 mg tablet Take 1 tablet (10 mg total) by mouth 1 (one) time each day. Active docusate sodium (COLACE) 100 mg capsule Take 1 capsule (100 mg total) by mouth. at bedtime 07/21/2024 Active Active Problems Problem Noted Date Diagnosed Date Malignant neoplasm of ascending colon 08/26/2024 Encounters Date Type Department Care Team Description 10/22/2024 Telephone [facility] [address] [place] [phone] Kelly Siddiqi MD 10/10/2024 Telephone [facility] [address] [place] [phone] Kelly Siddiqi MD 10/07/2024 8:23 AM EST - 10/07/2024 11:59 PM EST Hospital Encounter [facility] [address] [place] [phone] Kelly Siddiqi MD Malignant neoplasm of ascending colon (CMS/HCC) [C18.2] (Primary Dx) Discharge Disposition: Home or Self Care 09/02/2024 10:30 AM EST Office Visit [facility] [address] [place] [phone] Kelly Siddiqi MD Malignant neoplasm of ascending colon (CMS/HCC) (Primary Dx) 08/26/2024 8:30 AM EST - 08/26/2024 11:59 PM EST Hospital Encounter [address] [address] Malignant neoplasm of ascending colon (CMS/HCC) (Primary Dx) Discharge Disposition: Home or Self Care 06/25/2024 8:04 AM EDT - 07/25/2024 11:59 PM EDT Hospital Encounter [facility] [address] [place] [phone] Kelly Siddiqi MD from Last 3 Months Surgical History Surgery Date Site/Laterality Comments CHOLECYSTECTOMY PROCEDURE:CHOLECYSTECTOMY COLON SURGERY PROCEDURE:COLON SURGERY Medical History Medical History Date Comments Colon cancer (CMS/HCC) DX:Colon cancer (HCC) Emphysema, unspecified (CMS/HCC) DX:Emphysema, unspecified (HCC) Family History Medical History Relation Name Comments [...] file Not on file Not on file Obstetrics History Last Filed Vital Signs Vital Sign Reading Time Taken Comments Blood Pressure 126/73 09/02/2024 10:47 AM EST Pulse 83 09/02/2024 10:47 AM EST Temperature 36.8 ??C (98.3 ??F) 09/02/2024 10:[address] Respiratory Rate - - Oxygen Saturation 100% 09/02/2024 10:47 AM EST Inhaled Oxygen Concentration - - Weight 96.2 kg (212 lb) 09/02/2024 10:47 AM EST Height 172.7 cm (5' 8 ) 03/01/2024 3:21 PM EDT Body Mass Index 32.23 03/01/2024 3:21 PM EDT Plan of Treatment Upcoming Encounters Date Type Department Care Team (Late st Contact Info) Description 11/11/2024 8:00 AM EST Appointment [facility] [address] [address] 11/19/2024 9:00 AM EST Office Visit [facility] [address] [place] [phone] Kelly Siddiqi MD [address] [place] [address] Health Maintenance Due Date Last Done Comments Breast Cancer Screening 1972 Hepatitis A Vaccines (1 of 2 - Risk 2-dose series) 1991 Hepatitis B Vaccines (1 of 3 - 19+ 3-dose series) 1991 Zoster Vaccines (1 of 2) 1991 Cervical Cancer Screening: P ap Smear 1993 Pneumococcal Vaccine: Pediatrics (0 to 5 Years) and At-Risk Patients (6 to 64 Years) (2 of 2 - PCV) 03/12/2011 03/12/2010 COVID-19 Vaccine (3 - Modern a risk series) 06/05/2021 05/08/2021, 04/10/2021 Cholesterol Screening (Lipid Panel) 08/27/2022 Colorectal Cancer Screening: Colonoscopy 08/27/2022 Depression Screening 08/27/2022 HIV Screening 08/27/2022 Hepatitis C Screening 08/27/2022 Medicare Annual Wellness Visit 08/27/2022 Social Influencers of Health Screening 08/27/2022 Influenza Vaccine (#1) 2024 08/21/2013 DTaP,Tdap,and Td Vaccines (3 - Td or Tdap) 08/08/2032 08/08/2022, 03/12/2010 HIB Vaccines Aged Out No longer eligi ble based on patient's age to complete this topic HPV Vaccines Aged Out No longer eligi ble based on patient's age to complete this topic IPV Vaccines Aged Out No longer eligi ble based on patient's age to complete this topic MMR Vaccines Aged Out No longer eligi ble based on patient's age to complete this topic Meningococcal ACWY Vaccine Aged Out N o longer eligible based on patient's age to complete this topic RSV Immunization Patients Under 20 months Aged Out No longer eligible b ased on patient's age to complete this topic Varicella Vaccines Aged Out No longer eligible based on patient's age to complete this topic Care Teams Value Engineer Relationship Specialty Start Date End Date Kevin Early NP [address] [place], [place] PCP - General 06/25/24
--- OUTSIDE RECORDS SUMMARY | 2024-10-23 08:54 | XMS_ITS ---
Author Organization [facility] Address [address] [place] [address] Care Team Providers Care Learning Disabilities Teacher Name Role Phone Kevin Early Primary Care Provider [phone] Active Problems Problem Noted Date Diagnosed Date Malignant neoplasm of ascending colon 03/01/2024 Current Oncology Plans No current plan information found. Past Plans ONCOLOGY TREATMENT Plan Name Start Date Discontinue Date Treatment Medications Discontinue Reason Plan Provider Cycles SFC BCN OP FOLFOX 6 (MODIFIED) - OXALIPLATIN + LEUCOVORIN + FLUOROURACIL (5 HRS) 4 07/12/2024 albuterol (PROVENTIL)dexamethaso ne (DECADRON)dextrose 5 %diphenhydrAMINE (BENADRYL)EPINEPHrinef amotidine (PF) (PEPCID)filgrastim-snd z (ZARXIO)fluorouracil (5 FU) 46 Hr Chemo infusion- Home Usefluorouracil (ADRUCIL)hydrocortison e (SOLU-CORTEF) IVleucovorin (WELLCOVORIN) infusionoxaliplatin (ELOXATIN) chemo infusionpalonosetron (ALOXI)prochlorperazin e (COMPAZINE)Saline Flush 0.9 %sodium chloride (NS) 0.9 %sodium chloride 0.9% bolus (NS) Therapy Complete Kelly Siddiqi MD 6 of 12 cycles started Radiation Treatments * No radiation treatments are documented for this patient in [facility]. Treatments may have been administered in another system.
--- OUTSIDE RECORDS SUMMARY | 2024-10-23 08:54 | XMS_ITS ---
Author Organization [facility] Address [address] [place] [address] Phone Care Team Providers Care Supervisor Melt House Name Role Phone Kevin Early NP Primary Care Provider Active Problems Problem Noted Date Diagnosed Date Malignant neoplasm of ascending colon 08/26/2024 Current Oncology Plans CENTRAL VENOUS ACCESS ( CVA ) MAINTENANCE / BLOOD DRAW / CATHETER CLEARANCE / DRESSING CHANGE / FLUSH* Plan Start Date:08/26/2024 Plan Provider:Kelly Siddiqi MD Linked Problems Malignant neoplasm of ascend ing colon (CMS/HCC) Treatment Medications No medications scheduled. Past Plans No past plan information found. Radiation Treatments * No radiation treatments are documented for this patient in [facility]. Treatments may have been administered in another system.
[2024-10-23 11:37] LABS: Influenza A PCR NEGATIVE (Negative); Influenza B PCR NEGATIVE (Negative); Resp Syncy Virus RNA Qual PCR NEGATIVE (Negative); SARS COV2 PCR INHOUSE NEGATIVE (Negative)
== END 2024-10-23 08:02 | disposition home or self-care (01) ==
LOC: HO.LAB 08:01
PROVIDERS: PCP Nurse Practitioner Family; Visit Provider Nurse Practitioner Family
DX: J00 Acute nasopharyngitis [common cold] (principal); R09.89 Other specified symptoms and signs involving the circulatory and respiratory systems
CPT/HCPCS: 0241U; 99212

== ENCOUNTER 2024-10-23 08:01 | Outpatient (AMB) | payer OTHER, SELFPAY ==
[2024-10-23 08:17] VITALS: BP 140/80; PULSE 84; O2SAT 95
--- NOTE | 2024-10-23 08:17 | AM.OFFWIN_ITS ---
Intake Vital Signs 10/23/24 08:17 Weight 214 lb BP 140/80 H Blood Pressure Location Lt brachial Position Sitting Pulse 84 Pulse Source Pulse Oximeter Pulse Oximetry (%) 95 Oxygen Delivery Method Room Air Intake Visit Reasons: EP-sinus infection Intake Note: Patient here for sinus congestion/pressure, headache and mucus which started about 1 week ago. Patient Tobacco Use Status: Former Tobacco user Allergies citalopram [From CELEXA] Allergy (Unknown, Verified 10/23/24 08:19) PANIC ATTACK clarithromycin [From BIAXIN] Allergy (Unknown, Verified 10/23/24 08:19) UNKNOWN moxifloxacin [From AVELOX] Allergy (Unknown, Verified 10/23/24 08:19) RASH Sulfa (Sulfonamide Antibiotics) Allergy (Unknown, Verified 10/23/24 08:19) rash/joint pain Do you need a note to return to daycare/school/sports/work: No HPI HPI Comments History of Present Illness Details 54 y/o female patient who presents to [facility] walk in clinic with c/o Sinus pressure and congestion for over 1 week. C/o Nasal bleeding when blowing her nose. Pt has referral to ENT pending appointment schedule. [facility] Medical History Preop cardiovascular exam JORDAN (obstructive sleep apnea) PAC (premature atrial contraction) Hyperlipidemia Annual physical exam Vertigo Shoulder pain, bilateral Injury of left brachial plexus Normal Pap smear Tobacco dependence Fibromyalgia Degeneration of lumbar intervertebral disc Cervical radiculopathy due to degenerative joint disease of spine Arthritis Bilateral ankle pain Hip pain, bilateral Neck pain Surgical History History of colectomy Family History Father Bladder cancer History of heart attack Mother No problems noted. Brother Substance use disorder Brother Substance use disorder Social History Housing: House Alcohol intake: never Patient Tobacco Use Status: Former Tobacco user Cigarette Packs Per Day: 0 Cigarettes Per Day: 15 e-Cigarette/Vaping Use: Never Used service: No Current occupational status: disabled Current occupational exposures/hazards: No Cognitive needs: No Hearing needs: No Vision needs: No Review of Systems Const All systems reviewed & are unremarkable except as noted in HPI and below Physical Exam Vital Signs: Last Vital Signs Pulse 84 10/23/24 08:17 BP 140/80 H 10/23/24 08:17 Pulse Ox 95 10/23/24 08:17 Oxygen Delivery Method Room Air 10/23/24 08:17 Const General: cooperative and no acute distress Nutritional Appearance: obese Orientation/consciousness: patient oriented x3 HEENT Head: Yes normocephalic Ears: external ears normal and TM abnormal with fluid behind the TM bilateral General nose exam: No nasal discharge present, Abnormal mucous membranes and turbinates present boggy and erythematous and no epistaxis Face and sinus: Yes sinuses nontender Mouth: moist mucous membranes Throat: Yes uvula midline Resp Effort & Inspection: normal respiratory effort and able to speak in complete sentences Auscultation: clear to auscultation bilaterally, no crackles, no rales, no rhonchi and no wheezes Cardio Heart sounds: S1 normal heart sound present and S2 normal heart sound present Neuro General: patient oriented x3 Assessment & Plan Assessment & Plan (1) Acute nasopharyngitis (common cold): Code(s): J00 - Acute nasopharyngitis [common cold] Plan: SARs ordered Ordered Abx F/U with ENT as planned. Orders: Orders SARS-CoV2/FLU/RSV Today R09.89 - Other specified symptoms and signs involving the circulatory and respiratory systems Medications: New penicillin V potassium 500 mg PO BID 5 days 10 tabs 0RF J00 - Acute nasopharyngitis [common cold] Coding Level of Care Code Est Pt Level 3 (11157) Diagnoses Acute nasopharyngitis (common cold) J00 Time Spent (min) 15
== END 2024-10-23 08:42 | disposition home or self-care (01) ==
PROVIDERS: PCP Nurse Practitioner Family; Visit Provider Nurse Practitioner Family
DX: J00 Acute nasopharyngitis [common cold] (principal)

== ENCOUNTER 2024-11-26 06:24 | Day surgery (SDC) | payer OTHER, SELFPAY ==
[2024-09-06 14:19] VITALS: BMI 29.8
--- NOTE | 2024-09-09 09:59 | HO.ANESPROP2 ---
HPI - Anesthesia Eval Consult details Narrative: 54yo F for Colonoscopy Colon ca s/p colectomy, chemo. Last plts low (downward trend since starting tx) Seen by cardiology for chest tightness during chemo - asymptomatic with exertion and unlikely cardiac related per 05/2024 office visit note. PMFSH Active Problems Active Problems: All Active Problems Chest tightness (Acute) COPD (chronic obstructive pulmonary disease) (Acute) Anxiety (Acute) Chemotherapy adverse reaction (Acute) Tachycardia (Acute) SOB (shortness of breath) (Acute) Urinary tract infection (Acute) Elevated BP without diagnosis of hypertension (Acute) Colon cancer (Acute) S/P right colectomy (Acute) Cecum mass (Acute) Acute abdominal pain in right lower quadrant (Acute) Enlarged thyroid (Acute) Pelvic pain (Acute) Postmenopausal (Acute) Physical exam (Acute) Screening for colon cancer (Acute) Fatigue (Acute) Sinus pain (Acute) Headache (Acute) Myalgia (Acute) Fever and chills (Acute) Acute sinusitis (Acute) Upper respiratory tract infection (Acute) Asthma (Acute) High cholesterol (Acute) Hyperlipidemia (Acute) Annual physical exam (Acute) Vertigo (Acute) Shoulder pain, bilateral (Acute) Injury of left brachial plexus (Acute) Normal Pap smear (Acute) Tobacco dependence (Acute) Fibromyalgia (Acute) Degeneration of lumbar intervertebral disc (Acute) Cervical radiculopathy due to degenerative joint disease of spine (Acute) Arthritis (Acute) Bilateral ankle pain (Acute) Hip pain, bilateral (Acute) Neck pain (Acute) Past Medical History Medical History JORDAN (obstructive sleep apnea) PAC (premature atrial contraction) Hyperlipidemia Annual physical exam Vertigo Shoulder pain, bilateral Injury of left brachial plexus Normal Pap smear Tobacco dependence Fibromyalgia Degeneration of lumbar intervertebral disc Cervical radiculopathy due to degenerative joint disease of spine Arthritis Bilateral ankle pain Hip pain, bilateral Neck pain Family History Family History Father Bladder cancer History of heart attack Mother No problems noted. Brother Substance use disorder Brother Substance use disorder Surgical History Surgical History (Updated 09/06/24 @ 14:02 by Salome Morrissey RN) History of colectomy Social History Social History Housing: House Alcohol intake: never Patient Tobacco Use Status: Former Tobacco user Cigarette Packs Per Day: 0 Cigarettes Per Day: 15 Current occupational status: disabled Cognitive needs: No Hearing needs: No Vision needs: No Meds Allergies Allergy/AdvReac Type Severity Reaction Status Date / Time citalopram [From CELEXA] Allergy Unknown PANIC Verified 07/03/24 08:08 ATTACK clarithromycin [From BIAXIN] Allergy Unknown UNKNOWN Verified 07/03/24 08:08 moxifloxacin [From AVELOX] Allergy Unknown RASH Verified 07/03/24 08:08 Sulfa (Sulfonamide Allergy Unknown rash/joint Verified 07/03/24 08:08 Antibiotics) pain Home Medications ?Medication ?Instructions ?Recorded ?Confirmed ?Last Taken ?Type lorazepam 0.5 mg tablet (Ativan) 0.5 mg PO BEDTIME PRN Anxiety 02/01/24 09/06/24 Unknown History betamethasone valerate 0.1 % 1 appl topical BID 04/26/24 06/13/24 Unknown History topical cream ciclopirox 0.77 % topical gel topical PRN 05/31/24 06/13/24 Unknown History clindamycin phosphate 1 % topical 1 ea topical BID PRN 05/31/24 06/13/24 Unknown History swab docusate sodium 100 mg capsule 100 mg PO BEDTIME PRN Constipation 05/31/24 09/06/24 Unknown History ibuprofen 800 mg tablet 800 mg PO TID PRN Pain 05/31/24 09/06/24 Unknown History ketoconazole 2 % shampoo topical PRN 05/31/24 06/13/24 Unknown History nystatin 100,000 unit/gram topical 1 appl topical BID-TID PRN 05/31/24 06/13/24 Unknown History powder polyethylene glycol 3350 17 gram g PO PRN 05/31/24 06/13/24 Unknown History oral powder packet (Purelax) simethicone 80 mg chewable tablet 80 mg PO BID PRN gas pains 05/31/24 09/06/24 Unknown History Exam Height,Weight and Vital Signs: Height 5 ft 8 in Weight 88.904 kg Narrative Narrative: EKG 05/2024 Details: EKG with mild sinus tachycardia 104/Min; no significant ST-T changes and otherwise unremarkable. Somewhat of low-voltage complexes. ECHO 05/2024 Conclusions: - 1. Normal LV systolic function with LVEF of 60 65% 2. Normal cardiac valvular Dopplers 3. Trivial pericardial effusion Assessment and Plan Assessment Anesthesia Assessment: Chart Reviewed
--- NOTE | 2024-11-25 13:57 | P.CONAN_ITS ---
HPI - Anesthesia Eval Consult details Narrative: 54yo F for Colonoscopy PMFSH Active Problems Active Problems: All Active Problems Osteoarthritis (Acute) Hemorrhage from nose (Acute) Neuropathy (Acute) Achilles tendinosis (Acute) Right axillary swelling (Acute) Preop cardiovascular exam (Acute) Chest tightness (Acute) COPD (chronic obstructive pulmonary disease) (Acute) Anxiety (Acute) Chemotherapy adverse reaction (Acute) Tachycardia (Acute) SOB (shortness of breath) (Acute) Urinary tract infection (Acute) Elevated BP without diagnosis of hypertension (Acute) Colon cancer (Acute) S/P right colectomy (Acute) Cecum mass (Acute) Acute abdominal pain in right lower quadrant (Acute) Enlarged thyroid (Acute) Pelvic pain (Acute) Postmenopausal (Acute) Physical exam (Acute) Screening for colon cancer (Acute) Fatigue (Acute) Sinus pain (Acute) Headache (Acute) Myalgia (Acute) Fever and chills (Acute) Acute sinusitis (Acute) Upper respiratory tract infection (Acute) Asthma (Acute) High cholesterol (Acute) Hyperlipidemia (Acute) Annual physical exam (Acute) Vertigo (Acute) Shoulder pain, bilateral (Acute) Injury of left brachial plexus (Acute) Normal Pap smear (Acute) Tobacco dependence (Acute) Fibromyalgia (Acute) Degeneration of lumbar intervertebral disc (Acute) Cervical radiculopathy due to degenerative joint disease of spine (Acute) Arthritis (Acute) Bilateral ankle pain (Acute) Hip pain, bilateral (Acute) Neck pain (Acute) Past Medical History Medical History Preop cardiovascular exam JORDAN (obstructive sleep apnea) PAC (premature atrial contraction) Hyperlipidemia Annual physical exam Vertigo Shoulder pain, bilateral Injury of left brachial plexus Normal Pap smear Tobacco dependence Fibromyalgia Degeneration of lumbar intervertebral disc Cervical radiculopathy due to degenerative joint disease of spine Arthritis Bilateral ankle pain Hip pain, bilateral Neck pain Family History Family History Father Bladder cancer History of heart attack Mother No problems noted. Brother Substance use disorder Brother Substance use disorder Surgical History Surgical History History of colectomy Social History Social History Housing: House Alcohol intake: never Patient Tobacco Use Status: Former Tobacco user Cigarette Packs Per Day: 0 Cigarettes Per Day: 15 e-Cigarette/Vaping Use: Never Used service: No Current occupational status: disabled Current occupational exposures/hazards: No Cognitive needs: No Hearing needs: No Vision needs: No Meds Allergies Allergy/AdvReac Type Severity Reaction Status Date / Time citalopram [From CELEXA] Allergy Unknown PANIC Verified 10/23/24 08:19 ATTACK clarithromycin [From BIAXIN] Allergy Unknown UNKNOWN Verified 10/23/24 08:19 moxifloxacin [From AVELOX] Allergy Unknown RASH Verified 10/23/24 08:19 Sulfa (Sulfonamide Allergy Unknown rash/joint Verified 10/23/24 08:19 Antibiotics) pain Home Medications ?Medication ?Instructions ?Recorded ?Confirmed ?Last Taken ?Type betamethasone valerate 0.1 % 1 appl topical BID 04/26/24 10/02/24 Unknown History topical cream ciclopirox 0.77 % topical gel topical PRN 05/31/24 10/02/24 Unknown History clindamycin phosphate 1 % topical 1 ea topical BID PRN 05/31/24 10/02/24 Unknown History swab ketoconazole 2 % shampoo topical PRN 05/31/24 10/02/24 Unknown History nystatin 100,000 unit/gram topical 1 appl topical BID-TID PRN 05/31/24 10/02/24 Unknown History powder polyethylene glycol 3350 17 gram g PO PRN 05/31/24 10/02/24 Unknown History oral powder packet (Purelax) simethicone 80 mg chewable tablet 80 mg PO BID PRN gas pains 05/31/24 10/02/24 Unknown History Exam Height,Weight and Vital Signs: Height 5 ft 8 in Weight 88.904 kg Assessment and Plan Assessment Anesthesia Assessment: Chart Reviewed
[2024-11-26 07:01] LABS: Hematocrit 43.8 % (37.0-47.0); Hemoglobin 14.8 g/dl (12.0-16.0); Mean Corpuscular HGB Conc 33.8 g/dl (31.0-35.0); Mean Corpuscular Volume 85.7 fL (80.0-98.0); Mean Platelet Volume 9.3 fL (9.4-12.3); Platelet Count 184 X10*3/uL (160-400); Red Blood Count 5.11 X10*6/uL (4.20-5.50); Red Cell Distribution Width 13.8 % (11.0-16.0)
[2024-11-26 07:16] VITALS: BP 114/74; PULSE 92; RESP 18; TEMP 37.1; O2SAT 97; BMI 31.9
[2024-11-26] MEDS: Lactated Ringers 1,000 ML 100 ML IVCONT (07:22)
--- NOTE | 2024-11-26 07:42 | MHC.SHP ---
Pre-Procedural Eval Section A - 24 Hr Update-Section A only Date of Service: 11/26/24 Section B - Complete if H&P > 30 days Chief Complaint: Constipation, unspecified Relevant Family History (Specify if Yes): No Relevant Social History: None Present Medications: see Short Stay Collaborative assessment Medical History: Significant History (JORDAN (obstructive sleep apnea) PAC (premature atrial contraction) Hyperlipidemia Annual physical exam Vertigo Shoulder pain, bilateral Injury of left brachial plexus Normal Pap smear Tobacco dependence Fibromyalgia Degeneration of lumbar intervertebral disc Cervical radiculopathy due to degenerative ) History of Previous Operations: Relevant previous surgery/procedure and date(s) ( History of colectomy) Allergies: Allergies Allergy/AdvReac Type Severity Reaction Status Date / Time citalopram [From CELEXA] Allergy Unknown PANIC Verified 11/26/24 06:54 ATTACK clarithromycin [From BIAXIN] Allergy Unknown UNKNOWN Verified 11/26/24 06:54 moxifloxacin [From AVELOX] Allergy Unknown RASH Verified 11/26/24 06:54 Sulfa (Sulfonamide Allergy Unknown rash/joint Verified 11/26/24 06:54 Antibiotics) pain Review of Systems Sugical H&P ROS: Negative: Constitution, Cardiovascular, Respiratory, Neurological, Psychiatric, Hem-Onc, Allergic/Immunologic, Gastrointestinal, Genitourinary, Musculoskeletal, Integumentary, Endocrine and Eyes/Ears/Nose/Throat Exam Surgical H&P Exam: Normal: HEENT, Normal: Heart, Normal: Lungs, Normal: Extremities, Normal: Abdomen, Normal: Skin and Normal: Neurological Plan Diagnosis/Plan: Unchanged I have reviewed the history and physical and performed a pertinent physical examination on my patient. No changes have occurred unless specified. Time Spent With Patient Time: Total time managing care of this patient today ____ minutes.
--- NOTE | 2024-11-26 08:00 | HO.ANESPROP2 ---
[facility] Active Problems Active Problems: All Active Problems Osteoarthritis (Acute) Hemorrhage from nose (Acute) Neuropathy (Acute) Achilles tendinosis (Acute) Right axillary swelling (Acute) Preop cardiovascular exam (Acute) Chest tightness (Acute) COPD (chronic obstructive pulmonary disease) (Acute) Anxiety (Acute) Chemotherapy adverse reaction (Acute) Tachycardia (Acute) SOB (shortness of breath) (Acute) Urinary tract infection (Acute) Elevated BP without diagnosis of hypertension (Acute) Colon cancer (Acute) S/P right colectomy (Acute) Cecum mass (Acute) Acute abdominal pain in right lower quadrant (Acute) Enlarged thyroid (Acute) Pelvic pain (Acute) Postmenopausal (Acute) Physical exam (Acute) Screening for colon cancer (Acute) Fatigue (Acute) Sinus pain (Acute) Headache (Acute) Myalgia (Acute) Fever and chills (Acute) Acute sinusitis (Acute) Upper respiratory tract infection (Acute) Asthma (Acute) High cholesterol (Acute) Hyperlipidemia (Acute) Annual physical exam (Acute) Vertigo (Acute) Shoulder pain, bilateral (Acute) Injury of left brachial plexus (Acute) Normal Pap smear (Acute) Tobacco dependence (Acute) Fibromyalgia (Acute) Degeneration of lumbar intervertebral disc (Acute) Cervical radiculopathy due to degenerative joint disease of spine (Acute) Arthritis (Acute) Bilateral ankle pain (Acute) Hip pain, bilateral (Acute) Neck pain (Acute) Past Medical History Medical History Preop cardiovascular exam JORDAN (obstructive sleep apnea) PAC (premature atrial contraction) Hyperlipidemia Annual physical exam Vertigo Shoulder pain, bilateral Injury of left brachial plexus Normal Pap smear Tobacco dependence Fibromyalgia Degeneration of lumbar intervertebral disc Cervical radiculopathy due to degenerative joint disease of spine Arthritis Bilateral ankle pain Hip pain, bilateral Neck pain Functional capacity: independent ambulation Family History Family History Father Bladder cancer History of heart attack Mother No problems noted. Brother Substance use disorder Brother Substance use disorder Family history of problems with anesthesia: No Surgical History Surgical History History of colectomy History of Problems with Anesthesia: No Social History Social History Housing: House Alcohol intake: never Patient Tobacco Use Status: Current everyday Tobacco user Tobacco use type: Cigarette Cigarette Packs Per Day: 0 Cigarettes Per Day: 10 e-Cigarette/Vaping Use: Never Used Use of substances other than those prescribed or required for medical reasons: No Are you DNR?: No Advance Directives: No Advance Directives Information Provided: Yes service: No Current occupational status: disabled Current occupational exposures/hazards: No Cognitive needs: No Hearing needs: No Vision needs: No Meds Allergies Allergy/AdvReac Type Severity Reaction Status Date / Time citalopram [From CELEXA] Allergy Unknown PANIC Verified 11/26/24 06:54 ATTACK clarithromycin [From BIAXIN] Allergy Unknown UNKNOWN Verified 11/26/24 06:54 moxifloxacin [From AVELOX] Allergy Unknown RASH Verified 11/26/24 06:54 Sulfa (Sulfonamide Allergy Unknown rash/joint Verified 11/26/24 06:54 Antibiotics) pain Active Medications: Current Medications Albuterol Sulfate (Albuterol Sulfate (0.083%) 2.5 Mg/3 Ml Vial.Neb) 2.5 mg INHALE ONCE PRN PRN Reason: Shortness of Breath/Wheezing Lactated Ringer's (Lr) 1,000 mls @ 100 mls/hr IVCONT .Q10H TERE Last Admin: 11/26/24 07:22 Dose: 100 mls/hr Home Medications ?Medication ?Instructions ?Recorded ?Confirmed ?Last Taken ?Type betamethasone valerate 0.1 % 1 appl topical BID 04/26/24 11/26/24 Unknown History topical cream ciclopirox 0.77 % topical gel topical PRN 05/31/24 10/02/24 Unknown History clindamycin phosphate 1 % topical 1 ea topical BID PRN unk 05/31/24 11/26/24 Unknown History swab ketoconazole 2 % shampoo topical PRN 05/31/24 10/02/24 Unknown History nystatin 100,000 unit/gram topical 1 appl topical BID-TID PRN thrush 05/31/24 11/26/24 Unknown History powder simethicone 80 mg chewable tablet 80 mg PO BID PRN gas pains 05/31/24 11/26/24 Unknown History Exam Height,Weight and Vital Signs: Height 5 ft 8 in Weight 95.254 kg Last Vital Signs Temp 98.8 F 11/26/24 07:16 Pulse 92 11/26/24 07:16 Resp 18 11/26/24 07:16 BP 114/74 11/26/24 07:16 Pulse Ox 97 11/26/24 07:16 O2 Del Method Room Air 11/26/24 07:16 Pertinent Lab Results Pertinent Lab Results: Laboratory Tests 11/26/24 06:49 WBC 6.0 RBC 5.11 Hgb 14.8 Hct 43.8 MCV 85.7 MCH 29.0 MCHC 33.8 RDW 13.8 Plt Count 184 D MPV 9.3 L Absolute Nucleated RBC 0.000 Nucleated RBC % (auto) 0.0 Airway Mallampati Class: III TM Dist: >3cm Neck ROM: Full Heart: RRR Lungs: CTA Assessment and Plan Assessment Anesthesia Assessment: Anesthesia Plan Discussed, Smoking Cess. Discussed and Chart Reviewed Final Anesthetic Review Family History of Problems with Anesthesia: No History of Problems with Anesthesia: No NPO: Yes ASA Class: III Final Preanesthetic Review: Meds/Allgs Chart Reviewed, Consent Obtained/Reviewed and Anes Risks/Benef Reviewed Patient Risk: Intermediate Procedure Risk: Low Anesthetic Plan Anesthetic Plan: MAC: Disposition: Standard PACU
--- NOTE | 2024-11-26 08:11 | HO.OPN-COLON ---
Colonoscopy Operative Note Operative Note Date of Service: 11/26/24 Narrative: Operative Information Procedure Description: Colonoscopy Indication: hx of colon cancer Anesthesia: MAC COLONOSCOPY Instrument: Olympus variable stiffness pediatric scope 190L Colonoscopy Monitoring: Vital signs and clinical assessment, continuous EKG monitoring, Pulse oximetry, Carbon Dioxide monitoring and blood pressure monitoring were done throughout the procedure. Colon withdrawal time was 16 minutes. Procedure: The patient was placed in the left lateral decubitis position and pre-procedure medications were administered. After a digital rectal examination of the ano-rectum, the video colonoscope was inserted into the rectum and advanced through the colon to the cecum/TI. The colonoscope was slowly withdrawn in a retrograde panoramic fashion and the colon mucosa was carefully examined including a retroflexed view of the rectum. Findings and interventions are described below. Procedure Difficulty: easy Findings: ileocecal anastomosis, normal Ascending Colon: in distal part there was a sessile polyp, injected with eleview and then removed with hot snare, with 2 clips applied to close defect Transverse Colon -normal Descending Colon:normal Sigmoid Colon: 4-5 mm sessile polyp removed with cold forceps Rectum: Retroflexion with small to medium internal hemorrhoids seen, grade I Anorectum - normal Intervention: cold snare and eleview injection for EMR, cold forceps Colon preparation: [place] Bowel Preparation Scale Right colon; 2 Transverse colon: 2 Left colon; 2 (0 = Unprepared colon segment with mucosa not seen due to solid stool that cannot be cleared. 1 = Portion of mucosa of the colon segment seen, but other areas of the colon segment not well seen due to staining, residual stool and/or opaque liquid. 2 = Minor amount of residual staining, small fragments of stool and/or opaque liquid, but mucosa of colon segment seen well. 3 = Entire mucosa of colon segment seen well with no residual staining, small fragments of stool or opaque liquid) Impression and Post Procedure Diagnosis: colon polyps internal hemorrhoids Plan: High fiber diet leaflet Avoid straining at stool, epsom salts and sitz bath, anusol supps or cream Repeat Colonoscopy in 1-2 years due to Hx of CRC and polyps or earlier if clinically indicated Above findings were reviewed with the patient and relevant handouts were provided if indicated.
[2024-11-26 08:15] VITALS: BP 109/65; PULSE 80; RESP 12; TEMP 36.1; O2SAT 97
[2024-11-26 08:30] VITALS: BP 112/65; PULSE 86; RESP 16; O2SAT 98
[2024-11-26 08:42] VITALS: BP 113/70; PULSE 82; RESP 16; TEMP 36.3; O2SAT 98
--- NOTE | 2024-11-26 12:06 | HO.POSTANES ---
Post Anesthesia Evaluation Post Anesthesia Evaluation Date of Service: 11/26/24 Vital Signs: Vital Signs Temp Pulse Resp BP Pulse Ox O2 Del Method 11/26/24 08:42 97.3 F 82 16 113/70 98 Room Air 11/26/24 08:30 86 16 112/65 98 Room Air 11/26/24 08:15 97 F 80 12 109/65 97 Room Air 11/26/24 07:16 98.8 F 92 18 114/74 97 Room Air Anesthesia: Monitored Mental Status: Awake Pain Control: Satisfactory Nausea/Vomiting: None Hydration: Adequate Anesthesia-Related Issues: No Anes. Related Issues
== END 2024-11-26 09:04 | disposition home or self-care (01) ==
PROVIDERS: Nurse Practitioner; PCP Nurse Practitioner Family; Visit Provider Internal Medicine Gastroenterology
PROC: 0DJD8ZZ Inspection of Lower Intestinal Tract, Via Natural or Artificial Opening Endoscopic (ICD-10-PCS; CPT 45378; principal; 2024-11-26 07:30)
DX: K59.00 Constipation, unspecified (principal); Z85.038 Personal history of other malignant neoplasm of large intestine; Z92.21 Personal history of antineoplastic chemotherapy; D12.2 Benign neoplasm of ascending colon; K63.5 Polyp of colon; K64.0 First degree hemorrhoids; Z90.49 Acquired absence of other specified parts of digestive tract; Z98.0 Intestinal bypass and anastomosis status; I49.1 Atrial premature depolarization; E78.5 Hyperlipidemia, unspecified; M79.7 Fibromyalgia; G47.33 Obstructive sleep apnea (adult) (pediatric); Z79.899 Other long term (current) drug therapy; Z88.2 Allergy status to sulfonamides; Z88.1 Allergy status to other antibiotic agents; Z87.891 Personal history of nicotine dependence; Z88.8 Allergy status to other drugs, medicaments and biological substances
CPT/HCPCS: 45385; 45380; 45381; 36415; 85027; 88305; J2003; J2704

== ENCOUNTER → 2024-11-26 06:24 | Outpatient (BNV) | payer OTHER, SELFPAY | PROVIDERS: PCP Nurse Practitioner Family; Visit Provider Internal Medicine Gastroenterology | DX: K59.00 Constipation, unspecified (principal); Z85.038 Personal history of other malignant neoplasm of large intestine; K63.5 Polyp of colon | CPT/HCPCS: 45380; 45381; 45385 ==

== ENCOUNTER 2025-02-04 08:13 | Outpatient (AMB) | payer OTHER, SELFPAY ==
--- OUTSIDE RECORDS SUMMARY | 2025-02-04 08:20 | XMS_ITS | Encounter Summary ---
Author Organization [facility] Address [address] [place] [address] Care Team Providers Care Kitchen Runner Name Role Phone Kevin Early NP Primary [...] 07/28/2025 8:30 AM EST Office Visit [facility] Hematology Oncology [address] [place] [address] Kelly Siddiqi MD [address] [place] [address] documented as of this encounter Visit Diagnoses Not on filedocumented in this encounter Care Teams Kitchen Runner Relationship Specialty Start Date End Date Kevin Early NP [address] [place], [place] PCP - General 06/25/24 documented as of this encounter
--- OUTSIDE RECORDS SUMMARY | 2025-02-04 08:20 | XMS_ITS | Encounter Summary ---
Author Organization [facility] Address [address] [place] [address] Care Team Providers Care Automobile Glass Technician Name Role Phone Kevin Early NP Primary Care Provider [phone] Encounter Details Date Type Department Care Team [...] Visit [facility] Hematology Oncology [address] [place] [address] Kelly Siddiqi MD [address] [place] [address] documented as of this encounter Visit Diagnoses Not on filedocumented in this encounter Care Teams Automobile Glass Technician Relationship Specialty Start Date End Date Kevin Early NP [address] [place], [place] PCP - General 06/25/24 documented as of this encounter
--- OUTSIDE RECORDS SUMMARY | 2025-02-04 08:20 | XMS_ITS | Encounter Summary ---
Author Organization [facility] Address [address] [place] [address] Care Team Providers Care Social Services Manager Name Role Phone Kevin Early NP [...] Visit [facility] Hematology Oncology [address] [place] [address] Kelly Siddiqi MD [address] [place] [address] documented as of this encounter Visit Diagnoses Not on filedocumented in this encounter Care Teams Social Services Manager Relationship Specialty Start Date End Date Kevin Early NP [address] [place], [place] PCP - General 06/25/24 documented as of this encounter
--- OUTSIDE RECORDS SUMMARY | 2025-02-04 08:20 | XMS_ITS | Encounter Summary ---
Author Organization [facility] Address [address] [place] [address] Care Team Providers Care Job Interviewer Name Role Phone Kevin Early NP Primary [...] Visit [facility] Hematology Oncology [address] [place] [address] Klely Siddiqi MD [address] [place] [address] documented as of this encounter Visit Diagnoses Not on filedocumented in this encounter Care Teams Job Interviewer Relationship Specialty Start Date End Date Kevin Early NP [address] [place], [place] PCP - General 06/25/24 documented as of this encounter
--- OUTSIDE RECORDS SUMMARY | 2025-02-04 08:20 | XMS_ITS | Encounter Summary ---
Author Organization [facility] Address [address] [place] [address] Care Team Providers Care Games Manager Name Role Phone Kevin Early NP [...] 07/28/2025 8:30 AM EST Office Visit [facility] Hematology Oncology [address] [place] [address] Kelly Siddiqi MD [address] [place] [address] documented as of this encounter Visit Diagnoses Not on filedocumented in this encounter Care Teams Games Manager Relationship Specialty Start Date End Date Kevin Early NP [address] [place], [place] PCP - General 06/25/24 documented as of this encounter
--- OUTSIDE RECORDS SUMMARY | 2025-02-04 08:20 | XMS_ITS | Encounter Summary ---
Author Organization [facility] Address [address] [place] [address] Care Team Providers Care Project Design Engineer Name Role Phone Kevin Early NP [...] 07/28/2025 8:30 AM EST Office Visit [facility] Hematology Oncology [address] [place] [address] Kelly Siddiqi MD [address] [place] [address] documented as of this encounter Visit Diagnoses Not on filedocumented in this encounter Care Teams Project Design Engineer Relationship Specialty Start Date End Date Kevin Early NP [address] [place], [place] PCP - General 06/25/24 documented as of this encounter
--- OUTSIDE RECORDS SUMMARY | 2025-02-04 08:20 | XMS_ITS | Encounter Summary ---
Author Organization [facility] Address [address] [place] [address] Care Team Providers Care Core Paster Name Role Phone Kevin Early Primary Care Provider [phone] Encounter Details Date Type Department Care Team Description 04/02/2024 Social Work [facility] Oncology Services [address] [place] [address] [facility] Social History Tobacco Use Types Packs/Day Years [...] on filedocumented in this encounter Care Teams Core Paster Relationship Specialty Start Date End Date Kevin Early [address] [place] [address] PCP - General Family Medicine 02/28/24 documented as of this encounter
--- OUTSIDE RECORDS SUMMARY | 2025-02-04 08:21 | XMS_ITS ---
Author Organization [facility] Address [address] [place] [address] Care Team Providers Care Fleece Tier Name Role Phone Kevin Chadwick Primary Care Provider Unav ailable Shanthi Donovan Unavailable [phone] Evelyn MELENDEZ, Vannessa Hackett Unavailable REASON FOR VISIT Reschedule Encounters Encounter Location Date Provider Diagnosis [facility] [address] [place] [address] 01/17/2025 Shanthi Donovan Plan Of Treatment Next Appt Details Provider Name:Shanthi peña, 03/04/2025 10:00:00 AM, [address] [place], [address], Progress Notes * Federico HOLGUINOB:1970 (54 yo F)Acc No.[id number]:01/17/2025 Patient:?Dorina HOLGUIN :1970???Age:54 Y???Sex:Female Address:[address] [place] [address] [place], [address] * true * Date:? Generated for Printi ng/Faxing/eTransmitting on:?02/04/2025 08:20 AM EDT
--- OUTSIDE RECORDS SUMMARY | 2025-02-04 08:21 | XMS_ITS ---
Author Organization [facility] Address [address] [place] [address] Phone Care Team Providers Care Boot And Shoe Laborer Name Role Phone Kevin Early NP Primary Care Provider Active Problems Problem Noted Date Diagnosed Date Malignant neoplasm of ascend ing colon ([facility] V24, [facility] V28) 08/26/2024 Current Oncology Plans CENTRAL VENOUS ACCESS ( CVA ) MAINTENANCE / BLOOD DRAW / CATHETER CLEARANCE / DRESSING CHANGE / FLUSH* Plan Start Date:08/26/2024 Plan Provider:Kelly Siddiqi MD Linked Problems Malignant neoplasm of ascend ing colon ([facility] V24, [facility] V28) Treatment Medications No medications scheduled. Past Plans No past plan information found. Radiation Treatments * No radiation treatments are documented for this patient in [facility]. Treatments may have been administered in another system. Lifetime Dose Tracking * Chemical Lifetime Dose Automatic Entry Manual Entr y Fluoro Time 1 minutes 1 minutes 0 minutes Air Kerma 0.2 mGy 0.2 mGy 0 mGy
--- OUTSIDE RECORDS SUMMARY | 2025-02-04 08:21 | XMS_ITS ---
Author Organization [facility] Address [address] [place] [address] Care Team Providers Care Coil Maker Name Role Phone Nneka PETTIT, Kevin Primary Care Provider Unav ailable Shanthi Donovan Unavailable [phone] Evelyn MELENDEZ, Vannessa Unavailable Unavailable Encounters Encounter Location Date Provider Diagnosis [address] [address] 01/31/2025 Shanthi Donovan Plan Of Treatment Next Appt Details Provider Name:Shanthi peañ, 03/04/2025 10:00:00 AM, [address] [place] [address], [phone], Progress Notes * Federico HOLGUINOB:1970 (54 yo F)Acc No.[id number]:01/31/2025 Progress Notes Patient:?MAXIMEKymie Provider:?Shanthi Donovan DPM :1970???Age:54 Y???Sex:Female D ate:01/31/2025 Address:[address] [place] [address] kev [facility] Pcp:WILVER Ardon Subjective: * Chief Complaints: * ??? * Medical History:? Objective: * Vitals:? Assessment: Plan: * Treatment: * Images: * The named appointment provid er may or may not be the originator of this progress note, and it is not deemed complete until electronically signed by the appointment provider. Sign off status: Pending * Provider:?Shanthi Donovan DPM Date:?05/2025 Generated for Marc stapleton/Sabra/Alejo on:?02/04/2025 08:21 AM EDT
--- OUTSIDE RECORDS SUMMARY | 2025-02-04 08:21 | XMS_ITS | Clinical Summary ---
Author Organization [facility] Address [address] [place] [address] Phone Care Team Providers Care Solid Waste Management Engineer Name Role Phone Kevin Early NP Primary Care Provider Allergies Active Allergy Reactions Criticality Noted Date Comments Moxifloxacin 06/12/2024 Citalopram Hives High 02/14/2024 Clarithromycin Diarrhea Low 02/14/2024 Biaxin Sulfa (Sulfonamide Antibiotics) 05/26 Medications pregabalin (LYRICA) 100 mg capsule Twice A Day Active albuterol HFA (PROVENTIL HFA;VENTOLIN HFA) 108 (90 Base) MCG/ACT inhaler Inhale by mouth. Active busPIRone (BUSPAR) 5 mg tablet Take 1 tablet (5 mg total) by mouth 2 (two) times a day. Active ezetimibe (ZETIA) 10 mg tablet Take 1 tablet (10 mg total) by mouth daily. - Oral Active lidocaine-prilo sandra (EMLA) 2.5-2.5 % cream Apply topically. Apply [...] (100 mg total) by mouth. at bedtime Active Active Problems Problem Noted Date Diagnosed Date Malignant neoplasm of ascend ing colon ([facility]/HCC V24, [facility]/HCC V28) 08/26/2024 Encounters Date Type Department Care Team Description 12/17/2024 7:37 AM EDT - 12/17/2024 11:59 PM EDT Hospital Encounter [facility] Interventional Radiology [address] [place] [phone] Malignant neoplasm of ascending colon (CMS/HCC V24, CMS/HCC V28) Discharge Disposition: Home or Self Care 12/04/2024 Telephone [facility] Hematology Oncology [address] [place] [phone] Christal Mcnamara MA Port Removal appt 12/02/2024 8:45 AM EDT Office Visit [facility] Hematology Oncology [address] [place] [phone] Kelly Siddiqi MD Malignant neoplasm of ascending colon ([facility]/HCC V24, [facility]/HCC V28) (Primary Dx) 11/27/2024 11:05 AM EST - 11/27/2024 11:59 PM EST Hospital Encounter [facility] CT Scan [address] [place] [phone] Malignant neoplasm of ascending colon (CMS/HCC V24, [facility]/HCC V28) Discharge Disposition: Home or Self Care 11/22/2024 Telephone [facility] Hematology Oncology [address] [place] [phone] MA [address] Abd/Pelvis Appt 11/19/2024 9:00 AM EST Office Visit [facility] Hematology Oncology [address] [place] [phone] Kelly Siddiqi MD Malignant neoplasm of ascending colon (CMS/HCC V24, CMS/HCC V28) (Primary Dx); Drug-induced peripheral neuropathy ([facility]/HCC V24) 11/11/2024 7:53 AM EST - 11/11/2024 11:59 PM EST Hospital Encounter [facility] Infusion Center [address] [place] [phone] Kelly Siddiqi MD Malignant neoplasm of ascending colon (CMS/HCC V24, CMS/HCC V28) (Primary Dx) Discharge Disposition: Home or Self Care from Last 3 Months Surgical History Surgery Date Site/Laterality Comments CHOLECYSTECTOMY PROCEDURE:CHOLECYSTECTOMY COLON SURGERY PROCEDURE:COLON SURGERY Medical History Medical History Date Comments Colon cancer (CMS/HCC V24, CMS/HCC V28) DX:Colon cancer (HCC) Emphysema, unspecified (CMS/ HCC V24, CMS/HCC V28) DX:Emphysema, unspecified (H CC) Family History Medical History Relation Name Comments [...] not to disclose 2024 7:53 AM EST Obstetrics History Last Filed Vital Signs Vital Sign Reading Time Taken Comments Blood Pressure 130/74 12/02/2024 8:46 AM EDT Pulse 79 12/02/2024 8:46 AM EDT Temperature 36.9 ??C (98.4 ??F) 12/02/2024 8:46 AM ED T Respiratory Rate - - Oxygen Saturation 100% 12/02/2024 8:46 AM EDT Inhaled Oxygen Concentration - - Weight 99.3 kg (219 lb) 12/02/2024 8:46 AM EDT Height 172.7 cm (5' 8 ) 03/01/2024 3:21 PM EDT Body Mass Index 33.3 03/01/2024 3:21 PM EDT Plan of Treatment Upcoming Encounters Date Type Department Care Team (Late st Contact Info) Description 07/28/2025 8:30 AM EST Office Visit [facility] Hematology Oncology [address] [place] [phone] Kelly Siddiqi MD [address] [place] [address] Health Maintenance Due Date Last Done Comments Breast Cancer Screening 1972 Hepatitis B Vaccines (1 of 3 - 19+ 3-dose series) 1991 Zoster Vaccines (1 of 2) 1991 Cervical Cancer Screening: P ap Smear 1993 Pneumococcal Vaccine: 50+ Years (2 of 2 - PCV) 03/12/2011 03/12/2010 Pneumococcal Vaccine: Pediatrics (0 to 5 Years) [...] Influencers of Health Screening 08/27/2022 Influenza Vaccine (Season Ended) 2025 08/21/2013 DTaP,Tdap,and Td Vaccines (3 - Td or Tdap) 08/08/2032 08/08/2022, 03/12/2010 HIB Vaccines Aged Out No longer eligi ble based on patient's age to complete this topic HPV Vaccines Aged Out No longer eligi ble based on patient's age to complete this topic Hepatitis A Vaccines Aged Out No long er eligible based on patient's age to complete this topic IPV Vaccines Aged Out No longer eligi ble based on patient's age to complete this topic MMR Vaccines Aged Out No longer eligi ble based on patient's age to complete this topic Meningococcal ACWY Vaccine Aged Out N o longer eligible based on patient's age to complete this topic Meningococcal B Vaccine Aged Out No l onger eligible based on patient's age to complete this topic RSV Immunization Patients Under 20 months Aged Out No longer eligible b ased on patient's age to complete this topic Varicella Vaccines Aged Out No longer eligible based on patient's age to complete this topic Procedures Procedure Name Priority Date/Time Associated Diagnosis Comments IR REMOVE TUNNELED CVAD W SUBQ PORT OR PUMP Routine 12/17/2024 9:19 AM EDT Malignant neoplasm of ascending colon (CMS/HCC V24, CMS/HCC V28) CT ABDOMEN PELVIS W CONTRAST Routine 11/27/2024 11:18 AM EST Malignant neoplasm of ascending colon (CMS/HCC V24, CMS/HCC V28) ..MISCELLANEOUS REFERENCE LAB TEST 11/19/2024 ..MISCELLANEOUS REFERENCE LAB TEST 11/19/2024 ..MISCELLANEOUS REFERENCE LAB TEST 11/19/2024 ..MISCELLANEOUS REFERENCE LAB TEST 11/19/2024 ..MISCELLANEOUS REFERENCE LAB TEST 11/19/2024 ..MISCELLANEOUS REFERENCE LAB TEST 11/19/2024 CBC WITH AUTO DIFFERENTIAL Routine 11/11/2024 8:08 AM EST Malignant neoplasm of ascending colon (CMS/HCC V24, CMS/HCC V28) COMPREHENSIVE METABOLIC PANEL Routine 11/11/2024 8:08 AM EST Malignant neoplasm of ascending colon (CMS/HCC V24, CMS/HCC V28) CARCINOEMBRYONIC ANTIGEN Routine 8:08 AM EST Malignant neoplasm of ascending colon (CMS/HCC V24, CMS/HCC V28) CBC AND DIFFERENTIAL Routine 11/11/2024 8:08 AM EST Malignant neoplasm of ascending colon (CMS/HCC V24, CMS/HCC V28) from Last 3 Months Results * IR Remove Tunneled CVAD w Subq Port or Pump (12/17/2024 9:19 AM EDT) Anatomical Region Laterality Modality N/A Interventional R adiology 12/17/2024 2:41 PM EDT Narrative 12/17/2024 2:42 PM EDT INDICATION: Port-A-Cath removal Technique: Chest wall around the pre-existing Port-A-Cath was draped and prepped using maximal sterile barrier. 2% buffered lidocaine was used as local anesthetic. Approximately 3 cm incision was performed along the cephalad aspect of the Port-A-Cath. The Port-A-Cath was dissected from the surrounding fibrotic reaction. The Port-A-Cath was removed completely and the pocket was closed with deep 3-0 Vicryl sutures and a subcuticular 4-0 Vicryl suture to approximate the skin. Dermabond application was applied followed by a dressing. Total patient dose (air kerma): 0.2 mGy CONCLUSION: Successful removal of ??Port-A-Cath. -------- FINAL REPORT -------- Dictated By: Lina Harding Dictated Date: 12/17/2024 14:41 ET Assigned Physician: Lina Harding Reviewed and Electronically Signed By: Lina Harding Signed Date: 12/17/2024 14:42 ET Workstation ID: [id number] Transcribed By: Self Edit Transcribed Date: 12/17/2024 14:41 ET Procedure Note Lina Harding MD - 12/17/2024 INDICATION: Port-A-Cath removal Technique: Chest wall around the pre-existing Port-A-Cath was draped andprepped using maximal sterile barrier. 2% buffered lidocaine was used aslocal anesthetic. Approximately 3 cm incision was performed along thecephalad aspect of the Port-A-Cath. The Port-A-Cath was dissected from thesurrounding fibrotic reaction. The Port-A-Cath was removed completely andthe pocket was closed with deep 3-0 Vicryl sutures and a subcuticular 4-0Vicryl suture to approximate the skin. Dermabond application was appliedfollowed by a dressing. Total patient dose (air kerma): 0.2 mGy CONCLUSION: Successful removal of Port-A-Cath. -------- FINAL REPORT -------- Dictated By: Lina Harding Dictated Date: 12/17/2024 14:41 ET Assigned Physician: Lina Harding Reviewed and Electronically Signed By: Lina Harding Signed Date: 12/17/2024 14:42 ET Workstation ID: [id number] Transcribed By: Self Edit Transcribed Date: 12/17/2024 14:41 ET us Kelly Siddiqi MD IMG IR PROCEDURES Final Resu lt * CT Abdomen Pelvis w Contrast (11/27/2024 11:18 AM EST) Anatomical Region Laterality Modality Body Computed Tomogra phy 11/29/2024 9:02 AM EST Impressions 11/29/2024 9:17 AM EST No measurable disease in the abdomen or pelvis. Previous proximal colectomy. ?? -------- FINAL REPORT -------- Dictated By: Nba Feliz Dictated Date: 11/29/2024 09:02 ET Assigned Physician: Nba Feliz Reviewed and Electronically Signed By: Nba Feliz Signed Date: 11/29/2024 09:17 ET Workstation ID: [id number] Transcribed By: Self Edit Transcribed Date: 11/29/2024 09:02 ET Narrative 11/29/2024 9:17 AM EST EXAMINATION: CT ABDOMEN/PELVIS WITH IV CONTRAST CLINICAL INFORMATION: Colon cancer stage II/III. ??Malignant neoplasm of ascending colon. Evaluate status of disease. 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 Tumor is approximately 9 cm in greatest dimension with clear margins, 1 out of 24 lymph node positive, pathological stage was T3 N1a. ??Patient had adjuvant chemotherapy/FOLFOX, tolerated 6 cycles in summer of last year COMPARISON: Portions of a previous CT 02/13/2024 ?? TECHNIQUE: Multidetector CT. Helical examination of the abdomen and pelvis. Imaging performed after the IV administration of contrast. Reformatting in the coronal and sagittal planes. DLP: 1886 mGy-cm Dose optimization was performed including the use of low-dose iterative reconstruction technique with automatic exposure control based on patient size. Type of contrast: ISOVUE 370 Volume of IV contrast: 90 mL Volume of contrast discarded: 0 mL FINDINGS: LIVER: The liver is normal in size, shape, and attenuation. No focal hepatic lesion or biliary ductal dilatation is present. No additional liver findings. ?? BILIARY TRACT: ??There are surgical clips in expected region of the gallbladder. There is no biliary dilation. SPLEEN: Normal ?? PANCREAS: Normal ?? ADRENAL GLANDS: Normal ?? KIDNEYS: No dilation of the intrarenal collecting system. The nephrograms are symmetric. No suspicious renal mass. No opaque renal calculus. ?? GASTROINTESTINAL TRACT: ?Gas and fecal residue in the mid and distal colon. There is a linear metallic density in the region of the hepatic flexure. These could represent and all clips. Anastomosis related to proximal colectomy. There is no measurable mass at the anastomotic region. The stomach is distended. There is no significant small bowel dilation. There is no mesenteric or omental mass. URINARY BLADDER: ??No focal abnormality. PELVIC VISCERA: ??The uterus is not enlarged. There is calcification in the fundus likely a degenerating fibroid. No suspicious adnexal mass or collection. ABDOMINAL WALL: Evidence of previous surgery. Fat protrudes into the abdominal wall. There is no bowel hernia. ?? LYMPHOVASCULAR STRUCTURES AND FLUID: There is no abdominal aortic aneurysm. There is arterial calcification. The portal vein enhances. There is a normal variant retroaortic left renal vein. No measurably enlarged lymph nodes. No free intraperitoneal fluid. ?? VISUALIZED LOWER CHEST: No suspicious abnormality. ?? MUSCULOSKELETAL: No acute or suspicious osseous abnormality. Procedure Note Nba Feliz MD - 11/29/2024 EXAMINATION: CT ABDOMEN/PELVIS WITH IV CONTRAST CLINICAL INFORMATION: Colon cancer stage II/III. Malignant neoplasm of ascending colon.Evaluate status of disease. Partial colectomy of ascending colon mass/cecal mass on 02/14/2024, finalpathology results showed mucinous adenocarcinoma which is moderatelydifferentiated. Tumor is approximately 9 cm in greatest dimension withclear margins, 1 out of 24 lymph node positive, pathological stage was T3N1a. Patient had adjuvant chemotherapy/FOLFOX, tolerated 6 cycles insummer of last year COMPARISON: Portions of a previous CT 02/13/2024 TECHNIQUE: Multidetector CT. Helical examination of the abdomen and pelvis. Imaging performed after the IV administration of contrast. Reformatting in the coronal and sagittal planes. DLP: 1886 mGy-cm Dose optimization was performed including the use of low-dose iterativereconstruction technique with automatic exposure control based on patientsize. Type of contrast: ISOVUE 370 Volume of IV contrast: 90 mL Volume of contrast discarded: 0 mL FINDINGS: LIVER: The liver is normal in size, shape, and attenuation. No focalhepatic lesion or biliary ductal dilatation is present. No additionalliver findings. BILIARY TRACT: There are surgical clips in expected region of thegallbladder. There is no biliary dilation. SPLEEN: Normal PANCREAS: Normal ADRENAL GLANDS: Normal KIDNEYS: No dilation of the intrarenal collecting system. The nephrogramsare symmetric. No suspicious renal mass. No opaque renal calculus. GASTROINTESTINAL TRACT: Gas and fecal residue in the mid and distalcolon. There is a linear metallic density in the region of the hepaticflexure. These could represent and all clips. Anastomosis related toproximal colectomy. There is no measurable mass at the anastomoticregion. The stomach is distended. There is no significant small bowel dilation. There is no mesenteric or omental mass. URINARY BLADDER: No focal abnormality. PELVIC VISCERA: The uterus is not enlarged. There is calcification in thefundus likely a degenerating fibroid. No suspicious adnexal mass orcollection. ABDOMINAL WALL: Evidence of previous surgery. Fat protrudes into theabdominal wall. There is no bowel hernia. LYMPHOVASCULAR STRUCTURES AND FLUID: There is no abdominal aorticaneurysm. There is arterial calcification. The portal vein enhances. There is a normal variant retroaortic left renal vein. No measurably enlarged lymph nodes. No free intraperitoneal fluid. VISUALIZED LOWER CHEST: No suspicious abnormality. MUSCULOSKELETAL: No acute or suspicious osseous abnormality. IMPRESSION: No measurable disease in the abdomen or pelvis. Previous proximal colectomy. -------- FINAL REPORT -------- Dictated By: Nba Feliz Dictated Date: 11/29/2024 09:02 ET Assigned Physician: Nba Feliz Reviewed and Electronically Signed By: Nba Feliz Signed Date: 11/29/2024 09:17 ET Workstation ID: [id number] Transcribed By: Self Edit Transcribed Date: 11/29/2024 09:02 ET us Kelly Siddiqi MD IMG CT PROCEDURES Final Resu lt * Miscellaneous reference lab test (11/19/2024) Only the most recent of6 resultswithin the time period is included. us Provider Onbase LAB BLOOD ORDERABLES Final Re sult * CBC auto differential (11/11/2024 8:08 AM EST) WBC 5.2 4.8 - 10.8 K/mcL LAB HEMETOLOGY METHOD 11/11/2024 8:50 AM [facility] RBC 4.80 3.80 - 4.80 M/mcL LAB HEMETOLOGY METHOD 11/11/2024 8:50 AM [facility] Hemoglobin 13.4 11.5 - 16.0 g/dL LAB HEMETOLOGY METHOD 11/11/2024 8:50 AM [facility] Hematocrit 41.3 35.0 - 47.0 % LAB HEMETOLOGY METHOD 11/11/2024 8:50 AM [facility] MCV 86.9 79.0 - 98.0 FL LAB HEMETOLOGY METHOD 11/11/2024 8:50 AM [facility] MCH 28.2 27.0 - 32.0 pcg LAB HEMETOLOGY METHOD 11/11/2024 8:50 AM [facility] MCHC 32.4 32.0 - 37.0 g/dL LAB HEMETOLOGY METHOD 11/11/2024 8:50 AM [facility] RDW 13.4 11.0 - 15.0 % LAB HEMETOLOGY METHOD 11/11/2024 8:50 AM [facility] Platelets 145 130 - 400 K/mcL LAB HEMETOLOGY METHOD 11/11/2024 8:50 AM [facility] MPV 10.3 7.0 - 11.0 FL LAB HEMETOLOGY METHOD 11/11/2024 8:50 AM [facility] NRBC 0.0 <1.0 % LAB HEMETOLOGY METHOD 11/11/2024 8:50 AM [facility] NRBC Absolute 0.00 <0.10 K/mcL LAB HEMETOLOGY METHOD 11/11/2024 8:50 AM [facility] Neutrophils Relative 57.6 % LAB HEMETOLOGY METHOD 11/11/2024 8:50 AM [facility] Lymphocytes Relative 30.4 % LAB HEMETOLOGY METHOD 11/11/2024 8:50 AM [facility] Monocytes Relative 5.9 % LAB HEMETOLOGY METHOD 11/11/2024 8:50 AM [facility] Eosinophils Relative 4.4 % LAB HEMETOLOGY METHOD 11/11/2024 8:50 AM [facility] Basophils Relative 1.3 % LAB HEMETOLOGY METHOD 11/11/2024 8:50 AM [facility] Immature Granulocytes Relative 0.4 % LAB HEMETOLOGY METHOD 11/11/2024 8:50 AM [facility] Neutrophils Absolute 3.01 1.50 - 7.00 K/mcL LAB HEMETOLOGY METHOD 11/11/2024 8:50 AM [facility] Lymphocytes Absolute 1.59 1.00 - 5.00 K/mcL LAB HEMETOLOGY METHOD 11/11/2024 8:50 AM [facility] Monocytes Absolute 0.31 0.20 - 1.00 K/mcL LAB HEMETOLOGY METHOD 11/11/2024 8:50 AM [facility] Eosinophils Absolute 0.23 0.00 - 0.50 K/mcL LAB HEMETOLOGY METHOD 11/11/2024 8:50 AM [facility] Basophils Absolute 0.07 0.00 - 0.20 K/mcL LAB HEMETOLOGY METHOD 11/11/2024 8:50 AM [facility] Immature Granulocytes Absolute 0.02 0.00 - 0.03 K/mcL LAB HEMETOLOGY METHOD 11/11/2024 8:50 AM [facility] Blood Blood sample taken from central line / Unknown Existing Catheter / Unknown 11/11/2024 8:08 AM EST 11/11/2024 8:40 AM EST us Kelly Siddiqi MD LAB BLOOD ORDERABLES Final R esult [facility] [address] [place] [address], [place] [phone] * CEA (11/11/2024 8:08 AM EST) CEA 2.4 0.0 - 5.0 ng/mL LAB CHEMISTRY METHOD 11/11/2024 9:22 AM EST [facility] Blood Blood sample taken from central line / Unknown Existing Catheter / Unknown 11/11/2024 8:08 AM EST 11/11/2024 8:40 AM EST [facility] - 11/11/2024 9:22 AM EST The Siemens Advia SkillHoundaur Chemiluminescent Immunoassay is used. Results obtained with different assay methods or kits cannot be used interchangeably. Results cannot be interpreted as absolute evidence of the presence or absence of malignant disease. Kelly Siddiqi MD LAB BLOOD ORDERABLES Final R esult Performing Organization Address City/[facility]/ZIP Co de Phone Number [facility] [address] [place] [address], [place] [phone] * (ABNORMAL) Comprehensive metabolic panel (11/11/2024 8:08 AM EST) Pathologist [facility] Sodium 144 133 - 145 mmol/L LAB CHEMISTRY METHOD 11/11/2024 9:13 AM EST [facility] Potassium 4.0 3.5 - 5.5 mmol/L LAB CHEMISTRY METHOD 11/11/2024 9:13 AM [facility] Chloride 111(H) 96 - 110 mmol/L LAB CHEMISTRY METHOD 11/11/2024 9:13 AM [facility] CO2 26 21 - 32 mmol/L LAB CHEMISTRY METHOD 11/11/2024 9:13 AM EST [facility] Anion Gap 7 3 - 11 LAB CHEMISTRY METHOD 11/11/2024 9:13 AM [facility] Glucose 114(H) 70 - 100 mg/dL LAB CHEMISTRY METHOD 11/11/2024 9:13 AM [facility] BUN 13 5 - 25 mg/dL LAB CHEMISTRY METHOD 11/11/2024 9:13 AM [facility] Creatinine 0.88 0.50 - 1.10 mg/dL LAB CHEMISTRY METHOD 11/11/2024 9:13 AM [facility] eGFR 79 >=60 mL/min/1. 73m2 LAB CHEMISTRY METHOD 11/11/2024 9:13 AM [facility] Comment:Calculation based on the??Chronic Kidney Disease Epidemiology Collaboration (CKD-EPI) equation refit??without adjustment for race. BUN/Creatinine Ratio 14.8 LAB CHEMISTRY METHOD 11/11/2024 9:13 AM [facility] Calcium 9.3 8.5 - 10.5 mg/dL LAB CHEMISTRY METHOD 11/11/2024 9:13 AM [facility] AST (SGOT) 25 10 - 42 unit/L LAB CHEMISTRY METHOD 11/11/2024 9:13 AM [facility] ALT (SGPT) 31 10 - 60 unit/L LAB CHEMISTRY METHOD 11/11/2024 9:13 AM [facility] Alkaline Phosphatase 93 42 - 121 unit/L LAB CHEMISTRY METHOD 11/11/2024 9:13 AM [facility] Total Protein 6.7 6.0 - 8.0 g/dL LAB CHEMISTRY METHOD 11/11/2024 9:13 AM [facility] Albumin 3.6 3.2 - 5.0 g/dL LAB CHEMISTRY METHOD 11/11/2024 9:13 AM [facility] Total Bilirubin 0.4 0.0 - 1.4 mg/dL LAB CHEMISTRY METHOD 11/11/2024 9:13 AM [facility] Blood Blood sample taken from central line / Unknown Existing Catheter / Unknown 11/11/2024 8:08 AM EST 11/11/2024 8:40 AM EST us Kelly Siddiqi MD LAB BLOOD ORDERABLES Final R esult [facility] [address] [place] [address], from Last 3 Months Insurance [facility] MEDICARE Member Subscriber Plan / Payer (Ef fective 2021-Present) Name:Dorina Holguin Relation to Subscriber:Self Name:Dorina Holguin Payer ID:[id number] Group ID:[id number] Type:Not on file Address: [facility] [address] [id number] Care Teams Solid Waste Management Engineer Relationship Specialty Start Date End Date Kevin Early NP [address], [place] PCP - General 06/25/24
--- OUTSIDE RECORDS SUMMARY | 2025-02-04 08:21 | XMS_ITS ---
Author Organization [employer] [facility] [employer] [facility] [employer] [facility] Address [address] [facility] [place] [address] Care Team Providers Care Manager Of Recruiting Name Role Phone Kevin Chadwick Primary Care Provider Unav ailable Shanthi Dnoovan Unavailable [phone] Vannessa Rivas MD Unavailable Unavailable Allergies Allergen (clinical drug ingredient) Drug/Non Drug Allergy documented on EMR Reaction Allergy Type Onset Date Status nicotine patch (uncoded) drooling at night Allergy Active moxifloxacin Avelox Unknown Drug Allergy Acti ve sulfamethoxazole / trimethoprim Bactrim rash Drug Allergy Active Biaxin Diarrhea Drug Allergy Active REASON FOR VISIT Fungal Nails, Heel pain Medications Medication SIG (Take, Route, Frequency, Duration) Notes Start Date End Date Status Lyrica 150mg Active Nightsplint . . . AFO - L1930 for . Active Ciclopirox 0.77 % 1 application Externally Twice a day for 365 days Active Physical Therapy . . . 2-3x/week for 3- 4 weeks 10/04/2024 Active Physical Therapy . . . 2-3x/week for 3- 4 weeks 10/04/2024 Active Zetia Active Vitamin D Active ProAir HFA Active busPIRone HCl 7.5 MG 1 tablet Orally Twi ce a day Active Singulair 10 MG 1 tablet Orally Once a day for 30 day(s) Active Myrbetriq Active Ibuprofen 600 600 MG 1 tablet as needed Orally every 6 hrs for 14 days 11/29/2024 Active Atorvastatin Calcium 10 MG 1 tablet Orally Once a day for 30 day(s) Not-Taking Symbicort 80-4.5 MCG/ACT 1 puff as neede d Inhalation every 4 hrs Active Ativan PRN Active Medrol 4 MG as directed Orally 11/18/2024 Active Breo Ellipta Not-Papi ing Lynox Not-Taking Social History Tobacco Use: Social History Observation Description Date Details (start date - stop date) Current Smoker NA - NA Tobacco use other than smoking: Question Answer Notes Are you an other tobacco user? No Tobacco Control (Standard) Question Answer Notes Tobacco use: Current smoker How often do you smoke cigarettes? Every day How many cigarettes a day do you smoke? 6-10 How soon after you wake up d o you smoke your first cigarette? 6-30 minutes Are you interested in quitting? Thinking about q uitting AUDIT-C (Standard) Question Answer Notes Did you have a drink containing alcohol in the p ast year? No Points 0 Interpretation Negative Problems Problem Type SNOMED Code ICD Code Onset Dates Problem Status W/U Status Risk Notes Problem Plantar fasciitis, bilateral (M72.2) Active confirmed Vital Signs Blood pressure systolic 125 mm Hg 11/30/19 25 Blood pressure diastolic 75 mm Hg 025 Heart Rate 81 /min 11/29/2024 Height 5ft 8in in 11/29/2024 Weight 205 lbs 11/29/2024 BMI 31.17 kg/m2 11/29/2024 Encounters Encounter Location Date Provider Diagnosis [facility] [address] [place] [address] 11/29/2024 Shanthi Zion Onychomycosis B35.1 ; Plantar fasciitis, bilateral M72.2 ; Calcaneal spur, left foot M77.32 ; Interstitial myositis of left foot M60.172 and Bursitis of left foot M77.52 Assessments Encounter Date Diagnosis (ICD Code) Assessment Notes Treatment Notes Treatment Clinical Notes Section Notes 11/29/2024 Onychomycosis (ICD-10 - B35.1) 11/29/2024 Plantar fasciitis, bilateral (ICD-10 - M72.2) 11/29/2024 Calcaneal spur, left foot (ICD-10 - M77.32) 11/29/2024 Interstitial myositis of left foot (ICD-10 - M60.172) 11/29/2024 Bursitis of left foot (ICD-10 - M77.52) 11/29/2024 Other Plan Of Treatment Medication Medication Name Sig Start Date Stop Date Notes Ibuprofen 600 600 MG 1 tablet as needed Orally every 6 hrs for 14 days 11/29/2024 Next Appt Details Follow Up: 2 Months, Reason: Provider Name:Shanthi peña, 03/04/2025 10:00:00 AM, [address] [place], [address], Progress Notes * Federico HOLGUINOB:1970 (54 yo F)Acc No.[id number]:11/29/2024 Progress Notes Patient:?Dorina HOLGUIN Provider:?Shanthi Donovan DPM :1970???Age:54 Y???Sex:Female D ate:11/29/2024 Address:[address] [place], [place] [id number] Pcp:WILVER Ardon Subjective: * Chief Complaints: * ???Fungal NailsHeel pain * HPI: ???Painful Nails:?Nature:?aching, tender, discolored, thick.?Location:?Great toe, Right foot, Left foot.?Aggravated by:?shoegear causing difficulty standing/walking.?Treatments:?Ciclopirox topical gel.?Heel pain:?Nature:?aching, tenderness, throbbing.?Location:?Proximal plantar aspect of Heel, LEFT.?Duration:?, two months.?Course:?worse.?Aggravated:?standing, walking, walking first thing in the morning/after rest.?Treatments:?rest/alter normal daily activity, oral anti-inflammatories, change in shoes, stretching.? * ROS:?General/Constitutional:?Nausea?denies, denies, denies, denies.?Vomiting?denies, denies, denies, denies.?Hunger Thirst?denies, denies, denies, denies.?Loss appetite?denies, denies, denies, denies.?Chills?denies, denies, denies, denies.?Fatigue?denies, denies, denies, denies.?Fever?denies, denies, denies, denies.?Night Sweats?denies, denies, denies, denies.?Unexplained weight loss?denies, denies, denies, denies.?Unexplained weight gain?denies, denies, denies, denies.?HEENTM:?Dentures?denies, denies, denies, denies.?Dizziness?denies, denies, denies, denies.?Glasses/contacts?admits, admits, admits, admits.?Retinopathy?denies, denies, denies, denies.?Blurred/double vision?denies, denies, denies, denies.?TMJ?denies, denies, denies, denies.?Discharge/drainage?denies, denies, denies, denies.?Implants?denies, denies, denies, denies.?Sore throat?denies, denies, denies, denies.?Dental implants?denies, denies, denies, denies.?Hard of hearing ?denies, denies, denies, denies.?Difficulty chewing/swallowing/speaking?denies, denies, denies, denies.?Nose bleeds?denies, denies, denies, denies.?Sore mouth?denies, denies, denies, denies.?Respiratory:?On Oxygen?denies, denies, denies, denies.?Pneumonia/pleurisy?denies, denies, denies, denies.?Bronchitis?denies, denies, denies, denies.?Emphysema?denies, denies, denies, denies.?Coughing?denies, denies, denies, denies. Cough blood?denies, denies, denies, denies.?Shortness of breath?denies, denies, denies, denies.?Wheezing?denies, denies, denies, denies.?Cardiovascular:?Pacemaker?denies, denies, denies, denies.?MVP?denies, denies, denies, denies.?WPW?denies, denies, denies, denies.?CHF?denies, denies, denies, denies.?Heart attack?denies, denies, denies, denies.?Septal defect?denies, denies, denies, denies.?Rapid beat?denies, denies, denies, denies.?Chest pain ?denies, denies, denies, denies.?Atrial Fib.?denies, denies, denies, denies.?Murmur/Palpitations?denies, denies, denies, denies.?Gastrointestinal:?Hemorrhoids?denies, denies, denies, denies.?Stomach/Abdominal pain?denies, denies, denies, denies.?Dark blood stool?denies, denies, denies, denies.?Irritable bowel ?denies, denies, denies, denies.?Constipation?denies, denies, denies, denies.?Diarrhea?denies, denies, denies, denies.?Hematology:?Swelling?denies, denies, denies, denies.?Clots?denies, denies, denies, denies.?Varicose Veins?denies, denies, denies, denies.?Bruising?denies, denies, denies, denies.?Bleeding problem?denies, denies, denies, denies.?Genitourinary:?Blood urine?denies, denies, denies, denies.?Frequent/Painfu/urination/bladder control?denies, denies, denies, denies.?Kidney stones?denies, denies, denies, denies.?Infection (UTI)?denies, denies, denies, denies.?Nephropathy denies, denies, denies, denies.?sex trans dis (STD)?denies, denies, denies, denies.?Prostate?denies, denies, denies, denies.?Musculoskeletal:?Hammertoes?denies, denies, denies, denies.?Bunions?denies, denies, denies, denies.?Back Pain?admits, admits, admits, admits.?Muscle Cramps/ Resting?denies, denies, denies, denies.?Muscle cramps / walking?denies, denies, denies, denies.?Generalized aches and pains?admits, admits, admits, admits.?Weakness?denies, denies, denies, denies.?Integ.:?Mullins?denies, denies, denies, denies.?Scars?denies, denies, denies, denies.?Corns/calluses?denies, denies, denies, denies.?Ingrown nails?denies, denies, denies, denies.?Painful nails?denies, denies, denies, denies. Open Sores?denies, denies, denies, denies.?Rashes?denies, denies, denies, denies.?Neurologic:?Difficulty sleeping?admits, admits, admits, admits.?Brain disorder?denies, denies, denies, denies.?Numbness?admits, admits, admits, admits.?Balance trouble?denies, denies, denies, denies.?Confusion?denies, denies, denies, denies.?Fainting/blackouts?denies, denies, denies, denies.?Tingling?denies, denies, denies, denies.?Tremors?denies, denies, denies, denies.? * Medical History:? * Surgical History:?gall bladd er 2005ablation surgery 2014colon cancer 02/14/2024 * Hospitalization/Major Diagno stic Procedure:?[facility] 8 days colon cancer surgery 02/14/2024 * Family History:?Paternal unc le: diagnosed with Unspecified essential hypertension.? * Social History:?Tobacco Use:?Tobacco use other than smoking?Are you an other tobacco user??No ?Tobacco Control (Standard)?Tobacco use:?Current smoker ?How often do you smoke cigarettes??Every day ?How many cigarettes a day do you smoke??6-10 ?How soon after you wake up do you smoke your first cigarette??6-30 minutes ?Are you interested in quitting??Thinking about quitting ???Drugs/Alcohol:?Drugs?Have you used drugs other than those for medical reasons in the past 12 months??No ???Miscellaneous:?Caffeine: no. ?Children: no. ?Exercise: yes, walking. ?Marital status: single. ?Occupation: Disabled. ???Drug/Alcohol:?AUDIT-C (Standard)?Did you have a drink containing alcohol in the past year??No ?Points?0 ?Interpretation?Negative * Medications:?TakingSymbicort 80-4.5 MCG/ACT Aerosol 1 puff [...] Gel 1 application Externally Twice a day Physical Therapy . . . . 2-3x/week Physical Therapy . . . . 2-3x/week Medrol 4 MG Tablet Therapy Pack as directed Orally Taking Symbicort 80-4.5 MCG/ACT Aerosol 1 puff as needed [...] 1 application Externally Twice a day Taking Physical Therapy . . . . 2-3x/week Taking Physical Therapy . . . . 2-3x/week Taking Medrol 4 MG Tablet Therapy Pack as directed Orally Not-Taking/PRNBreo Ellipta Lynox Atorvastatin Calcium 10 MG Tablet 1 tablet Orally Once a day Medication List reviewed and reconciled with the patientNot-Taking/PRN Breo Ellipta Not-Taking/PRN Lynox Not-Taking/PRN Atorvastatin Calcium 10 MG Tablet 1 tablet Orally Once a day Medication List reviewed and reconciled with the patient * Allergies:?Bactrim: rashBiax in: Diarrheanicotine patch: drooling at night - Side EffectsAveloxyes[Allergies Verified] Objective: * Vitals:?Ht: 5ft 8in, Wt:205, BMI:31.17, Shoe size: 10.5-11, BP:125/75mm Hg, HR:81/min, Ht-cm: 172.72 cm, Wt-k.99 kg. * Examination: ???Orthopedic: ?MUSCLE STRENGTH:?5/5 all groups in a symmetrical fashion, B/L.?GAIT ABNORMALITY:?Supinated , antalgic.?FOOT MORPHOLOGY:?B/L, Pes Cavus structure, Semi-flexible?.?FOOTWEAR:?good condition.?Nails: ?NAILS are:?Elongated, overgrown, dystrophic, lytic, greater than 3mm thick, discolored and friable with crumbly malodorous subungual debris, with pain on palpation, proximal clearing of nail approximately _50__ percent TA.?General Examination: ?GENERAL APPEARANCE:?Reveals a pleasant, [...] compression; no limited STJ ROM, calor, or ecchymosis.? * Physical Examination:?L1930 Nightsplint AFO:?Application of static AFO, including soft interface material, adjustable for fit/ positioning/ pressure reduction, may be used for minimal ambulation, prefabricated, including fitting and adjustment:?Medium, Left.? 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 Plan: * Treatment: * Procedure Codes:?L1930 AFO P LASTIC/OTH MATERIAL PREFAB * Preventive Medicine:? ??Counseling:?Discussion:?-14: Office or other [...] and how it relates to their problem.?Heel pain:?Discussed other tx options for the patients condition, Given recent successful results to treatment, the patient wishes to continue with the present plan for their condition.?Orthotic Dispensing:?The patient presents today for fitting and [...] patient verbally confirmed to understanding the information discussed.?Steriod Injection:?I explained that a steroid and local anesthetic injections are administered to relieve pain and inflammation and thereby meant to improve function. I explained the possible complications including but not limited to signs/symptoms of steroid flare, infection, bruising, atrophy, discoloration of skin, change/deviation in toe position, and that additional injections may be necessary, cortisone post-injection informative educational handout was dispensed to and reviewed with the patient, Pt defers injection today.?Stretching Exercises:?Stretching and deep tissue massage exercises for the patients injury/diagnosis were discussed and demonstrated, handouts were dispensed.? ??Screening/Special Tests:?Fall Risk?Screening:?No falls in the past year ?FALLS: Screening for Future Fall Risk?Have you had any falls with injury in the past year??No * Follow Up:?2 Months * Images: * Sign off status: Completed true * Provider:?Shanthi Donovan DPM Date:?03/2025 Generated for Marc stapleton/Sabra/eTransmitting on:?02/04/2025 08:21 AM EDT History and Physical Notes * HPI (History of Present Illness) Category Sub-Category Detail Notes Category Not es Heel pain Duration: , two months Nature: aching, tenderness, throbbing Location: Proximal plantar asp ect of Heel, LEFT Aggravated: standing, walking, w alking first thing in the morning/after rest Course: worse Treatments: rest/alter normal da laurie activity, oral anti-inflammatories, change in shoes, stretching Painful Nails Aggravated by: shoegear causing difficul ty standing/walking Location: Great toe, Right derrick t, Left foot Nature: aching, tender, disc olored, thick Treatments: Ciclopirox topical g el Physical Examination Category Sub-Category Detail Notes Section Note s L1930 Nightsplint AFO Application of sta tic AFO, including soft interface material, adjustable for fit/ positioning/ pressure reduction, may be used for minimal ambulation, prefabricated, including fitting and adjustment: Medium, Left Examination Category Sub-Category Detail Notes Category Not [...] MORPHOLOGY: B/L, Pes Cavus struc ture, Semi-flexible FOOTWEAR EVALUATION: good condition MUSCLE STRENGTH: 5/5 all groups in a symmetrical fashion, B/L General Examination GENERAL APPEARANCE: Reveals a pleasant, alert, well nourished, well-developed, well hydrated individual, who demonstrates proper attention to hygiene/body habitus, and is in no acute distress, Pt serves as own historian for office visit today ORIENTED: person, place, and t pelon [facility] DP PULSES (B): 3/4, B/L PT PULSES (B): 3/4, B/L CAPILLARY [...] on palpation, proximal clearing of nail approximately _50__ percent TA Heel Pain INSPECTION: Pain on Palpatio n to Plantar Fascia med. and central bands, intrinsic musc., infra-calcaneal bursa, and med calc tubercle , LEFT foot, No pain: posterior/superior heel, achilles bursa/tendon, sinus tarsi, peroneals, or with lateral heel compression; no limited STJ ROM, calor, or ecchymosis
--- OUTSIDE RECORDS SUMMARY | 2025-02-04 08:21 | XMS_ITS | Patient Health Record ---
Author Organization [facility] Address [address] [place] [address] Care Team Providers Care Lotus Notes Developer Name Role Phone Kevin Chadwick Primary Care Provider Unav ailpearl Yaronmariana Shanthi Unavailable [phone] Vannessa Rivas MD Unavailable Unavailable Allergies Allergen [...] Start Date End Date Status Myrbetriq Active Ibuprofen 600 600 MG 1 tablet as needed Orally every 6 hrs for 14 days 11/29/2024 Active Medrol 4 MG as directed Orally 11/18/2024 Active Zetia Active Breo Ellipta Not-Papi ing Vitamin D Active Lynox Not-Taking ProAir HFA Active Atorvastatin Calcium 10 MG 1 tablet Orally Once a day for 30 day(s) Not-Taking busPIRone HCl 7.5 MG 1 tablet Orally [...] neede d Inhalation every 4 hrs Active Physical Therapy . . . 2-3x/week for 3- 4 weeks 10/04/2024 Active Ativan PRN Active Physical Therapy . . . 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) Active confirmed Problem Localized, primary osteoarthritis of the ankle and/or foot (142914842) 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.072) Active confirmed Problem Plantar fascial fibromatosis (16588896) Plantar fasciitis, bilateral (M72.2) Active confirmed Vital Signs Heart Rate 81 /min 11/29/2024 Blood pressure diastolic 75 mm Hg 11/29/2024 Height 5ft 8in in 11/29/2024 Blood pressure systolic 125 mm Hg 11/29/2024 Weight 205 lbs 11/29/2024 BMI 31.17 kg/m2 11/29/2024 Encounters Encounter Location Date Provider Diagnosis [facility] [place] [address] [place] [address] 08/16/2024 Shanthi Donovan Arthralgia of right ankle M25.571 ; Osteoarthritis of right ankle or foot M19.071 ; Arthralgia of left ankle M25.572 ; Osteoarthritis of left ankle or foot M19.072 ; Pain in right toe(s) M79.674 and Onychomycosis B35.1 [facility] [address] [address] 10/04/2024 Shanthi Donovan Osteoarthritis of right ankle or foot M19.071 ; Plantar fasciitis, bilateral M72.2 ; Arthralgia of right ankle M25.571 ; Arthralgia of left ankle M25.572 ; Osteoarthritis of left ankle or foot M19.072 ; Onychomycosis B35.1 ; Calcaneal spur, left foot M77.32 ; Interstitial myositis of left foot M60.172 and Bursitis of left foot M77.52 [facility] [address] [address] 11/29/2024 Shanthi Donovan Onychomycosis B35.1 ; Plantar fasciitis, bilateral M72.2 ; Calcaneal spur, left foot M77.32 ; Interstitial myositis of left foot M60.172 and Bursitis of left foot M77.[address] [facility] [address] 08/12/2024 Shanthi Donovan [facility] [address] [address] 08/16/2024 Shanthi Donovan [facility] [address] 08/16/2024 Shanthi Marrufoa [facility] [address] [address] 10/23/2024 Shanthi Marrufoa [facility] [address] [address] 11/14/2024 Shanthi Donovan [facility] [address] [address] 01/17/2025 Shanthi Donovan Assessments Encounter Date Diagnosis (ICD Code) Assessment Notes Treatment Notes Treatment Clinical Notes Section Notes 08/16/2024 Arthralgia of right ankle (ICD-10 - M25.571) 08/16/2024 Osteoarthritis of right ankle or foot (ICD-10 - M19.071) 10/04/2024 Osteoarthritis of right ankle or foot (ICD-10 - M19.071) 10/04/2024 Plantar fasciitis, bilateral (ICD-10 - M72.2) 11/29/2024 Onychomycosis (ICD-10 - B35.1) 11/29/2024 Plantar fasciitis, bilateral (ICD-10 - M72.2) 11/29/2024 Calcaneal spur, left foot (ICD-10 - M77.32) 10/04/2024 Arthralgia of right ankle (ICD-10 - M25.571) 08/16/2024 Arthralgia of left ankle (ICD-10 - M25.572) 08/16/2024 Osteoarthritis of left ankle or foot (ICD-10 - M19.072) 10/04/2024 Arthralgia of left ankle (ICD-10 - M25.572) 11/29/2024 Interstitial myositis of left foot (ICD-10 - M60.172) 11/29/2024 Bursitis of left foot (ICD-10 - M77.52) 10/04/2024 Osteoarthritis of left ankle or foot [...] Patient Educated with: [employer]ICE [email or web address].pdf ([email or web address] [email or web address].pdf) 11/29/2024 Other Plan Of Treatment Pending Test Test Name Order Date X ray : Ankle, left 3V 08/16/2024 X ray : Foot, right 3V 05/19/2021 X ray : Ankle, right 3V 08/16/2024 Next Appt Details Provider Name:Shanthi Mariana peña, 03/04/2025 10:00:00 AM, [address] [place], [address], Insurance Providers Payer Name Payer Address Payer Phone Subscriber Number Group Number Insured Name Patient Relationship to Insured Coverage Start Date Coverage End Date [facility] [employer] Claims [address] [facility] [place] [address] [id number] Dorina Holguin Self - patient is the [...]
--- OUTSIDE RECORDS SUMMARY | 2025-02-04 08:22 | XMS_ITS | Data Portability ---
Author Organization [place] - [facility], Allergy Address [address] [place] [id number] Assessment Encounter Date Assessment Date Assessment LastModified by Organization Details LastModified Time 12/03/2024 12/03/2024 Nasal examination and endoscopy did not identify a prominent bleeding source to explain the patient's history of epistaxis. Patient with left septal deviation and mucoid secretions. Recommend medical management with saline nasal spray 4-6 times daily, saline gel at night, Afrin with episodes of bleeding, and packing the nose with Bleed Cease (available OTC) if any additional bleeding. Patient may use Ponaris Nasal Emollient 1/2 dropper twice daily as needed with dryness. Recommend Fluticasone/ flonase daily using opposite hand technique for intermittent nasal congestion. Patient will follow up in 6-8 weeks if congestion persists. Will consider formal allergy testing at that time. [email or web address] Not available 12/03/2024 14:51:55 Plan of Treatment Reminders Order Date Submit Date Provider Last Modified By Organization Details Last Modified Time Details Appointments Establish ed 15 2024 11:00A M DOUG SALINAS PA-C Not available Not available Not available Lab None recorded. Referral None recorded. Procedures None recorded. Surgeries None recorded. Imaging None recorded. Medication Orders None recorded. Patient TargetsNo targets recorded. Patient InstructionsNo instructions recorded. Reason for Referral None Reported. Problems Name Problem SNOMED Code Status Onset Date Resolution Date Notes Provider Name and Address Organization Details Recorded Time Bleeding from nose 914356042 Active 2024 DOUG SALINAS PA-C [address] [facility], [place], [address] [place] - [facility] 13:36:41 Obstructive sleep apnea of adult [id number] Active 2024 DOUG SALINAS PA-C 100 [facility] [address], [place], [address], [facility] 13:36:47 Nasal congestion 22403448 Active 2024 DOUG SALINAS PA-C 100 [facility] [address], [place], [address], [facility] - [facility] 13:36:57 Problem Notes None recorded. Procedures Surgical History Date Name Laterality Status Provider Name and Address Organization Details Recorded Time Nasal Endoscopy completed DOUG SALINAS PA-C 100 [facility] [address], [place], [address], [facility] 12/03/2024 14:49:29 Imaging Results None recorded. Procedure Notes None recorded. Medical Equipment None Reported. Medications Name Sig Start Date Stop Date Status Note LastModified by Organization Details LastModified Time fluconazole 100 mg tablet TAKE 1 TABLET BY MOUTH TWICE A DAY active Not Available Not Available No t Available buspirone 5 mg tablet TAKE 1 TABLET BY MOUTH TWICE A DAY SCHEDULE 6 MONTH FOLLOW UP PRIOR TO ADDITIONAL FILLS active Not Available Not Available No t Available nystatin 100,000 unit/mL oral suspension TAKE 4MLS BY MOUTH 3 TIMES A DAY FOR 10 DAYS NEEDED THRUSH active Not Available Not Available No t Available doxycycline hyclate 100 mg capsule TAKE 1 CAPSULE BY MOUTH EVERY 12 HOURS FOR 10 DAYS active Not Available Not Available Not Available nicotine 14 mg/24 hr daily transdermal patch APPLY 1 PATCH TOPICALLY DAILY active Not Available Not Available No t Available ketoconazole 2 % shampoo APPLY TO SCALP 3 TIMES A WEEK LET SIT FOR 5 MINS THEN RINSE active Not Available Not Available No t Available albuterol sulfate 2.5 mg/3 mL (0.083 %) solution for nebulization PLEASE SEE ATTACHED FOR DETAILED DIRECTIONS active Not Available Not Available N ot Available ibuprofen 800 mg tablet TAKE 1 TABLET BY MOUTH 3 TIMES A DAY NEEDED FOR PAIN FOR 30 DAYS active Not Available Not Available Not Available fluconazole 150 mg tablet TAKE 1 TABLET BY MOUTH EVERY 3 DAYS FOR 2 DOSES active Not Available Not Available No t Available benzonatate 200 mg capsule TAKE 1 CAPSULE BY MOUTH THREE TIMES A DAY FOR 7 DAYS active Not Available Not Available N ot Available prednisone 20 mg tablet TAKE 2 TABLETS BY MOUTH DAILY FOR 5 DAYS active Not Available Not Available N ot Available terconazole 0.8 % vaginal cream APPLY 1 APPLICATION VAGINALLY DAILY AT BEDTIME FOR 3 DAYS active Not Available Not Available No t Available diphenoxylat e-atropine 2.5 mg-0.025 mg tablet TAKE 1 TABLET BY MOUTH 4 TIMES A DAY NEEDED FOR DIARRHEA. active Not Available Not Available No t Available penicillin V potassium 500 mg tablet TAKE 1 TABLET BY MOUTH 2 TIMES A DAY FOR 5 DAYS active Not Available Not Available N ot Available metronidazol e 500 mg tablet PLEASE SEE ATTACHED FOR DETAILED DIRECTIONS active Not Available Not Available N ot Available prochlorpera zine maleate 10 mg tablet TAKE 1 TABLET BY MOUTH EVERY 6 HOURS NEEDED active Not Available Not Available No t Available tretinoin 0.05 % topical cream APPLY A PEA SIZE AMOUNT TO ACNE PRONE AREA AT BEDTIME active Not Available Not Available N ot Available acetaminophe n 500 mg tablet TAKE 2 TABLETS BY MOUTH EVERY 8 HOURS active Not Available Not Available No t Available triamcinolon e acetonide 0.1 % topical cream APPLY TOPICALLY TO AFFECTED AREA HANDS/ARMS TWICE DAILY FOR 2 WEEKS OR LESS, NEEDED FOR FLARES active Not Available Not Available No t Available ondansetron 8 mg disintegrati ng tablet TAKE 1 TABLET BY MOUTH EVERY 8 HOURS NEEDED FOR NAUSEA active Not Available Not Available No t Available lidocaine-pr ilocaine 2.5 %-2.5 % topical cream APPLY TO AFFECTED AREA EVERY DAY NEEDED active Not Available Not Available No t Available hydrocortiso ne 2.5 % topical cream with perineal applicator APPLY RECTALLY 2 TO 4 TIMES A DAY NEEDED FOR HEMORRHOIDS active Not Available Not Available Not Available lorazepam 0.5 mg tablet TAKE 1 TABLET BY MOUTH AT BEDTIME NEEDED FOR ANXIETY FOR 20 DAYS active Not Available Not Available No t Available clindamycin 1 % topical gel APPLY TO GROIN EVERY DAY active Not Available Not Available No t Available betamethason e valerate 0.1 % topical cream APPLY TO AFFECTED AREA ON FACE TWICE A DAY FOR 2 WEEKS THEN NEEDED active Not Available Not Available No t Available meclizine 25 mg tablet TAKE 1 TABLET BY MOUTH 3 TIMES A DAY NEEDED FOR DIZZINESS active Not Available Not Available No t Available tacrolimus 0.1 % topical ointment APPLY TO RASTAFARIAN AND AREAS ON FACE TWICE A DAY, THEN ONCE A DAY, THEN NEEDED active Not Available Not Available No t Available clindamycin phosphate 1 % topical swab CONTINUE TO FACE AND BODY DAILY active Not Available Not Available N ot Available docusate sodium 100 mg capsule TAKE 1 CAPSULE BY MOUTH AT BEDTIME active Not Available Not Available No t Available buspirone 7.5 mg tablet TAKE 1 TABLET BY MOUTH 2 TIMES A DAY active Not Available Not Available Not Available montelukast 10 mg tablet TAKE 1 TABLET BY MOUTH EVERY DAY active Not Available Not Available No t Available nystatin 100,000 unit/gram topical powder APPLY UNDER BREASTS DAILY TO GROIN AND NEEDED active Not Available Not Available No t Available ibuprofen 600 mg tablet TAKE 1 TABLET BY MOUTH EVERY 6 HOURS NEEDED FOR 14 DAYS active Not Available Not Available No t Available cefuroxime axetil 500 mg tablet TAKE 1 TABLET BY MOUTH EVERY 12 HOURS active Not Available Not Available No t Available methylpredni solone 4 mg tablets in a dose pack TAKE 6 TABLETS ON DAY 1 DIRECTED ON PACKAGE AND DECREASE BY 1 TAB EACH DAY FOR A TOTAL OF 6 DAYS active Not Available Not Available No t Available neomycin 500 mg tablet TAKE 2 TABLETS BY MOUTH TODAY (02/13/24) AT 3PM AND 11PM AND TAKE 2 TABLETS AT 7AM TOMORROW active Not Available Not Available No t Available albuterol sulfate HFA 90 mcg/actuatio n aerosol inhaler INHALE 2 PUFFS EVERY 6 HOURS NEEDED FOR SHORTNESS OF BREATH OR WHEEZING active Not Available Not Available Not Available fluticasone propionate 50 mcg/actuatio n nasal spray,suspen claudine INSTILL 1 SPRAY INTO EACH NOSTRIL TWICE DAILY. active Not Available Not Available No t Available amoxicillin 875 mg-potassium clavulanate 125 mg tablet TAKE 1 TABLET BY MOUTH TWICE A DAY FOR 7 DAYS active Not Available Not Available No t Available ciclopirox 0.77 % topical gel APPLY 1 APPLICATION EXTERNALLY TWICE A DAY 365 DAYS active Not Available Not Available No t Available simethicone 80 mg chewable tablet CHEW 1 TABLET BY MOUTH 4 TIMES DAILY NEEDED FOR GAS/BLOATIN G active Not Available Not Available No t Available Laxative (bisacodyl) 5 mg tablet,delay ed release PLEASE SEE ATTACHED FOR DETAILED DIRECTIONS active Not Available Not Available N ot Available enoxaparin 40 mg/0.4 mL subcutaneous syringe INJECT 1 PEN SUBCUTANEOU SLY ONCE DAILY active Not Available Not Available No t Available ezetimibe 10 mg tablet TAKE 1 TABLET BY MOUTH EVERY DAY active Not Available Not Available No t Available Alcohol Prep Pads USE DIRECTED 4 TIMES A DAY active Not Available Not Available Not Available pregabalin 100 mg capsule TAKE 1 CAPSULE BY MOUTH TWICE A DAY FOR 30 DAYS active Not Available Not Available No t Available pregabalin 150 mg capsule TAKE 1 TABLET ORALLY 2 TIMES A DAY FOR 30 DAYS active Not Available Not Available Not Available budesonide-f ormoterol HFA 80 mcg-4.5 mcg/actuatio n aerosol inhaler INHALE 2 PUFFS BY MOUTH 2 TIMES A DAY active Not Available Not Available Not Available Gavilax 17 gram/dose oral powder 238 G ORALLY ONCE DIRECTED BY [facility] active Not Available Not Available No t Available Purelax 17 gram oral powder packet DISSOLVE 17 GRAMS INTO WATER AND DRINK BY MOUTH EVERY DAY active Not Available Not Available No t Available Myrbetriq 25 mg tablet,exten ded release TAKE 1 TABLET BY MOUTH EVERY DAY FOR 90 DAYS active Not Available Not Available No t Available Breo Ellipta 100 mcg-25 mcg/dose powder for inhalation INHALE 1 PUFF DAILY active Not Available Not Available N ot Available Vitals Date Recorded Body weight Body mass index (BMI) Body height Provider Name and Address Organization Details Last Updated DateTime 12/03/2024 90161.4 g 31.9 kg/m2 172.72 cm Izabela Haywood [place] - [facility] 12/03/2024 13:06:04 Social History None recorded. Functional Status None recorded. Mental Status None recorded. Family History Nothing Reported. Medical History No medical history recorded. Gynecological HistoryNo gynecological history recorded. Obstetrics History GPAL:G 0 P 0 0 0 0 Past Encounters Encounter ID Performer Location Encounter Start Date Encounter Closed Date Diagnosis/Indication Diagnosis SNOMED-CT Code Diagnosis ICD10 Code Diagnosis Note [id number] DOUG SALINAS PA-C [facility] [address] [address] 12/03/2024 11:52:03 12/03/2024 13:39:12 Bleeding from nose 003034553 R04.0 Obstructiv e sleep apnea of adult 1473574186 103 G47.33 Nasal congestion 7389053 0 R09.81 Health Concerns Section Related Observation LastModified by Organization Detai ls LastModified Time None Recorded Concern Status LastModified by Organization Details LastModified Time None Recorded Advance Directives Directive None Recorded Payers Insurance Date Sequence Insurance Name Policy Number Policy Rodriguez Covered Member ID Rodriguez Member ID Guarantor Name 12/10/2024 2 [facility] (MEDICARE REPLACEMENT/ADV ANTAGE - HMO) Dorina Coughlin Ezio [id number] Dorina Coughlin Ezio 12/10/2024 1 [facility] - DOS ON OR AFTER 2022 - ONE C[employer] (MEDICARE REPLACEMENT/ADV ANTAGE - HMO) Dorina Coughlin Ezio [id number] Dorina A Ezio Notes Date Note Type Note Provider Name and Address Organization Details Recorded Time 12/03/2024 text/html 54yo female presents for evaluation of left epistaxis. This started 6-8 weeks ago while she was taking daily ibuprofen for plantar fascitis. She reports two posterior nosebleed x2, and then 3 more anterior nosebleeds since. She sleeps with CPAP and uses KY jelly as needed for nasal hydration. Most recent nose bleed was 4 weeks ago. No history of blood thinner. Occasional nasal congestion. She has a history of colon cancer s/p chemo finished 5 months ago. Not on a blood thinner. DOUG SALINAS PA-C [address] [place] [address],[place] [address], [place], [address], [facility] - [facility] 12/03/2024 14:52:47 OBGyn Episode No OBEpisode recorded.
--- OUTSIDE RECORDS SUMMARY | 2025-02-04 08:22 | XMS_ITS | Clinical Summary ---
Author Organization [facility] Address [address] [place] [address] Care Team Providers Care Alarm Field Technician Name Role Phone Kevin Early Primary Care Provider [phone] Allergies Active Allergy Reactions Criticality Noted Date [...] age to complete this topic Care Teams Alarm Field Technician Relationship Specialty Start Date End Date Kevin Early [address] [facility] [address] PCP - General Family Medicine 02/28/24
--- OUTSIDE RECORDS SUMMARY | 2025-02-04 08:22 | XMS_ITS ---
Author Organization [facility] Address [address] [place] [address] Care Team Providers Care Trigonometry Teacher Name Role Phone Kevin Early Primary Care Provider [phone] Active Problems Problem Noted Date Diagnosed Date [...] treatments are documented for this patient in [facility]. Treatments may have been administered in another system.
[2025-02-04 08:23] VITALS: BP 113/74; PULSE 91; O2SAT 98; BMI 33.9
--- NOTE | 2025-02-04 08:23 | A.OFFVIS_ITS ---
Vital Signs 02/04/25 08:23 Height 5 ft 8 in Weight 222 lb 10.67 oz BMI 33.9 BP 113/74 Blood Pressure Location Lt brachial Position Sitting Pulse 91 Pulse Source Pulse Oximeter Pulse Oximetry (%) 98 Oxygen Delivery Method Room Air Intake Visit Reasons: Discuss fecal abn. Intake Note: Pt presents to the office today to discuss fecal abnormality. Allergies citalopram [From CELEXA] Allergy (Unknown, Verified 02/04/25 08:26) PANIC ATTACK clarithromycin [From BIAXIN] Allergy (Unknown, Verified 02/04/25 08:26) UNKNOWN moxifloxacin [From AVELOX] Allergy (Unknown, Verified 02/04/25 08:26) RASH Sulfa (Sulfonamide Antibiotics) Allergy (Unknown, Verified 02/04/25 08:26) rash/joint pain HPI HPI Discuss fecal abn.: Details: LAST VISIT Colon cancer S/P right colectomy Screening for colon cancer Plan What to expect before during and after procedure discussed with patient. Stressed the importance of good bowel prep and clear liquid diet day before procedure. Currently patient is having loose bowel movements. Will start her on fiber supplement, however patient should fiber therapy before procedure to make sure that she has a good prep. Increase fluid intake and activity to promote better bowel motility. Patient is scheduled for colonoscopy in August. I will see her after the procedure, sooner on as needed basis. Patient is agreeable to plan of care and verbalizes understanding of instructions. She was given the opportunity to ask questions and all questions answered. ? Thank you for allowing me to participate in her care Medications New methylcellulose (laxative) (Citrucel) take it with full glass of water 500 mg PO DAILY 30 tabs 2RF K59.00 Refilled hydrocortisone 2.5% (Proctosol HC) COLONOSCOPY 11/26/2024 Findings: ileocecal anastomosis, normal Ascending Colon: in distal part there was a sessile polyp, injected with eleview and then removed with hot snare, with 2 clips applied to close defect Transverse Colon -normal Descending Colon:normal Sigmoid Colon: 4-5 mm sessile polyp removed with cold forceps Rectum: Retroflexion with small to medium internal hemorrhoids seen, grade I Anorectum - normal Intervention: cold snare and eleview injection for EMR, cold forceps Colon preparation: Mobile Bowel Preparation Scale Right colon; 2 Transverse colon: 2 Left colon; 2 (0 = Unprepared colon segment with mucosa not seen due to solid stool that cannot be cleared. 1 = Portion of mucosa of the colon segment seen, but other areas of the colon segment not well seen due to staining, residual stool and/or opaque liquid. 2 = Minor amount of residual staining, small fragments of stool and/or opaque liquid, but mucosa of colon segment seen well. 3 = Entire mucosa of colon segment seen well with no residual staining, small fragments of stool or opaque liquid) Impression and Post Procedure Diagnosis: colon polyps internal hemorrhoids Plan: High fiber diet leaflet Avoid straining at stool, epsom salts and sitz bath, anusol supps or cream Repeat Colonoscopy in 1-2 years due to Hx of CRC and polyps or earlier if clinically indicated PATHOLOGY RESULTS Diagnosis A. Colon, distal ascending, polyp: Sessile serrated lesion/polyp without dysplasia. B. Colon, sigmoid, polyp: Hyperplastic polyp TODAY'S VISIT: Patient is here today for follow-up and to discuss colonoscopy results. Patient denies any ill effects from the prep, anesthesia or procedure itself. Patient reports that she has been feeling well for the most part, however patient reports that she is having occasional postprandial abdominal bloating and sometimes loose stools. Patient denies melena, hematochezia. Patient reports that she is trying to eat better. Patient reports no mucus in her stool. Unsure if she is eating enough fiber or not. Colonoscopy results discussed with patient. [facility] Medical History Dry eye syndrome Plantar fasciitis, left Chronic pain Primary osteoarthritis of left knee Sleep apnea Preop cardiovascular exam JORDAN (obstructive sleep apnea) PAC (premature atrial contraction) Hyperlipidemia Annual physical exam Vertigo Shoulder pain, bilateral Injury of left brachial plexus Normal Pap smear Tobacco dependence Fibromyalgia Degeneration of lumbar intervertebral disc Cervical radiculopathy due to degenerative joint disease of spine Arthritis Bilateral ankle pain Hip pain, bilateral Neck pain Surgical History History of colectomy Family History Father Bladder cancer History of heart attack Mother No problems noted. Brother Substance use disorder Brother Substance use disorder Social History Housing: House Alcohol intake: never Patient Tobacco Use Status: Current everyday Tobacco user Tobacco use type: Cigarette Cigarette Packs Per Day: 0 Cigarettes Per Day: 10 e-Cigarette/Vaping Use: Never Used service: No Current occupational status: disabled Current occupational exposures/hazards: No Cognitive needs: No Hearing needs: No Vision needs: No Review of Systems Const Denies weight gain and Denies weight loss ENT Reports no additional complaints, Denies dysphagia and Denies odynophagia Card Reports no additional complaints Resp Reports no additional complaints GI Denies abdominal pain, Denies belching, Denies melena, Denies bloating, Denies change in bowel habits, Denies dysphagia, Denies excessive flatus, Denies dyspepsia, Denies heartburn, Denies diarrhea, Reports loose stools, Denies nausea, Denies odynophagia and Denies vomiting Reports no additional complaints Musc Reports no additional complaints Neuro Reports no additional complaints Psych Reports no additional complaints Endo Reports no additional complaints Physical Exam Vital Signs: Last Vital Signs Pulse 91 02/04/25 08:23 BP 113/74 02/04/25 08:23 Pulse Ox 98 02/04/25 08:23 Oxygen Delivery Method Room Air 02/04/25 08:23 BMI result Body Mass Index 33.9 Const General: healthy appearing and no acute distress Nutritional Appearance: obese Orientation/consciousness: patient oriented x3 Resp Effort & Inspection: normal respiratory effort, able to speak in complete sentences, no tracheal deviation and symmetric chest movement Auscultation: clear to auscultation bilaterally Cardio Rate: regular rate GI Inspection: Yes normal to inspection, No distended and Yes obesity Palpation (GI): Soft to palpation, not firm, nontender and No hepatosplenomegaly present Auscultation: normal bowel sounds Rectal Exam - Female: External hemorrhoid(s) present General: Yes no CVA tenderness Back/Spine/Pelvis Back: no CVA tenderness Skin General skin exam: elasticity normal, turgor normal and dry skin Neuro General: patient oriented x3 Psych Appearance: grossly normal Mental Status: mental status grossly normal Assessment & Plan Assessment & Plan (1) Colon cancer: Comment: stage 3 Code(s): C18.9 - Malignant neoplasm of colon, unspecified Category: Medical Qualifiers: Colon location: ascending Qualified Code(s): C18.2 - Malignant neoplasm of ascending colon (2) S/P right colectomy: Comment: 02/14/2024 Code(s): Z90.49 - Acquired absence of other specified parts of digestive tract Category: Surgical (3) Postprandial abdominal bloating: Code(s): R14.0 - Abdominal distension (gaseous) (4) Postprandial diarrhea: Code(s): K52.9 - Noninfective gastroenteritis and colitis, unspecified Plan Patient will increase fiber in her diet. Recommended Benefiber with pre and probiotics. Script for simethicone sent. Discussed with patient low FODMAP diet. List of food recommended as well as list of food to avoid given to patient.. Patient will follow-up in 6 months, sooner on as needed basis. She is agreeable to this plan and verbalizes understanding of instructions. She was given the opportunity to ask questions and all questions answered. Thank you for allowing me to participate in her care Medications: New simethicone (Gas Relief (simethicone)) 125 mg PO BID-TID PRN 180 tabs 3RF abdominal distention Coding Level of Care Code Est Pt Level 3 (30734) Diagnoses Malignant neoplasm of ascending colon C18.2 Colon location: ascending S/P right colectomy Z90.49 Postprandial abdominal bloating R14.0 Postprandial diarrhea K52.9 Time Spent (min) 30 Comment 20 minutes spent with patient and additional 10 minutes spent reviewing her records
== END 2025-02-04 08:55 | disposition home or self-care (01) ==
LOC: HO.HGI 08:14
PROVIDERS: PCP Nurse Practitioner Family; Visit Provider Nurse Practitioner Family
DX: C18.2 Malignant neoplasm of ascending colon (principal); Z90.49 Acquired absence of other specified parts of digestive tract; R14.0 Abdominal distension (gaseous); K52.9 Noninfective gastroenteritis and colitis, unspecified
CPT/HCPCS: 99213

== ENCOUNTER → 2025-02-04 08:13 | Outpatient (BNVA) | payer OTHER, SELFPAY | PROVIDERS: PCP Nurse Practitioner Family; Visit Provider Nurse Practitioner Family | DX: C18.2 Malignant neoplasm of ascending colon (principal); K52.9 Noninfective gastroenteritis and colitis, unspecified; R14.0 Abdominal distension (gaseous); Z90.49 Acquired absence of other specified parts of digestive tract | CPT/HCPCS: 99212 ==

== ENCOUNTER 2025-03-04 10:57 | Outpatient (REF) | payer OTHER, SELFPAY ==
--- OUTSIDE RECORDS SUMMARY | 2025-03-04 13:01 | XMS_ITS | Encounter Summary ---
Author Organization [facility] Address [address] [place] [address] Care Team Providers Care Loader Engineer Name Role Phone Kevin Early NP [...] 07/28/2025 8:30 AM EST Office Visit [facility] Hematology Oncology [address] [place] [address] Kelly Siddiqi MD [address] [place] [address] documented as of this encounter Visit Diagnoses Not on filedocumented in this encounter Care Teams Loader Engineer Relationship Specialty Start Date End Date Kevin Early NP [address] [place], [place] PCP - General 06/25/24 documented as of this encounter
[2025-03-04 13:57] LABS: Alanine Aminotransferase 26 U/L (0-31); Albumin Level 4.6 g/dL (3.5-5.0); Alkaline Phosphatase 90 U/L (39-117); Anion Gap 14 (12-20); Aspartate Amino Transferase 28 U/L (5-31); Bilirubin Total 0.4 mg/dL (0.0-1.0); Blood Urea Nitrogen 13 mg/dL (9-16); C Reactive Protein 0.49 mg/dL (< or = 0.50); Calcium 9.9 mg/dL (8.4-10.2); Carbon Dioxide 27 mmol/L (22-29); Chloride 107 mmol/L (96-108); Estimated Glomerular Filt Rate > 60; Glucose Random 86 mg/dL (60-115); Potassium 4.9 mmol/L (3.3-5.1); Sodium 143 mmol/L (135-145); Total Protein 7.2 g/dL (6.5-8.0); Uric Acid 5.1 mg/dL (2.4-5.7)
[2025-03-04 14:10] LABS: Rheumatoid Factor < 13.0 IU/mL (<15.0)
[2025-03-04 14:16] LABS: Erythrocyte Sedimentation Rate 13 MM/HR (0-20)
[2025-03-11 12:57] LABS: Anti Nuclear Antibody Screen POSITIVE (NEGATIVE)
== END 2025-03-04 10:58 | disposition home or self-care (01) ==
LOC: HO.HMGCLDS 10:57
PROVIDERS: PCP Nurse Practitioner Family; Visit Provider Podiatrist
DX: M72.2 Plantar fascial fibromatosis (principal)
CPT/HCPCS: 36415; 80053; 84550; 85652; 86038; 86039; 86140; 86431

== ENCOUNTER 2025-04-02 10:49 | Outpatient (AMB) | payer OTHER, SELFPAY ==
--- OUTSIDE RECORDS SUMMARY | 2024-06-28 08:27 | XMS_ITS | Encounter Summary ---
Author Organization [facility] Address [address] [place] [address] Care Team Providers Care Pathology Tech Name Role Phone Kevin Early NP Primary Care Provider [phone] Encounter Details Date Type Department Care Team [...] Description 07/28/2025 8:30 AM EST Office Visit [facility] Hematology Oncology [address] [place] [address] Kelly Siddiqi MD [address] [place] [address] documented as of this encounter Visit Diagnoses Not on filedocumented in this encounter Care Teams Pathology Tech Relationship Specialty Start Date End Date Kevin Early NP [address] [place], [place] PCP - General 06/25/24 documented as of this encounter
--- OUTSIDE RECORDS SUMMARY | 2025-01-31 05:00 | XMS_ITS ---
Author Organization [facility] Address [address] [place] [address] Care Team Providers Care Continuous Mining Operator Name Role Phone Nneka PETTIT, Kevin Primary Care Provider Unav ailable Shanthi Donovan Unavailable [phone] Evelyn MELENDEZ, Vannessa Unavailable Unavailable Encounters Encounter Location Date Provider Diagnosis [facility] [address] [place] [address] 01/31/2025 Shanthi Donovan Plan Of Treatment Next Appt Details Provider Name:Shanthi peña, 04/21/2025 03:30:00 PM, [address] [place], [address], Progress Notes * Federico HOLGUINOB:1970 (54 yo F)Acc No.[id number]:01/31/2025 Progress Notes Patient: Dorina PANDYA Provider: Stefany Donovan DPM :1970 A ge:54 Y S ex:Female Date:01/31/2025 Address:[address] [place] [address] kev [facility] Pcp:WILVER Ardno Subjective: * Chief Complaints: * * Medical [...] 01/31/2025 Generated for Marc stapleton/Sabra/Alejo on: 0 04/02/2025 11:55 AM EDT
--- NOTE | 2025-04-02 10:59 | MHC.PC.OV ---
Vital Signs 04/02/25 11:08 Height 5 ft 8 in Weight 222 lb BMI 33.8 BP 110/72 Blood Pressure Location Lt brachial Position Sitting Pulse 83 Pulse Source Pulse Oximeter Pulse Oximetry (%) 97 Intake Visit Reasons: Annual PE Nuisance Wildlife Control Operator Required: No Accompanied by: Self / Same As Patient Allergies citalopram (From CELEXA) Allergy (Unknown, Verified 04/02/25 11:00) PANIC ATTACK clarithromycin (From BIAXIN) Allergy (Unknown, Verified 04/02/25 11:00) UNKNOWN moxifloxacin (From AVELOX) Allergy (Unknown, Verified 04/02/25 11:00) RASH Sulfa (Sulfonamide Antibiotics) Allergy (Unknown, Verified 04/02/25 11:00) rash/joint pain Medication List - Last Reconciled 04/02/25 by Kevin Early GLASS GLAZIER- albuterol sulfate 2.5 mg (3 mL) inhalation QID PRN 30 days albuterol sulfate 90 mcg/actuation 2 puffs inhalation Q6H PRN betamethasone valerate 0.1% 1 appl topical BID budesonide-formoterol 80-4.5 mcg/actuation (Symbicort) 2 puffs inhalation BID buspirone 7.5 mg PO BID 30 days ciclopirox 0.77% topical PRN clindamycin phosphate 1% 1 ea topical BID PRN ezetimibe (Zetia) 10 mg PO DAILY fluticasone propionate 50 mcg/actuation (Allergy Relief (fluticasone)) 1 spray intranasal BID 30 days hydrocortisone 2.5% (Proctosol HC) 1 appl CO BID-QID PRN ibuprofen 800 mg PO TID PRN 30 days ketoconazole 2% topical PRN latex gloves (Latex Gloves, Large) As directed-using 10 per day lorazepam (Ativan) 0.5 mg PO BEDTIME PRN 20 days meclizine 25 mg PO TID PRN montelukast 10 mg PO DAILY nebulizers As directed for updraft treatments- with all needed supplies nystatin 1 appl topical BID-TID PRN nystatin 4 mL PO TID PRN 10 days pregabalin 150 mg PO BID 30 days simethicone (Gas Relief (simethicone)) 125 mg PO BID-TID PRN Tobacco use date assessed: 10/02/24 Dental Screening Dental Screen Date: 10/02/24 HPI Annual PE HPI Details History of Present Illness The patient is a 54-year-old female presenting with a history of colon carcinoma, for which she underwent a colectomy in January 2024. She is currently under the care of an oncologist and a cdl dedicated truck driver for follow-up and management. She has a history of asthma and continues to smoke, although she is considering a low dose CAT scan due to her smoking history. She is not interested in pulmonary function testing or seeing a guitar player at this time. The patient reports a possible diagnosis of lupus, characterized by a macular butterfly rash on her face and darker skin lesions on her extremities, which were previously biopsied and associated with a connective tissue disorder. She is planning to see a machine operator hop picker for further evaluation. She experiences neuropathy in her extremities, attributed to chemotherapy received for her cancer treatment. Health Maintenance - Smoking cessation: Referral for nicotine gum provided - Preventative screening: Low dose CAT scan due to smoking history -sees a bias binding folder (paps), mammo is up to date -colon screens through GI provider. Social History - Smoking: Patient continues to smoke, considering cessation options Review of Systems - Cardiovascular: Denies chest pain - Respiratory: Denies shortness of breath - Gastrointestinal: Denies constipation, reports intermittent diarrhea - Neurological: Reports neuropathy in bilateral extremities - Psychiatric: Denies suicidal ideation, denies homicidal ideation Physical Exam General: Cooperative, healthy appearing, comfortable, no acute distress and well developed Orientation: Patient oriented x3 Limitations: No limitations Head: Normal to inspection Ears: Hearing grossly normal bilaterally Nose: Normal external nose present Face and sinus: faint macular butterfly rash present on face Eyes: Appearance normal, both eyes and all related structures Neck: Normal visual inspection and Yes full ROM Respiratory: Normal respiratory effort and able to speak in complete sentences. Lungs were fairly clear to auscultation bilaterally Cardiovascular: Regular rate and rhythm. Normal S1 and S2, no carotid bruits GI: Normal to inspection. Soft to palpation with faint tenderness in the right upper quadrant Skin: Very fair skinned with freckles, small macular, darker skin lesions on right and left upper extremities Neuro: Patient oriented x3, neuropathy in bilateral extremities Extremities: Normal to inspection Results Plan The patient will continue follow-up with her oncologist and cdl dedicated truck driver for management of her colon carcinoma post-colectomy. She is advised to undergo a low dose CAT scan due to her smoking history, and a referral has been placed for this screening. For her asthma, she is not interested in pulmonary function testing or seeing a guitar player at this time, but smoking cessation is encouraged, and nicotine gum has been prescribed. The patient is planning to see a machine operator hop picker for further evaluation of possible lupus, given her skin manifestations and previous biopsy results indicating a connective tissue disorder. Neuropathy management will continue as it is related to her previous chemotherapy treatment. Discussion Notes I discussed with the patient the importance of continuing follow-up with her oncologist and cdl dedicated truck driver for her colon carcinoma management. We talked about the benefits of undergoing a low dose CAT scan due to her smoking history, and I placed a referral for this screening. I encouraged smoking cessation and prescribed nicotine gum, discussing the potential benefits for her asthma management. We also discussed her skin manifestations and the need for further evaluation by a machine operator hop picker for possible lupus. Patient Instructions - Continue follow-up with your oncologist and cdl dedicated truck driver. - Schedule and complete the low dose CAT scan as referred. - Consider quitting smoking; use the nicotine gum as prescribed. - Follow up with a machine operator hop picker for further evaluation of your skin condition. [facility] Medical History Dry eye syndrome Plantar fasciitis, left Chronic pain Primary osteoarthritis of left knee Sleep apnea Preop cardiovascular exam JORDAN (obstructive sleep apnea) PAC (premature atrial contraction) Hyperlipidemia Annual physical exam Vertigo Shoulder pain, bilateral Injury of left brachial plexus Normal Pap smear Tobacco dependence Fibromyalgia Degeneration of lumbar intervertebral disc Cervical radiculopathy due to degenerative joint disease of spine Arthritis Bilateral ankle pain Hip pain, bilateral Neck pain Surgical History History of colectomy Family History Father Bladder cancer History of heart attack Mother No problems noted. Brother Substance use disorder Brother Substance use disorder Social History Housing: House Alcohol intake: never Patient Tobacco Use Status: Current everyday Tobacco user Tobacco use type: Cigarette Cigarette Packs Per Day: 0 Cigarettes Per Day: 10 e-Cigarette/Vaping Use: Never Used service: No Current occupational status: disabled Current occupational exposures/hazards: No Cognitive needs: No Hearing needs: No Vision needs: No Questionnaire Thrive Questionnaire Date Thrive assessed: 04/02/25 I am a: Patient What is your living situation today?: I have a steady place to live Within the past 12 months, did the food you bought not last and you didn't have the money to get more?: Never true Within the past 12 months, did you worry whether your food would run out before you got money to buy more?: Never true Do you have trouble paying for medicines?: No Do you have trouble getting transportation to medical appointments?: No Do you have trouble paying your heating and electricity bill?: No Do you have trouble taking care of your child, family member or friend?: No Do you have trouble with day-to-day activities such as bathing, preparing meals, shopping, managing finances, etc.?: Yes Are you currently unemployed and looking for a job?: No Are you interested in more education?: No Please select the resources that you would like help with: None Currently or been in a relationship where the following occur: No concerns reported THRIVE Score: 0 GENEVA-7 AMB Questionnaire GENEVA-7 Date GENEVA - 7 assessed: 10/02/24 Source: Developed by Drs. David Boyd, Antoinette Johnson, Andreas Guzmán and colleagues, with an educational addie from [employer]. Physical exam (Primary Care) Vital Signs: Last Vital Signs Pulse 83 04/02/25 11:08 BP 110/72 04/02/25 11:08 Pulse Ox 97 04/02/25 11:08 BMI result Body Mass Index 33.8 Tobacco/Smoking Status: Tobacco use Status Tobacco use date assessed 10/02/24 04/02/25 11:01 Patient Tobacco Use Status Current everyday Tobacco 04/02/25 11:01 Tobacco use type Cigarette 04/02/25 11:01 e-Cigarette/Vaping Use Never Used 04/02/25 11:01 Thrive Assessment: Date of Thrive Assessment Date Thrive assessed 04/02/25 04/02/25 11:01 Currently or been in a relationship where the following occur: No concerns reported Coding Level of Care Code Est Pt Level 3 (95022) Est Pt Prev Care 40-64y(34639) Diagnoses JESSICA positive R76.8 Encounter for routine adult physical exam with abnormal findings Z00. Tobacco dependence F17.200 Chemotherapy adverse reaction T45.1X5A S/P right colectomy Z90.49 Asthma J45.909 Dermatitis L30.9 Neuropathy G62.9 Assessment & Plan Assessment & Plan (1) JESSICA positive: Code(s): R76.8 - Other specified abnormal immunological findings in serum Category: Medical (2) Encounter for routine adult physical exam with abnormal findings: Code(s): Z00. - Encounter for general adult medical examination with abnormal findings Category: Medical (3) Tobacco dependence: Code(s): F17.200 - Nicotine dependence, unspecified, uncomplicated Category: Medical (4) Chemotherapy adverse reaction: Code(s): T45.1X5A - Adverse effect of antineoplastic and immunosuppressive drugs, initial encounter Category: Medical (5) S/P right colectomy: Comment: 02/14/2024 Code(s): Z90.49 - Acquired absence of other specified parts of digestive tract Category: Surgical (6) Asthma: Code(s): J45.909 - Unspecified asthma, uncomplicated Category: Medical (7) Dermatitis: Code(s): L30.9 - Dermatitis, unspecified Category: Medical (8) Neuropathy: Code(s): G62.9 - Polyneuropathy, unspecified Category: Medical Plan . Orders: Orders Sjogren's Antibodies Today R76.8 - Other specified abnormal immunological findings in serum DNA Double Stranded-Crithidia Today R76.8 - Other specified abnormal immunological findings in serum Complete Blood Count Auto Diff Today Z00. - Encounter for general adult medical examination with abnormal findings TSH reflex Free T4 Today Z00. - Encounter for general adult medical examination with abnormal findings UA CC w/rflx Micro + Cult Today Z00. - Encounter for general adult medical examination with abnormal findings Anti DNA DS Antibody Today R76.8 - Other specified abnormal immunological findings in serum Comprehensive [place]. Panel Fast Today Z00. - Encounter for general adult medical examination with abnormal findings Lipid Panel Today Z00. - Encounter for general adult medical examination with abnormal findings Referrals Lung Cancer Screening Referral F17.200 - Nicotine dependence, unspecified, uncomplicated Medications: New budesonide-formoterol 160-4.5 mcg/actuation (Symbicort) 2 puffs inhalation BID 10.2 grams 0RF nicotine (polacrilex) 4 mg buccal Q2H 100 ea 2RF Refilled albuterol sulfate for nebulizer 2.5 mg (3 mL) inhalation QID PRN 180 mL 0RF shortness of breath or wheezing 30 days J44.9 - Chronic obstructive pulmonary disease, unspecified buspirone 7.5 mg PO BID 60 tabs 4RF 30 days hydrocortisone 2.5% (Proctosol HC) 1 appl CO BID-QID PRN 30 grams 2RF hemorrhoids nystatin 4 mL PO TID PRN 60 mL 2RF thrush 10 days ibuprofen 800 mg PO TID PRN 90 tabs 1RF Pain 30 days ezetimibe (Zetia) 10 mg PO DAILY 90 tabs 3RF montelukast 10 mg PO DAILY 90 tabs 1RF J45.909 - Unspecified asthma, uncomplicated simethicone (Gas Relief (simethicone)) 125 mg PO BID-TID PRN 180 tabs 3RF abdominal distention pregabalin 150 mg PO BID 60 caps 2RF 30 days Discontinued budesonide-formoterol 80-4.5 mcg/actuation (Symbicort) Discontinued Reason: Doctor's Order 2 puffs inhalation BID 30.6 grams 1RF J45.909 - Unspecified asthma, uncomplicated, R06.02 - Shortness of breath
[2025-04-02 11:08] VITALS: BP 110/72; PULSE 83; O2SAT 97; BMI 33.8
--- OUTSIDE RECORDS SUMMARY | 2025-04-02 11:55 | XMS_ITS | Data Portability ---
Author Organization [place] - [facility], Allergy Address [address] [address] Assessment Encounter Date Assessment Date Assessment LastModified [...] that time. [email or web address] Not available 12/03/2024 14:51:55 02/25/2025 02/25/2025 54-year-old female presents for reevaluation of the nose. She reports significant improvement in nasal congestion with intranasal fluticasone daily. Physical examination is unremarkable. I recommend trial of oral fexofenadine daily for 4-6 weeks for her chronic postnasal drip. She will continue the fluticasone as tolerated. If nasal symptoms persist despite [id number] r allergy medication, patient will return for reevaluation. She may benefit from formal skin allergy testing. [email or web address] Not available 02/25/2025 12:06:57 Plan of Treatment Reminders Order Date Submit Date Provider Last Modified By Organization Details Last Modified Time Details Appointments None recorded. Lab None recorded. Referral None recorded. Procedures None recorded. Surgeries None recorded. Imaging None recorded. Medication Orders fexofenadin e 180 mg tablet 2024 025 [facility]/Pharmacy #[id number], [address] [facility] [place], [address], 11:34:35 Patient TargetsNo targets recorded. Patient InstructionsNo instructions recorded. Reason for Referral None Reported. Problems Name Problem SNOMED Code Status Onset Date Resolution Date Notes Provider Name and Address Organization Details Recorded Time Bleeding from nose 688139171 Active 2024 DOUG SALINAS PA-C [address], [place], [address], [place] - [facility] 13:36:41 Obstructive sleep apnea of adult 1322123578072 Active 2024 DOUG SALINAS PA-C [address], [place], [address], [place] - [facility] 13:36:47 Nasal congestion 50547859 Active 2024 DOUG SALINAS PA-C [address], [place], [address], [place] [facility] 13:36:57 Posterior rhinorrhea 51508072 Active 2024 DOUG SALINAS PA-C [address], [place], [address], [place] [facility] 11:34:04 Problem Notes None recorded. Procedures Surgical History Date Name Laterality Status Provider Name and Address Organization Details Recorded Time Nasal Endoscopy completed DOUG SALINAS PA-C [address] [place] [address], [place], [address], [place] - [facility] 12/03/2024 14:49:29 Imaging Results None recorded. Procedure Notes None recorded. Medical Equipment None Reported. Medications Name Sig Start Date Stop Date Status Note LastModified by Organization Details LastModified Time fluconazole 100 mg tablet TAKE 1 TABLET BY MOUTH TWICE A DAY 02/21 completed Not Available Not Available Not Available buspirone 5 mg tablet TAKE 1 TABLET BY MOUTH TWICE A DAY SCHEDULE 6 MONTH FOLLOW UP PRIOR TO ADDITIONA L FILLS 02/21 completed Not Available Not Available Not Available nystatin 100,000 unit/mL oral suspension TAKE 4MLS BY MOUTH 3 TIMES A DAY FOR 10 DAYS NEEDED THRUSH active Not Available Not Available No t Available doxycycline hyclate 100 mg capsule TAKE 1 CAPSULE BY MOUTH EVERY 12 HOURS FOR 10 DAYS 02/21 completed Not Available Not Available Not Available nicotine 14 mg/24 hr daily transdermal patch APPLY 1 PATCH TOPICALLY DAILY 02/21 completed Not Available Not Available Not Available ketoconazol e 2 % shampoo APPLY TO SCALP 3 TIMES A WEEK LET SIT FOR 5 MINS THEN RINSE active Not Available Not Available No t Available albuterol sulfate 2.5 mg/3 mL (0.083 %) solution for nebulizatio n PLEASE SEE ATTACHED FOR DETAILED DIRECTION S active Not Available Not Available No t Available ibuprofen 800 mg tablet TAKE 1 TABLET BY MOUTH 3 TIMES A DAY NEEDED FOR PAIN FOR 30 DAYS active Not Available Not Available No t Available fluconazole 150 mg tablet TAKE 1 TABLET BY MOUTH EVERY 3 DAYS FOR 2 DOSES 02/21 completed Not Available Not Available Not Available benzonatate 200 mg capsule TAKE 1 CAPSULE BY MOUTH THREE TIMES A DAY FOR 7 DAYS 02/25 completed Not Available Not Available Not Available prednisone 20 mg tablet TAKE 2 TABLETS BY MOUTH DAILY FOR 5 DAYS 02/21 completed Not Available Not Available Not Available terconazole 0.8 % vaginal cream APPLY 1 APPLICATI ON VAGINALLY DAILY AT BEDTIME FOR 3 DAYS 02/21 completed Not Available Not Available Not Available diphenoxyla te-atropine 2.5 mg-0.025 mg tablet TAKE 1 TABLET BY MOUTH 4 TIMES A DAY NEEDED FOR DIARRHEA. 02/21 completed Not Available Not Available Not Available penicillin V potassium 500 mg tablet TAKE 1 TABLET BY MOUTH 2 TIMES A DAY FOR 5 DAYS 02/21 completed Not Available Not Available Not Available metronidazo le 500 mg tablet PLEASE SEE ATTACHED FOR DETAILED DIRECTION S 02/25 completed Not Available Not Available Not Available fexofenadin e 180 mg tablet TAKE 1 TABLET EVERY DAY BY ORAL ROUTE AT BEDTIME FOR 42 DAYS, FOR POST NASAL DRIP. active Not Available Not Available No t Available prochlorper azine maleate 10 mg tablet TAKE 1 TABLET BY MOUTH EVERY 6 HOURS NEEDED 02/21 completed Not Available Not Available Not Available tretinoin 0.05 % topical cream APPLY A PEA SIZE AMOUNT TO ACNE PRONE AREA AT BEDTIME active Not Available Not Available No t Available acetaminoph en 500 mg tablet TAKE 2 TABLETS BY MOUTH EVERY 8 HOURS active Not Available Not Available No t Available triamcinolo ne acetonide 0.1 % topical cream APPLY TOPICALLY TO AFFECTED AREA HANDS/ARM S TWICE DAILY FOR 2 WEEKS OR LESS, NEEDED FOR FLARES active Not Available Not Available No t Available ondansetron 8 mg disintegrat ing tablet TAKE 1 TABLET BY MOUTH EVERY 8 HOURS NEEDED FOR NAUSEA 02/21 completed Not Available Not Available Not Available lidocaine-p rilocaine 2.5 %-2.5 % topical cream APPLY TO AFFECTED AREA EVERY DAY NEEDED 02/21 completed Not Available Not Available Not Available hydrocortis one 2.5 % topical cream with perineal applicator APPLY RECTALLY 2 TO 4 TIMES A DAY NEEDED FOR HEMORRHOI DS active Not Available Not Available No t Available lorazepam 0.5 mg tablet TAKE 1 TABLET BY MOUTH AT BEDTIME NEEDED FOR ANXIETY FOR 20 DAYS active Not Available Not Available No t Available clindamycin 1 % topical gel APPLY TO GROIN EVERY DAY active Not Available Not Available No t Available betamethaso ne valerate 0.1 % topical cream APPLY TO AFFECTED AREA ON FACE TWICE A DAY FOR 2 WEEKS THEN NEEDED active Not Available Not Available No t Available meclizine 25 mg tablet TAKE 1 TABLET BY MOUTH 3 TIMES A DAY NEEDED FOR DIZZINESS 02/25 completed Not Available Not Available Not Available tacrolimus 0.1 % topical ointment APPLY TO ORIENTAL ORTHODOX AND AREAS ON FACE TWICE A DAY, THEN ONCE A DAY, THEN NEEDED active Not Available Not Available No t Available clindamycin phosphate 1 % topical swab CONTINUE TO FACE AND BODY DAILY active Not Available Not Available No t Available docusate sodium 100 mg capsule TAKE 1 CAPSULE BY MOUTH AT BEDTIME 02/21 completed Not Available Not Available Not Available buspirone 7.5 mg tablet TAKE 1 TABLET BY MOUTH TWICE A DAY active Not Available Not Available No t Available montelukast 10 mg tablet TAKE 1 TABLET BY MOUTH EVERY DAY active Not Available Not Available No t Available nystatin 100,000 unit/gram topical powder APPLY UNDER BREASTS DAILY TO GROIN AND NEEDED active Not Available Not Available No t Available ibuprofen 600 mg tablet TAKE 1 TABLET BY MOUTH EVERY 6 HOURS NEEDED FOR 14 DAYS 02/25 completed Not Available Not Available Not Available cefuroxime axetil 500 mg tablet TAKE 1 TABLET BY MOUTH EVERY 12 HOURS 02/25 completed Not Available Not Available Not Available methylpredn isolone 4 mg tablets in a dose pack TAKE 6 TABLETS ON DAY 1 DIRECTED ON PACKAGE AND DECREASE BY 1 TAB EACH DAY FOR A TOTAL OF 6 DAYS active Not Available Not Available No t Available neomycin 500 mg tablet TAKE 2 TABLETS BY MOUTH TODAY (02/13/24) AT 3PM AND 11PM AND TAKE 2 TABLETS AT 7AM TOMORROW 02/21 completed Not Available Not Available Not Available albuterol sulfate HFA 90 mcg/actuati on aerosol inhaler INHALE 2 PUFFS EVERY 6 HOURS NEEDED FOR SHORTNESS OF BREATH OR WHEEZING active Not Available Not Available No t Available fluticasone propionate 50 mcg/actuati on nasal spray,suspe nsion INSTILL 1 SPRAY INTO BOTH NOSTRILS TWICE DAILY FOR 30 DAYS active Not Available Not Available No t Available amoxicillin 875 mg-potassiu m clavulanate 125 mg tablet TAKE 1 TABLET BY MOUTH TWICE A DAY FOR 10 DAYS 02/21 completed Not Available Not Available Not Available ciclopirox 0.77 % topical gel APPLY 1 APPLICATI ON EXTERNALL Y TWICE A DAY 365 DAYS active Not Available Not Available No t Available simethicone 80 mg chewable tablet CHEW 1 TABLET BY MOUTH 4 TIMES DAILY NEEDED FOR GAS/BLOAT ING active Not Available Not Available No t Available Laxative (bisacodyl) 5 mg tablet,preeti yed release PLEASE SEE ATTACHED FOR DETAILED DIRECTION S 02/21 completed Not Available Not Available Not Available enoxaparin 40 mg/0.4 mL subcutaneou s syringe INJECT 1 PEN SUBCUTANE OUSLY ONCE DAILY 02/21 completed Not Available Not Available Not Available ezetimibe 10 mg tablet TAKE 1 TABLET BY MOUTH DAILY active Not Available Not Available No t Available Alcohol Prep Pads USE DIRECTED 4 TIMES A DAY active Not Available Not Available No t Available Gas Relief Extra Strength 125 mg chewable tablet CHEW 1 TABLET BY MOUTH 2 TO 3 TIMES A DAY NEEDED FOR ABDOMINAL DISTENTIO N active Not Available Not Available No t Available pregabalin 100 mg capsule TAKE 1 CAPSULE BY MOUTH TWICE A DAY FOR 30 DAYS 02/21 completed Not Available Not Available Not Available pregabalin 150 mg capsule TAKE 1 TABLET ORALLY 2 TIMES A DAY FOR 30 DAYS active Not Available Not Available No t Available budesonide- formoterol HFA 80 mcg-4.5 mcg/actuati on aerosol inhaler INHALE 2 PUFFS BY MOUTH 2 TIMES A DAY active Not Available Not Available No t Available Gavilax 17 gram/dose oral powder 238 G ORALLY ONCE [facility] 02/21 completed Not Available Not Available Not Available Purelax 17 gram oral powder packet DISSOLVE 17 GRAMS INTO WATER AND DRINK BY MOUTH EVERY DAY 02/21 completed Not Available Not Available Not Available Myrbetriq 25 mg tablet,exte nded release TAKE 1 TABLET BY MOUTH EVERY DAY active Not Available Not Available No t Available Breo Ellipta 100 mcg-25 mcg/dose powder for inhalation INHALE 1 PUFF DAILY 02/21 completed Not Available Not Available Not Available Vitals Date Recorded Body weight Body mass index (BMI) Body height Provider Name and Address Organization Details Last Updated DateTime 12/03/2024 01706.4 g 31.9 kg/m2 172.72 cm Izabela Haywood [place] - [facility] 12/03/2024 13:06:04 Date Recorded Body height Body mass index (BMI) Body weight Provider Name and Address Organization Details Last Updated DateTime 02/25/2025 172.72 cm 32.7 kg/m2 61723.36 g Emily Rivas [place] - [facility] 02/25/2025 10:45:00 Social History Question Answer Notes LastModified by Organizat ion Details LastModified Time Tobacco Smoking Status Current Every Day Smoker Emily olivier [place] - [facility] 02/25/2025 10:45:17 What Type Of Owner Manager Do You Use? None Information not available 02/25/2025 Do You Have Any Pets? Yes Information not available 02/25/2025 At What Age Did You Start Smoking Tobacco? 19 Information not available 02/25/2025 Are You Passively Exposed To Smoke? Yes Information not available 02/25/2025 Are There Any Smokers In Your House? Yes Information not available 02/25/2025 How Much Tobacco Do You Smoke? 0.5 PPD Information not available 02/25/2025 How Many Years Have You Smoked Tobacco? 35 Information not available 02/25/2025 Sex: Unknown Functional Status Question Answer Note LastModified by Organization Details LastModified Time Do you use any illicit or recreational drugs? No Information not available 02/25/2025 Do you or have you ever used any other forms of tobacco or nicotine? No Information not available 02/25/2025 What is your level of alcohol consumption? None Information not available 02/25/2025 What type of noise exposure are you exposed to? noExposureToExcessiveNoise Infor mation not available 02/25/2025 Mental Status None recorded. Family History Nothing Reported. Medical History Condition Response Allergies/Hayfever N Heart Problems N Anxiety Y Tonsil Infections N Migraines N Thyroid Problems N Glaucoma N Depression N COPD N Developmental Delay N Nasal or Sinus Problems Y Anemia N Immune System Disorder N Anesthesia Complications N Heart Attack (OK) N Other Skin Condition Y Diabetes N Rhinitis Y Bleeding Disorder N Food Allergy N Arthritis Y Hearing Loss N Hyperlipidemia Y Cancer Y Stroke N Dementia N Nasal polyps N Asthma Y Sleep Disorder Y GERD/Reflux Y High Cholesterol N Liver Disease N Headaches Y Fibromyalgia Y Hypertension N Speech Delay N Kidney Disease N Gynecological HistoryNo gynecological history recorded. Obstetrics History GPAL:G 0 P 0 0 0 0 Past Encounters Encounter ID Performer Location Encounter Start Date Encounter Closed Date Diagnosis/Indication Diagnosis SNOMED-CT Code Diagnosis ICD10 Code Diagnosis Note [id number] DOUG SALINAS PA-C [facility] [address] [place] [address] 12/03/2024 11:52:03 12/03/2024 13:39:12 Bleeding from nose 909264516 R04.0 Obstructiv e sleep apnea of adult 7794682778 103 G47.33 Nasal congestion 5319226 0 R09.81 [id number] DOUG SALINAS PA-C [facility] [address] [place] [address] 02/25/2025 10:20:03 02/25/2025 11:24:51 Posterior rhinorrhea 33179035 R09.82 Nasal congestion 2982414 0 R09.81 Health Concerns Section Related Observation LastModified by Organization Detai ls LastModified Time None Recorded Concern Status LastModified by Organization Details LastModified Time None Recorded Advance Directives Directive None Recorded Payers Insurance Date Sequence Insurance Name Policy Number Policy Rodriguez Covered Member ID Rodriguez Member ID Guarantor Name 12/10/[address] [facility] (MEDICARE REPLACEMENT/ADV ANTAGE - HMO) Dorina A Ezio [id number] Dorina Holguin 02/25/2025 1 [facility] - DOS ON OR AFTER 2022 - ONE CARE (MEDICARE REPLACEMENT/ADV ANTAGE - HMO) Dorina Coughlin Ezio [id number] Dorina Mariana Ezio Notes Date Note Type Note Provider [...] on a blood thinner. DOUG SALINAS PA-C [address] [place] [address], [phone], [facility] - [facility] 12/03/2024 14:52:47 02/25/2025 text/html 54-year-old femmariana avelar presents for reevaluation of the nose. She reports improvement in nasal congestion with intranasal fluticasone. No recurrence of epistaxis. Endorses persistent postnasal drip. Denies facial pressure or anosmia. History of 2-3 sinus infections annually. No prior sinus surgery. MARCELINO RESENDIZ MD [address] [place] [address], [phone], [facility] - [facility] 02/26/2025 15:35:26 OBGyn Episode No OBEpisode recorded.
--- OUTSIDE RECORDS SUMMARY | 2025-04-02 11:55 | XMS_ITS | Encounter Summary ---
Author Organization [facility] Address [address] [place] [address] Care Team Providers Care Abstract Manager Name Role Phone Kevin Early Primary Care Provider [phone] Encounter Details Date Type Department Care Team Description 04/02/2024 Social Work [facility] [address] [place] [address] [place]inny Young [facility] Social History Tobacco Use Types Packs/Day Years [...] on filedocumented in this encounter Care Teams Abstract Manager Relationship Specialty Start Date End Date Kevin Early [address] [place] [address] PCP - General Family Medicine 02/28/24 documented as of this encounter
== END 2025-04-02 12:21 | disposition home or self-care (01) ==
LOC: HO.HMCC 10:50
PROVIDERS: PCP Nurse Practitioner Family; Visit Provider Nurse Practitioner Family
DX: Z00.01 Encounter for general adult medical examination with abnormal findings (principal); R76.8 Other specified abnormal immunological findings in serum; F17.200 Nicotine dependence, unspecified, uncomplicated; T45.1X5A Adverse effect of antineoplastic and immunosuppressive drugs, initial encounter; Z90.49 Acquired absence of other specified parts of digestive tract; J45.909 Unspecified asthma, uncomplicated; L30.9 Dermatitis, unspecified; G62.9 Polyneuropathy, unspecified

== ENCOUNTER → 2025-04-02 10:49 | Outpatient (BNVA) | payer OTHER, SELFPAY | PROVIDERS: PCP Nurse Practitioner Family; Visit Provider Nurse Practitioner Family | DX: Z00.01 Encounter for general adult medical examination with abnormal findings (principal); R76.8 Other specified abnormal immunological findings in serum; J45.909 Unspecified asthma, uncomplicated; L30.9 Dermatitis, unspecified; G62.9 Polyneuropathy, unspecified; T88.7XXD Unspecified adverse effect of drug or medicament, subsequent encounter; T45.1X5D Adverse effect of antineoplastic and immunosuppressive drugs, subsequent encounter; F17.200 Nicotine dependence, unspecified, uncomplicated; Z85.038 Personal history of other malignant neoplasm of large intestine; Z90.49 Acquired absence of other specified parts of digestive tract | CPT/HCPCS: 99212; 99396 ==

== ENCOUNTER 2025-04-03 06:01 | Outpatient (REF) | payer OTHER, SELFPAY ==
--- OUTSIDE RECORDS SUMMARY | 2025-01-31 05:00 | XMS_ITS ---
Author Organization [facility] Address [address] [place] [address] Care Team Providers Care Supervisor [place] Name Role Phone Nneka PETTIT, Kevin Primary Care Provider Unav ailable Shanthi Donovan Unavailable [phone] Evelyn MELENDEZ, Vannessa Unavailable Unavailable Encounters Encounter Location Date Provider Diagnosis [facility] [address] [place] [address] 01/31/2025 Shanthi Donovan Plan Of Treatment Next Appt Details Provider Name:Shanthi peña, 04/21/2025 03:30:00 PM, [address] [place], [address], Progress Notes * Federico HOLGUINOB:1970 (54 yo F)Acc No.[id number]:01/31/2025 Progress Notes Patient: Dorina PANDYA Provider: Stefany Donovan DPM :1970 A ge:54 Y S ex:Female Date:01/31/2025 Address:[address] [place] [address] kev [facility] Pcp:WILVER Ardon Subjective: * Chief Complaints: * * Medical History: Objective: * Vitals: Assessment: Plan: * Treatment: * Images: * The named appointment provid er may or may not be the originator of this progress note, and it is not deemed complete until electronically signed by the appointment provider. Sign off status: Pending * Provider: Stefany Donovan, DPM Date: 0 01/31/2025 Generated for Marc stapleton/Sabra/Alejo on: 0 04/03/2025 06:03 AM EDT
--- OUTSIDE RECORDS SUMMARY | 2025-04-03 06:03 | XMS_ITS | Encounter Summary ---
Author Organization [facility] Address [address] [place] [address] Care Team Providers Care Master Electrician Name Role Phone Kevin Early Primary Care Provider [phone] Encounter Details Date Type Department Care Team Description 04/02/2024 Social Work [facility] [address] [place] [address] Vinny Young [facility] Social History Tobacco [...] on filedocumented in this encounter Care Teams Master Electrician Relationship Specialty Start Date End Date Kevin Early [address] [place] [address] PCP - General Family Medicine 02/28/24 documented as of this encounter
[2025-04-03 10:22] LABS: MANUAL DIFF FLAG NO
[2025-04-03 10:45] LABS: Hematocrit 42.5 % (37.0-47.0); Hemoglobin 13.7 g/dl (12.0-16.0); Imm Gran Abs Auto 0.02 X10*3/uL (0.00-0.03); Imm Gran Pct Auto 0.4 % (0.0-0.4); Lymphocytes Absolute Auto 1.8 X10*3/uL (1.2-4.9); Mean Corpuscular HGB Conc 32.2 g/dl (31.0-35.0); Mean Corpuscular Hemoglobin 28.9 pg (27.0-33.0); Mean Corpuscular Volume 89.7 fL (80.0-98.0); NRBC Abs Auto 0.000 X10*3/uL (0.0-0.012); NRBC Pct Auto 0.0 /100WBC (0.0-0.2); Platelet Count 173 X10*3/uL (160-400); Red Blood Count 4.74 X10*6/uL (4.20-5.50); White Blood Count 5.5 X10*3/uL (4.8-10.8)
[2025-04-03 11:10] LABS: Alanine Aminotransferase 27 U/L (0-31); Albumin Level 4.4 g/dL (3.5-5.0); Alkaline Phosphatase 89 U/L (39-117); Anion Gap 11 (12-20); Aspartate Amino Transferase 23 U/L (5-31); Blood Urea Nitrogen 14 mg/dL (9-16); Calcium 9.7 mg/dL (8.4-10.2); Carbon Dioxide 28 mmol/L (22-29); Chloride 107 mmol/L (96-108); Cholesterol 194 mg/dL (<200); Estimated Glomerular Filt Rate > 60; HDL Cholesterol 46 mg/dL (>40); Potassium 4.1 mmol/L (3.3-5.1); Sodium 142 mmol/L (135-145); Total Protein 7.2 g/dL (6.5-8.0); Triglycerides 178 mg/dL (<150)
[2025-04-03 11:11] LABS: Appearance Urine Clear; Glucose Urine UA Negative (Negative); PH 5.5 (5.0-9.0); Specific Gravity - Urine 1.015 (1.005-1.025)
[2025-04-04 19:18] LABS: Antibody to SS-A Antigen <1.0 NEG AI (<1.0 NEG); Antibody to SS-B Antigen <1.0 NEG AI (<1.0 NEG)
[2025-04-09 08:38] LABS: DNAds, Crithidia Antibody Negative (Negative)
== END 2025-04-03 06:02 | disposition home or self-care (01) ==
LOC: HO.HMGCLDS 06:01
PROVIDERS: PCP Nurse Practitioner Family; Visit Provider Nurse Practitioner Family
DX: Z00.01 Encounter for general adult medical examination with abnormal findings (principal); R76.8 Other specified abnormal immunological findings in serum
CPT/HCPCS: 36415; 80053; 80061; 81003; 84443; 85025; 86225; 86235; 86255

== ENCOUNTER 2025-05-12 07:00 | Outpatient (AMB) | payer OTHER, SELFPAY ==
--- OUTSIDE RECORDS SUMMARY | 2024-06-28 08:27 | XMS_ITS | Encounter Summary ---
Author Organization [facility] Address [address] [place] [address] Care Team Providers Care Nutrition Services Associate Name Role Phone Kevin Early NP Primary [...] Description 07/28/2025 8:30 AM EST Office Visit [facility] Hematology Oncology [address] [place] [address] Kelly Siddiqi MD [address] [place] [address] documented as of this encounter Visit Diagnoses Not on filedocumented in this encounter Care Teams Nutrition Services Associate Relationship Specialty Start Date End Date Kevin Early NP [address] [place], [place] PCP - General 06/25/24 documented as of this encounter
--- OUTSIDE RECORDS SUMMARY | 2025-01-31 05:00 | XMS_ITS ---
Author Organization [facility] Address [address] [place] [address] Care Team Providers Care Rural Sociologist Name Role Phone Nneka PETTIT, Kevin Primary Care Provider Unav ailable Shanthi Donovan Unavailable [phone] Evelyn MELENDEZ, Vannessa Unavailable Unavailable Encounters Encounter Location Date Provider Diagnosis [address] [address] 01/31/2025 Shanthi Donovan Plan Of Treatment Next Appt Details Provider Name:Shanthi peña, 07/23/2025 09:00:00 AM, [address] [place] [address], [address], Progress Notes * EZIO KymJonatanOB:1970 (54 yo F)Acc No.[id number]:01/31/2025 Progress Notes Patient: Dorina PANDYA Provider: Stefany Donovan DPM :1970 A ge:54 Y S ex:Female Date:01/31/2025 Address:[address] [place] [address] kev [facility] Pcp:WILVER Ardon Subjective: * Chief Complaints: * [...] 01/31/2025 Generated for Marc stapleton/Sabra/Alejo on: 0 05/12/2025 07:01 AM EDT
--- OUTSIDE RECORDS SUMMARY | 2025-05-12 07:01 | XMS_ITS | Clinical Summary ---
Author Organization [facility] Address [address] [place] [address] Phone Care Team Providers Care Heat Treat Operator Name Role Phone Vannessa Rivas MD Primary Care Provider [phone] Allergies No known active allergies Medications No known medications Social History Tobacco Use Types Packs/Day Years Used Date Smoking Tobacco: Every Day Smokeless Tobacco: Never Education Answer Date Recorded Are you interested in more education? Not on aron e 01/20/2023 Are you concerned about learning? Not on file 01/20/2023 No 01/20/2023 No 01/20/2023 Digital Access Answer Date Recorded No 02/18/2023 No 02/18/2023 No 02/18/2023 Reliable internet access at home? Not on file 02/18/2023 Device with a working camera? Not on file Comments Unknown Sex and Gender Information Value Date Recorded Sex Assigned at Female 01/18/2021 8:05 AM EDT Legal Sex Female 2:59 PM EDT Gender Identity Female 01/18/2021 8:05 AM EDT Sexual Orientation Straight 01/18/2021 8: 05 AM EDT Last Filed Vital Signs Vital Sign Reading Time Taken Comments Blood Pressure 118/82 05/11/2021 2:59 PM EDT Pulse 86 05/11/2021 2:59 PM EDT Temperature 37.1 C (98.8 F) 05/11/2021 2:59 PM EDT Respiratory Rate - - Oxygen Saturation 98% 05/11/2021 2:59 PM EDT Inhaled Oxygen Concentration - - Weight 108.9 kg (240 lb) 05/11/2021 2:59 PM EDT Height 172.7 cm (5' 8 ) 05/11/2021 2:59 PM EDT Body Mass Index 36.49 05/11/2021 2:59 PM EDT Plan of Treatment Health Maintenance Due Date Last Done Comments LIPID PANEL 1972 DEPRESSION SCREENING 1984 SMOKING Hx and SMOKELESS TOBACCO SCREENING 1985 HEPATITIS C SCREENING 1990 HIV ONE-TIME SCREENING (18-6 5 YEARS) 1990 PAP SMEAR 1993 PNEUMOCOCCAL VACCINES (50+ years) (2 of 2 - PCV) 03/12/2011 03/12/2010 MAMMOGRAM 2012 COLOGUARD 2017 COLONOSCOPY 2017 COLORECTAL CANCER SCREENING 2017 FIT TEST 2017 FOBT 2017 SIGMOIDOSCOPY 2017 VIRTUAL COLONOSCOPY 2017 Adult Td,Tdap Booster 03/12/2020 03/12/2010 ZOSTER VACCINES (1 of 2) 2022 COVID-19 VACCINE (3 - 2023-2 5 season) 2024 05/08/2021, 04/10/2021 HEPATITIS A VACCINES Aged Out No long er eligible based on patient's age to complete this topic HIB VACCINES Aged Out No longer eligi ble based on patient's age to complete this topic MENINGOCOCCAL VACCINES (ACWY) Aged Out No longer eligible based on patient's age to complete this topic MENINGOCOCCAL VACCINES (B) Aged Out N o longer eligible based on patient's age to complete this topic Medical Devices Not on file [place] [address] ONE CARE MEDICARE REPLACEMENT MEDICARE PART A & B CARE MEDICARE REPLACEMENT MEDICARE PART A & B CARE MEDICARE REPLACEMENT MEDICARE PART A & B [facility] ONE CARE MEDICARE REPLACEMENT MEDICARE PART A & B [facility] CARE MEDICARE REPLACEMENT [place] [id number] MEDICARE PART A & B [facility] CARE MEDICARE REPLACEMENT Member Subscriber Plan / Payer ( fective 2021-Present) Name:Dorina Holguin Relation to Subscriber:Self Name:Dorina Holguin Payer ID:[id number] (NAIC) Group ID:[id number] Type:Medicare Address: [address] [facility] MEDICARE PART A & B CARE MEDICARE REPLACEMENT Member Subscriber Plan / Payer ( fective 2021-) Name:Dorina Holguin Relation to Subscriber:Self Name:Dorina Holguin Payer ID:[id number] (NAIC) Group ID:[id number] Type:Medicare Address: [address] [facility] MEDICARE PART A & [place] [address] CARE MEDICARE REPLACEMENT MEDICARE PART A & B [facility] ONE CARE MEDICARE REPLACEMENT MEDICARE PART A & B Care Teams Heat Treat Operator Relationship Specialty Start Date End Date Vannessa Rivas MD [address] [place] [address] PCP - General Internal Medicine 01/10/19 Additional Source Comments The information contained in this document represents components of the legal health record. It is not the complete legal health record.[facility]
--- OUTSIDE RECORDS SUMMARY | 2025-05-12 07:01 | XMS_ITS | Encounter Summary ---
Author Organization [facility] Address [address] [place] [address] Care Team Providers Care Periodicals Library Assistant Name Role Phone Kevin Early Primary Care Provider [phone] Encounter Details Date Type Department Care Team Description 04/02/2024 Social Work [facility] Services [address] [place] [address] Vinny Young [facility] [...] on filedocumented in this encounter Care Teams Periodicals Library Assistant Relationship Specialty Start Date End Date Kevin Early [address] [place] [address] PCP - General Family Medicine 02/28/24 documented as of this encounter
--- NOTE | 2025-05-12 07:08 | MHC.OFFWIV ---
Intake Vital Signs 05/12/25 07:09 Height 5 ft 8 in Weight 230 lb BMI 35.0 BP 128/64 Blood Pressure Location Rt brachial Position Sitting Pulse 95 Pulse Source Pulse Oximeter Temp 98.1 F Temp Source Oral Pulse Oximetry (%) 98 Oxygen Delivery Method Room Air Intake Visit Reasons: EP-inside stomach lump Intake Note: presents with tender lump on right mid abdomen. has h/o colon cancer- lump is adjacent to surgical scar. Patient Tobacco Use Status: Current everyday Tobacco user Allergies citalopram (From CELEXA) Allergy (Unknown, Verified 05/12/25 07:10) PANIC ATTACK clarithromycin (From BIAXIN) Allergy (Unknown, Verified 05/12/25 07:10) UNKNOWN moxifloxacin (From AVELOX) Allergy (Unknown, Verified 05/12/25 07:10) RASH Sulfa (Sulfonamide Antibiotics) Allergy (Unknown, Verified 05/12/25 07:10) rash/joint pain Do you need a note to return to daycare/school/sports/work: No HPI HPI Comments History of Present Illness Details History - The patient is a 54-year-old female presenting with an abdominal lump for 1-2 months. - The patient reports a lump in her abdomen, which she noticed recently and is concerned due to her history of colon cancer diagnosed last year. - She underwent a right colectomy for stage 3 colon cancer and has not experienced any pain, nausea, vomiting, or diarrhea, except for discomfort upon palpation of the lump. Physical Exam General: Cooperative, healthy appearing, comfortable, no acute distress and well developed Orientation: Patient oriented x3 Limitations: No limitations Head: Normal to inspection Ears: Hearing grossly normal bilaterally Nose: Normal External nose present Face and sinus: Normal facial exam Mouth: normal, moist oral mucosa Eyes: Appearance normal, both eyes and all related structures Neck: Normal visual inspection and Yes full ROM Respiratory: Normal respiratory effort and able to speak in complete sentences. GI: soft, small firm lump palpated in mid right quadrant Skin: no rashes or lesions noted Neuro: Patient oriented x3, gait normal Extremities: moving all extremities normally [facility] Medical History (Updated 05/12/25 @ 07:26 by Gina Monahan PA-C) Primary adenocarcinoma of ascending colon (~2023) Colon polyps PAC (premature atrial contraction) Hyperlipidemia JORDAN (obstructive sleep apnea) Nicotine dependence, cigarettes, uncomplicated Vertigo Normal Pap smear Chronic pain Fibromyalgia Dry eye syndrome Plantar fasciitis, left Primary osteoarthritis of left knee Shoulder pain, bilateral Injury of left brachial plexus Degeneration of lumbar intervertebral disc Cervical radiculopathy due to degenerative joint disease of spine Arthritis Bilateral ankle pain Hip pain, bilateral Neck pain Surgical History (Updated 04/21/25 @ 10:55 by Ksenia Sims PA-C) History of endometrial ablation History of colonoscopy History of partial colectomy (~2023) History of laparoscopic cholecystectomy Family History Father Bladder cancer History of heart attack Mother No problems noted. Brother Substance use disorder Brother Substance use disorder Social History (Reviewed 04/02/25 @ 12:09 by Kevin Early [facility] Housing: House Alcohol intake: never Patient Tobacco Use Status: Current everyday Tobacco user Tobacco use type: Cigarette Cigarette Packs Per Day: 0 Cigarettes Per Day: 10 e-Cigarette/Vaping Use: Never Used service: No Current occupational status: disabled Current occupational exposures/hazards: No Cognitive needs: No Hearing needs: No Vision needs: No Review of Systems Const All systems reviewed & are unremarkable except as noted in HPI and below Physical Exam Vital Signs: Last Vital Signs Temp 98.1 F 05/12/25 07:09 Pulse 95 05/12/25 07:09 BP 128/64 05/12/25 07:09 Pulse Ox 98 05/12/25 07:09 Oxygen Delivery Method Room Air 05/12/25 07:09 BMI result Body Mass Index 35.0 Assessment & Plan Assessment & Plan (1) Generalized swelling, mass, or lump of abdomen or pelvis: Code(s): R19.07 - Generalized intra-abdominal and pelvic swelling, mass and lump Plan: Plan Patient was informed and verbally consented to the use of an ambient scribe for clinic note documentation during this visit Abdominal Lump - An ultrasound has been ordered to evaluate the abdominal lump, with results expected soon, ordered STAT. - The patient is under the care of an oncologist and has undergone a right colectomy for stage 3 colon cancer. - ? scar tissue Orders: Orders US abdomen limited Today R19.07 - Generalized intra-abdominal and pelvic swelling, mass and lump Coding Level of Care Code Est Pt Level 4 (59317) Diagnoses Generalized swelling, mass, or lump of abdomen or pelvis R19.07
[2025-05-12 07:09] VITALS: BP 128/64; PULSE 95; TEMP 36.7; O2SAT 98; BMI 35.0
== END 2025-05-12 08:43 | disposition home or self-care (01) ==
PROVIDERS: PCP Nurse Practitioner Family; Visit Provider Physician Assistant
DX: R19.07 Generalized intra-abdominal and pelvic swelling, mass and lump (principal)

== ENCOUNTER → 2025-05-12 07:00 | Outpatient (BNVA) | payer OTHER, SELFPAY | PROVIDERS: PCP Nurse Practitioner Family; Visit Provider Physician Assistant | DX: R19.07 Generalized intra-abdominal and pelvic swelling, mass and lump (principal) | CPT/HCPCS: 99212 ==

== ENCOUNTER 2025-05-12 13:02 | Outpatient (REF) | payer OTHER, SELFPAY ==
--- NOTE | ~2025-05-12 | US_ITS ---
EXAMINATION: US ABDOMEN LIMITED CLINICAL INFORMATION: Intra-abdominal pelvic swelling, mass and lump. Status post right colectomy.. COMPARISON: None available. TECHNIQUE: Limited imaging through the abdominal wall was performed. FINDINGS: Imaging through the abdominal wall reveals multiple isoechoic to hyperechoic area seen in the subcutaneous fat consistent with lipomas. The largest area in the right abdomen measures 0.8 x 0.7 x 0.9 cm. Differential diagnosis includes hematoma if patient had history of trauma or bleeding diathesis. Patient has a right mid quadrant colectomy incision. US/US abdomen limited IMPRESSION: Multiple abdominal wall lipomas. Electronically signed by: Rojas Peterson MD 05/13/2025 04:29 PM EDT
== END 2025-05-12 13:03 | disposition home or self-care (01) ==
LOC: HO.US 13:02
PROVIDERS: PCP Nurse Practitioner Family; Visit Provider Physician Assistant
DX: R19.07 Generalized intra-abdominal and pelvic swelling, mass and lump (principal)
CPT/HCPCS: 76705

== ENCOUNTER → 2025-05-12 13:08 | Outpatient (BNV) | payer OTHER, SELFPAY | PROVIDERS: PCP Nurse Practitioner Family; Visit Provider Radiology Diagnostic Radiology | DX: D17.1 Benign lipomatous neoplasm of skin and subcutaneous tissue of trunk (principal) | CPT/HCPCS: 76705 ==

== ENCOUNTER 2025-05-19 14:46 | Outpatient (REF) | payer OTHER, SELFPAY ==
--- OUTSIDE RECORDS SUMMARY | 2024-06-25 08:05 | XMS_ITS | Encounter Summary ---
Author Organization [facility] Address [address] [place] [address] Care Team Providers Care Real Estate Leasing Manager Name Role Phone Kevin Early NP Primary [...] Description 07/28/2025 8:30 AM EST Office Visit [facility] Hematology Oncology [address] [place] [address] Kelly Siddiqi MD [address] [place] [address] documented as of this encounter Visit Diagnoses Not on filedocumented in this encounter Care Teams Real Estate Leasing Manager Relationship Specialty Start Date End Date Kevin Early NP [address] [place], [place] PCP - General 06/25/24 documented as of this encounter
--- OUTSIDE RECORDS SUMMARY | 2024-06-27 09:28 | XMS_ITS | Encounter Summary ---
Author Organization [facility] Address [address] [place] [address] Care Team Providers Care Propulsion Motor And Generator Repairer Name Role Phone Kevin Early NP Primary [...] Office Visit [facility] Hematology Oncology [address] [place] [address] Kelly Siddiqi MD [address] [place] [address] documented as of this encounter Visit Diagnoses Not on filedocumented in this encounter Care Teams Propulsion Motor And Generator Repairer Relationship Specialty Start Date End Date Kevin Early NP [address] [place], [place] PCP - General 06/25/24 documented as of this encounter
--- OUTSIDE RECORDS SUMMARY | 2024-06-28 08:27 | XMS_ITS | Encounter Summary ---
Author Organization [facility] Address [address] [place] [address] Care Team Providers Care Quality Intern Name Role Phone Kevin Early NP [...] [facility] Hematology Oncology [address] [place] [address] Kelly Siddiqi MD [address] [place] [address] documented as of this encounter Visit Diagnoses Not on filedocumented in this encounter Care Teams Quality Intern Relationship Specialty Start Date End Date Kevin Early NP [address] [place], [place] PCP - General 06/25/24 documented as of this encounter
--- OUTSIDE RECORDS SUMMARY | 2024-07-01 08:08 | XMS_ITS | Encounter Summary ---
Author Organization [facility] Address [address] [place] [address] Care Team Providers Care Biologist Name Role Phone Kevin Early NP Primary Care Provider [phone] Encounter Details Date Type Department Care Team [...] Description 07/28/2025 8:30 AM EST Office Visit [facility] Hematology Oncology [address] [place] [address] Kelly Siddiqi MD [address] [place] [address] documented as of this encounter Visit Diagnoses Not on filedocumented in this encounter Care Teams Biologist Relationship Specialty Start Date End Date Kevin Early NP [address] [place], [place] PCP - General 06/25/24 documented as of this encounter
--- OUTSIDE RECORDS SUMMARY | 2024-07-08 09:47 | XMS_ITS | Encounter Summary ---
Author Organization [facility] Address [address] [place] [address] Care Team Providers Care Button Grader Name Role Phone Kevin Early NP Primary Care Provider [phone] Encounter Details Date Type Department Care Team [...] Description 07/28/2025 8:30 AM EST Office Visit [facility] Hematology Oncology [address] [place] [address] Kelly Siddiqi MD [address] [place] [address] documented as of this encounter Visit Diagnoses Not on filedocumented in this encounter Care Teams Button Grader Relationship Specialty Start Date End Date Kevin Early NP [address] [place], [place] PCP - General 06/25/24 documented as of this encounter
--- OUTSIDE RECORDS SUMMARY | 2024-07-15 07:52 | XMS_ITS | Encounter Summary ---
Author Organization [facility] Address [address] [place] [address] Care Team Providers Care Set Painter Name Role Phone Kevin Early NP Primary Care Provider [phone] Encounter Details Date Type Department Care Team [...] 07/28/2025 8:30 AM EST Office Visit [facility] Hematology Oncology [address] [place] [address] Kelly Siddiqi MD [address] [place] [address] documented as of this encounter Visit Diagnoses Not on filedocumented in this encounter Care Teams Set Painter Relationship Specialty Start Date End Date Kevin Early NP [address] [place], [place] PCP - General 06/25/24 documented as of this encounter
--- OUTSIDE RECORDS SUMMARY | 2025-01-31 05:00 | XMS_ITS ---
Author Organization [facility] Address [address] [place] [address] Care Team Providers Care Adult Family Home Program Manager Name Role Phone Nneka PETTIT, Kevin Primary Care Provider Unav ailable Shanthi Donovan Unavailable [phone] Evelyn MELENDEZ, Vannessa Unavailable Unavailable Encounters Encounter Location Date Provider Diagnosis [address] [address] 01/31/2025 Shanthi Donovan Plan Of Treatment Next Appt Details Provider Name:Shanthi peña, 07/23/2025 09:00:00 AM, [address] [place] [address], [address], Progress Notes * MAXIME KymJonatanOB:1970 (55 yo F)Acc No.[id number]:01/31/2025 Progress Notes Patient: Dorina PANDYA Provider: Stefany Donovan DPM :1970 A ge:54 Y S ex:Female Date:01/31/2025 Address:[address] [place] [address] kev [facility] Pcp:WILVER Ardon Subjective: * Chief Complaints: * [...] 01/31/2025 Generated for Marc stapleton/Sabra/Alejo on: 0 05/19/2025 04:26 PM EDT
--- NOTE | ~2025-05-19 | XR_ITS ---
EXAM: 2 view cervical spine x-ray TECHNIQUE: AP and lateral x-rays of the cervical spine INDICATION: M47.22 - Other spondylosis with radiculopathy, cervical region PRIOR: None FINDINGS: There is mild reversal of the normal cervical lordosis. No fractures are identified. There is no prevertebral soft tissue swelling. C4-5 demonstrates mild disc space narrowing and endplate osteophytes. C5-6: There is moderate disc space narrowing and endplate osteophytes with subtle retrolisthesis. C6-7 demonstrates moderate disc space narrowing and endplate osteophytes with subtle retrolisthesis. XR/XR cervical spine 2V IMPRESSION: There is mild reversal of cervical lordosis. This can be related to degenerative changes, positioning, muscle spasm, or posterior soft tissue injury. Degenerative disc disease is most pronounced at C5-6 and C6-7 Electronically signed by: Shahbaz Pina MD 05/19/2025 03:30 PM EDT
--- OUTSIDE RECORDS SUMMARY | 2025-05-19 16:27 | XMS_ITS | Clinical Summary ---
Author Organization [facility] Address [address] [place] [address] Care Team Providers Care Truck Bench Mechanic Name Role Phone Kevin Early Primary Care Provider [phone] Allergies Active Allergy Reactions Criticality Noted Date [...] 100 06/28/2024 8:33 AM EDT Temperature 36.6 C (97.9 F) 06/28/2024 8:33 AM EDT Respiratory Rate 20 06/27/2024 9:35 AM EDT [...] Cancer Screening (Mammogram) 2022 Influenza Vaccine (#1) 2025 08/21/2013 RSV Ped < 20 months Aged Out No longe r eligible based on patient's age to complete this topic Care Teams Truck Bench Mechanic Relationship Specialty Start Date End Date Kevin Early NPYunior: [phone] [address] [place] [facility] [address] PCP - General Family Medicine 02/28/24
--- OUTSIDE RECORDS SUMMARY | 2025-05-19 16:27 | XMS_ITS | Patient Health Record ---
[facility] Address [address] [facility] [place] [address] Care Team Providers Care Workforce Management Consultant Name Role Phone Kevin Chadwick Primary Care Provider Unav ailable Yaronmariana Shanthi Unavailable [phone] Vannessa Rivas MD Unavailable Unavailable Allergies Allergen [...] 10 MG 1 tablet Orally Once a day; Duration: 30 day(s) Not-Taking Singulair 10 MG 1 tablet Orally Once a day; Duration: 30 day(s) Active Lyrica 150mg Active predniSONE Active Nightsplint . . . AFO - L1930; Duration: . Active Meclizine HCl 25 MG 1 tablet as needed Orally every 12 hrs Active Ciclopirox 0.77 % 1 application Externally Twice a day; Duration: 365 days Active Symbicort 80-4.5 MCG/ACT 1 puff as neede d Inhalation every 4 hrs Active Ibuprofen 600 MG 1 tablet as needed Orally every 6 hrs; Duration: 14 days 11/29/2024 Active Ativan PRN Active Physical Therapy . . . 2-3x/week; Duration: 3-4 weeks 03/04/2025 Active Myrbetriq Active Medrol bakari 4mg as directed orally a s directed; Duration: 6 days 03/04/2025 Active Zetia Active Medrol 4 MG as directed Orally 11/18/2024 Not-Taking Vitamin D Active Breo Ellipta Not-Papi ing ProAir HFA Active Lynox Not-Taking busPIRone HCl 7.5 MG 1 tablet Orally Twi ce a day Active Immunizations Vaccine Route Administration Date Status Comme nts COVID-19 Moderna Vaccine Unknown 05/08/2021 Administered First Dose: 04/10/2021 Influenza Unknown 03/04/2025 Refused Social History Tobacco Use: Social History Observation [...] Notes Problem Plantar fasciitis of left foot (0212046277508533 1) Plantar fasciitis of left foot (M72.2) Active confirmed Problem Interstitial myositis (13836254) 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) Active confirmed Problem Localized, primary osteoarthritis of the ankle and/or foot (586861554) 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) Active confirmed Problem Localized, primary osteoarthritis of the ankle and/or foot (188193339) 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.072) Active confirmed Problem 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) Plantar fasciitis, bilateral (M72.2) Active confirmed Vital Signs Heart Rate 81 /min 11/29/2024 Blood pressure diastolic 75 mm Hg 04/21/2025 Height 5ft 8in in 04/21/2025 Blood pressure systolic 125 mm Hg 04/21/2025 Weight 215 lbs 04/21/2025 BMI 32.69 kg/m2 04/21/2025 Encounters Encounter Location Date Provider Diagnosis [facility] [address] [place] [address] 08/16/2024 Shanthi Donovan Arthralgia of right ankle M25.571 ; Osteoarthritis of right ankle or foot M19.071 ; Arthralgia of left ankle M25.572 ; Osteoarthritis of left ankle or foot M19.072 ; Pain in right toe(s) M79.674 and Onychomycosis B35.[address] [address] 10/04/2024 Shanthi Marrufoa Osteoarthritis of ri ght ankle or foot M19.071 ; Plantar fasciitis, bilateral M72.2 ; Arthralgia of right ankle M25.571 ; Arthralgia of left ankle M25.572 ; Osteoarthritis of left ankle or foot M19.072 ; Onychomycosis B35.1 ; Calcaneal spur, left foot M77.32 ; Interstitial myositis of left foot M60.172 and Bursitis of left foot M77.[address] [address] 11/29/2024 Shanthi Marrufoa Onychomycosis B35.1 ; Plantar fasciitis, bilateral M72.2 ; Calcaneal spur, left foot M77.32 ; Interstitial myositis of left foot M60.172 and Bursitis of left foot M77.[address] [address] 03/04/2025 Shanthi Marrufoa Onychomycosis B35.1 ; Plantar fasciitis, bilateral M72.2 ; Calcaneal spur, left foot M77.32 ; Interstitial myositis of left foot M60.172 ; Bursitis of left foot M77.52 ; Pain in right foot M79.671 ; Pain in right ankle and joints of right foot M25.571 ; Bursitis of intermetatarsal bursa of right foot M77.51 and Metatarsalgia, right foot M77.[address] [address] 04/21/2025 Shanthi Marrufoa Onychomycosis B35.1 ; Plantar fasciitis, bilateral M72.2 ; Calcaneal spur, left foot M77.32 ; Pain in right ankle and joints of right foot M25.571 and Pain of joint of left ankle and foot M25.572 [facility] [address] [address] 08/12/2024 Shanthi [facility] [address] [address] 08/16/2024 Shanthi [facility] [address] [address] 08/16/2024 Shanthi [facility] [address] [address] 10/23/2024 Shanthi [facility] [address] [address] 11/14/2024 Shanthi Perica [facility] [address] [address] 01/17/2025 Shanthi [facility] [address] [address] 03/05/2025 Shanthi Perica [facility] [address] [address] 04/21/2025 Shanthi Donovan Assessments Encounter Date Diagnosis (ICD Code) Assessment Notes Treatment Notes Treatment Clinical Notes Section Notes 10/04/2024 Osteoarthritis of right ankle or foot (ICD-10 - M19.071) 10/04/2024 Plantar fasciitis, bilateral (ICD-10 - M72.2) 11/29/2024 Onychomycosis (ICD-10 - B35.1) 03/04/2025 Onychomycosis (ICD-10 - B35.1) 04/21/2025 Onychomycosis (ICD-10 - B35.1) 04/21/2025 Plantar fasciitis, bilateral (ICD-10 - M72.2) 08/16/2024 Arthralgia of right ankle (ICD-10 - M25.571) 08/16/2024 Osteoarthritis of right ankle or foot (ICD-10 - M19.071) 04/21/2025 Calcaneal spur, left foot (ICD-10 - M77.32) 08/16/2024 Arthralgia of left ankle (ICD-10 - M25.572) 03/04/2025 Plantar fasciitis, bilateral (ICD-10 - M72.2) 11/29/2024 Plantar fasciitis, bilateral (ICD-10 - M72.2) 03/04/2025 Calcaneal spur, left foot (ICD-10 - M77.32) 11/29/2024 Calcaneal spur, left foot (ICD-10 - M77.32) 10/04/2024 Arthralgia of right ankle (ICD-10 - M25.571) 10/04/2024 Arthralgia of left ankle (ICD-10 - M25.572) 11/29/2024 Interstitial myositis of left foot (ICD-10 - M60.172) 04/21/2025 Pain in right ankle and joints of right foot (ICD-10 - M25.571) 03/04/2025 Interstitial myositis of left foot (ICD-10 - M60.172) 08/16/2024 Osteoarthritis of left ankle or foot (ICD-10 - M19.072) 08/16/2024 Pain in right toe(s) (ICD-10 - M79.674) 03/04/2025 Bursitis of left foot (ICD-10 - M77.52) 04/21/2025 Pain of joint of left ankle and foot (ICD-10 - M25.572) 11/29/2024 Bursitis of left foot (ICD-10 - M77.52) 10/04/2024 Osteoarthritis of left ankle or foot (ICD-10 - M19.072) 10/04/2024 Onychomycosis (ICD-10 - B35.1) 03/04/2025 Pain in right foot (ICD-10 - M79.671) 08/16/2024 Onychomycosis (ICD-10 - B35.1) 03/04/2025 Pain in right ankle and joints of right foot (ICD-10 - M25.571) 10/04/2024 Calcaneal spur, left foot (ICD-10 - M77.32) 10/04/2024 Interstitial myositis of left foot (ICD-10 - M60.172) 03/04/2025 Bursitis of intermetatarsal bursa of right foot (ICD-10 - M77.51) 03/04/2025 Metatarsalgia, right foot (ICD-10 - M77.41) 10/04/2024 Bursitis of left foot (ICD-10 - M77.52) 10/04/2024 Other Patient Educated with: HEEL CORD STRETCHES.pdf (HEEL CORD STRETCHES.pdf ) Patient Educated with: RICE THERAPY.pdf (RICE THERAPY.pdf) 11/29/2024 Other Plan Of Treatment Pending Test Test Name Order Date X ray : Ankle, left 3V 08/16/2024 *Uric Acid, Serum 03/04/2025 Rheumatoid Arthritis Factor 03/04/2025 C-Reactive Protein, Quant 03/04/2025 JESSICA Comprehensive Panel 03/04/2025 ESR 03/04/2025 X ray : Foot, right 3V 05/19/2021 X ray : Foot, right 3V 03/04/2025 X ray : Ankle, right 3V 08/16/2024 Next Appt Details Provider Name:Shanthi peña, 07/23/2025 09:00:00 AM, [address] [place] [address], [phone], Insurance Providers Payer Name Payer Address Payer Phone Subscriber Number Group Number Insured Name Patient Relationship to Insured Coverage Start Date Coverage End Date [facility] [employer] Claims [address] [place], [place] [address] [address] [id number] Dorina Holguin Self - patient is the insured Medical (General) History Medical History History ICD Code Anxiety asthma Back,Hip,and Knee pain CAD (Cholesterol) Fibromyalgia Gall bladder problems Numbness Reflux ( GERD) chronic sinusitis Autoimmune disorder Surgical History Surgery Date(Month/Year) gall bladder 2005 ablation surgery 2014 colon cancer 02/14/2024 Hospitalization History Reason Date(Month/Year) bronchitis [facility] - 8 days colon cancer surgery 01/24
--- OUTSIDE RECORDS SUMMARY | 2025-05-19 16:27 | XMS_ITS ---
Author Organization [facility] Address [address] [place] [address] Care Team Providers Care New Business Clerk Name Role Phone Kevin Early Primary Care Provider [phone] Active Problems Problem Noted Date Diagnosed Date [...] treatments are documented for this patient in [facility]. Treatments may have been administered in another system.
--- OUTSIDE RECORDS SUMMARY | 2025-05-19 16:27 | XMS_ITS ---
Author Organization [facility] Address [address] [place] [address] Phone Care Team Providers Care Pipe Or Steam Fitter Furnace Installer Name Role Phone Kevin Early NP Primary Care Provider Active Problems Problem Noted Date Diagnosed Date Malignant neoplasm of ascend ing colon ([facility] V24, [facility] V28) 08/26/2024 Current Oncology Plans CENTRAL VENOUS ACCESS ( CVA ) MAINTENANCE / BLOOD DRAW / CATHETER CLEARANCE / DRESSING CHANGE / FLUSH* Plan Start Date:08/26/2024 Plan Provider:Kelly Siddiqi MD Linked Problems Malignant neoplasm of ascend ing colon ([facility] V24, [facility] V28) Treatment Medications No medications scheduled. Past Plans No past plan information found. Radiation Treatments * No radiation treatments are documented for this patient in [facility]. Treatments may have been administered in another system. Lifetime Dose Tracking * Chemical Lifetime Dose Automatic Entry Manual Entr y Fluoro Time 1 minutes 1 minutes 0 minutes Air Kerma 0.2 mGy 0.2 mGy 0 mGy
--- OUTSIDE RECORDS SUMMARY | 2025-05-19 16:27 | XMS_ITS | Clinical Summary ---
Author Organization [facility] Address [address] [place] [address] Phone Care Team Providers Care Business Banking Relationship Manager Name Role Phone Vannessa Rivas MD Primary Care Provider [phone] Allergies No known active allergies Medications No [...] topic Medical Devices Not on file [place] [address] [place] [address] ONE CARE MEDICARE REPLACEMENT MEDICARE PART A & B CARE MEDICARE REPLACEMENT MEDICARE PART A & B CARE MEDICARE REPLACEMENT MEDICARE PART A & B [facility] ONE CARE MEDICARE REPLACEMENT MEDICARE PART A & B [facility] MEDICARE REPLACEMENT [place] [address] MEDICARE PART A & B [facility] MEDICARE REPLACEMENT Member Subscriber Plan / Payer ( fective 2021-Present) Name:Dorina Holguin Relation to Subscriber:Self Name:Dorina Holguin Payer ID:[id number] (NAIC) Group ID:[id number] Type:Medicare Address: [address] [facility] MEDICARE PART A & B CARE MEDICARE REPLACEMENT Member Subscriber Plan / Payer ( fective 2021-) Name:Dorina Holguin Relation to Subscriber:Self Name:Dorina Holguin Payer ID:[id number] (NAIC) Group ID:[id number] Type:Medicare Address: [address] [place] [facility] MEDICARE PART A & [place] [address] CARE MEDICARE REPLACEMENT MEDICARE PART A & B [facility] ONE CARE MEDICARE REPLACEMENT MEDICARE PART A & B Care Teams Business Banking Relationship Manager Relationship Specialty Start Date End Date Vannessa Rivas MD [address] [address] PCP - General Internal Medicine 01/10/19 Additional Source Comments The information contained in this document represents components of the legal health record. It is not the complete legal health record.[facility]
--- OUTSIDE RECORDS SUMMARY | 2025-05-19 16:27 | XMS_ITS | Clinical Summary ---
Author Organization [facility] Address [address] [place] [address] Phone Care Team Providers Care Joint Cleaning Machine Operator Name Role Phone Kevin Early [...] Date Malignant neoplasm of ascend ing colon (CMS/HCC V24, CMS/HCC V28) 08/26/2024 Surgical History Surgery Date Site/Laterality Comments CHOLECYSTECTOMY [...] 79 12/02/2024 8:46 AM EDT Temperature 36.9 C (98.4 F) 12/02/2024 8:46 AM EDT Respiratory Rate - - Oxygen Saturation 100% [...] [facility] On[facility] [address] [place] [id number] Kelly Siddiqi MD [address] [place] [address] Health Maintenance Due Date Last Done Comments [...] Panel) 08/27/2022 Colorectal Cancer Screening: Colonoscopy 08/27/2022 HIV Screening 08/27/2022 Hepatitis C Screening 08/27/2022 Medicare Annual Wellness Visit 08/27/2022 Social Influencers of Health Screening 08/27/2022 Depression Screening 09/25/2024 Influenza Vaccine (#1) 2025 08/21/2013 DTaP,Tdap,and Td Vaccines (3 - [...] on patient's age to complete this topic Insurance [facility] MEDICARE Member Subscriber Plan / Payer (Ef fective 2021-Present) Name:DORINA HOLGUIN Relation to Subscriber:Self Name:Dorina Holguin Payer ID:[id number] Group ID:[id number] Type:Not on file Address: [address] [place] [address] Care Teams Joint Cleaning Machine Operator Relationship Specialty Start Date End Date Kevin Early NP [address] [facility] [place], [place] PCP - General 06/25/24
--- OUTSIDE RECORDS SUMMARY | 2025-05-19 16:27 | XMS_ITS | Encounter Summary ---
Author Organization [facility] Address [address] [place] [address] Care Team Providers Care Farmworker Name Role Phone Kevin Early Primary Care Provider [phone] Encounter Details Date Type Department Care Team Description 04/02/2024 Social Work [facility] Oncology Services [address] [place] [address] [place] [facility] Social History Tobacco Use Types Packs/Day Years [...] on filedocumented in this encounter Care Teams Farmworker Relationship Specialty Start Date End Date Kevin Early [address] [place] [address] PCP - General Family Medicine 02/28/24 documented as of this encounter
== END 2025-05-19 14:47 | disposition home or self-care (01) ==
LOC: HO.HMGCLDS 14:46
PROVIDERS: PCP Nurse Practitioner Family; Visit Provider Nurse Practitioner Family
DX: M47.22 Other spondylosis with radiculopathy, cervical region (principal)
CPT/HCPCS: 72040

== ENCOUNTER → 2025-05-19 14:49 | Outpatient (BNV) | payer OTHER, SELFPAY | PROVIDERS: PCP Nurse Practitioner Family; Visit Provider Radiology Diagnostic Radiology | DX: M47.22 Other spondylosis with radiculopathy, cervical region (principal); M50.322 Other cervical disc degeneration at C5-C6 level | CPT/HCPCS: 72040 ==

== ENCOUNTER → 2025-06-02 07:13 | Outpatient (BNV) | payer OTHER, SELFPAY | PROVIDERS: PCP Nurse Practitioner Family; Visit Provider Radiology Diagnostic Radiology | DX: M48.02 Spinal stenosis, cervical region (principal) | CPT/HCPCS: 72141 ==

== ENCOUNTER 2025-06-02 07:17 | Outpatient (REF) | payer OTHER, SELFPAY ==
--- OUTSIDE RECORDS SUMMARY | 2024-06-25 08:05 | XMS_ITS | Encounter Summary ---
Author Organization [facility] Address [address] [place] [address] Care Team Providers Care Car Salesman Name Role Phone Kevin Early NP Primary [...] Description 07/28/2025 8:30 AM EST Office Visit [facility] Hematology Oncology [address] [place] [address] Kelly Siddiqi MD [address] [place] [address] documented as of this encounter Visit Diagnoses Not on filedocumented in this encounter Care Teams Car Salesman Relationship Specialty Start Date End Date Kevin Early NP [address] [place], [place] PCP - General 06/25/24 documented as of this encounter
--- OUTSIDE RECORDS SUMMARY | 2024-06-27 09:28 | XMS_ITS | Encounter Summary ---
Author Organization [facility] Address [address] [place] [address] Care Team Providers Care Concrete Pipe Machine Operator Name Role Phone Kevin Early NP Primary [...] Description 07/28/2025 8:30 AM EST Office Visit [facility] Hematology Oncology [address] [place] [address] Kelly Siddiqi MD [address] [place] [address] documented as of this encounter Visit Diagnoses Not on filedocumented in this encounter Care Teams Concrete Pipe Machine Operator Relationship Specialty Start Date End Date Kevin Early NP [address] [place], [place] PCP - General 06/25/24 documented as of this encounter
--- OUTSIDE RECORDS SUMMARY | 2024-06-28 08:27 | XMS_ITS | Encounter Summary ---
Author Organization [facility] Address [address] [place] [address] Care Team Providers Care Lining Machine Operator Name Role Phone Kevin Early [...] Description 07/28/2025 8:30 AM EST Office Visit [facility] Hematology Oncology [address] [place] [address] Kelly Siddiqi MD [address] [place] [address] documented as of this encounter Visit Diagnoses Not on filedocumented in this encounter Care Teams Lining Machine Operator Relationship Specialty Start Date End Date Kevin Early NP [address] [place], [place] PCP - General 06/25/24 documented as of this encounter
--- OUTSIDE RECORDS SUMMARY | 2024-07-01 08:08 | XMS_ITS | Encounter Summary ---
Author Organization [facility] Address [address] [place] [address] Care Team Providers Care Plastic Straightening Roll Operator Name Role Phone Kevin Early NP [...] 07/28/2025 8:30 AM EST Office Visit [facility] Hematology Oncology [address] [place] [address] Kelly Siddiqi MD [address] [place] [address] documented as of this encounter Visit Diagnoses Not on filedocumented in this encounter Care Teams Plastic Straightening Roll Operator Relationship Specialty Start Date End Date Kevin Early NP [address] [place], [place] PCP - General 06/25/24 documented as of this encounter
--- OUTSIDE RECORDS SUMMARY | 2024-07-08 09:47 | XMS_ITS | Encounter Summary ---
Author Organization [facility] Address [address] [place] [address] Care Team Providers Care Retail Salesworker Name Role Phone Kevin Early NP Primary [...] Description 07/28/2025 8:30 AM EST Office Visit [facility] Hematology Oncology [address] [place] [address] Kelly Siddiqi MD [address] [place] [address] documented as of this encounter Visit Diagnoses Not on filedocumented in this encounter Care Teams Retail Salesworker Relationship Specialty Start Date End Date Kevin Early NP [address] [place], [place] PCP - General 06/25/24 documented as of this encounter
--- OUTSIDE RECORDS SUMMARY | 2024-07-15 07:52 | XMS_ITS | Encounter Summary ---
Author Organization [facility] Address [address] [place] [address] Care Team Providers Care Case Supervisor Name Role Phone Kevin Early NP Primary [...] Office Visit [facility] Hematology Oncology [address] [place] [address] Kelly Siddiqi MD [address] [place] [address] documented as of this encounter Visit Diagnoses Not on filedocumented in this encounter Care Teams Case Supervisor Relationship Specialty Start Date End Date Kevin Early NP [address] [place], [place] PCP - General 06/25/24 documented as of this encounter
--- OUTSIDE RECORDS SUMMARY | 2025-01-31 05:00 | XMS_ITS ---
Author Organization [facility] Address [address] [place] [address] Care Team Providers Care Printed Circuit Board Panels Deburrer Name Role Phone Nneka PETTIT, Kevin Primary Care Provider Unav ailable Shanthi Donovan Unavailable [phone] Evelyn MELENDEZ, Vannessa Unavailable Unavailable Encounters Encounter Location Date Provider Diagnosis [address] [address] 01/31/2025 Shanthi Donovan Plan Of Treatment Next Appt Details Provider Name:Shanthi peña, 07/23/2025 09:00:00 AM, [address] [place] [address], [address], Progress Notes * MAXIME KymJonatanOB:1970 (55 yo F)Acc No.[id number]:01/31/2025 Progress Notes Patient: Dorina PANDYA Provider: Stefany Donovan DPM :1970 A ge:54 Y S ex:Female Date:01/31/2025 Address:[address] [place] [address] kev [facility] Pcp:WILVER Ardon Subjective: * Chief Complaints: * [...] 01/31/2025 Generated for Marc stapleton/Sabra/Alejo on: 0 06/02/2025 07:19 AM EDT
--- NOTE | ~2025-06-02 | MR_ITS ---
EXAMINATION: MR CERVICAL SPINE WITHOUT CONTRAST CLINICAL INFORMATION: M50.30. Other cervical disc degeneration, unspecified cervical. COMPARISON: None available. TECHNIQUE: MRI of the cervical spine was obtained using routine sequences without contrast. FINDINGS: Craniocervical junction is intact with normal position of the cerebellar tonsils. No bone marrow STIR signal abnormality. Multilevel marginal osteophyte formation and decreased intervertebral disc height and signal C5 T1. Small marginal osteophyte formation and disc desiccation, C4-5 and to a lesser extent C3-4. Reverse curvature apex at C5-6. Normal alignment. Cervical spinal cord signal is normal. C2-3: Right facet joint hypertrophy. No cord compression. No central spinal canal stenosis. Right neuroforamina narrowing. C3-4: Broad-based disc osteophyte compresses formation resulting in CSF effacement of the ventral aspect of the thecal sac. Bilateral neuroforamina narrowing on a degenerative basis. L5: Broad-based disc osteophyte compresses formation resulting in CSF effacement of the thecal sac and flattening of the spinal cord. Bilateral neuroforamina narrowing right greater than left. C5-6: Broad-based disc osteophyte compresses formation resulting in CSF effacement of thecal sac and flattening of the spinal cord. Bilateral neuroforamina stenosis right and left. C6-7: Broad-based disc osteophyte compresses formation resulting in CSF effacement of thecal sac and flattening of the spinal cord. Bilateral neuroforamina stenosis, right greater than left. C7-T1: Broad-based disc osteophyte complex formation resulting in CSF effacement of the thecal sac. Bilateral neuroforamina narrowing left greater than the right side. T1-2: No cord compression. No gross neuroforamina stenosis. No prevertebral compartment hematoma, mass or fluid collection. Flow-void signal within the main vessels is normal. Codominant vertebral arteries. Nonspecific prominent cervical lymph nodes. MR/MR cervical spine wo con IMPRESSION: Multilevel cervical spondylosis C3-4 to C7-T1 resulting in central spinal canal stenosis abutting the cord from C4-5 to C6-7 without cord edema and or myelopathy. Multilevel bilateral, right greater than left neuroforamina stenosis on a multifactorial basis from C3-4 to C6-7. Electronically signed by: Dustin Zamarripa MD 06/02/2025 08:52 AM EDT RP
--- OUTSIDE RECORDS SUMMARY | 2025-06-02 07:19 | XMS_ITS | Patient Health Record ---
[facility] Address [address] [facility] [place] [address] Care Team Providers Care Comic Book Designer Name Role Phone Kevin Chadwick Primary Care Provider Unav ailable Yaronmariana Shanthi Unavailable [phone] Vannessa Rivas MD Unavailable Unavailable Allergies Allergen [...] Vaccine Route Administration Date Status Comme nts Influenza Unknown 03/04/2025 Refused COVID-19 Moderna Vaccine Unknown 05/08/2021 Administered First Dose: 04/10/2021 Social History Tobacco Use: Social History Observation [...] Notes Problem Plantar fasciitis of left foot (4550222731392239 1) Plantar fasciitis of left foot (M72.2) Active confirmed Problem Interstitial myositis (02782571) 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) Active confirmed Problem Localized, primary osteoarthritis of the ankle and/or foot (948400397) 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) Active confirmed Problem Localized, primary osteoarthritis of the ankle and/or foot (446957907) 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.072) Active confirmed Problem 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) Plantar fasciitis, bilateral (M72.2) Active confirmed Vital Signs Heart Rate 81 /min 11/29/2024 Blood pressure diastolic 75 mm Hg 04/21/2025 Height 5ft 8in in 04/21/2025 Blood pressure systolic 125 mm Hg 04/21/2025 Weight 215 lbs 04/21/2025 BMI 32.69 kg/m2 04/21/2025 Encounters Encounter Location Date Provider Diagnosis [facility] [place] [address] [place] [address] 08/16/2024 Shanthi Perica Arthralgia of right ankle M25.571 ; Osteoarthritis of right ankle or foot M19.071 ; Arthralgia of left ankle M25.572 ; Osteoarthritis of left ankle or foot M19.072 ; Pain in right toe(s) M79.674 and Onychomycosis B35.[address] [address] 10/04/2024 Shanthi Perica Osteoarthritis of right ankle or foot M19.071 ; Plantar fasciitis, bilateral M72.2 ; Arthralgia of right ankle M25.571 ; Arthralgia of left ankle M25.572 ; Osteoarthritis of left ankle or foot M19.072 ; Onychomycosis B35.1 ; Calcaneal spur, left foot M77.32 ; Interstitial myositis of left foot M60.172 and Bursitis of left foot M77.[address] [address] 11/29/2024 Shanthi Perica Onychomycosis B35.1 ; Plantar fasciitis, bilateral M72.2 ; Calcaneal spur, left foot M77.32 ; Interstitial myositis of left foot M60.172 and Bursitis of left foot M77.[address] [address] 03/04/2025 Shanthi Perica Onychomycosis B35.1 ; Plantar fasciitis, bilateral M72.2 ; Calcaneal spur, left foot M77.32 ; Interstitial myositis of left foot M60.172 ; Bursitis of left foot M77.52 ; Pain in right foot M79.671 ; Pain in right ankle and joints of right foot M25.571 ; Bursitis of intermetatarsal bursa of right foot M77.51 and Metatarsalgia, right foot M77.[address] [address] 04/21/2025 Shanthi Perica Onychomycosis B35.1 ; Plantar fasciitis, bilateral M72.2 ; Calcaneal spur, left foot M77.32 ; Pain in right ankle and joints of right foot M25.571 and Pain of joint of left ankle and foot M25.[address] [facility] [address] [address] 08/12/2024 Shanthi Perica [facility] [address] [address] 08/16/2024 Shanthi Perica [facility] [address] [address] 08/16/2024 Shanthi Perica [facility] [address] [address] 10/23/2024 Shanthi Perica [facility] [address] [address] 11/14/2024 Shanthi Perica [facility] [address] [address] 01/17/2025 Shanthi Perica [facility] [address] [address] 03/05/2025 Shanthi Perica [facility] [address] [address] 04/21/2025 Shanthi Perica [facility] [place] [address] [place] [address] 05/27/2025 Shanthi Donovan [facility] Encounter Date Diagnosis (ICD Code) Assessment Notes [...] 04/21/2025 Plantar fasciitis, bilateral (ICD-10 - M72.2) 03/04/2025 Plantar fasciitis, bilateral (ICD-10 - M72.2) 03/04/2025 Calcaneal spur, left foot (ICD-10 - M77.32) 04/21/2025 Calcaneal spur, left foot (ICD-10 - M77.32) 11/29/2024 Plantar fasciitis, bilateral (ICD-10 - M72.2) [...] foot (ICD-10 - M60.172) 03/04/2025 Bursitis of left foot (ICD-10 - M77.52) 04/21/2025 Pain of joint of left ankle and foot (ICD-10 - M25.572) 11/29/2024 Bursitis of left foot (ICD-10 - M77.52) 10/04/2024 Osteoarthritis of left ankle or foot (ICD-10 - M19.072) 08/16/2024 Pain in right toe(s) (ICD-10 - M79.674) 08/16/2024 Onychomycosis (ICD-10 - B35.1) 10/04/2024 Onychomycosis (ICD-10 - B35.1) 03/04/2025 Pain in right foot (ICD-10 - M79.671) 03/04/2025 Pain in right ankle and joints [...] Details Provider Name:Shanthi peña, 07/23/2025 09:00:00 AM, [address] [place] [address], [phone], Insurance Providers Payer Name Payer Address Payer Phone Subscriber Number Group Number Insured Name Patient Relationship to Insured Coverage Start Date Coverage End Date [facility] [employer] Claims [facility] [place] [address] [id number] Dorina Holguin Self - patient is the [...]
--- OUTSIDE RECORDS SUMMARY | 2025-06-02 07:19 | XMS_ITS ---
Author Organization [facility] Address [address] [place] [address] Phone Care Team Providers Care Communications Tower Climber Name Role Phone Kevin Early NP Primary Care Provider Active Problems Problem Noted Date Diagnosed Date Malignant neoplasm of ascend ing colon ([facility] V24, [facility] V28) 08/26/2024 Current Oncology Plans CENTRAL VENOUS ACCESS ( CVA ) MAINTENANCE / BLOOD DRAW / CATHETER CLEARANCE / DRESSING CHANGE / FLUSH* Plan Start Date:08/26/2024 Plan Provider:Kelly Siddiqi MD Linked Problems Malignant neoplasm of ascend ing colon ([facility] V24, [facility] V28) Treatment Medications No medications scheduled. Past Plans No past plan information found. Radiation Treatments * No radiation treatments are documented for this patient in [facility]. Treatments may have been administered in another system. Lifetime Dose Tracking * Chemical Lifetime Dose Automatic Entry Manual Entr y Fluoro Time 1 minutes 1 minutes 0 minutes Air Kerma 0.2 mGy 0.2 mGy 0 mGy
--- OUTSIDE RECORDS SUMMARY | 2025-06-02 07:19 | XMS_ITS | Clinical Summary ---
Author Organization [facility] Address [address] [place] [address] Care Team Providers Care [address] Mechanical Engineer Name Role Phone Kevin Early Primary Care Provider [phone] Allergies Active Allergy Reactions Criticality Noted Date [...] age to complete this topic Care Teams Rd Mechanical Engineer Relationship Specialty Start Date End Date Kevin Early NPYunior: [phone] [address] [place] [facility] [place] [id number] PCP - General Family Medicine 02/28/24
--- OUTSIDE RECORDS SUMMARY | 2025-06-02 07:19 | XMS_ITS | Clinical Summary ---
Author Organization [facility] Address [address] [place] [address] Phone Care Team Providers Care Ediphone Operator Name Role Phone Kevin Early NP Primary Care Provider [phone] Allergies Active Allergy Reactions Criticality Noted Date [...] [facility] Hematology Oncology [address] [place] [id number] Kelly Siddiqi MD [address] [place] [address] Health Maintenance Due Date Last Done Comments [...] patient's age to complete this topic Insurance [facility] MEDICARE Member Subscriber Plan / Payer (Ef fective 2021-Present) Name:DORINA HOLGUIN Relation to Subscriber:Self Name:Dorina Holguin Payer ID:[id number] Group ID:[id number] Type:Not on file Address: [address] [place] [address] Care Teams Ediphone Operator Relationship Specialty Start Date End Date Kevin Early NP [address] [facility] [place], [place] PCP - General 06/25/24
--- OUTSIDE RECORDS SUMMARY | 2025-06-02 07:19 | XMS_ITS | Encounter Summary ---
Author Organization [facility] Address [address] [place] [address] Care Team Providers Care Pot Room Supervisor Name Role Phone Kevin Early Primary Care Provider [phone] Encounter Details Date Type Department Care Team Description 04/02/2024 Social Work [facility] Oncology Services [address] [place] [address] Vinny Young [facility] Social History Tobacco Use Types Packs/Day Years [...] on filedocumented in this encounter Care Teams Pot Room Supervisor Relationship Specialty Start Date End Date Kevin Early [address] [place] [address] PCP - General Family Medicine 02/28/24 documented as of this encounter
--- OUTSIDE RECORDS SUMMARY | 2025-06-02 07:19 | XMS_ITS ---
Author Organization [facility] Address [address] [place] [address] Care Team Providers Care Slitter Scorer Cut Off Operator Name Role Phone Kevin Early Primary Care Provider Active Problems Problem Noted [...] treatments are documented for this patient in [facility]. Treatments may have been administered in another system.
--- OUTSIDE RECORDS SUMMARY | 2025-06-02 07:19 | XMS_ITS | Clinical Summary ---
Author Organization [facility] Address [address] [place] [address] Phone Care Team Providers Care Supervisor Body Assembly Name Role Phone Vannessa Rivas MD Primary Care Provider [phone] Allergies No known active allergies Medications No [...] 03/12/2010 ZOSTER VACCINES (1 of 2) 2022 INFLUENZA VACCINE (#1) 2025 3, 08/11/2011 COVID-19 VACCINE (3 - 2024-2 6 season) 2025 05/08/2021, 04/10/2021 HEPATITIS A VACCINES Aged Out [...] topic Medical Devices Not on file Insurance [facility] ONE CARE MEDICARE REPLACEMENT MEDICARE PART A & B [facility] CARE MEDICARE REPLACEMENT MEDICARE PART A & B [facility] CARE MEDICARE REPLACEMENT MEDICARE PART A & B ONE CARE MEDICARE REPLACEMENT MEDICARE PART A & B [facility] ONE CARE MEDICARE REPLACEMENT MEDICARE PART A & B [facility] CARE MEDICARE REPLACEMENT MEDICARE PART A & B ONE CARE MEDICARE REPLACEMENT MEDICARE PART A & B CARE MEDICARE REPLACEMENT MEDICARE PART A & B [facility] ONE CARE MEDICARE REPLACEMENT [place] KNOTT [facility] MEDICARE PART A & B Care Teams Supervisor Body Assembly Relationship Specialty Start Date End Date Vannessa Rivas MD [address] [facility] [place] [address] PCP - General Internal Medicine 01/10/19 Additional Source Comments The information contained in this document represents components of the legal health record. It is not the complete legal health record.[facility]
== END 2025-06-02 07:18 | disposition home or self-care (01) ==
LOC: HO.MRI 07:17
PROVIDERS: PCP Nurse Practitioner Family; Visit Provider Nurse Practitioner Family
DX: M50.30 Other cervical disc degeneration, unspecified cervical region (principal)
CPT/HCPCS: 72141

== ENCOUNTER 2025-06-03 08:07 | Outpatient (AMB) | payer OTHER, SELFPAY ==
--- OUTSIDE RECORDS SUMMARY | 2024-06-25 08:05 | XMS_ITS | Encounter Summary ---
Author Organization [facility] Address [address] [place] [address] Care Team Providers Care Property Controller Name Role Phone Kevin Early NP Primary [...] Care Team (Late st Contact Info) Description 07/28/2025 8:30 AM EST Office Visit [facility] Hematology Oncology [address] [place] [address] Kelly Siddiqi MD [address] [place] [address] documented as of this encounter Visit Diagnoses Not on filedocumented in this encounter Care Teams Property Controller Relationship Specialty Start Date End Date Kevin Early NP [address] [place], [place] PCP - General 06/25/24 documented as of this encounter
--- OUTSIDE RECORDS SUMMARY | 2024-06-27 09:28 | XMS_ITS | Encounter Summary ---
Author Organization [facility] Address [address] [place] [address] Care Team Providers Care Stake Driver Name Role Phone Kevin Early NP Primary [...] Visit [facility] Hematology Oncology [address] [place] [address] Kelly Siddiqi MD [address] [place] [address] documented as of this encounter Visit Diagnoses Not on filedocumented in this encounter Care Teams Stake Driver Relationship Specialty Start Date End Date Kevin Early NP [address] [place], [place] PCP - General 06/25/24 documented as of this encounter
--- OUTSIDE RECORDS SUMMARY | 2024-06-28 08:27 | XMS_ITS | Encounter Summary ---
Author Organization [facility] Address [address] [place] [address] Care Team Providers Care Kettle Cleaner Name Role Phone Kevin Early NP Primary [facility] [address] [place] [address] Kelly Siddiqi MD [address] [place] [address] documented as of this encounter Visit Diagnoses Not on filedocumented in this encounter Care Teams Kettle Cleaner Relationship Specialty Start Date End Date Kevin Early NP [address] [place], [place] PCP - General 06/25/24 documented as of this encounter
--- OUTSIDE RECORDS SUMMARY | 2024-07-01 08:08 | XMS_ITS | Encounter Summary ---
Author Organization [facility] Address [address] [place] [address] Care Team Providers Care Material Distributor Name Role Phone Kevin Early NP Primary [...] Description 07/28/2025 8:30 AM EST Office Visit [facility] Hematology Oncology [address] [place] [address] Kelly Siddiqi MD [address] [place] [address] documented as of this encounter Visit Diagnoses Not on filedocumented in this encounter Care Teams Material Distributor Relationship Specialty Start Date End Date Kevin Early NP [address] [place], [place] PCP - General 06/25/24 documented as of this encounter
--- OUTSIDE RECORDS SUMMARY | 2024-07-08 09:47 | XMS_ITS | Encounter Summary ---
Author Organization [facility] Address [address] [place] [address] Care Team Providers Care Manager Intensive Care Unit Name Role Phone Kevin Early NP Primary [...] Visit [facility] Hematology Oncology [address] [place] [address] Kelly Siddiqi MD [address] [place] [address] documented as of this encounter Visit Diagnoses Not on filedocumented in this encounter Care Teams Manager Intensive Care Unit Relationship Specialty Start Date End Date Kevin Early NP [address] [place], [place] PCP - General 06/25/24 documented as of this encounter
--- OUTSIDE RECORDS SUMMARY | 2024-07-15 07:52 | XMS_ITS | Encounter Summary ---
Author Organization [facility] Address [address] [place] [address] Care Team Providers Care Community Marketing Manager Name Role Phone Kevin Early NP [...] 07/28/2025 8:30 AM EST Office Visit [facility] Hematology Oncology [address] [place] [address] Kelly Siddiqi MD [address] [place] [address] documented as of this encounter Visit Diagnoses Not on filedocumented in this encounter Care Teams Community Marketing Manager Relationship Specialty Start Date End Date Kevin Early NP [address] [place], [place] PCP - General 06/25/24 documented as of this encounter
--- OUTSIDE RECORDS SUMMARY | 2025-01-31 05:00 | XMS_ITS ---
Author Organization [facility] Address [address] [place] [address] Care Team Providers Care Wafer Fabrication Technician Name Role Phone Nneka PETTIT, Kevin Primary Care Provider Unav ailable Shanthi Donovan Unavailable [phone] Evelyn MELENDEZ, Vannessa Unavailable Unavailable Encounters Encounter Location Date Provider Diagnosis [address] [address] 01/31/2025 Shanthi Donovan Plan Of Treatment Next Appt Details Provider Name:Shanthi peña, 07/23/2025 09:00:00 AM, [address] [place] [address], [address], Progress Notes * MAXIME KymJonatanOB:1970 (55 yo F)Acc No.[id number]:01/31/2025 Progress Notes Patient: Dorina PANDYA Provider: Stefany Donovan DPM :1970 A ge:54 Y S ex:Female Date:01/31/2025 Address:[address] [place] [address] kev [facility] Pcp:WILVER Ardon Subjective: * Chief Complaints: * [...] 01/31/2025 Generated for Marc stapleton/Sabra/Alejo on: 0 06/03/2025 08:52 AM EDT
--- NOTE | 2025-06-03 08:15 | MHC.OFFVIS ---
Vital Signs 06/03/25 08:21 Height 5 ft 8 in Weight 220 lb BMI 33.4 BP 130/68 Blood Pressure Location Rt brachial Position Sitting Pulse 92 Pulse Source Pulse Oximeter Pulse Oximetry (%) 99 Oxygen Delivery Method Room Air Intake Visit Reasons: 4m fecal abnomality Intake Note: Est pt for mgmt of constipation. CC: Pt denies any GI sx at this time. Pt would like to discuss their next colo. Last in 11/2024 w/ Dr. Valentino. Set for 1-2 year recall. Filter Washer Required: No Accompanied by: Self / Same As Patient Allergies citalopram (From CELEXA) Allergy (Unknown, Verified 06/06/25 09:22) PANIC ATTACK moxifloxacin (From AVELOX) Allergy (Unknown, Verified 06/06/25 09:22) RASH Sulfa (Sulfonamide Antibiotics) Allergy (Unknown, Verified 06/06/25 09:22) rash/joint pain clarithromycin (From BIAXIN) Adverse Reaction (Unknown, Verified 06/06/25 09:22) Diarrhea HPI HPI 4m fecal abnomality: Details: LAST VISIT: Colon cancer S/P right colectomy Postprandial abdominal bloating Postprandial diarrhea Plan Patient will increase fiber in her diet. Recommended Benefiber with pre and probiotics. Script for simethicone sent. Discussed with patient low FODMAP diet. List of food recommended as well as list of food to avoid given to patient.. Patient will follow-up in 6 months, sooner on as needed basis. She is agreeable to this plan and verbalizes understanding of instructions. She was given the opportunity to ask questions and all questions answered. ? Thank you for allowing me to participate in her care New simethicone (Gas Relief (simethicone)) 125 mg PO BID-TID PRN 180 tabs 3RF abdominal distention TODAY'S VISIT Patient is here today for follow-up. Patient reports that she has been doing well for the most part, however she continues to have abdominal distention postprandially. Occasional constipation. Patient is trying to manage her bowels by drinking water eating fiber. Patient is taking simethicone for bloating. She will be due to go for colonoscopy in November of next year. Patient denies melena, hematochezia, unintentional weight loss or ribbon like stools. Patient denies dyspepsia, dysphagia or odynophagia. Patient denies any issues with anesthesia. History of sleep apnea. Patient is not taking any anticoagulation medication. [facility] Medical History (Updated 06/14/25 @ 20:53 by Karla Zhang [facility]-) Primary adenocarcinoma of ascending colon (~2023) Colon polyps PAC (premature atrial contraction) Hyperlipidemia JORDAN (obstructive sleep apnea) Nicotine dependence, cigarettes, uncomplicated Vertigo Normal Pap smear Chronic pain Fibromyalgia Dry eye syndrome Plantar fasciitis, left Primary osteoarthritis of left knee Shoulder pain, bilateral Injury of left brachial plexus Degeneration of lumbar intervertebral disc Cervical radiculopathy due to degenerative joint disease of spine Arthritis Bilateral ankle pain Hip pain, bilateral Neck pain Surgical History (Updated 06/03/25 @ 08:[address] [facility]) History of endometrial ablation History of colonoscopy History of partial colectomy (~2023) History of laparoscopic cholecystectomy Family History Father Bladder cancer History of heart attack Mother No problems noted. Brother Substance use disorder Brother Substance use disorder Social History (Updated 06/13/25 @ 09:53 by Ksenia Sims PA-C) Housing: House Alcohol intake: never Patient Tobacco Use Status: Current everyday Tobacco user Tobacco use type: Cigarette Cigarette Packs Per Day: 0 Cigarettes Per Day: 10 Years Smoked: (onset 18yo, 3/4ppd x 37yrs, 27pyh) e-Cigarette/Vaping Use: Never Used service: No Current occupational status: disabled Current occupational exposures/hazards: No Cognitive needs: No Hearing needs: No Vision needs: No Review of Systems Const Denies weight gain and Denies weight loss ENT Reports no additional complaints, Denies dysphagia and Denies odynophagia Card Reports no additional complaints Resp Reports no additional complaints GI Denies abdominal pain, Denies belching, Denies melena, Denies bloating, Denies change in bowel habits, Reports constipation (Occasional), Denies dysphagia, Denies excessive flatus, Denies dyspepsia, Denies heartburn, Denies diarrhea, Reports loose stools, Denies nausea, Denies odynophagia and Denies vomiting Reports no additional complaints Musc Reports no additional complaints Neuro Reports no additional complaints Psych Reports no additional complaints Endo Reports no additional complaints Physical Exam Vital Signs: Last Vital Signs Pulse 92 06/03/25 08:21 BP 130/68 06/03/25 08:21 Pulse Ox 99 06/03/25 08:21 Oxygen Delivery Method Room Air 06/03/25 08:21 BMI result Body Mass Index 33.4 Const General: healthy appearing and no acute distress Nutritional Appearance: obese Orientation/consciousness: patient oriented x3 Resp Effort & Inspection: normal respiratory effort, able to speak in complete sentences, no tracheal deviation and symmetric chest movement Auscultation: clear to auscultation bilaterally Cardio Rate: regular rate GI Inspection: Yes normal to inspection, No distended and Yes obesity Palpation (GI): Soft to palpation, not firm, nontender and No hepatosplenomegaly present Auscultation: normal bowel sounds Rectal Exam - Female: External hemorrhoid(s) present General: Yes no CVA tenderness Back/Spine/Pelvis Back: no CVA tenderness Skin General skin exam: elasticity normal, turgor normal and dry skin Neuro General: patient oriented x3 Psych Appearance: grossly normal Mental Status: mental status grossly normal Assessment & Plan Assessment & Plan (1) Cecum mass: Code(s): K63.89 - Other specified diseases of intestine Category: Medical (2) History of partial colectomy: Onset Date: ~2023 Comment: (ascending colon adenocarcinoma - 1 of 24LN pos - Dr. Roque, 02/14/24) Code(s): Z90.49 - Acquired absence of other specified parts of digestive tract Category: Surgical (3) Colon polyps: Comment: (SSP/HP on 2024 scope) Code(s): K63.5 - Polyp of colon Category: Medical Qualifiers: Colon polyp type: unspecified (4) Screen for colon cancer: Code(s): Z12.11 - Encounter for screening for malignant neoplasm of colon (5) IBS (irritable bowel syndrome): Code(s): K58.9 - Irritable bowel syndrome, unspecified Qualifiers: Irritable bowel syndrome type: with both diarrhea and constipation Qualified Code(s): K58.2 - Mixed irritable bowel syndrome Plan Patient will be sent for another colonoscopy in November of next year. What to expect before during and after procedure discussed with patient. Stressed the importance of good bowel prep and clear liquid diet. Patient will call our office if she will have any GI concerning symptoms. Message sent to surgical schedulers to book patient for colonoscopy in November. High-fiber diet and fiber supplements with pre and probiotic recommended. Stop fiber 1 week before procedure. She is agreeable to current plan of care and verbalizes understanding of instructions. She was given the opportunity to ask questions and all questions answered. Thank you for allowing me to participate in her care. Medications: New bisacodyl (Dulcolax (bisacodyl)) take 4 tabs at noon the day before your colonoscopy 20 mg (4 x 5 mg) PO ONCE 4 tabs 0RF constipation 1 day Z12.11 - Encounter for screening for malignant neoplasm of colon polyethylene glycol 3350 (Miralax) As directed by gastro[facility]ology department at [facility] 238 grams PO ONCE 238 grams 0RF Z12.11 - Encounter for screening for malignant neoplasm of colon Coding Level of Care Code Est Pt Level 3 (51770) Diagnoses Cecum mass K63.89 History of partial colectomy Z90.49 Colon polyps K63.5 Colon polyp type: unspecified Screen for colon cancer Z12.11 Irritable bowel syndrome with both constipation and diarrhea K58.2 Irritable bowel syndrome type: with both diarrhea and constipation Time Spent (min) 30 Comment 20 minutes spent with patient and additional 10 minutes spent reviewing her records
[2025-06-03 08:21] VITALS: BP 130/68; PULSE 92; O2SAT 99; BMI 33.4
--- OUTSIDE RECORDS SUMMARY | 2025-06-03 08:53 | XMS_ITS | Clinical Summary ---
Author Organization [facility] Address [address] [place] [address] Care Team Providers Care Air Force Pilot Name Role Phone Kevin Early Primary Care Provider [phone] Allergies Active Allergy Reactions Criticality Noted Date [...] age to complete this topic Care Teams Air [employer] Pilot Relationship Specialty Start Date End Date Kevin Early NPYunior: [phone] [address] [place] [facility] [address] PCP - General Family Medicine 02/28/24
--- OUTSIDE RECORDS SUMMARY | 2025-06-03 08:53 | XMS_ITS | Patient Health Record ---
Author Organization [facility] Address [address] [facility] [place] [address] Care Team Providers Care Base Brander Name Role Phone Kevin Chadwick Primary Care Provider Unav ailable Yaronmariana Shanthi Unavailable [phone] Vannessa Rivas MD Unavailable Unavailable Allergies Allergen [...] Notes Problem Plantar fasciitis of left foot (2328552026755994 1) Plantar fasciitis of left foot (M72.2) Active confirmed Problem Interstitial myositis (99548153) 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) Active confirmed Problem Localized, primary osteoarthritis of the ankle and/or foot (039896858) 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) Active confirmed Problem Localized, primary osteoarthritis of the ankle and/or foot (223680476) 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.072) Active confirmed Problem Plantar fascial fibromatosis (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) Plantar fasciitis, bilateral (M72.2) Active confirmed Vital Signs Heart Rate 81 /min 11/29/2024 Blood pressure diastolic 75 mm Hg 04/21/2025 Height 5ft 8in in 04/21/2025 Blood pressure systolic 125 mm Hg 04/21/2025 Weight 215 lbs 04/21/2025 BMI 32.69 kg/m2 04/21/2025 Encounters Encounter Location Date Provider Diagnosis [facility] [place] [address] [place] [address] 08/16/2024 Shanthi Perica Arthralgia of right ankle M25.571 ; Osteoarthritis of right ankle or foot M19.071 ; Arthralgia of left ankle M25.572 ; Osteoarthritis of left ankle or foot M19.072 ; Pain in right toe(s) M79.674 and Onychomycosis B35.[address] [address] 10/04/2024 Shanthi Perica Osteoarthritis of right ankle or foot M19.071 ; Plantar fasciitis, bilateral M72.2 ; Arthralgia of right ankle M25.571 ; Arthralgia of left ankle M25.572 ; Osteoarthritis of left ankle or foot M19.072 ; Onychomycosis B35.1 ; Calcaneal spur, left foot M77.32 ; Interstitial myositis of left foot M60.172 and Bursitis of left foot M77.[address] [address] 11/29/2024 Shanthi Perica Onychomycosis B35.1 ; Plantar fasciitis, bilateral M72.2 ; Calcaneal spur, left foot M77.32 ; Interstitial myositis of left foot M60.172 and Bursitis of left foot M77.[address] [address] 03/04/2025 Shanthi Perica Onychomycosis B35.1 ; Plantar fasciitis, bilateral M72.2 ; Calcaneal spur, left foot M77.32 ; Interstitial myositis of left foot M60.172 ; Bursitis of left foot M77.52 ; Pain in right foot M79.671 ; Pain in right ankle and joints of right foot M25.571 ; Bursitis of intermetatarsal bursa of right foot M77.51 and Metatarsalgia, right foot M77.[address] [address] 04/21/2025 Shanthi Perica Onychomycosis B35.1 ; Plantar fasciitis, bilateral M72.2 ; Calcaneal spur, left foot M77.32 ; Pain in right ankle and joints of right foot M25.571 and Pain of joint of left ankle and foot M25.572 [facility] [address] [address] 08/12/2024 Shanthi Perica [facility] [address] [address] 08/16/2024 Shanthi Perica [facility] [address] [address] 08/16/2024 Shanthi Perica [facility] [address] [address] 10/23/2024 Shanthi Perica [facility] [address] [address] 11/14/2024 Shanthi Perica [facility] [address] [address] 01/17/2025 Shanthi Perica [facility] [address] [address] 03/05/2025 Shanthi Perica [facility] [address] [address] 04/21/2025 Shanthi Perica [facility] [place] [address] [place] [address] 05/27/2025 Shanthi [facility] Encounter Date Diagnosis (ICD Code) Assessment [...] Details Provider Name:Shanthi peña, 07/23/2025 09:00:00 AM, [address] [place] [address], [phone], Insurance Providers Payer Name Payer Address Payer Phone Subscriber Number Group Number Insured Name Patient Relationship to Insured Coverage Start Date Coverage End Date [facility] [employer] Claims Box [facility] [place] [id number] Dorina Holguin Self - patient is the [...]
--- OUTSIDE RECORDS SUMMARY | 2025-06-03 08:53 | XMS_ITS ---
Author Organization [facility] Address [address] [place] [address] Care Team Providers Care Lidar Analyst Name Role Phone Kevin Early Primary Care [...] treatments are documented for this patient in [facility]. Treatments may have been administered in another system.
--- OUTSIDE RECORDS SUMMARY | 2025-06-03 08:53 | XMS_ITS ---
Author Organization [facility] Address [address] [place] [address] Phone Care Team Providers Care Photographer Assistant Name Role Phone Kevin Early NP Primary Care Provider Active Problems Problem Noted Date Diagnosed Date Malignant neoplasm of ascend ing colon ([facility] V24, [facility] V28) 08/26/2024 Current Oncology Plans CENTRAL VENOUS ACCESS ( CVA ) MAINTENANCE / BLOOD DRAW / CATHETER CLEARANCE / DRESSING CHANGE / FLUSH* Plan Start Date:08/26/2024 Plan Provider:Kelly Siddiqi MD Linked Problems Malignant neoplasm of ascend ing colon ([facility] V24, [facility] V28) Treatment Medications No medications scheduled. Past Plans No past plan information found. Radiation Treatments * No radiation treatments are documented for this patient in [facility]. Treatments may have been administered in another system. Lifetime Dose Tracking * Chemical Lifetime Dose Automatic Entry Manual Entr y Fluoro Time 1 minutes 1 minutes 0 minutes Air Kerma 0.2 mGy 0.2 mGy 0 mGy
--- OUTSIDE RECORDS SUMMARY | 2025-06-03 08:53 | XMS_ITS | Clinical Summary ---
Author Organization [facility] Address [address] [place] [address] Phone Care Team Providers Care Batch Room Technician Name Role Phone Vannessa Rivas MD Primary Care Provider [phone] Allergies No known active allergies Medications No [...] topic Medical Devices Not on file Insurance [facility] ONE CARE MEDICARE REPLACEMENT MEDICARE PART A & B [facility] CARE MEDICARE REPLACEMENT MEDICARE PART A & B [facility] CARE MEDICARE REPLACEMENT MEDICARE PART A & B ONE CARE MEDICARE REPLACEMENT MEDICARE PART A & B [facility] ONE CARE MEDICARE REPLACEMENT MEDICARE PART A & B [facility] CARE MEDICARE REPLACEMENT MEDICARE PART A & B ONE CARE MEDICARE REPLACEMENT MEDICARE PART A & B CARE MEDICARE REPLACEMENT MEDICARE PART A & B [facility] ONE CARE MEDICARE REPLACEMENT [place]IN[place] KNOTT [facility] MEDICARE PART A & B Care Teams Batch Room Technician Relationship Specialty Start Date End Date Vannessa Rivas MD [address] [facility] [address] PCP - General Internal Medicine 01/10/19 Additional Source Comments The information contained in this document represents components of the legal health record. It is not the complete legal health record.[facility]
--- OUTSIDE RECORDS SUMMARY | 2025-06-03 08:53 | XMS_ITS | Encounter Summary ---
Author Organization [facility] Address [address] [place] [address] Care Team Providers Care Juke Box Mechanic Name Role Phone Kevin Early Primary Care Provider [phone] Encounter Details Date Type Department Care Team Description 04/02/2024 Social Work [facility] Oncology Services [address] [place] [address] Vinny Young [facility] Social History Tobacco Use Types Packs/Day Years [...] on filedocumented in this encounter Care Teams Juke Box Mechanic Relationship Specialty Start Date End Date Kevin Early [address] [place] [address] PCP - General Family Medicine 02/28/24 documented as of this encounter
--- OUTSIDE RECORDS SUMMARY | 2025-06-03 08:53 | XMS_ITS | Clinical Summary ---
Author Organization [facility] Address [address] [place] [address] Phone Care Team Providers Care Flight Operation Coordinator Name Role Phone Kevin Early NP Primary [...] 07/28/2025 8:30 AM EST Office Visit [facility] Hematology Oncology [address] [place] [id number] Kelly Siddiqi MD [address] [place] [address] Health Maintenance Due Date Last Done Comments [...] patient's age to complete this topic Insurance [facility] MEDICARE Member Subscriber Plan / Payer (Ef fective 2021-Present) Name:DORINA HOLGUIN Relation to Subscriber:Self Name:Dorina Holguin Payer ID:[id number] Group ID:[id number] Type:Not on file Address: [address] [place] [address] Care Teams Flight Operation Coordinator Relationship Specialty Start Date End Date Kevin Early NP [address] [place], [place] PCP - General 06/25/24
== END 2025-06-03 08:54 | disposition home or self-care (01) ==
LOC: HO.HGI 08:08
PROVIDERS: PCP Nurse Practitioner Family; Visit Provider Nurse Practitioner Family
DX: K63.89 Other specified diseases of intestine (principal); Z90.49 Acquired absence of other specified parts of digestive tract; K58.2 Mixed irritable bowel syndrome; K63.5 Polyp of colon
CPT/HCPCS: 99213

== ENCOUNTER → 2025-06-03 08:07 | Outpatient (BNVA) | payer OTHER, SELFPAY | PROVIDERS: PCP Nurse Practitioner Family; Visit Provider Nurse Practitioner Family | DX: K63.89 Other specified diseases of intestine (principal); K63.5 Polyp of colon; Z12.11 Encounter for screening for malignant neoplasm of colon; K58.2 Mixed irritable bowel syndrome; K58.9 Irritable bowel syndrome, unspecified; Z90.49 Acquired absence of other specified parts of digestive tract; Z87.891 Personal history of nicotine dependence | CPT/HCPCS: 99212 ==

== ENCOUNTER 2025-06-06 09:16 | Outpatient (AMB) | payer OTHER, SELFPAY ==
--- OUTSIDE RECORDS SUMMARY | 2024-06-25 08:05 | XMS_ITS | Encounter Summary ---
Author Organization [facility] Address [address] [place] [address] Care Team Providers Care Inspector Wire Rope Name Role Phone Kevin Early NP Primary Care Provider [phone] Encounter Details Date Type Department Care Team [...] Description 07/28/2025 8:30 AM EST Office Visit [facility] Hematology Oncology [address] [place] [address] Kelly Siddiqi MD [address] [place] [address] documented as of this encounter Visit Diagnoses Not on filedocumented in this encounter Care Teams Inspector Wire Rope Relationship Specialty Start Date End Date Kevin Early NP [address] [place], [place] PCP - General 06/25/24 documented as of this encounter
--- OUTSIDE RECORDS SUMMARY | 2024-06-27 09:28 | XMS_ITS | Encounter Summary ---
Author Organization [facility] Address [address] [place] [address] Care Team Providers Care Software Licensing Specialist Name Role Phone Kevin Early NP [...] [facility] Hematology Oncology [address] [place] [address] Kelly Siddiqi MD [address] [place] [address] documented as of this encounter Visit Diagnoses Not on filedocumented in this encounter Care Teams Software Licensing Specialist Relationship Specialty Start Date End Date Kevin Early NP [address] [place], [place] PCP - General 06/25/24 documented as of this encounter
--- OUTSIDE RECORDS SUMMARY | 2024-06-28 08:27 | XMS_ITS | Encounter Summary ---
Author Organization [facility] Address [address] [place] [address] Care Team Providers Care Seed Service Advisor Name Role Phone Kevin Early NP Primary Care Provider [phone] Encounter Details Date Type Department Care Team [...] Description 07/28/2025 8:30 AM EST Office Visit [facility] Hematology Oncology [address] [place] [address] Kelly Siddiqi MD [address] [place] [address] documented as of this encounter Visit Diagnoses Not on filedocumented in this encounter Care Teams Seed Service Advisor Relationship Specialty Start Date End Date Kevin Early NP [address] [place], [place] PCP - General 06/25/24 documented as of this encounter
--- OUTSIDE RECORDS SUMMARY | 2024-07-01 08:08 | XMS_ITS | Encounter Summary ---
Author Organization [facility] Address [address] [place] [address] Care Team Providers Care Family Practice Physician Assistant Name Role Phone Kevin Early NP Primary [...] Description 07/28/2025 8:30 AM EST Office Visit [facility] Hematology Oncology [address] [place] [address] Kelly Siddiqi MD [address] [place] [address] documented as of this encounter Visit Diagnoses Not on filedocumented in this encounter Care Teams Family Practice Physician Assistant Relationship Specialty Start Date End Date Kevin Early NP [address] [place], [place] PCP - General 06/25/24 documented as of this encounter
--- OUTSIDE RECORDS SUMMARY | 2024-07-08 09:47 | XMS_ITS | Encounter Summary ---
Author Organization [facility] Address [address] [place] [address] Care Team Providers Care Film Sound Engineer Name Role Phone Kevin Early NP [...] Office Visit [facility] Hematology Oncology [address] [place] [address] Kelly Siddiqi MD [address] [place] [address] documented as of this encounter Visit Diagnoses Not on filedocumented in this encounter Care Teams Film Sound Engineer Relationship Specialty Start Date End Date Kevin Early NP [address] [place], [place] PCP - General 06/25/24 documented as of this encounter
--- OUTSIDE RECORDS SUMMARY | 2024-07-15 07:52 | XMS_ITS | Encounter Summary ---
Author Organization [facility] Address [address] [place] [address] Care Team Providers Care Plumbing Engineer Name Role Phone Kevin Early NP Primary Care Provider [phone] Encounter Details Date Type Department Care Team [...] Description 07/28/2025 8:30 AM EST Office Visit [facility] Hematology Oncology [address] [place] [address] Kelly Siddiqi MD [address] [place] [address] documented as of this encounter Visit Diagnoses Not on filedocumented in this encounter Care Teams Plumbing Engineer Relationship Specialty Start Date End Date Kevin Early NP [address] [place], [place] PCP - General 06/25/24 documented as of this encounter
--- OUTSIDE RECORDS SUMMARY | 2025-01-31 05:00 | XMS_ITS ---
Author Organization [facility] Address [address] [place] [address] Care Team Providers Care Licensed Club Manager Name Role Phone Nneka PETTIT, Kevin Primary Care Provider Unav ailable Shanthi Donovan Unavailable [phone] Evelyn MELENDEZ, Vannessa Unavailable Unavailable Encounters Encounter Location Date Provider Diagnosis [address] [address] 01/31/2025 Shanthi Donovan Plan Of Treatment Next Appt Details Provider Name:Shanthi peña, 07/23/2025 09:00:00 AM, [address] [place] [address], [address], Progress Notes * MAXIME KymJonatanOB:1970 (55 yo F)Acc No.[id number]:01/31/2025 Progress Notes Patient: Dorina PANDYA Provider: Stefany Donovan DPM :1970 A ge:54 Y S ex:Female Date:01/31/2025 Address:[address] [place] [address] kev [facility] Pcp:WILVER Ardon Subjective: * Chief Complaints: * [...] DPM Date: 0 01/31/2025 Generated for Marc stapleton/Sabra/Alejo on: 0 06/06/2025 10:03 AM EDT
[2025-06-06 09:21] VITALS: BMI 33.4
--- NOTE | 2025-06-06 09:21 | HO.SPINEOV ---
Vital Signs 06/06/25 09:21 Height 5 ft 8 in Weight 220 lb BMI 33.4 Intake Visit Reasons: Neck & left side pain Intake Note: Ms. Holguin is here today c/o Bilateral neck pain. Track Broom Operator Required: No Allergies citalopram (From CELEXA) Allergy (Unknown, Verified 06/06/25 09:22) PANIC ATTACK moxifloxacin (From AVELOX) Allergy (Unknown, Verified 06/06/25 09:22) RASH Sulfa (Sulfonamide Antibiotics) Allergy (Unknown, Verified 06/06/25 09:22) rash/joint pain clarithromycin (From BIAXIN) Adverse Reaction (Unknown, Verified 06/06/25 09:22) Diarrhea Physical Exam Vital Signs: BMI result Body Mass Index 33.4 Assessment & Plan Assessment & Plan (1) Ulnar nerve entrapment: Code(s): G56.20 - Lesion of ulnar nerve, unspecified upper limb Category: Medical (2) Cervical radiculopathy: Code(s): M54.12 - Radiculopathy, cervical region Category: Medical Plan Dear Kevin, Thank you for referring Mrs Holguin to our office today. She is a 55-year-old female who has had an issue with her left arm since 2019. She was followed by a neurologist at [facility] and has subsequently been managed by a neurologist in [place], for what she describes as EMG showing an ulnar nerve issue with an overlapping C8 radiculopathy. At some point she saw a neurosurgeon who was going to fuse 4 levels in her neck and that did not sound all that appetite seeing. She also saw a hand surgeon and was put in an uncomfortable brace and told that surgery was too risky and they did not want to attempt it. All these things were at either [facility] or [facility] she believes. The story started when she awoke from a nap in 2019 and had a severe left arm pain. Since that time it has been on and off but generally he has been persistent. There is a component of neck pain as well and it will go into her subscapular area radiate down into her elbow and then goes into her forearm and her 4th and 5th digits. At times the intensity of the elbow pain can be an almost incapacitating and that will radiate into the 4th and 5th digits. She experienced his hand weakness and fasciculations in her left hand with intermittent cramping and spontaneous contractions. She is frustrated because she has not been able to get an exact diagnosis and no one has been able to help her. She is here to be evaluated for this symptom. Currently she is not in the process of any treatment for cervical degenerative disc disease like physical therapy or cortisone injections, but she does get acupuncture and cupping procedures done regularly. She has done physical therapy in the past for her neck. She does take Lyrica for the pain. Additionally she takes Tylenol and Motrin. PMH: She is a history of colon cancer diagnosed last year and was treated with that with colectomy and has been stable. She has recently told she had some kind of autoimmune disease that has been resistant to diagnosis. It manifests itself as skin lesions and significant sensitivity to sunlight. History of asthma, high cholesterol, anxiety, cholecystectomy. No cardiopulmonary, liver kidney disease, issues with infections, bleeding or blood clots. Social hx: Smokes about half pack a day, no marijuana, recreational drugs or alcohol Medications: Singulair, Zetia, Symbicort, Ventolin inhaler and Lyrica Allergies: Please see the [employer] list Physical exam: Positive atrophy in the left hand, positive Tinel's at the left elbow causing pain into the 4th and 5th digits an electrical sensations. Strength and reflexes normal in the upper extremities. Imaging review: Cervical MRI done at [facility] showing multilevel degenerative disc disease C5-6, C6-7 7 and at C7-T1 there is a left-sided foraminal disc bulge causing moderate stenosis. There is a report from an ultrasound done at [facility], included in a neurology visit report showing ulnar nerve entrapment. There is an EMG report included in the neurology visit from 2021 showing an active left ulnar neuropathy, and left C8 radiculopathy Impression: 55-year-old female presents with a left upper extremity issue that has been going on now for 6 years. It starts in her neck and goes down into her elbow and into her hand with pain into her 4th and 5th digits with tingling and she has some strength loss in her hand with atrophy. The pain is intense and almost incapacitating at times. Her EMG is a shown an overlapping problem with C8 radiculopathy and left ulnar nerve entrapment. She has positive Tinel sign in the left elbow. Dr. Linda and I met with the patient and believe the most straightforward way to start to deal with some of these issues are to release the ulnar nerve in the left elbow. Sometimes that will give patient is just enough relief that it can make things much more manageable, and the neck and more proximal arm symptoms can improve as well. If the pain in the upper arm, subscapular area neck do not improve, then we could do a left C7-T1 foraminotomy to decompress the left C8 nerve. We would only do this if the pain in her left arm continued even after the ulnar nerve release. We have tentatively given her a date for July 17. She will stop her Motrin 1 week before surgery. She is otherwise healthy and in reasonably good shape. All pertinent risks and benefits as well as recovery of the procedure were discussed. Thank you for allowing us to care for your patient. The total time spent with this visit with this patient was 45 minutes reviewing history, physical exam, cervical imaging review, and implementation of treatment plan or further diagnostic testing Jose Linda MD,PhD [facility] Coding Level of Care Code New Pt Level 4 (47135) Diagnoses Ulnar nerve entrapment G56.20 Cervical radiculopathy M54.12
--- OUTSIDE RECORDS SUMMARY | 2025-06-06 10:16 | XMS_ITS | Clinical Summary ---
Author Organization [facility] Address [address] [place] [address] Care Team Providers Care Professor Of Religion Name Role Phone Kevin Early Primary Care Provider [phone] Allergies Active Allergy Reactions Criticality Noted Date [...] age to complete this topic Care Teams Professor Of Religion Relationship Specialty Start Date End Date Kevin Early NPYunior: [id number] [address] [facility] [place] [address] PCP - General Family Medicine 02/28/24
--- OUTSIDE RECORDS SUMMARY | 2025-06-06 10:16 | XMS_ITS | Encounter Summary ---
Author Organization [facility] Address [address] [place] [address] Care Team Providers Care Malt Liquors Sales Representative Name Role Phone Kevin Early Primary Care Provider [phone] Encounter Details Date Type Department Care Team Description 04/02/2024 Social Work [facility] Oncology Services [address] [place] [address] Vinny Young [facility] Social History Tobacco Use Types Packs/Day Years [...] on filedocumented in this encounter Care Teams Malt Liquors Sales Representative Relationship Specialty Start Date End Date Kevin Early [address] [place] [address] PCP - General Family Medicine 02/28/24 documented as of this encounter
--- OUTSIDE RECORDS SUMMARY | 2025-06-06 10:16 | XMS_ITS | Clinical Summary ---
Author Organization [facility] Address [address] [place] [address] Phone Care Team Providers Care Reverberatory Furnace Supervisor Name Role Phone Vannessa Rivas MD Primary Care Provider [phone] Allergies No known active allergies Medications No [...] topic Medical Devices Not on file Insurance [facility] ONE CARE MEDICARE REPLACEMENT MEDICARE PART A & B [facility] CARE MEDICARE REPLACEMENT MEDICARE PART A & B [facility] CARE MEDICARE REPLACEMENT MEDICARE PART A & B ONE CARE MEDICARE REPLACEMENT MEDICARE PART A & B [facility] ONE CARE MEDICARE REPLACEMENT MEDICARE PART A & B [facility] CARE MEDICARE REPLACEMENT MEDICARE PART A & B ONE CARE MEDICARE REPLACEMENT MEDICARE PART A & B CARE MEDICARE REPLACEMENT MEDICARE PART A & B [facility] ONE CARE MEDICARE REPLACEMENT [place] K[place] [facility] MEDICARE PART A & B Care Teams Reverberatory Furnace Supervisor Relationship Specialty Start Date End Date Vannessa Rivas MD [address] [facility] [place] [address] PCP - General Internal Medicine 01/10/19 Additional Source Comments The information contained in this document represents components of the legal health record. It is not the complete legal health record.[facility]
--- OUTSIDE RECORDS SUMMARY | 2025-06-06 10:16 | XMS_ITS ---
Author Organization [facility] Address [address] [place] [address] Care Team Providers Care Machine Operator Hay Stacker Name Role Phone Kevin Early Primary Care Provider [phone] Active Problems Problem Noted Date Diagnosed Date [...] treatments are documented for this patient in [facility]. Treatments may have been administered in another system.
--- OUTSIDE RECORDS SUMMARY | 2025-06-06 10:16 | XMS_ITS ---
Author Organization [facility] Address [address] [place] [address] Phone Care Team Providers Care Impregnating Machine Operator Name Role Phone Kevin Early NP Primary Care Provider Active Problems Problem Noted Date Diagnosed Date Malignant neoplasm of ascend ing colon ([facility] V24, [facility] V28) 08/26/2024 Current Oncology Plans CENTRAL VENOUS ACCESS ( CVA ) MAINTENANCE / BLOOD DRAW / CATHETER CLEARANCE / DRESSING CHANGE / FLUSH* Plan Start Date:08/26/2024 Plan Provider:Kelly Siddiqi MD Linked Problems Malignant neoplasm of ascend ing colon ([facility] V24, [facility] V28) Treatment Medications No medications scheduled. Past Plans No past plan information found. Radiation Treatments * No radiation treatments are documented for this patient in [facility]. Treatments may have been administered in another system. Lifetime Dose Tracking * Chemical Lifetime Dose Automatic Entry Manual Entr y Fluoro Time 1 minutes 1 minutes 0 minutes Air Kerma 0.2 mGy 0.2 mGy 0 mGy
--- OUTSIDE RECORDS SUMMARY | 2025-06-06 10:16 | XMS_ITS | Patient Health Record ---
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) Active confirmed Problem Localized, primary osteoarthritis of the ankle and/or foot (446216455) 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) Active confirmed Problem Localized, primary osteoarthritis of the ankle and/or foot (799350914) 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.072) Active confirmed Problem Plantar fascial fibromatosis (95699998) Plantar fasciitis, bilateral (M72.2) Active confirmed Vital Signs Heart Rate 81 /min 11/29/2024 Blood pressure diastolic 75 mm Hg 04/21/2025 Height 5ft 8in in 04/21/2025 Blood pressure systolic 125 mm Hg 04/21/2025 Weight 215 lbs 04/21/2025 BMI 32.69 kg/m2 04/21/2025 Encounters Encounter Location Date Provider Diagnosis [facility] [place] [address] [place] [address] 08/16/2024 Shanthi Perica Arthralgia of right ankle M25.571 ; Osteoarthritis of right ankle or foot M19.071 ; Arthralgia of left ankle M25.572 ; Osteoarthritis of left ankle or foot M19.072 ; Pain in right toe(s) M79.674 and Onychomycosis B35.[address] [address] 10/04/2024 Shanthi Perica Osteoarthritis of right ankle or foot M19.071 ; Plantar fasciitis, bilateral M72.2 ; Arthralgia of right ankle M25.571 ; Arthralgia of left ankle M25.572 ; Osteoarthritis of left ankle or foot M19.072 ; Onychomycosis B35.1 ; Calcaneal spur, left foot M77.32 ; Interstitial myositis of left foot M60.172 and Bursitis of left foot M77.[address] [address] 11/29/2024 Shanthi Perica Onychomycosis B35.1 ; Plantar fasciitis, bilateral M72.2 ; Calcaneal spur, left foot M77.32 ; Interstitial myositis of left foot M60.172 and Bursitis of left foot M77.[address] [address] 03/04/2025 Shanthi Perica Onychomycosis B35.1 ; Plantar fasciitis, bilateral M72.2 ; Calcaneal spur, left foot M77.32 ; Interstitial myositis of left foot M60.172 ; Bursitis of left foot M77.52 ; Pain in right foot M79.671 ; Pain in right ankle and joints of right foot M25.571 ; Bursitis of intermetatarsal bursa of right foot M77.51 and Metatarsalgia, right foot M77.[address] [address] 04/21/2025 Shanthi Perica Onychomycosis B35.1 ; Plantar fasciitis, bilateral M72.2 ; Calcaneal spur, left foot M77.32 ; Pain in right ankle and joints of right foot M25.571 and Pain of joint of left ankle and foot M25.[address] [facility] [address] [address] 08/12/2024 Shanthi Perica [facility] [address] [address] 08/16/2024 Shanthi Perica [facility] [address] [address] 08/16/2024 Shanthi Perica [facility] [address] [address] 10/23/2024 Shanthi Perica [facility] [address] [address] 11/14/2024 Shanthi Perica [facility] [address] [address] 01/17/2025 Shanthi Perica [facility] [address] [address] 03/05/2025 Shanthi Perica [facility] [address] [address] 04/21/2025 Shanthi Perica [facility] [place] [address] [place] [address] 05/27/2025 Shanthi [facility] Encounter Date Diagnosis (ICD Code) Assessment Notes [...] Details Provider Name:Shanthi peña, 07/23/2025 09:00:00 AM, [address] [place] [address], [phone], Insurance Providers Payer Name Payer Address Payer Phone Subscriber Number Group Number Insured Name Patient Relationship to Insured Coverage Start Date Coverage End Date [facility] CCA SCO Claims Box [facility] [place] [id number] Dorina Holguin Self - patient is the [...]
--- OUTSIDE RECORDS SUMMARY | 2025-06-06 10:16 | XMS_ITS | Clinical Summary ---
Author Organization [facility] Address [address] [place] [address] Phone Care Team Providers Care Space Systems Operations Craftsman Name Role Phone Kevin Early NP Primary [...] Visit [facility] Hematology Oncology [address] [place] [phone] Kelly Siddiqi MD [address] [place] [address] Health Maintenance Due Date Last Done Comments [...] patient's age to complete this topic Insurance [facility] MEDICARE Member Subscriber Plan / Payer (Ef fective 2021-Present) Name:DORINA HOLGUIN Relation to Subscriber:Self Name:Dorina Holguin Payer ID:[id number] Group ID:[id number] Type:Not on file Address: [address] [place] [address] Care Teams Space Systems Operations Craftsman Relationship Specialty Start Date End Date Kevin Early NP [address] [facility] [place], [place] PCP - General 06/25/24
== END 2025-06-06 10:36 | disposition home or self-care (01) ==
LOC: HO.HNS 09:17
PROVIDERS: PCP Nurse Practitioner Family; Referring Provider Nurse Practitioner Family; Visit Provider Physician Assistant
DX: M54.12 Radiculopathy, cervical region (principal)
CPT/HCPCS: 99204

== ENCOUNTER → 2025-06-06 09:16 | Outpatient (BNVA) | payer OTHER, SELFPAY | PROVIDERS: PCP Nurse Practitioner Family; Referring Provider Nurse Practitioner Family; Visit Provider Physician Assistant | DX: M54.12 Radiculopathy, cervical region (principal); M54.2 Cervicalgia | CPT/HCPCS: 99202 ==

== ENCOUNTER 2025-06-13 09:31 | Outpatient (AMB) | payer OTHER, SELFPAY ==
--- OUTSIDE RECORDS SUMMARY | 2024-06-25 08:05 | XMS_ITS | Encounter Summary ---
Author Organization [facility] Address [address] [place] [address] Care Team Providers Care Sheet Metal Engineer Name Role Phone Kevin Early NP Primary [...] Description 07/28/2025 8:30 AM EST Office Visit [facility] Hematology Oncology [address] [place] [address] Kelly Siddiqi MD [address] [place] [address] documented as of this encounter Visit Diagnoses Not on filedocumented in this encounter Care Teams Sheet Metal Engineer Relationship Specialty Start Date End Date Kevin Early NP [address] [place], [place] PCP - General 06/25/24 documented as of this encounter
--- OUTSIDE RECORDS SUMMARY | 2024-06-27 09:28 | XMS_ITS | Encounter Summary ---
Author Organization [facility] Address [address] [place] [address] Care Team Providers Care Whistle Punk Name Role Phone Kevin Early NP Primary [...] Visit [facility] Hematology Oncology [address] [place] [address] Kelly Siddiqi MD [address] [place] [address] documented as of this encounter Visit Diagnoses Not on filedocumented in this encounter Care Teams Whistle Punk Relationship Specialty Start Date End Date Kevin Early NP [address] [place], [place] PCP - General 06/25/24 documented as of this encounter
--- OUTSIDE RECORDS SUMMARY | 2024-06-28 08:27 | XMS_ITS | Encounter Summary ---
Author Organization [facility] Address [address] [place] [address] Care Team Providers Care Financial Specialist Name Role Phone Kevin Early NP [...] Description 07/28/2025 8:30 AM EST Office Visit Hematology Oncology [address] [place] [address] Kelly Siddiqi MD [address] [place] [address] documented as of this encounter Visit Diagnoses Not on filedocumented in this encounter Care Teams Financial Specialist Relationship Specialty Start Date End Date Kevin Early NP [address] [place], [place] PCP - General 06/25/24 documented as of this encounter
--- OUTSIDE RECORDS SUMMARY | 2024-07-01 08:08 | XMS_ITS | Encounter Summary ---
Author Organization [facility] Address [address] [place] [address] Care Team Providers Care Supervisor Offset Plate Preparation Name Role Phone Kevin Early NP Primary [...] Description 07/28/2025 8:30 AM EST Office Visit [facility] Hematology Oncology [address] [place] [address] Kelly Siddiqi MD [address] [place] [address] documented as of this encounter Visit Diagnoses Not on filedocumented in this encounter Care Teams Supervisor Offset Plate Preparation Relationship Specialty Start Date End Date Kevin Early NP [address] [place], [place] PCP - General 06/25/24 documented as of this encounter
--- OUTSIDE RECORDS SUMMARY | 2024-07-08 09:47 | XMS_ITS | Encounter Summary ---
Author Organization [facility] Address [address] [place] [address] Care Team Providers Care Binding Stitcher Name Role Phone Kvein Early NP Primary Care Provider Encounter Details [...] [facility] [address] [place] [address] Kelly Siddiqi MD [address] [place] [address] documented as of this encounter Visit Diagnoses Not on filedocumented in this encounter Care Teams Binding Stitcher Relationship Specialty Start Date End Date Kevin Early NP [address] [place], [place] PCP - General 06/25/24 documented as of this encounter
--- OUTSIDE RECORDS SUMMARY | 2024-07-15 07:52 | XMS_ITS | Encounter Summary ---
Author Organization [facility] Address [address] [place] [address] Care Team Providers Care Graduate Student Name Role Phone Kevin Early NP Primary [...] Description 07/28/2025 8:30 AM EST Office Visit [facility] Hematology Oncology [address] [place] [address] Kelly Siddiqi MD [address] [place] [address] documented as of this encounter Visit Diagnoses Not on filedocumented in this encounter Care Teams Graduate Student Relationship Specialty Start Date End Date Kevin Early NP [address] [place], [place] PCP - General 06/25/24 documented as of this encounter
--- NOTE | 2025-06-13 07:55 | MHC.OFFVIS ---
Intake Visit Reasons: Current Smoker Allergies citalopram (From CELEXA) Allergy (Unknown, Verified 06/06/25 09:22) PANIC ATTACK moxifloxacin (From AVELOX) Allergy (Unknown, Verified 06/06/25 09:22) RASH Sulfa (Sulfonamide Antibiotics) Allergy (Unknown, Verified 06/06/25 09:22) rash/joint pain clarithromycin (From BIAXIN) Adverse Reaction (Unknown, Verified 06/06/25 09:22) Diarrhea HPI HPI Current Smoker: Details: Initial visit for this 55yo smoker with a 27PYH. Patient started smoking at age 18 for 37 years at 3/4ppd. . Denies marijuana use. Denies second hand smoke exposure. Denies exposure to chemicals or substances like asbestos. . Denies known family history of lung cancer. 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 . Denies recent travel outside the [place]. Denies recent respiratory illness or recent hospitalization for respiratory issues. History testing positive for COVID. Admits receiving COVID Vaccine. . Denies fever, chills, new/worsening cough, hemoptysis, hoarseness or dysphagia. Denies significant chest pain, significant dyspnea or unintentional weight loss. Patient Lung Cancer Screening Questionnaire reviewed with patient by provider. . Shared Decision Making Completed. Patient meets criteria. Discussed in detail with patient, the risk vs benefit of LDCT screening. Patient consents to proceed with scan. Discussed smoking cessation. [facility] Medical History (Updated 06/13/25 @ 09:53 by Ksenia Sims PA-C) Primary adenocarcinoma of ascending colon (~2023) Colon polyps PAC (premature atrial contraction) Hyperlipidemia JORDAN (obstructive sleep apnea) Nicotine dependence, cigarettes, uncomplicated Vertigo Normal Pap smear Chronic pain Fibromyalgia Dry eye syndrome Plantar fasciitis, left Primary osteoarthritis of left knee Shoulder pain, bilateral Injury of left brachial plexus Degeneration of lumbar intervertebral disc Cervical radiculopathy due to degenerative joint disease of spine Arthritis Bilateral ankle pain Hip pain, bilateral Neck pain Surgical History (Updated 06/03/25 @ 08:25 by Teo Plata [facility]) History of endometrial ablation History of colonoscopy History of partial colectomy (~2023) History of laparoscopic cholecystectomy Family History Father Bladder cancer History of heart attack Mother No problems noted. Brother Substance use disorder Brother Substance use disorder Social History (Updated 06/13/25 @ 09:53 by Ksenia Sims PA-C) Housing: House Alcohol intake: never Patient Tobacco Use Status: Current everyday Tobacco user Tobacco use type: Cigarette Cigarette Packs Per Day: 0 Cigarettes Per Day: 10 Years Smoked: (onset 18yo, 3/4ppd x 37yrs, 27pyh) e-Cigarette/Vaping Use: Never Used service: No Current occupational status: disabled Current occupational exposures/hazards: No Cognitive needs: No Hearing needs: No Vision needs: No Assessment & Plan Assessment & Plan (1) Nicotine dependence, cigarettes, uncomplicated: Comment: (onset 18yo, 3/4ppd x 37yrs, 27pyh) Code(s): F17.210 - Nicotine dependence, cigarettes, uncomplicated Category: Medical Plan: - SDM visit completed today in office. - Patient meets criteria for LDCT for lung cancer screening purposes and is asymptomatic. - Smoking cessation counseling offered. Patients can always call [phone]. - Will arrange for a LDCT scan of the chest for screening purposes at [facility]. - Risks, benefits, and alternatives were discussed in detail and the patient agrees to proceed. - Risks discussed include but are not limited to: radiation exposure, anxiety during testing and while awaiting results, false negatives, false positives and possibility of additional intervention such as further imaging or surgical procedures for benign disease. - Benefits are obviously detection of lung cancer at an early stage which can lead to improved outcomes. - Discussed the importance of screening program compliance with adherence to yearly LDCT scan as scheduled - or sooner interval scans for personalized screening regimen. - Discussed follow up plan. Our office will send a letter discussing results and if needed set up phone call and office visit based on CT findings. - Patient educated on results categorization and the management decisions for suspicious findings potentially found on the screening LDCT scan. Any patient with a Lung RADS score of 3 or 4 will be reviewed by a multidisciplinary team at [facility] to form a plan of action in regards to scan findings. - If further work up is warranted for a suspicious lung finding this will be followed by the Lung Cancer Screening program in conjunction with the Thoracic Surgery Department at [facility]. - A copy of the office note and LDCT will be sent to the patient's PCP - as well as documentation on any associated further plans of care. - Incidental findings on LDCT are the PCP's responsibility. These findings are indicated with an S finding on the LDCT Assessment. A note discussing the findings will be sent to the PCP who is then responsible for further management. - All questions answered.? Coding Level of Care Code Lung Cancer Screening G0296 Diagnoses Nicotine dependence, cigarettes, uncomplicated F17.210
--- OUTSIDE RECORDS SUMMARY | 2025-06-13 10:03 | XMS_ITS | Clinical Summary ---
Author Organization [facility] Address [address] [place] [address] Care Team Providers Care Suspender Maker Name Role Phone Kevin Early Primary Care Provider [phone] Allergies Active Allergy Reactions Criticality Noted Date [...] age to complete this topic Care Teams Suspender Maker Relationship Specialty Start Date End Date Kevin Early NPYunior: [phone] [address] [facility] [place] [address] PCP - General Family Medicine 02/28/24
--- OUTSIDE RECORDS SUMMARY | 2025-06-13 10:03 | XMS_ITS ---
Author Organization [facility] Address [address] [place] [address] Care Team Providers Care Rewinder Operator Name Role Phone Kevin Early Primary Care Provider [phone] Active Problems Problem Noted Date Diagnosed Date [...] treatments are documented for this patient in [facility]. Treatments may have been administered in another system.
--- OUTSIDE RECORDS SUMMARY | 2025-06-13 10:03 | XMS_ITS | Encounter Summary ---
Author Organization [facility] Address [address] [place] [address] Care Team Providers Care Industrial Pharmacist Name Role Phone Kevin Early Primary Care Provider [phone] Encounter Details Date Type Department Care Team Description 04/02/2024 Social Work [facility] Oncology Services [address] [place] [address] Vinny Young [facility] [place] Social History Tobacco Use Types [...] on filedocumented in this encounter Care Teams Industrial Pharmacist Relationship Specialty Start Date End Date Kevin Early [address] [place] [address] PCP - General Family Medicine 02/28/24 documented as of this encounter
--- OUTSIDE RECORDS SUMMARY | 2025-06-13 10:03 | XMS_ITS | Clinical Summary ---
Author Organization [facility] Address [address] [place] [address] Phone Care Team Providers Care Turnstile Collector Name Role Phone Kevin Early NP Primary [...] Description 07/28/2025 8:30 AM EST Office Visit [facility] Hematology Oncology [address] [place] [phone] Kelly Siddiqi MD [address] [place] [address] Health Maintenance Due Date Last Done Comments [...] - Td or Tdap) 08/08/2032 08/08/2022, 03/12/2010 RSV Immunization Adult Patients (1 - 1-dose 75+ series) 2047 HIB Vaccines Aged Out No longer eligi [...] patient's age to complete this topic Insurance [facility] MEDICARE Member Subscriber Plan / Payer (Ef fective 2021-Present) Name:DORINA HOLGUIN Relation to Subscriber:Self Name:Dorina Holguin Payer ID:[id number] Group ID:[id number] Type:Not on file Address: [address] [place] [address] Care Teams Turnstile Collector Relationship Specialty Start Date End Date Kevin Early NP [address] [facility] [place] PCP - General 06/25/24
--- OUTSIDE RECORDS SUMMARY | 2025-06-13 10:03 | XMS_ITS | Clinical Summary ---
Author Organization [facility] Address [address] [place] [address] Phone Care Team Providers Care Farm Equipment Assembler Name Role Phone Vannessa Rivas MD Primary Care Provider [phone] Allergies No known active allergies Medications No [...] topic Medical Devices Not on file Insurance [facility] ONE CARE MEDICARE REPLACEMENT MEDICARE PART A & B [facility] C[facility] MEDICARE REPLACEMENT MEDICARE PART A & B [facility] C[facility] MEDICARE REPLACEMENT MEDICARE PART A & B ONE CARE MEDICARE REPLACEMENT MEDICARE PART A & B [facility] ONE CARE MEDICARE REPLACEMENT MEDICARE PART A & B [facility] C[facility] MEDICARE REPLACEMENT MEDICARE PART A & B ONE CARE MEDICARE REPLACEMENT MEDICARE PART A & B CARE MEDICARE REPLACEMENT MEDICARE PART A & B [facility] ONE CARE MEDICARE REPLACEMENT [place] [facility] MEDICARE PART A & B Care Teams Farm Equipment Assembler Relationship Specialty Start Date End Date Vannessa Rivas MD [address] [facility] [place] [address] PCP - General Internal Medicine 01/10/19 Additional Source Comments The information contained in this document represents components of the legal health record. It is not the complete legal health record.[facility]
--- OUTSIDE RECORDS SUMMARY | 2025-06-13 10:03 | XMS_ITS ---
Author Organization [facility] Address [address] [place] [address] Phone Care Team Providers Care Manager Oracle Retail Name Role Phone Kevin Early NP Primary Care Provider Active Problems Problem Noted Date Diagnosed Date Malignant neoplasm of ascend ing colon ([facility] V24, [facility] V28) 08/26/2024 Current Oncology Plans CENTRAL VENOUS ACCESS ( CVA ) MAINTENANCE / BLOOD DRAW / CATHETER CLEARANCE / DRESSING CHANGE / FLUSH* Plan Start Date:08/26/2024 Plan Provider:Kelly Siddiqi MD Linked Problems Malignant neoplasm of ascend ing colon ([facility] V24, [facility] V28) Treatment Medications No medications scheduled. Past Plans No past plan information found. Radiation Treatments * No radiation treatments are documented for this patient in [facility]. Treatments may have been administered in another system. Lifetime Dose Tracking * Chemical Lifetime Dose Automatic Entry Manual Entr y Fluoro Time 1 minutes 1 minutes 0 minutes Air Kerma 0.2 mGy 0.2 mGy 0 mGy
== END 2025-06-13 09:54 | disposition home or self-care (01) ==
LOC: HO.HPS 09:32
PROVIDERS: PCP Nurse Practitioner Family; Referring Provider Nurse Practitioner Family; Visit Provider Physician Assistant Medical
DX: F17.210 Nicotine dependence, cigarettes, uncomplicated (principal)
CPT/HCPCS: G0296

== ENCOUNTER 2025-06-13 09:52 | Outpatient (REF) | payer OTHER, SELFPAY ==
--- NOTE | ~2025-06-13 | CT_ITS ---
EXAMINATION: CT LUNG SCREENING HISTORY: F17.210 - Nicotine dependence, cigarettes, uncomplicated TECHNIQUE: Low dose axial images were obtained from the sternal notch to upper abdomen without IV contrast per standard departmental protocol. Sagittal and coronal reformatted images were also obtained and reviewed. One or more of the following techniques was used for dose reduction: Automated exposure control, adjustment of the mA and/or kV according to patient size, use of iterative reconstruction technique. DLP: 67 mGy-cm COMPARISON: There are no prior studies available for comparison. FINDINGS: Lung nodules: There are scattered 1-2 mm nodules in the right upper lobe (series 4, image 53), the right lower lobe (series 4, image 103), and in the left lower lobe (series 4, images 76 and 97). Emphysema: none Coronary Calcification: none Aortic Arch Calcification: mild Potentially Significant Incidentals : There is a 1.3 cm nodule with peripheral calcification in the right breast could represent a fibroadenoma. Additional Chest Findings: There is no pleural or pericardial effusion. No mediastinal or axillary lymphadenopathy is identified. Visualized upper abdomen: The visualized portions of the liver, spleen, and adrenals have an unremarkable unenhanced appearance. CT/CT lung screening IMPRESSION: 1. No suspicious pulmonary nodules are identified. 2. 1.3 cm nodule in the right breast which could represent a fibroadenoma. Correlation with mammography and possibly breast ultrasound is recommended. LUNG-RADS ASSESSMENT: Lung-RADS 2: Benign MANAGEMENT: Continue annual screening with LDCT in 12 months Category S: S Electronically signed by: David Melgar MD 06/19/2025 08:04 AM EDT
== END 2025-06-13 09:53 | disposition home or self-care (01) ==
LOC: HO.CT 09:52
PROVIDERS: PCP Nurse Practitioner Family; Visit Provider Physician Assistant Medical
DX: Z12.2 Encounter for screening for malignant neoplasm of respiratory organs (principal); F17.210 Nicotine dependence, cigarettes, uncomplicated
CPT/HCPCS: 71271; G0296

== ENCOUNTER → 2025-06-13 09:54 | Outpatient (BNV) | payer OTHER, SELFPAY | PROVIDERS: PCP Nurse Practitioner Family; Visit Provider Radiology Diagnostic Radiology | DX: F17.210 Nicotine dependence, cigarettes, uncomplicated (principal) | CPT/HCPCS: 71271 ==

== ENCOUNTER 2025-07-17 09:56 | Day surgery (SDC) | payer OTHER, SELFPAY ==
--- OUTSIDE RECORDS SUMMARY | 2024-06-25 08:05 | XMS_ITS | Encounter Summary ---
Author Organization [facility] Address [address] [place] [address] Care Team Providers Care Hand I Thermal Cutter Name Role Phone Kevin Early NP Primary [...] Description 07/28/2025 8:30 AM EST Office Visit [facility] Hematology Oncology [address] [place] [address] Kelly Siddiqi MD [address] [place] [address] documented as of this encounter Visit Diagnoses Not on filedocumented in this encounter Care Teams Hand I Thermal Cutter Relationship Specialty Start Date End Date Kevin Early NP [address] [place], [place] PCP - General 06/25/24 documented as of this encounter
--- OUTSIDE RECORDS SUMMARY | 2024-06-27 09:28 | XMS_ITS | Encounter Summary ---
Author Organization [facility] Address [address] [place] [address] Care Team Providers Care Baker Chef Name Role Phone Kevin Early NP Primary Care Provider [phone] Encounter Details Date Type Department Care Team [...] Description 07/28/2025 8:30 AM EST Office Visit [facility] Hematology Oncology [address] [place] [address] Kelly Siddiqi MD [address] [place] [address] documented as of this encounter Visit Diagnoses Not on filedocumented in this encounter Care Teams Baker Chef Relationship Specialty Start Date End Date Kevin Early NP [address] [place], [place] PCP - General 06/25/24 documented as of this encounter
--- OUTSIDE RECORDS SUMMARY | 2024-06-28 08:27 | XMS_ITS | Encounter Summary ---
Author Organization [facility] Address [address] [place] [address] Care Team Providers Care Supervisor Reclamation Name Role Phone Kevin Early NP Primary [...] Affairs [facility] Hematology Oncology [address] [place] [address] Kelly Siddiqi MD [address] [place] [address] documented as of this encounter Visit Diagnoses Not on filedocumented in this encounter Care Teams Supervisor Reclamation Relationship Specialty Start Date End Date Kevin Early NP [address] [place], [place] PCP - General 06/25/24 documented as of this encounter
--- OUTSIDE RECORDS SUMMARY | 2024-07-01 08:08 | XMS_ITS | Encounter Summary ---
Author Organization [facility] Address [address] [place] [address] Care Team Providers Care Telephone Worker Name Role Phone Kevin Early NP Primary [...] Description 07/28/2025 8:30 AM EST Office Visit [facility] Hematology Oncology [address] [place] [address] Kelly Siddiqi MD [address] [place] [address] documented as of this encounter Visit Diagnoses Not on filedocumented in this encounter Care Teams Telephone Worker Relationship Specialty Start Date End Date Kevin Early NP [address] [place], [place] PCP - General 06/25/24 documented as of this encounter
--- OUTSIDE RECORDS SUMMARY | 2024-07-08 09:47 | XMS_ITS | Encounter Summary ---
Author Organization [facility] Address [address] [place] [address] Care Team Providers Care Pulp Refiner Operator Name Role Phone Kevin Early NP Primary Care Provider [phone] Encounter Details Date Type Department Care Team [...] Description 07/28/2025 8:30 AM EST Office Visit [facility] Hematology Oncology [address] [place] [address] Kelly Siddiqi MD [address] [place] [address] documented as of this encounter Visit Diagnoses Not on filedocumented in this encounter Care Teams Pulp Refiner Operator Relationship Specialty Start Date End Date Kevin Early NP [address] [place], [place] PCP - General 06/25/24 documented as of this encounter
--- OUTSIDE RECORDS SUMMARY | 2024-07-15 07:52 | XMS_ITS | Encounter Summary ---
Author Organization [facility] Address [address] [place] [address] Care Team Providers Care Hand Polisher Name Role Phone Kevin Early NP Primary [...] Description 07/28/2025 8:30 AM EST Office Visit [facility] Hematology Oncology [address] [place] [address] Kelly Siddiqi MD [address] [place] [address] documented as of this encounter Visit Diagnoses Not on filedocumented in this encounter Care Teams Hand Polisher Relationship Specialty Start Date End Date Kevin Early NP [address] [place], [place] PCP - General 06/25/24 documented as of this encounter
--- OUTSIDE RECORDS SUMMARY | 2025-06-12 14:23 | XMS_ITS ---
Author Organization [facility] Address [address] [place] [address] Phone Care Team Providers Care Industrial Relations Commissioner Name Role Phone Kevin Early NP Primary Care Provider Active Problems Problem Noted Date Diagnosed Date Malignant neoplasm of ascend ing colon ([facility] V24, [facility] V28) 08/26/2024 Current Oncology Plans CENTRAL VENOUS ACCESS ( CVA ) MAINTENANCE / BLOOD DRAW / CATHETER CLEARANCE / DRESSING CHANGE / FLUSH* Plan Start Date:08/26/2024 Plan Provider:Kelly Siddiqi MD Linked Problems Malignant neoplasm of ascend ing colon ([facility] V24, [facility] V28) Treatment Medications No medications scheduled. Past Plans No past plan information found. Radiation Treatments * No radiation treatments are documented for this patient in [facility]. Treatments may have been administered in another system. Lifetime Dose Tracking * Chemical Lifetime Dose Automatic Entry Manual Entr y Fluoro Time 1 minutes 1 minutes 0 minutes Air Kerma 0.2 mGy 0.2 mGy 0 mGy
--- OUTSIDE RECORDS SUMMARY | 2025-06-12 14:23 | XMS_ITS | Encounter Summary ---
Author Organization [facility] Address [address] [place] [address] Care Team Providers Care Electric Motor Rebuilder Name Role Phone Kevin Early Primary Care Provider [phone] Encounter Details Date Type Department Care Team Description 04/02/2024 Social Work [facility] Oncology Services [address] [place] [address] Vinny Young [facility] Social History Tobacco Use Types Packs/Day Years [...] on filedocumented in this encounter Care Teams Electric Motor Rebuilder Relationship Specialty Start Date End Date Kevin Early [address] [place] [address] PCP - General Family Medicine 02/28/24 documented as of this encounter
--- OUTSIDE RECORDS SUMMARY | 2025-06-12 14:23 | XMS_ITS | Clinical Summary ---
Author Organization [facility] Address [address] [place] [address] Phone Care Team Providers Care Specialist Physicians Name Role Phone Kevin Early NP Primary [...] Description 07/28/2025 8:30 AM EST Office Visit [facility] Hematology Oncology [address] [place] [phone] Kelly Siddiqi MD [address] [place] [address] Health Maintenance Due Date Last Done Comments [...] patient's age to complete this topic Insurance [facility] MEDICARE Member Subscriber Plan / Payer (Ef fective 2021-Present) Name:DORINA HOLGUIN Relation to Subscriber:Self Name:Dorina Holguin Payer ID:[id number] Group ID:[id number] Type:Not on file Address: [address] [place] [address] Care Teams Specialist Physicians Relationship Specialty Start Date End Date Kevin Early NP [address] [facility] [place], [place] PCP - General 06/25/24
--- OUTSIDE RECORDS SUMMARY | 2025-06-12 14:24 | XMS_ITS ---
Author Organization [facility] Address [address] [place] [address] Care Team Providers Care Returns Supervisor Name Role Phone Kevin Early Primary Care Provider [phone] Active Problems Problem Noted Date Diagnosed Date [...] treatments are documented for this patient in [facility]. Treatments may have been administered in another system.
--- OUTSIDE RECORDS SUMMARY | 2025-06-12 14:24 | XMS_ITS | Clinical Summary ---
Author Organization [facility] Address [address] [place] [address] Care Team Providers Care Label Stamper Name Role Phone Kevin Early Primary Care Provider [phone] Allergies Active Allergy Reactions Criticality Noted Date [...] age to complete this topic Care Teams Label Stamper Relationship Specialty Start Date End Date Kevin Early NPYunior: [phone] [address] [facility] [place] [address] PCP - General Family Medicine 02/28/24
[2025-07-15 08:34] VITALS: BMI 31.8
--- NOTE | 2025-07-15 09:38 | HO.ANESPROP2 ---
Documented by User: Eunice Yang NP 07/15/25 09:43 HPI - Anesthesia Eval Consult details Narrative: 55yo F for Left Ulna Nerve Decompression Cardiac w/u late 2023 for chest pain during chemo infusion (negative) and resolved with completion of chemo treatment PMFSH Active Problems Active Problems: All Active Problems Calcification of right breast (Acute) Cervical radiculopathy (Acute) Ulnar nerve entrapment (Acute) Cervical stenosis of spinal canal (Acute) Upper extremity neuropathy (Acute) DDD (degenerative disc disease), cervical (Acute) Generalized swelling, mass, or lump of abdomen or pelvis (Acute) Primary adenocarcinoma of ascending colon (Acute ~2023) Colon cancer (Acute ~2023) History of partial colectomy (Acute ~2023) Chemotherapy adverse reaction (Acute) Colon polyps (Acute) JORDAN (obstructive sleep apnea) (Acute) Nicotine dependence, cigarettes, uncomplicated (Acute) COPD (chronic obstructive pulmonary disease) (Acute) Dermatitis (Acute) JESSICA positive (Acute) Osteoarthritis (Acute) Hemorrhage from nose (Acute) Neuropathy (Acute) Achilles tendinosis (Acute) Right axillary swelling (Acute) Chest tightness (Acute) Anxiety (Acute) Tachycardia (Acute) SOB (shortness of breath) (Acute) Elevated BP without diagnosis of hypertension (Acute) Cecum mass (Acute) Acute abdominal pain in right lower quadrant (Acute) Enlarged thyroid (Acute) Pelvic pain (Acute) Postmenopausal (Acute) Fatigue (Acute) Headache (Acute) Myalgia (Acute) Asthma (Acute) High cholesterol (Acute) Hyperlipidemia (Acute) Vertigo (Acute) Shoulder pain, bilateral (Acute) Injury of left brachial plexus (Acute) Normal Pap smear (Acute) Fibromyalgia (Acute) Degeneration of lumbar intervertebral disc (Acute) Cervical radiculopathy due to degenerative joint disease of spine (Acute) Arthritis (Acute) Bilateral ankle pain (Acute) Hip pain, bilateral (Acute) Neck pain (Acute) Past Medical History Medical History Primary adenocarcinoma of ascending colon (~2023) Colon polyps PAC (premature atrial contraction) Hyperlipidemia JORDAN (obstructive sleep apnea) Nicotine dependence, cigarettes, uncomplicated Vertigo Normal Pap smear Chronic pain Fibromyalgia Dry eye syndrome Plantar fasciitis, left Primary osteoarthritis of left knee Shoulder pain, bilateral Injury of left brachial plexus Degeneration of lumbar intervertebral disc Cervical radiculopathy due to degenerative joint disease of spine Arthritis Bilateral ankle pain Hip pain, bilateral Neck pain Family History Family History Father Bladder cancer History of heart attack Mother No problems noted. Brother Substance use disorder Brother Substance use disorder Family history of problems with anesthesia: No Surgical History Surgical History History of endometrial ablation History of colonoscopy History of partial colectomy (~2023) History of laparoscopic cholecystectomy History of Problems with Anesthesia: No Social History Social History Housing: House Alcohol intake: never Patient Tobacco Use Status: Current everyday Tobacco user Tobacco use type: Cigarette Cigarette Packs Per Day: 0 Cigarettes Per Day: 10 Years Smoked: (onset 18yo, 3/4ppd x 37yrs, 27pyh) e-Cigarette/Vaping Use: Never Used service: No Current occupational status: disabled Current occupational exposures/hazards: No Cognitive needs: No Hearing needs: No Vision needs: No Meds Allergies Allergy/AdvReac Type Severity Reaction Status Date / Time citalopram (From CELEXA) Allergy Unknown PANIC Verified 06/06/25 09:22 ATTACK moxifloxacin (From AVELOX) Allergy Unknown RASH Verified 06/06/25 09:22 Sulfa (Sulfonamide Allergy Unknown rash/joint Verified 06/06/25 09:22 Antibiotics) pain clarithromycin (From BIAXIN) AdvReac Unknown Diarrhea Verified 06/06/25 09:22 Home Medications ?Medication ?Instructions ?Recorded ?Confirmed ?Last Taken ?Type betamethasone valerate 0.1 % 1 appl topical BID 04/26/24 07/15/25 Unknown History topical cream clindamycin phosphate 1 % topical 1 ea topical BID PRN unk 05/31/24 07/15/25 Unknown History swab ketoconazole 2 % shampoo 1 appl topical DAILY PRN Skin 05/31/24 07/15/25 Unknown History Irritation nystatin 100,000 unit/gram topical 1 appl topical BID-TID PRN thrush 05/31/24 07/15/25 Unknown History powder Exam Height,Weight and Vital Signs: Height 5 ft 8 in Weight 95 kg Pertinent Lab Results Pertinent Lab Results: Laboratory Tests 04/03/25 06:10 WBC 5.5 Hgb 13.7 Hct 42.5 Plt Count 173 Sodium 142 Potassium 4.1 Chloride 107 Carbon Dioxide 28 BUN 14 Creatinine 0.92 Narrative Narrative: EKG 2023 Sinus Tachy @ 104 NM cardiolite stress test 2023 IMPRESSION: 1. Myocardial perfusion imaging study shows probably normal myocardial perfusion. 2. Gated LVEF is 56% during stress and 68% during rest. 3. Transient ischemic dilatation not present. ECHO 2023 Conclusions: - 1. Normal LV systolic function with LVEF of 60 65% 2. Normal cardiac valvular Dopplers 3. Trivial pericardial effusion Holter 2023 Total monitoring time 3 days. Underlying rhythm is sinus. Average ventricular rate 94/Min. About 27% of the time, rate > 100/Min. Rare supraventricular ectopy. Very brief runs. No significant pauses or high-grade AV blocks. Patient markers used in association with sinus tachycardia and supraventricular ectopy. Rapid/fast heartbeat during coughing, mentioned in patient diary, associated with mild sinus tachycardia and artifact. Assessment and Plan Assessment Anesthesia Assessment: Chart Reviewed Final Anesthetic Review Family History of Problems with Anesthesia: No History of Problems with Anesthesia: No Documented by User: Nay Miramontes MD 07/17/25 09:19 [facility] Past Medical History Medical History Primary adenocarcinoma of ascending colon (~2023) Colon polyps PAC (premature atrial contraction) Hyperlipidemia JORDAN (obstructive sleep apnea) Nicotine dependence, cigarettes, uncomplicated Vertigo Normal Pap smear Chronic pain Fibromyalgia Dry eye syndrome Plantar fasciitis, left Primary osteoarthritis of left knee Shoulder pain, bilateral Injury of left brachial plexus Degeneration of lumbar intervertebral disc Cervical radiculopathy due to degenerative joint disease of spine Arthritis Bilateral ankle pain Hip pain, bilateral Neck pain Family History Family History Father Bladder cancer History of heart attack Mother No problems noted. Brother Substance use disorder Brother Substance use disorder Surgical History Surgical History History of endometrial ablation History of colonoscopy History of partial colectomy (~2023) History of laparoscopic cholecystectomy Social History Social History Housing: House Alcohol intake: never Patient Tobacco Use Status: Current everyday Tobacco user Tobacco use type: Cigarette Cigarette Packs Per Day: 0 Cigarettes Per Day: 10 Years Smoked: (onset 18yo, 3/4ppd x 37yrs, 27pyh) e-Cigarette/Vaping Use: Never Used service: No Current occupational status: disabled Current occupational exposures/hazards: No Cognitive needs: No Hearing needs: No Vision needs: No Meds Allergies Allergy/AdvReac Type Severity Reaction Status Date / Time citalopram (From CELEXA) Allergy Unknown PANIC Verified 06/06/25 09:22 ATTACK moxifloxacin (From AVELOX) Allergy Unknown RASH Verified 06/06/25 09:22 Sulfa (Sulfonamide Allergy Unknown rash/joint Verified 06/06/25 09:22 Antibiotics) pain clarithromycin (From BIAXIN) AdvReac Unknown Diarrhea Verified 06/06/25 09:22 Home Medications ?Medication ?Instructions ?Recorded ?Confirmed ?Last Taken ?Type betamethasone valerate 0.1 % 1 appl topical BID 04/26/24 07/15/25 Unknown History topical cream clindamycin phosphate 1 % topical 1 ea topical BID PRN unk 05/31/24 07/15/25 Unknown History swab ketoconazole 2 % shampoo 1 appl topical DAILY PRN Skin 05/31/24 07/15/25 Unknown History Irritation nystatin 100,000 unit/gram topical 1 appl topical BID-TID PRN thrush 05/31/24 07/15/25 Unknown History powder Exam Airway Mallampati Class: II TM Dist: >3cm Neck ROM: Full Heart: rrr Lungs: cta Assessment and Plan Assessment Anesthesia Assessment: Anesthesia Plan Discussed Final Anesthetic Review NPO: Yes ASA Class: III Final Preanesthetic Review: No Changes in Pt Med Stat, Meds/Allgs Chart Reviewed, Consent Obtained/Reviewed and Anes Risks/Benef Reviewed Patient Risk: Intermediate Procedure Risk: Low Anesthetic Plan Anesthetic Plan: GA, MAC: and Agree w/ Assess. and Plan Disposition: Standard PACU
[2025-07-17 10:44] VITALS: BMI 34.2
[2025-07-17 11:07] VITALS: BP 149/82; PULSE 76; RESP 16; TEMP 36.7; O2SAT 97
[2025-07-17] MEDS: Lactated Ringers 1,000 ML 100 ML IVCONT (11:11)
--- NOTE | 2025-07-17 11:13 | MHC.SHP ---
Pre-Procedural Eval Section A - 24 Hr Update-Section A only Date of Service: 07/17/25 The patient is an INPATIENT: No Section B - Complete if H&P > 30 days Chief Complaint: Lesion of ulnar nerve, unspecified upper limb Allergies: Allergies Allergy/AdvReac Type Severity Reaction Status Date / Time citalopram (From CELEXA) Allergy Unknown PANIC Verified 06/06/25 09:22 ATTACK moxifloxacin (From AVELOX) Allergy Unknown RASH Verified 06/06/25 09:22 Sulfa (Sulfonamide Allergy Unknown rash/joint Verified 06/06/25 09:22 Antibiotics) pain clarithromycin (From BIAXIN) AdvReac Unknown Diarrhea Verified 06/06/25 09:22 Review of Systems Sugical H&P ROS: Negative: Constitution, Cardiovascular, Respiratory, Neurological, Psychiatric, Hem-Onc, Allergic/Immunologic, Gastrointestinal, Genitourinary, Musculoskeletal, Integumentary, Endocrine and Eyes/Ears/Nose/Throat Exam Surgical H&P Exam: Normal: HEENT, Normal: Heart, Normal: Lungs, Normal: Extremities, Normal: Abdomen, Normal: Skin and Normal: Neurological (Wake, alert) Plan Diagnosis/Plan: Unchanged I have reviewed the history and physical and performed a pertinent physical examination on my patient. No changes have occurred unless specified. Left ulnar nerve decompression Time Spent With Patient Time: Total time managing care of this patient today __4__ minutes.
--- NOTE | 2025-07-17 13:39 | PM.DS ---
DS: Providers Provider Date of Service: 07/17/25 Date of discharge: 07/17/25 Primary care physician: HARDY Reyes DS: Summary Time Attestation Discharge Coordination Time (in mins): 12 Quality: Safe Use of Opioids Does Pt have an Active Cancer Diagnosis on the Problem List?: No Quality: Stroke Does the patient have a stroke diagnosis?: No Physical Exam Vital Signs: Vital Signs: Last Vital Signs Temp 98.1 F 07/17/25 11:07 Pulse 76 07/17/25 11:07 Resp 16 07/17/25 11:07 BP 149/82 H 07/17/25 11:07 Pulse Ox 97 07/17/25 11:07 O2 Del Method Room Air 07/17/25 11:07 BMI result Body Mass Index 34.2 Discharge Plan Discharge Patient Disposition: Home, Self-Care Referrals: Kevin Early FNP-BC [Primary Care Provider, Internal Medicine] - 1 Week Discharge Medications: New tramadol 50 mg tablet 50 mg PO Q6H PRN (Reason: pain) Qty: 20 0RF Continued (DME) latex gloves [Latex Gloves, Large] Misc See Rx Instructions .Route Qty: 300 5RF Rx Instructions: As directed-using 10 per day (DME) nebulizers Misc See Rx Instructions .Route Qty: 1 0RF Rx Instructions: As directed for updraft treatments- with all needed supplies meclizine 25 mg tablet 25 mg PO TID PRN (Reason: dizziness) Qty: 30 2RF albuterol sulfate 90 mcg/actuation HFA aerosol inhaler 2 puff inhalation Q6H PRN (Reason: shortness of breath or wheezing) Qty: 8.5 1RF fluticasone propionate [Allergy Relief (fluticasone)] 50 mcg/actuation spray,suspension 1 spray intranasal BID 30 Days Qty: 16 2RF Rx Instructions: administer into each nostril budesonide-formoterol [Symbicort] 160-4.5 mcg/actuation HFA aerosol inhaler 2 puff inhalation BID Qty: 10.2 0RF hydroxychloroquine 200 mg tablet 200 mg PO DAILY lorazepam [Ativan] 0.5 mg tablet 0.5 mg PO BEDTIME PRN (Reason: Anxiety) 20 Days Qty: 20 0RF bisacodyl [Dulcolax (bisacodyl)] 5 mg tablet,delayed release (DR/EC) 20 mg PO ONCE 1 Days Qty: 4 0RF Rx Instructions: take 4 tabs at noon the day before your colonoscopy polyethylene glycol 3350 [Miralax] 17 gram/dose powder 238 g PO ONCE Qty: 238 0RF Rx Instructions: As directed by gastroenterology department at [facility] betamethasone valerate 0.1 % cream 1 appl topical BID clindamycin phosphate 1 % swab 1 ea topical BID PRN (Reason: unk) ketoconazole 2 % shampoo 1 appl topical DAILY PRN (Reason: Skin Irritation) nystatin 100,000 unit/gram powder 1 appl topical BID-TID PRN (Reason: thrush) nicotine (polacrilex) 4 mg gum 4 mg buccal Q2H Qty: 100 2RF albuterol sulfate 2.5 mg /3 mL (0.083 %) solution for nebulization 2.5 mg inhalation QID PRN (Reason: shortness of breath or wheezing) 30 Days Qty: 180 0RF Rx Instructions: for nebulizer buspirone 7.5 mg tablet 7.5 mg PO BID 30 Days Qty: 60 4RF ezetimibe [Zetia] 10 mg tablet 10 mg PO DAILY Qty: 90 3RF montelukast 10 mg tablet 10 mg PO DAILY Qty: 90 1RF simethicone [Gas Relief (simethicone)] 125 mg tablet,chewable 125 mg PO BID-TID PRN (Reason: abdominal distention) Qty: 180 3RF hydrocortisone [Proctosol HC] 2.5 % cream with perineal applicator 1 appl [place] BID-QID PRN (Reason: hemorrhoids) Qty: 30 2RF nystatin 100,000 unit/mL suspension 4 ml PO TID PRN (Reason: thrush) 10 Days Qty: 60 2RF pregabalin 150 mg capsule 150 mg PO BID 30 Days Qty: 60 2RF Held ibuprofen 800 mg tablet 800 mg PO TID PRN (Reason: Pain) 30 Days Qty: 90 1RF Hold Instructions: Resume on 07/18/25. Discharge Orders: Discharge Order (Routine); Ordered 07/17/25 Ordered By: Rony Mosquera Diet: Advance to usual diet Activity on Discharge: As tolerated Activity Restrictions/Additional Instructions: YOU MAY REMOVE YOUR SEVERINO WRAP ON POST OP DAY 3, WELL THE DRESSING UNDERNEATH IT. YOU CAN USE YOUR ARM MUCH YOU LIKE, HOWEVER, PLEASE AVOID STRAINING OR HEAVY LIFTING. IT WILL HELP SWELLING IN YOUR ELBOW TO KEEP IT ELEVATED WHEN YOU ARE NOT USING IT. YOU CAN SHOWER ON POST OP DAY 1, BUT PLEASE KEEP WOUND DRY. YOU CAN DRIVE WHEN YOU FEEL COMFORTABLE AND ARE OFF NARCOTICS. IF YOU EXPERIENCE ANY SIGNS OF INFECTION SUCH FEVER, CHILLS OR REDNESS/DISCHARGE FROM YOUR WOUND, PLEASE CALL OFFICE RIGHT AWAY PLEASE CALL THE OFFICE FOR A FOLLOW UP IN 2-3 WEEKS [phone] Print Language: Croatian
--- NOTE | 2025-07-17 13:58 | W.PM.OPN ---
Operative Note Operative Note Date of Service: 07/17/25 Narrative: Diagnosis: Left ulnar nerve compression Procedure: Left ulnar nerve decompression Surgeon: Jacob Linda MD PhD Description procedure: This patient is suffering from a combination of cervical radiculopathy and ulnar neuropathy with numbness and weakness of the left hand. We decided to 1st offer a left ulnar nerve decompression to see how the symptoms respond. The procedure complications were explained. The patient was consented. The patient was brought to the operating room, where moderate sedation was applied. Prepping and draping was done followed by time-out. Incision was marked in a semicircular fashion. Marcaine was injected. A semi circular incision was ma between the medial epicondyle and olecranon. Cutaneous fat was dissected until I reach the membrane covering the ulnar nerve. Metzenbaum scissor was used to open up this membrane and to release the ulnar nerve proximally and distally until it disappeared under themm. carpi ulnaris. Hemostasis was done. The incision was closed with 3 interrupted sutures. A compressive SEVERINO wrap was used for hemostasis. All sponge and needle counts were correct. Patient was transported to the recovery room. Anesthesia: Moderate sedation and local anesthetic Blood loss: Minimal Complications: None Disposition: Discharge home
[2025-07-17 14:04] VITALS: BP 129/71; PULSE 80; RESP 12; TEMP 36.1; O2SAT 97
[2025-07-17 14:09] VITALS: BP 131/73; PULSE 82; RESP 12; O2SAT 98
[2025-07-17 14:23] VITALS: BP 139/82; PULSE 69; RESP 18; TEMP 36.2; O2SAT 98
== END 2025-07-17 14:55 | disposition home or self-care (01) ==
PROVIDERS: PCP Nurse Practitioner Family; Visit Provider Neurological Surgery
PROC: (CPT 64718; principal; 2025-07-17 13:10)
DX: G56.22 Lesion of ulnar nerve, left upper limb (principal); R53.1 Weakness; R20.0 Anesthesia of skin; Z85.038 Personal history of other malignant neoplasm of large intestine; Z90.49 Acquired absence of other specified parts of digestive tract; J45.909 Unspecified asthma, uncomplicated; Z79.1 Long term (current) use of non-steroidal anti-inflammatories (NSAID); Z79.51 Long term (current) use of inhaled steroids; Z79.899 Other long term (current) drug therapy; Z88.2 Allergy status to sulfonamides; Z88.1 Allergy status to other antibiotic agents; Z88.8 Allergy status to other drugs, medicaments and biological substances; F17.210 Nicotine dependence, cigarettes, uncomplicated
CPT/HCPCS: 64718; J0131; J0690; J2003; J2250; J2704; J3010

== ENCOUNTER → 2025-07-17 09:56 | Outpatient (BNV) | payer OTHER, SELFPAY | PROVIDERS: PCP Nurse Practitioner Family; Visit Provider Physician Assistant | DX: G56.22 Lesion of ulnar nerve, left upper limb (principal) | CPT/HCPCS: 64718; 99499 ==

== ENCOUNTER 2025-07-22 14:42 | Outpatient (AMB) | payer OTHER, SELFPAY ==
--- OUTSIDE RECORDS SUMMARY | 2024-01-29 04:30 | XMS_ITS ---
Author Organization [facility] Address [address] [place] [id number] Care Team Providers Care Physician Vice President Name Role Phone Kevin Chadwick Primary Care Provider Unav ailable Shanthi Donovan Unavailable [phone] Evelyn MELENDEZ, Vannessa Unavailable Unavailable Lyndon Villavicencio Unavailable [phone] Encounters Encounter Location Date Provider Diagnosis [facility] [address] [address] 01/29/2024 Lyndon Villavicencio Plan Of Treatment Next Appt Details Provider Name:Shanthi Ced peña, 07/23/2025 09:00:00 AM, [address] [place], [address], Progress Notes * Federico HOLGUINOB:1970 (55 yo F)Acc No.[id number]:01/29/2024 Progress Note Patient: Dorina PANDYA Provider: Rich Villavicencio DPM :1970 A ge:53 Y S ex:Female Date:01/29/2024 Address:[address] [place] [address] kev [id number] Pcp:WILVER Ardon Subjective: * Chief Complaints: * * Medical History: Objective: * Vitals: Assessment: Plan: * Treatment: * Images: * The named appointment provid er may or may not be the originator of this progress note, and it is not deemed complete until electronically signed by the appointment provider. Sign off status: Pending * Provider: Rich Villavicencio DPM Date: 0 01/29/2024 Generated for Marc Esquivel on: 07:08 PM EDT
--- OUTSIDE RECORDS SUMMARY | 2024-06-25 08:05 | XMS_ITS | Encounter Summary ---
Author Organization [facility] Address [address] [place] [address] Care Team Providers Care Application Performance Engineer Name Role Phone Kevin Early NP [...] Description 07/28/2025 8:30 AM EST Office Visit [facility] Hematology Oncology [address] [place] [address] Kelly Siddiqi MD [address] [place] [address] documented as of this encounter Visit Diagnoses Not on filedocumented in this encounter Care Teams Application Performance Engineer Relationship Specialty Start Date End Date Kevin Early NP [address] [place], [place] PCP - General 06/25/24 documented as of this encounter
--- OUTSIDE RECORDS SUMMARY | 2024-06-27 09:28 | XMS_ITS | Encounter Summary ---
Author Organization [facility] Address [address] [place] [address] Care Team Providers Care Staffing Specialist Name Role Phone Kevin Early NP Primary [...] Description 07/28/2025 8:30 AM EST Office Visit [facility] Hematology Oncology [address] [place] [address] Kelly Siddiqi MD [address] [place] [address] documented as of this encounter Visit Diagnoses Not on filedocumented in this encounter Care Teams Staffing Specialist Relationship Specialty Start Date End Date Kevin Early NP [address] [place], [place] PCP - General 06/25/24 documented as of this encounter
--- OUTSIDE RECORDS SUMMARY | 2024-06-28 08:27 | XMS_ITS | Encounter Summary ---
Author Organization [facility] Address [address] [place] [address] Care Team Providers Care Chemist Inorganic Name Role Phone Kevin Early NP Primary [...] Description 07/28/2025 8:30 AM EST Office Visit [facility] Hematology Oncology [address] [place] [address] Kelly Siddiqi MD [address] [place] [address] documented as of this encounter Visit Diagnoses Not on filedocumented in this encounter Care Teams Chemist Inorganic Relationship Specialty Start Date End Date Kevin Early NP [address] [place], [place] PCP - General 06/25/24 documented as of this encounter
--- OUTSIDE RECORDS SUMMARY | 2024-07-01 08:08 | XMS_ITS | Encounter Summary ---
Author Organization [facility] Address [address] [place] [address] Care Team Providers Care Ecd Name Role Phone Kevin Early NP Primary [...] Affairs [facility] Hematology Oncology [address] [place] [address] Kelly Siddiqi MD [address] [place] [address] documented as of this encounter Visit Diagnoses Not on filedocumented in this encounter Care Teams Ecd Relationship Specialty Start Date End Date Kevin Early NP [address] [place], [place] PCP - General 06/25/24 documented as of this encounter
--- OUTSIDE RECORDS SUMMARY | 2024-07-08 09:47 | XMS_ITS | Encounter Summary ---
Author Organization [facility] Address [address] [place] [address] Care Team Providers Care Piece Dye Worker Name Role Phone Kevin Early NP [...] [facility] Hematology Oncology [address] [place] [address] Kelly Siddiqi MD [address] [place] [address] documented as of this encounter Visit Diagnoses Not on filedocumented in this encounter Care Teams Piece Dye Worker Relationship Specialty Start Date End Date Kevin Early NP [address] [place], [place] PCP - General 06/25/24 documented as of this encounter
--- OUTSIDE RECORDS SUMMARY | 2024-07-15 07:52 | XMS_ITS | Encounter Summary ---
Author Organization [facility] Address [address] [place] [address] Care Team Providers Care Metrology Technician Name Role Phone Kevin Early NP [...] Description 07/28/2025 8:30 AM EST Office Visit [facility] Hematology Oncology [address] [place] [address] Kelly Siddiqi MD [address] [place] [address] documented as of this encounter Visit Diagnoses Not on filedocumented in this encounter Care Teams Metrology Technician Relationship Specialty Start Date End Date Kevin Early NP [address] [place], [place] PCP - General 06/25/24 documented as of this encounter
--- OUTSIDE RECORDS SUMMARY | 2025-01-31 05:00 | XMS_ITS ---
Author Organization [facility] Address [address] [place] [address] Care Team Providers Care Career Placement Specialist Name Role Phone Nneka PETTIT, Kevin Primary Care Provider Unav ailable Shanthi Donovan Unavailable [phone] Evelyn MELENDEZ, Vannessa Unavailable Unavailable Encounters Encounter Location Date Provider Diagnosis [address] [address] 01/31/2025 Shanthi Donovan Plan Of Treatment Next Appt Details Provider Name:Shanthi peña, 07/23/2025 09:00:00 AM, [address] [place] [address], [address], Progress Notes * MAXIME KymJonatanOB:1970 (55 yo F)Acc No.[id number]:01/31/2025 Progress Notes Patient: Dorina PANDYA Provider: Stefany Donovan DPM :1970 A ge:54 Y S ex:Female Date:01/31/2025 Address:[address] [place] [address] kev [facility] Pcp:WILVER Ardon Subjective: * Chief Complaints: * [...] 0 01/31/2025 Generated for Marc stapleton/Sabra/Alejo on: 07:08 PM EDT
--- NOTE | 2025-07-22 14:44 | HO.SPINEOV ---
Intake Visit Reasons: wound check Intake Note: Ms. Holguin is here today to have her wound check. Senior Compensation Consultant Required: No Allergies citalopram (From CELEXA) Allergy (Unknown, Verified 06/06/25 09:22) PANIC ATTACK moxifloxacin (From AVELOX) Allergy (Unknown, Verified 06/06/25 09:22) RASH Sulfa (Sulfonamide Antibiotics) Allergy (Unknown, Verified 06/06/25 09:22) rash/joint pain clarithromycin (From BIAXIN) Adverse Reaction (Unknown, Verified 06/06/25 09:22) Diarrhea Assessment & Plan Assessment & Plan (1) S/P cubital tunnel release: Code(s): Z98.890 - Other specified postprocedural states Category: Surgical Plan Dorina is a pleasant 59-year-old female who comes in today for an acute add on visit after having left-sided cubital tunnel release completed by Dr. Linda last . She came in for evaluation today because she accidentally ripped off her bandages on the incision site. She ended up placing some Steri-Strips over the incision and covering it with a Tegaderm. She noticed some standing on the bandage and became concerned and called the office for a follow-up visit to inspect her incision. She reports no increase her worsening pain from the incision site, no significant tenderness to touch, and no active continuous drainage. She denies any at-home fever, chills, nausea, vomiting. I removed her Tegaderm bandage to evaluate the incision site. It appears to be well healing, in his well-approximated with the Steri-Strips that she placed on. I left the Steri-Strips in place. There is no active drainage, no meaningful erythema or edema around the incision site. I did not appreciate any superficial sutures that need removal. The patient also states that she has not seen any external sutures since the surgery. I would like Dorina to follow up routinely for her next postop visit. I will send in a 5 day course of doxycycline for infection prophylaxis, as her bandages were ripped off and I am not sure for sutures were also ripped out at this time. Rony Linda MD,PhD [facility] Coding Level of Care Code Global (14627) Diagnoses S/P cubital tunnel release Z98.890
--- OUTSIDE RECORDS SUMMARY | 2025-07-22 19:09 | XMS_ITS | Clinical Summary ---
Author Organization [facility] Address [address] [place] [id number] Phone Care Team Providers Care Hair Dryer Name Role Phone Vannessa Rivas MD Primary Care Provider [phone] Allergies No known active allergies Medications No [...] - 2024-2 6 season) 2025 05/08/2021, 04/10/2021 RSV VACCINE (1 - 1-dose 75+ series) 2047 HEPATITIS A VACCINES Aged Out No long [...] topic Medical Devices Not on file Insurance [facility] ONE CARE MEDICARE REPLACEMENT MEDICARE PART A & B [facility] MEDICARE REPLACEMENT MEDICARE PART A & B [facility] ONE CARE MEDICARE REPLACEMENT MEDICARE PART A & B [facility] CARE MEDICARE REPLACEMENT MEDICARE PART A & B CARE MEDICARE REPLACEMENT Member Subscriber Plan / Payer ( fective 2021-Present) Name:Dorina Holguin Relation to Subscriber:Self Name:Dorina Holguin Payer ID:[id number] (NAIC) Group ID:[id number] Type:Medicare Address: [address] [place] [facility] MEDICARE PART A & B [facility] CARE MEDICARE REPLACEMENT Member Subscriber Plan / Payer ( fective 2021-) Name:Dorina Holguin Relation to Subscriber:Self Name:Dorina Holguin Payer ID:[id number] (NAIC) Group ID:[id number] Type:Medicare Address: [address] [place] [facility] MEDICARE PART A & B CARE MEDICARE REPLACEMENT MEDICARE PART A & B [facility] CARE MEDICARE REPLACEMENT MEDICARE PART A & [place] [address] [address] [place] [address] ONE [place] [address] MEDICARE PART A & B Care Teams Hair Dryer Relationship Specialty Start Date End Date Vannessa Rivas MD [address] [place] [address] PCP - General Internal Medicine 01/10/19 Additional Source Comments The information contained in this document represents components of the legal health record. It is not the complete legal health record.[facility]
--- OUTSIDE RECORDS SUMMARY | 2025-07-22 19:09 | XMS_ITS | Encounter Summary ---
Author Organization [facility] Address [address] [place] [address] Care Team Providers Care Counseling Psychologist Name Role Phone Kevin Early NP Primary Care Provider Reason for Visit * Reason Onset Date Comments Advice Only 07/18/2025 Encounter Details Date Type Department Care Team (Late st Contact Info) Description 07/18/[address] [facility] Hematology Oncology [address] [place] [phone] Kelly Siddiqi MD [address] [place] [address] Social History Tobacco Use Types Packs/Day Years Used Date Smoking Tobacco: Every Day Smokeless Tobacco: Never Comments Unknown Sex and Gender Information Value Date Recorded Sex Assigned at Female 06/30/2024 6:41 AM EDT Legal Sex Female 7:43 PM EST Gender Identity Female 06/30/2024 6:41 AM EDT Sexual Orientation Choose not to disclose 2024 7:53 AM EST documented as of this encounter Progress Notes * Stevan Scott MA - 07/21/2025 1:46 PM EDT Returned call to pt, explained that need for scan will be discussed at pt's FOV. * Ashly Finney - 07/18/2025 2:08 PM EDT Dorina asks if MD is able to order a ct scan to be done prior to her appt on 07/28/25. States she hasn't had one done since she stopped tx and believes she may be due for one. Last ct scan was done 11/27/24. Aware MD is out of the office this afternoon 07/18/25. May be reached at [phone]. documented in this encounter Plan of Treatment Upcoming Encounters Date Type Department Care Team (Late st Contact Info) Description 07/28/2025 8:30 AM EST Office Visit [facility] Hematology Oncology [address] [place] [phone] Kelly Siddiqi MD [address] [place] [address] documented as of this encounter Visit Diagnoses Not on filedocumented in this encounter Care Teams Counseling Psychologist Relationship Specialty Start Date End Date Kevin Early NP [address] [place], [place] PCP - General 06/25/24 documented as of this encounter
--- OUTSIDE RECORDS SUMMARY | 2025-07-22 19:09 | XMS_ITS | Patient Health Record ---
Author Organization [facility] Address [address] [facility] [place] [address] Care Team Providers Care Storekeeper Steward Name Role Phone Kevin Chadwick Primary Care Provider Unav ailable Yaronmariana Shanthi Unavailable [phone] Vannessa Rivas MD Unavailable Unavailable Allergies Allergen [...] Notes Problem Plantar fasciitis of left foot (6568089025123421 1) Plantar fasciitis of left foot (M72.2) Active confirmed Problem Interstitial myositis (19326055) 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) Active confirmed Problem Localized, primary osteoarthritis of the ankle and/or foot (174204161) 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) Active confirmed Problem Localized, primary osteoarthritis of the ankle and/or foot (322478076) 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.072) Active confirmed Problem 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) Plantar fasciitis, bilateral (M72.2) Active confirmed Vital Signs Heart Rate 81 /min 11/29/2024 Blood pressure diastolic 75 mm Hg 04/21/2025 Height 5ft 8in in 04/21/2025 Blood pressure systolic 125 mm Hg 04/21/2025 Weight 215 lbs 04/21/2025 BMI 32.69 kg/m2 04/21/2025 Encounters Encounter Location Date Provider Diagnosis [facility] [address] [place] [address] 08/16/2024 Shanthi Perica Arthralgia of right ankle M25.571 ; Osteoarthritis of right ankle or foot M19.071 ; Arthralgia of left ankle M25.572 ; Osteoarthritis of left ankle or foot M19.072 ; Pain in right toe(s) M79.674 and Onychomycosis B35.[address] [address] 10/04/2024 Shanthi Perica Osteoarthritis of right ankle or foot M19.071 ; Plantar fasciitis, bilateral M72.2 ; Arthralgia of right ankle M25.571 ; Arthralgia of left ankle M25.572 ; Osteoarthritis of left ankle or foot M19.072 ; Onychomycosis B35.1 ; Calcaneal spur, left foot M77.32 ; Interstitial myositis of left foot M60.172 and Bursitis of left foot M77.[address] [address] 11/29/2024 Shanthi Perica Onychomycosis B35.1 ; Plantar fasciitis, bilateral M72.2 ; Calcaneal spur, left foot M77.32 ; Interstitial myositis of left foot M60.172 and Bursitis of left foot M77.[address] [address] 03/04/2025 Shanthi Perica Onychomycosis B35.1 ; Plantar fasciitis, bilateral M72.2 ; Calcaneal spur, left foot M77.32 ; Interstitial myositis of left foot M60.172 ; Bursitis of left foot M77.52 ; Pain in right foot M79.671 ; Pain in right ankle and joints of right foot M25.571 ; Bursitis of intermetatarsal bursa of right foot M77.51 and Metatarsalgia, right foot M77.[address] [address] 04/21/2025 Shanthi Perica Onychomycosis B35.1 ; Plantar fasciitis, bilateral M72.2 ; Calcaneal spur, left foot M77.32 ; Pain in right ankle and joints of right foot M25.571 and Pain of joint of left ankle and foot M25.572 [facility] [address] [address] 08/12/2024 Shanthi Perica [facility] [address] [address] 08/16/2024 Shanthi Perica [facility] [address] [address] 08/16/2024 Shanthi Perica [facility] [address] [address] 10/23/2024 Shanthi Perica [facility] [address] [address] 11/14/2024 Shanthi Perica [facility] [address] [address] 01/17/2025 Shanthi Perica [facility] [address] [address] 03/05/2025 Shanthi Perica [facility] [address] [address] 04/21/2025 Shanthi Perica [facility] [place] [address] [place] [address] 05/27/2025 Shanthi Donovan [facility] Encounter Date Diagnosis (ICD Code) Assessment [...] Details Provider Name:Shanthi peña, 07/23/2025 09:00:00 AM, [address] [place] [address], [phone], Insurance Providers Payer Name Payer Address Payer Phone Subscriber Number Group Number Insured Name Patient Relationship to Insured Coverage Start Date Coverage End Date [facility] [employer] Claims [address] [facility] [place] [address] [id number] Dorina Holguin Self - patient is the [...]
--- OUTSIDE RECORDS SUMMARY | 2025-07-22 19:09 | XMS_ITS ---
Author Organization [facility] Address [address] [place] [address] Care Team Providers Care Vessel Engineer Name Role Phone Kevin Early Primary Care Provider [phone] Active Problems Problem Noted Date Diagnosed Date [...] documented for this patient in [facility]. Treatments may have been administered in another system.
--- OUTSIDE RECORDS SUMMARY | 2025-07-22 19:09 | XMS_ITS ---
Author Organization [facility] Address [address] [place] [address] Phone Care Team Providers Care Breaker Boss Name Role Phone Kevin Early NP Primary Care Provider Active Problems Problem Noted Date Diagnosed Date Malignant neoplasm of ascend ing colon ([facility] V24, [facility] V28) 08/26/2024 Current Treatment and Therapy Plans CENTRAL VENOUS ACCESS ( CVA ) MAINTENANCE / BLOOD DRAW / CATHETER CLEARANCE / DRESSING CHANGE / FLUSH* Plan Start Date:08/26/2024 Plan Provider:Kelly Siddiqi MD Linked Problems Malignant neoplasm of ascend ing colon ([facility] V24, [facility] V28) Treatment Medications No medications scheduled. Past Treatment and Therapy Plans No past plan information found. Lifetime Dose Tracking * Chemical Lifetime Dose Automatic Entry Manual Entr y Fluoro Time 1 minutes 1 minutes 0 minutes Air Kerma 0.2 mGy 0.2 mGy 0 mGy
--- OUTSIDE RECORDS SUMMARY | 2025-07-22 19:09 | XMS_ITS | Clinical Summary ---
Author Organization [facility] Address [address] [place] [address] Care Team Providers Care Java Scala Developer Name Role Phone Kevin Early Primary Care Provider [phone] Allergies Active Allergy Reactions Criticality Noted Date [...] age to complete this topic Care Teams Java Scala Developer Relationship Specialty Start Date End Date Kevin Early NPYunior: [phone] [address] [facility] [place] [address] PCP - General Family Medicine 02/28/24
--- OUTSIDE RECORDS SUMMARY | 2025-07-22 19:09 | XMS_ITS | Clinical Summary ---
Author Organization [facility] Address [address] [place] [address] Phone Care Team Providers Care Traffic Engineering Director Name Role Phone Kevin Early NP Primary Care Provider [phone] Allergies Active Allergy Reactions Criticality Noted Date [...] Date Malignant neoplasm of ascend ing colon ([facility]HCC V24, [facility] V28) 08/26/2024 Encounters Date Type Department Care Team Description 07/18/2025 Telephone [facility] Hematology Oncology [address] [place] [phone] Kelly Siddiqi MD from Last 3 Months Surgical History Surgery Date Site/Laterality Comments CHOLECYSTECTOMY PROCEDURE:CHOLECYSTECTOMY COLON SURGERY PROCEDURE:COLON SURGERY Medical History Medical History Date Comments Colon cancer ([facility] V24, [facility] V28) DX:Colon cancer (HCC) Emphysema, unspecified ([facility]/ HCC V24, [facility] V28) DX:Emphysema, unspecified (H CC) Family History [...] Description 07/28/2025 8:30 AM EST Office Visit [facility] Hematology Oncology [address] [place] [phone] Kelly Siddiqi MD [address] [place] [address] Health Maintenance Due Date Last Done Comments Breast Cancer Screening 1972 Colorectal Cancer Screening: Colonoscopy 1972 Hepatitis B Vaccines (1 of 3 - 19+ 3-dose series) 1991 Zoster Vaccines (1 of 2) 1991 Cervical Cancer Screening: P ap Smear 1993 Pneumococcal Vaccine: 50+ Years (2 of 2 - PCV) 03/12/2011 03/12/2010 COVID-19 Vaccine (3 - Modern a risk series) 06/05/2021 05/08/2021, 04/10/2021 RSV Immunization Adult Patients (1 - Risk 50-74 years 1-dose series) 2022 Cholesterol Screening (Lipid Panel) 08/27/2022 HIV Screening 08/27/2022 Hepatitis C Screening [...] Procedure Name Priority Date/Time Associated Diagnosis Comments CBC WITH AUTO DIFFERENTIAL Routine 07/14/2025 8:08 AM EDT Malignant neoplasm of ascending colon ([facility] V24, [facility] V28) COMPREHENSIVE METABOLIC PANEL Routine 07/14/2025 8:08 AM EDT Malignant neoplasm of ascending colon (CMS/HCC V24, CMS/HCC V28) CARCINOEMBRYONIC ANTIGEN Routine 025 8:08 AM EDT Malignant neoplasm of ascending colon (CMS/HCC V24, CMS/HCC V28) CBC AND DIFFERENTIAL Routine 07/14/2025 8:08 AM EDT Malignant neoplasm of ascending colon (CMS/HCC V24, CMS/HCC V28) from Last 3 Months Results * (ABNORMAL) CBC auto differential (07/14/2025 8:08 AM EDT) WBC 5.2 4.8 - 10.8 K/mcL LAB HEMETOLOGY METHOD 07/14/2025 1:03 PM [facility] RBC 4.90(H) 3.80 - 4.80 M/mcL LAB HEMETOLOGY METHOD 07/14/2025 1:03 PM [facility] Hemoglobin 14.0 11.5 - 16.0 g/dL LAB HEMETOLOGY METHOD 07/14/2025 1:03 PM [facility] Hematocrit 43.2 35.0 - 47.0 % LAB HEMETOLOGY METHOD 07/14[facility]25 [facility] MCV 88.2 79.0 - 98.0 FL LAB HEMETOLOGY METHOD 07/14/2025 1:03 PM [facility] MCH 28.6 27.0 - 32.0 pcg LAB HEMETOLOGY METHOD 07/14/2025 1:03 PM [facility] MCHC 32.4 32.0 - 37.0 g/dL LAB HEMETOLOGY METHOD 07/14/2025 1:03 PM [facility] RDW 13.6 11.0 - 15.0 % LAB HEMETOLOGY METHOD 07/14/2025 1:03 PM [facility] Platelets 185 130 - 400 K/mcL LAB HEMETOLOGY METHOD 07/14/2025 1:03 PM [facility] MPV 10.3 7.0 - 11.0 FL LAB HEMETOLOGY METHOD 07/14/2025 1:03 PM [facility] NRBC 0.0 <1.0 % LAB HEMETOLOGY METHOD 07/14/2025 1:03 PM [facility] NRBC Absolute 0.00 <0.10 K/mcL LAB HEMETOLOGY METHOD 07/14/2025 1:03 PM [facility] Neutrophils Relative 49.7 % LAB HEMETOLOGY METHOD 07/14/2025 1:03 PM [facility] Lymphocytes Relative 36.6 % LAB HEMETOLOGY METHOD 07/14/2025 1:03 PM [facility] Monocytes Relative 6.5 % LAB HEMETOLOGY METHOD 07/14/2025 1:03 PM [facility] Eosinophils Relative 5.3 % LAB HEMETOLOGY METHOD 07/14/2025 1:03 PM [facility] Basophils Relative 1.7 % LAB HEMETOLOGY METHOD 07/14/2025 1:03 PM [facility] Immature Granulocytes Relative 0.2 % LAB HEMETOLOGY METHOD 07/14/2025 1:03 PM [facility] Neutrophils Absolute 2.60 1.50 - 7.00 K/mcL LAB HEMETOLOGY METHOD 07/14/2025 1:03 PM [facility] Lymphocytes Absolute 1.92 1.00 - 5.00 K/mcL LAB HEMETOLOGY METHOD 07/14/2025 1:03 PM [facility] Monocytes Absolute 0.34 0.20 - 1.00 K/mcL LAB HEMETOLOGY METHOD 07/14/2025 1:03 PM EDT [facility] Eosinophils Absolute 0.28 0.00 - 0.50 K/mcL LAB HEMETOLOGY METHOD 07/14/2025 1:03 PM EDT [facility] Basophils Absolute 0.09 0.00 - 0.20 K/mcL LAB HEMETOLOGY METHOD 07/14/2025 1:03 PM EDT [facility] Immature Granulocytes Absolute 0.01 0.00 - 0.03 K/mcL LAB HEMETOLOGY METHOD 07/14/2025 1:03 PM EDT [facility] Blood Venous blood specimen / Unknown Venipuncture / Unknown 07/14/2025 8:08 AM EDT 07/14/2025 11:31 AM EDT Kelly Siddiqi MD LAB BLOOD ORDERABLES Final R esult Performing Organization Address City/[facility] Co de Phone Number [facility] [address] [place] [address], * CEA (07/14/2025 8:08 AM EDT) [facility] CEA 2.1 0.0 - 5.0 ng/mL LAB CHEMISTRY METHOD 07/14/2025 1:12 PM EDT [facility] Blood Venous blood specimen / Unknown Venipuncture / Unknown 07/14/2025 8:08 AM EDT 07/14/2025 11:30 AM EDT Narrative [facility] - 07/14/2025 1:12 PM EDT The Siemens Advia Centaur Chemiluminescent Immunoassay is used. Results obtained with different assay methods or kits cannot be used interchangeably. Results cannot be interpreted as absolute evidence of the presence or absence of malignant disease. Kelly Siddiqi MD LAB BLOOD ORDERABLES Final R esult [facility] [address] [place] [address], * Comprehensive metabolic panel (07/14/2025 8:08 AM EDT) Sodium 141 133 - 145 mmol/L LAB CHEMISTRY METHOD 07/14/2025 11:58 AM EDT [facility] Potassium 4.3 3.5 - 5.5 mmol/L LAB CHEMISTRY METHOD 07/14/2025 11:58 AM EDT [facility] Chloride 107 96 - 110 mmol/L LAB CHEMISTRY METHOD 07/14/2025 11:58 AM T [facility] CO2 29 21 - 32 mmol/L LAB CHEMISTRY METHOD 07/14/2025 11:58 AM [facility] Anion Gap 5 3 - 11 LAB CHEMISTRY METHOD 07/14/2025 11:58 AM [facility] Glucose 96 70 - 100 mg/dL LAB CHEMISTRY METHOD 07/14/2025 11:58 AM [facility] BUN 10 5 - 25 mg/dL LAB CHEMISTRY METHOD 07/14/2025 11:58 AM [facility] Creatinine 0.97 0.50 - 1.10 mg/dL LAB CHEMISTRY METHOD 07/14/2025 11:58 AM [facility] eGFR 70 >=60 mL/min/1. 73m2 LAB CHEMISTRY METHOD 07/14/2025 11:58 AM [facility] Comment:Calculation based on the Chronic Kidney Disease Epidemiology Collaboration (CKD-EPI) equation refit without adjustment for race. BUN/Creatinine Ratio 10.3 LAB CHEMISTRY METHOD 07/14/2025 11:58 AM [facility] Calcium 9.3 8.5 - 10.5 mg/dL LAB CHEMISTRY METHOD 07/14/2025 11:58 AM [facility] AST (SGOT) 20 10 - 42 unit/L LAB CHEMISTRY METHOD 07/14/2025 11:58 AM EDT [facility] ALT (SGPT) 36 10 - 60 unit/L LAB CHEMISTRY METHOD 07/14/2025 11:58 AM EDT [facility] Alkaline Phosphatase 90 42 - 121 unit/L LAB CHEMISTRY METHOD 07/14/2025 11:58 AM EDT [facility] Total Protein 6.5 6.0 - 8.0 g/dL LAB CHEMISTRY METHOD 07/14/2025 11:58 AM EDT [facility] Albumin 3.5 3.2 - 5.0 g/dL LAB CHEMISTRY METHOD 07/14/2025 11:58 AM EDT [facility] Total Bilirubin 0.3 0.0 - 1.4 mg/dL LAB CHEMISTRY METHOD 07/14/2025 11:58 AM EDT [facility] Blood Venous blood specimen / Unknown Venipuncture / Unknown 07/14/2025 8:08 AM EDT 07/14/2025 11:30 AM EDT us Kelly U Devang MELENDEZ LAB BLOOD ORDERABLES Final R esult [facility] [address] [place] [address], from Last 3 Months Insurance [facility] [employer] MEDICARE Member Subscriber Plan / Payer (Ef fective 2021-Present) Name:DORINA HOLGUIN Relation to Subscriber:Self Name:Dorina Holguin Payer ID:[id number] Group ID:[id number] Type:Not on file Address: [address] [facility] [place] [address] Care Teams Traffic Engineering Director Relationship Specialty Start Date End Date Kevin Early, ANGEL [address] [facility] [place] PCP - General 06/25/24
--- OUTSIDE RECORDS SUMMARY | 2025-07-22 19:09 | XMS_ITS | Data Portability ---
Author Organization [place] [facility] Address [address] [address] Assessment Encounter Date Assessment Date Assessment LastModified [...] as tolerated. If nasal symptoms persist despite uisp-dty-uihufb r allergy medication, patient will return for [...] fexofenadin e 180 mg tablet 2024 025 [facility] #[id number], [address] [place], [address], 11:34:35 Patient TargetsNo targets recorded. Patient InstructionsNo instructions recorded. Reason for Referral None Reported. Problems Name Problem SNOMED Code Status Onset Date Resolution Date Notes Provider Name and Address Organization Details Recorded Time Bleeding from nose 106285124 Active 2024 DOUG SALINAS PA-C [address], [place], [address], [place] [facility] 13:36:41 Obstructive sleep apnea of adult 9496130677590 Active 2024 DOUG SALINAS PA-C [address], [place], [address], [place] [facility] 13:36:47 Nasal congestion 09854124 Active 2024 DOUG SALINAS PA-C [address], [place], [address], [place] [facility] 13:36:57 Posterior rhinorrhea 18144759 Active 2024 DOUG SALINAS PA-C [address], [place], [address], [place] [facility] 11:34:04 Problem Notes None recorded. Procedures Surgical History Date Name Laterality Status Provider Name and Address Organization Details Recorded Time Nasal Endoscopy completed DOUG SALINAS PA-C [address] [address], [place], [address], [place] [facility] 12/03/2024 14:49:29 Imaging Results None recorded. Procedure [...] tacrolimus 0.1 % topical ointment APPLY TO RELIGION AND AREAS ON FACE TWICE A DAY, [...] powder 238 G ORALLY ON[facility] 02/21 completed Not Available Not Available Not [...] Address Organization Details Last Updated DateTime 12/03/2024 50377.4 g 31.9 kg/m2 172.72 cm Izabela Haywood [place] - [facility] 12/03/2024 13:06:04 Date Recorded Body height Body mass index (BMI) Body weight Provider Name and Address Organization Details Last Updated DateTime 02/25/2025 172.72 cm 32.7 kg/m2 58804.36 g Emily Rivas [place] [facility] 02/25/2025 10:45:00 Social History Question Answer Notes LastModified by Organizat ion Details LastModified Time Tobacco Smoking Status Current Every Day Smoker Emily olivier [place] [facility] 02/25/2025 10:45:17 What Type Of Music Historian Do You Use? None Information not available [...] Disorder N Anesthesia Complications N Heart Attack (AL) N Other Skin Condition Y Diabetes N [...] Diagnosis SNOMED-CT Code Diagnosis ICD10 Code Diagnosis IMO Codes Diagnosis Note [id number] DOUG SALINAS PA-C [facility] [address] [place] [address] 12/03/2024 11:52:03 12/03/2024 13:39:12 Bleeding from nose 771457727 R04.0 Obstructiv e sleep apnea of adult 5560183737 103 G47.33 Nasal congestion 4270095 0 R09.81 [id number] DOUG SALINAS PA-C [facility] [address] [place] [address] 02/25/2025 10:20:03 02/25/2025 11:24:51 Posterior rhinorrhea 50911697 R09.82 057506 Nasal congestion 5719134 0 R09.81 Health Concerns Section Related Observation LastModified by Organization Detai ls LastModified Time None Recorded Concern Status LastModified by Organization Details LastModified Time None Recorded Advance Directives Directive None Recorded Payers Insurance Date Sequence Insurance Name Policy Number Policy Rodriguez Covered Member ID Rodriguez Member ID Guarantor Name 12/10/2024 2 [facility] (MEDICARE REPLACEMENT/ADV ANTAGE - HMO) Dorina Holguin [id number] Dorina Holguin 02/25/2025 1 [facility] - DOS ON OR AFTER 2022 - [employer] (MEDICARE REPLACEMENT/ADV ANTAGE - HMO) Dorina Holguin [id number] Dorina Holguin Notes Date Note Type Note Provider Name and Address Organization Details Recorded Time 12/03/2024 text/html ROS as noted in the HPI 54yo female presents for evaluation of left [...] on a blood thinner. DOUG SALINAS PA-C [address], [address], [place] [facility] 12/03/2024 14:52:47 02/25/2025 text/html ROS as noted in the HPI 54-year-old female presents for reevaluation of the nose. She reports improvement in nasal congestion with intranasal fluticasone. No recurrence of epistaxis. Endorses persistent postnasal drip. Denies facial pressure or anosmia. History of 2-3 sinus infections annually. No prior sinus surgery. MARCELINO RESENDIZ MD [address], [address], [place] [facility] 02/26/2025 15:35:26 OBGyn Episode No OBEpisode recorded.
--- OUTSIDE RECORDS SUMMARY | 2025-07-22 19:09 | XMS_ITS | Encounter Summary ---
Author Organization [facility] Address [address] [place] [address] Care Team Providers Care Heading Pinner Name Role Phone Kevin Early Primary Care Provider [phone] Encounter Details Date Type Department Care Team Description 04/02/[address] [facility] Oncology Services [address] [place] [address] Vinny Young [facility] Social History Tobacco [...] on filedocumented in this encounter Care Teams Heading Pinner Relationship Specialty Start Date End Date Kevin Early [address] [place] [address] PCP - General Family Medicine 02/28/24 documented as of this encounter
== END 2025-07-22 15:41 | disposition home or self-care (01) ==
LOC: HO.HNS 14:43
PROVIDERS: PCP Nurse Practitioner Family; Visit Provider Physician Assistant
DX: Z98.890 Other specified postprocedural states (principal)
CPT/HCPCS: 99024

== ENCOUNTER → 2025-07-22 14:42 | Outpatient (BNVA) | payer OTHER, SELFPAY | PROVIDERS: PCP Nurse Practitioner Family; Visit Provider Physician Assistant | DX: Z48.00 Encounter for change or removal of nonsurgical wound dressing (principal) | CPT/HCPCS: 99212 ==

== ENCOUNTER 2025-08-07 08:47 | Outpatient (AMB) | payer OTHER, SELFPAY ==
--- OUTSIDE RECORDS SUMMARY | 2024-06-25 07:05 | XMS_ITS | Encounter Summary ---
Author Organization [facility] Address [address] [place] [address] Care Team Providers Care Environmental Adviser Name Role Phone Kevin Earyl NP Primary Care Provider Encounter Details Date [...] Description 01/28/2026 8:30 AM EDT Office Visit [facility] Hematology Oncology [address] [place] [address] Kelly Siddiqi MD [address] [place] [address] documented as of this encounter Visit Diagnoses Not on filedocumented in this encounter Care Teams Environmental Adviser Relationship Specialty Start Date End Date Kevin Early NP [address] [place], [place] PCP - General 06/25/24 documented as of this encounter
--- OUTSIDE RECORDS SUMMARY | 2024-06-27 08:28 | XMS_ITS | Encounter Summary ---
Author Organization [facility] Address [address] [place] [address] Care Team Providers Care Freelance Photographer Name Role Phone Kevin Early NP Primary [...] 01/28/2026 8:30 AM EDT Office Visit [facility] Hematology Oncology [address] [place] [address] Kelly Siddiqi MD [address] [place] [address] documented as of this encounter Visit Diagnoses Not on filedocumented in this encounter Care Teams Freelance Photographer Relationship Specialty Start Date End Date Kevin Early NP [address] [place], [place] PCP - General 06/25/24 documented as of this encounter
--- OUTSIDE RECORDS SUMMARY | 2024-06-28 07:27 | XMS_ITS | Encounter Summary ---
Author Organization [facility] Address [address] [place] [address] Care Team Providers Care Travel Professional Name Role Phone Kevin Early NP Primary [...] Description 01/28/2026 8:30 AM EDT Office Visit [facility] Hematology Oncology [address] [place] [address] Kelly Siddiqi MD [address] [place] [address] documented as of this encounter Visit Diagnoses Not on filedocumented in this encounter Care Teams Travel Professional Relationship Specialty Start Date End Date Kevin Early NP [address] [place], [place] PCP - General 06/25/24 documented as of this encounter
--- OUTSIDE RECORDS SUMMARY | 2024-07-01 07:08 | XMS_ITS | Encounter Summary ---
Author Organization [facility] Address [address] [place] [address] Care Team Providers Care Contact Lens Molder Name Role Phone Kevin Early NP Primary [...] Description 01/28/2026 8:30 AM EDT Office Visit [facility] Hematology Oncology [address] [place] [address] Kelly Siddiqi MD [address] [place] [address] documented as of this encounter Visit Diagnoses Not on filedocumented in this encounter Care Teams Contact Lens Molder Relationship Specialty Start Date End Date Kevin Early NP [address] [place], [place] PCP - General 06/25/24 documented as of this encounter
--- OUTSIDE RECORDS SUMMARY | 2024-07-08 08:47 | XMS_ITS | Encounter Summary ---
Author Organization [facility] Address [address] [place] [address] Care Team Providers Care Pelletising Extruder Operator Name Role Phone Kevin Early NP Primary Care Provider Encounter Details Date Type Department Care Team (Late st Contact Info) Description 07/08/2024 9:47 AM EDT Hospital Encounter TH HISTORIC ENCOUNTERS [...] Progress Notes * Historical, Notes Results - 07/08/2024 10:00 AM EDT Dorina arrives for routine lab draw to assess recovery from treatment. She reports feeling fatigued, but able to do thinks she wants to do . Labs are drawn and sent to lab. Left ambulatory, next appointment provided. [address] Siddiqi, no need for granxix, ANC 0.89. LABS to be re cheked next week. documented in this encounter Plan of Treatment Upcoming Encounters Date Type Department Care Team (Late st Contact Info) Description 01/28/2026 8:30 AM EDT Office Visit [facility] Hematology Oncology [address] [place] [address] Kelly Siddiqi MD [address] [place] [address] documented as of this encounter Visit Diagnoses Not on filedocumented in this encounter Care Teams Pelletising Extruder Operator Relationship Specialty Start Date End Date Kevin Early NP [address] [place], [place] PCP - General 06/25/24 documented as of this encounter
--- OUTSIDE RECORDS SUMMARY | 2024-07-15 06:52 | XMS_ITS | Encounter Summary ---
Author Organization [facility] Address [address] [place] [address] Care Team Providers Care Branch Billing Payroll Clerk Name Role Phone Kevin Early NP Primary [...] [facility] Hematology Oncology [address] [place] [address] Kelly Siddiqi MD [address] [place] [address] documented as of this encounter Visit Diagnoses Not on filedocumented in this encounter Care Teams Branch Billing Payroll Clerk Relationship Specialty Start Date End Date Kevin Early NP [address] [place], [place] PCP - General 06/25/24 documented as of this encounter
--- OUTSIDE RECORDS SUMMARY | 2025-01-31 04:00 | XMS_ITS ---
Author Organization [facility] Address [address] [place] [address] Care Team Providers Care Air Quality Specialist Name Role Phone Nneka PETTIT, Kevin Primary Care Provider Unav ailable Shanthi Donovan Unavailable [phone] Evelyn MELENDEZ, Vannessa Unavailable Unavailable Encounters Encounter Location Date Provider Diagnosis [facility] [address] [place] [address] 01/31/2025 Shanthi Donovan Plan Of Treatment Next Appt Details Provider Name:Shanthi peña, 08/18/2025 03:45:00 PM, [address] [place], [address], Progress Notes * MAXIME FedericoOB:1970 (55 yo F)Acc No.[id number]:01/31/2025 Progress Notes Patient: Dorina PANDYA Provider: Stefany Donovan DPM :1970 A ge:54 Y S ex:Female Date:01/31/2025 Address:[address] [place] [address] kev [facility] Pcp:WILVER Ardon Subjective: * Chief Complaints: * * Medical History: Objective: * Vitals: Assessment: Plan: * Treatment: * Images: * The named appointment provid er may or may not be the originator of this progress note, and it is not deemed complete until electronically signed by the appointment provider. Sign off status: Pending * Provider: Stefany Donovan, DPRosalinda Date: 0 01/31/2025 Generated for Marc stapleton/Sabra/Alejo on: 10/07/2024 09:13 AM EST
[2025-08-07 09:05] VITALS: BP 114/70; PULSE 80; RESP 16; TEMP 36.6; O2SAT 97
--- NOTE | 2025-08-07 09:05 | A.OFFPC_ITS ---
Vital Signs 08/07/25 09:05 Weight 229 lb BP 114/70 Blood Pressure Location Rt brachial Position Sitting Respiration 16 Pulse 80 Pulse Source Pulse Oximeter Temp 97.8 F Temp Source Oral Pulse Oximetry (%) 97 Oxygen Delivery Method Room Air Intake Visit Reasons: 4m follow up Social Sciences Professor Required: No Accompanied by: Self / Same As Patient Allergies citalopram (From CELEXA) Allergy (Unknown, Verified 08/07/25 09:06) PANIC ATTACK moxifloxacin (From AVELOX) Allergy (Unknown, Verified 08/07/25 09:06) RASH Sulfa (Sulfonamide Antibiotics) Allergy (Unknown, Verified 08/07/25 09:06) rash/joint pain clarithromycin (From BIAXIN) Adverse Reaction (Unknown, Verified 08/07/25 09:06) Diarrhea Medication List - Last Reconciled 08/07/25 by MATI Johnson- albuterol sulfate 2.5 mg (3 mL) inhalation QID PRN 30 days albuterol sulfate 90 mcg/actuation 2 puffs inhalation Q6H PRN betamethasone valerate 0.1% 1 appl topical BID bisacodyl (Dulcolax (bisacodyl)) 20 mg (4 x 5 mg) PO ONCE 1 day budesonide-formoterol 160-4.5 mcg/actuation (Symbicort) 2 puffs inhalation BID buspirone 7.5 mg PO BID 30 days clindamycin phosphate 1% 1 ea topical BID PRN doxycycline hyclate 100 mg PO BID 5 days ezetimibe (Zetia) 10 mg PO DAILY fluticasone propionate 50 mcg/actuation 1 SPRAY INTRANASALLY 2 TIMES A DAY FOR 30 DAYS ADMINISTER INTO EACH NOSTRIL hydrocortisone 2.5% (Proctosol HC) 1 appl VA BID-QID PRN hydroxychloroquine 200 mg PO DAILY ibuprofen 800 mg PO TID PRN 30 days Held on 07/17/25. Instructions: Resume on 07/18/25. ketoconazole 2% 1 appl topical DAILY PRN latex gloves (Latex Gloves, Large) As directed-using 10 per day lorazepam (Ativan) 0.5 mg PO BEDTIME PRN 20 days meclizine 25 mg PO TID PRN montelukast 10 mg PO DAILY nebulizers As directed for updraft treatments- with all needed supplies nicotine (polacrilex) 4 mg buccal Q2H nystatin 1 appl topical BID-TID PRN nystatin 4 mL PO TID PRN 10 days polyethylene glycol 3350 (Miralax) 238 grams PO ONCE pregabalin 150 mg PO BID 30 days simethicone (Gas Relief (simethicone)) 125 mg PO BID-TID PRN tramadol 50 mg PO Q6H PRN Tobacco use date assessed: 08/07/25 Dental Screening Dental Screen Date: 08/07/25 Did you have a dental visit in the last 12 months?: Yes Did you have a dental problem in the last 6 months where you did not have access to dental care?: No Was dental information given to patient?: Patient has dentist HPI 4m follow up HPI Details Chief Complaint The patient presents for a follow-up visit for management of her chronic medical conditions. History of Present Illness The patient is a 55-year-old female presenting for a follow-up visit for her chronic conditions. She reports doing well overall and sees approximately 11 different providers for her care. Her history is significant for colon cancer, but she is now cancer-free and follows up with oncology regularly. She also has a probable diagnosis of lupus or a connected tissue disorder with dermatitis, for which she is treated with Plaquenil and had a recent eye exam. From a psychiatric standpoint, her anxiety is reported to be well-controlled and stable, with a good mood noted during the visit. The patient continues to smoke and is enrolled in a low-dose CT scan program. She reported that her prescribed Symbicort did not provide much help for her respiratory symptoms. Social History - Substance Use: The patient continues t o smoke. Health Maintenance - The patient follows with approximately 11 specialists. - She follows up regularly with oncology for her history of colon cancer. - She is enrolled in a low-dose CT scan program for lung cancer screening. - She had a recent eye exam for monitori ng of Plaquenil therapy. Review of Systems - Constitutional: Reports doing well ove rall. - Psychiatric: Reports anxiety is well-c ontrolled and her mood is good. - Respiratory: Reports Symbicort did not provide much help for her symptoms. Physical Exam General: Cooperative, healthy appearing, comfortable, no acute distress and well developed Orientation: Patient oriented x3 Limitations: No limitations Head: Normal to inspection Ears: Hearing grossly normal bilaterally Nose: Normal external nose present Face and sinus: Normal facial exam Eyes: Appearance normal, both eyes and all related structures Neck: Normal visual inspection and Yes full ROM Respiratory: Normal respiratory effort and able to speak in complete sentences. Clear to auscultation bilaterally Cardiovascular: Regular rate and rhythm. Normal S1 and S2 GI: Normal to inspection. Soft to palpation and nontender Skin: No rashes or lesions noted Neuro: Patient oriented x3 Extremities: Normal to inspection Results Plan 1. Anxiety The patient's anxiety is well-controlled and she is stable with a good mood noted. Will continue to monitor her anxiety and continue all current medications. 2. Systemic Lupus Erythematosus Or Conne ctive Tissue Disorder She has a likely diagnosis of lupus or a connective tissue disorder and is on Plaquenil. She has completed a recent eye exam for monitoring. All current medications, including Plaquenil, will be continued. 3. Chronic Respiratory Condition The patient reports that her Symbicort inhaler did not provide significant relief. Due to lack of efficacy, Symbicort will be discontinued and she will be started on Trelegy. She continues to smoke and is appropriately enrolled in a low-dose CT scan screening program. 4. History Of Colon Cancer The patient has a history of colon cancer and is currently cancer-free. She is d oing well and will continue her regular follow-up with oncology. Discussion Notes I discussed with the patient that she is doing well overall and her anxiety remains stable. I informed her that we would continue all her current medications. Based on her report that Symbicort was not helping her respiratory symptoms, I explained the plan to stop it and switch her to Trelegy. Patient Instructions - Continue to take your medications as p rescribed, but you will be stopping one of them. - Stop using your Symbicort inhaler sarita use you reported it is not helping you much. - I am prescribing a new inhaler for you called Trerosiogy. Please start using that instead of Symbicort. - Keep up with your regular appointments with your cancer doctor (oncologist). - Make sure to continue getting your eye exams, as they are important while you are taking Plaquenil. - Continue with the low-dose CT scan pro gram for lung screening. [facility] Medical History (Updated 08/07/25 @ 09:19 by Kevin Early, [facility]) Primary adenocarcinoma of ascending colon (~2023) Colon polyps PAC (premature atrial contraction) Hyperlipidemia JORDAN (obstructive sleep apnea) Nicotine dependence, cigarettes, uncomplicated Vertigo Normal Pap smear Chronic pain Fibromyalgia Dry eye syndrome Plantar fasciitis, left Primary osteoarthritis of left knee Shoulder pain, bilateral Injury of left brachial plexus Degeneration of lumbar intervertebral disc Cervical radiculopathy due to degenerative joint disease of spine Arthritis Bilateral ankle pain Hip pain, bilateral Neck pain Surgical History (Updated 08/07/25 @ 09:23 by Kevin Early [facility]) H/O decompression of ulnar nerve History of endometrial ablation History of colonoscopy History of partial colectomy (~2023) History of laparoscopic cholecystectomy Family History Father Bladder cancer History of heart attack Mother No problems noted. Brother Substance use disorder Brother Substance use disorder Social History Housing: House Alcohol intake: never Patient Tobacco Use Status: Current everyday Tobacco user Tobacco use type: Cigarette Cigarette Packs Per Day: 0 Cigarettes Per Day: 10 Years Smoked: (onset 18yo, 3/4ppd x 37yrs, 27pyh) e-Cigarette/Vaping Use: Never Used service: No Current occupational status: disabled Current occupational exposures/hazards: No Cognitive needs: No Hearing needs: No Vision needs: No Questionnaire PHQ-9 Over the last 2 weeks, how often have you been bothered by any of the following problems? 1. Little interest or pleasure in doing things: several days 2. Feeling down, depressed, or hopeless: several days 3. Trouble falling or staying asleep, or sleeping too much: several days 4. Feeling tired or having little energy: several days 5. Poor appetite or overeating: not at all 6. Feeling bad about yourself - or that you are a failure or have let yourself or your family down: not at all 7. Trouble concentrating on things, such as reading the newspaper or watching television: not at all 8. Moving or speaking so slowly that other people could have noticed. Or the opposite - being so fidgety or restless that you have been moving around a lot more than usual: not at all 9. Thoughts that you would be better off or of hurting yourself in some way: not at all Total score: 4 Depression Screening Interpretation: Negative Depression Screening Done: Yes 82694 - PHQ-9 Billing: Yes Source: Developed by Drs. David Boyd, Antoinette Johnson, Andreas Guzmán and colleagues, with an educational addie from [employer]. Thrive Questionnaire Date Thrive assessed: 09/25/24 I am a: Patient What is your living situation today?: I have a steady place to live Within the past 12 months, did the food you bought not last and you didn't have the money to get more?: Never true Within the past 12 months, did you worry whether your food would run out before you got money to buy more?: Never true Do you have trouble paying for medicines?: No Do you have trouble getting transportation to medical appointments?: No Do you have trouble paying your heating and electricity bill?: No Do you have trouble taking care of your child, family member or friend?: No Do you have trouble with day-to-day activities such as bathing, preparing meals, shopping, managing finances, etc.?: Yes Are you currently unemployed and looking for a job?: No Are you interested in more education?: No Please select the resources that you would like help with: None Currently or been in a relationship where the following occur: No concerns r eported THRIVE Score: 0 GENEVA-7 AMB Questionnaire GENEVA-7 Date GENEVA - 7 assessed: 08/07/25 Feeling nervous, anxious, or on edge: 0 = Not at all Not being able to stop or control worryin = Not at all Worrying too much about different things: 0 = Not at all Trouble relaxin = Not at all Being so restless that it is hard to sit still: 0 = Not at all Becoming easily annoyed or irritable: 0 = Not at all Feeling afraid as if something awful might happen: 0 = Not at all Total GENEVA-7 score (0-4 normal; 5-9 mild; 10-14 moderate; 15-21 severe): 0 Source: Developed by Drs. David Boyd, Andreas Blood and colleagues, with an educational addie from [employer]. GENEVA-7 Assessment Billing GENEVA-7 Assessment Tool: GENEVA-7 Assessment 91887 Physical exam (Primary Care) Vital Signs: Last Vital Signs Temp 97.8 F 08/07/25 09:05 Pulse 80 08/07/25 09:05 Resp 16 08/07/25 09:05 BP 114/70 08/07/25 09:05 Pulse Ox 97 08/07/25 09:05 Oxygen Delivery Method Room Air 08/07/25 09:05 Tobacco/Smoking Status: Tobacco use Status Tobacco use date assessed 08/07/25 08/07/25 09:10 Patient Tobacco Use Status Current everyday Tobacco 08/07/25 09:10 Tobacco use type Cigarette 08/07/25 09:10 e-Cigarette/Vaping Use Never Used 08/07/25 09:10 PHQ-9: PHQ-9 Score PHQ-9: Total score 4 08/07/25 09:10 Depression Screening Interpretation: Negative Thrive Assessment: Date of Thrive Assessment Date Thrive assessed 09/25/24 08/07/25 09:10 Currently or been in a relationship where the following occur: No concerns reported Coding Level of Care Code Est Pt Level 3 (70620) Diagnoses Lupus M32.9 H/O decompression of ulnar nerve Z98.890 JESSICA positive R76.8 Anxiety F41.9 Additional Codes GENEVA-7 Assessment Billing - GENEVA-7 Assessment Tool: GENEVA-7 Assessment 29541 ([id number]) PHQ-9 - 53431 - PHQ-9 Billing: Yes ([id number]) Assessment & Plan Assessment & Plan (1) Lupus: Code(s): M32.9 - Systemic lupus erythematosus, unspecified Category: Medical (2) H/O decompression of ulnar nerve: Comment: left 06/2025 Code(s): Z98.890 - Other specified postprocedural states Category: Surgical (3) JESSICA positive: Code(s): R76.8 - Other specified abnormal immunological findings in serum Category: Medical (4) Anxiety: Code(s): F41.9 - Anxiety disorder, unspecified Category: Medical Plan . Medications: New tbupfcscrzc-uvpwvpsco-znvyfepl 200-62.5-25 mcg (Trelegy Ellipta) 1 inh inhalation DAILY 60 ea 0RF Refilled lorazepam (Ativan) 0.5 mg PO BEDTIME PRN 20 tabs 0RF Anxiety 20 days nystatin 4 mL PO TID PRN 60 mL 2RF thrush 10 days montelukast 10 mg PO DAILY 90 tabs 1RF J45.909 - Unspecified asthma, uncomplicated pregabalin 150 mg PO BID 60 caps 2RF 30 days Discontinued budesonide-formoterol 160-4.5 mcg/actuation (Symbicort) Discontinued Reason: Doctor's Order 2 puffs inhalation BID 10.2 grams 0RF
--- OUTSIDE RECORDS SUMMARY | 2025-08-07 09:13 | XMS_ITS ---
Author Organization [facility] Address [address] [place] [address] Care Team Providers Care Welding Operator Name Role Phone Kevin Early Primary Care Provider [phone] Active Problems Problem Noted Date Diagnosed Date [...] treatments are documented for this patient in [facility]. Treatments may have been administered in another system.
--- OUTSIDE RECORDS SUMMARY | 2025-08-07 09:13 | XMS_ITS | Patient Health Record ---
Author Organization [facility] Address [address] [facility] [place] [address] Care Team Providers Care Mold Swabber Name Role Phone Kevin Chadwick Primary Care Provider Unav ailYobani Odomen Unavailable [phone] Vannessa Rivas MD Unavailable Unavailable Allergies Allergen [...] Duration) Notes Start Date End Date Status Meclizine HCl 25 MG 1 tablet as needed Orally every 12 hrs Active Ativan PRN Active Medrol bakari 4mg as directed orally a s directed; Duration: 6 days 03/04/2025 Active Symbicort 80-4.5 MCG/ACT 1 puff as neede d Inhalation every 4 hrs Active Physical Therapy . . . 2-3x/week; Duration: 3-4 weeks 03/04/2025 Active Ibuprofen 600 MG 1 tablet as needed Orally every 6 hrs; Duration: 14 days 11/29/2024 Active busPIRone HCl 7.5 MG 1 tablet Orally Twi ce a day Active Lynox Not-Taking ProAir HFA Active Breo Ellipta Not-Papi ing Vitamin D Active Medrol 4 MG as directed Orally 11/18/2024 Not-Taking Zetia Active Myrbetriq Not-Taking predniSONE Active Ciclopirox 0.77 % 1 application Externally Twice a day; Duration: 365 days Active Plaquenil 200 MG as directed Orally daily Active Nightsplint . . . AFO - L1930; Duration: . 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) Active confirmed Problem Localized, primary osteoarthritis of the ankle and/or foot (118598693) 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) Active confirmed Problem Localized, primary osteoarthritis of the ankle and/or foot (741716085) 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.072) Active confirmed Problem 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) Plantar fasciitis, bilateral (M72.2) Active confirmed Vital Signs Heart Rate 81 /min 11/29/2024 Blood pressure diastolic 70 mm Hg 07/23/2025 Height 5ft 8in in 07/23/2025 Blood pressure systolic 128 mm Hg 07/23/2025 Weight 215 lbs 07/23/2025 BMI 32.69 kg/m2 07/23/2025 Encounters Encounter Location Date Provider Diagnosis [address] [address] 08/16/2024 Shanthi Perica Arthralgia of right ankle M25.571 ; Osteoarthritis of right ankle or foot M19.071 ; Arthralgia of left ankle M25.572 ; Osteoarthritis of left ankle or foot M19.072 ; Pain in right toe(s) M79.674 and Onychomycosis B35.[address] [address] 10/04/2024 Shanthi Perica Osteoarthritis of right ankle or foot M19.071 ; Plantar fasciitis, bilateral M72.2 ; Arthralgia of right ankle M25.571 ; Arthralgia of left ankle M25.572 ; Osteoarthritis of left ankle or foot M19.072 ; Onychomycosis B35.1 ; Calcaneal spur, left foot M77.32 ; Interstitial myositis of left foot M60.172 and Bursitis of left foot M77.[address] [address] 11/29/2024 Shanthi Perica Onychomycosis B35.1 ; Plantar fasciitis, bilateral M72.2 ; Calcaneal spur, left foot M77.32 ; Interstitial myositis of left foot M60.172 and Bursitis of left foot M77.[address] [address] 03/04/2025 Shanthi Perica Onychomycosis B35.1 ; Plantar fasciitis, bilateral M72.2 ; Calcaneal spur, left foot M77.32 ; Interstitial myositis of left foot M60.172 ; Bursitis of left foot M77.52 ; Pain in right foot M79.671 ; Pain in right ankle and joints of right foot M25.571 ; Bursitis of intermetatarsal bursa of right foot M77.51 and Metatarsalgia, right foot M77.[address] [address] 04/21/2025 Shanthi Perica Onychomycosis B35.1 ; Plantar fasciitis, bilateral M72.2 ; Calcaneal spur, left foot M77.32 ; Pain in right ankle and joints of right foot M25.571 and Pain of joint of left ankle and foot M25.572 [facility] [address] [address] 07/23/2025 Shanthi Donovan Onychomycosis B35.1 ; Plantar fasciitis, bilateral M72.2 and Calcaneal spur, left foot M77.32 [facility] [address] [address] 07/23/2025 Shanthi Perica [facility] [address] [address] 08/12/2024 Shanthi Perica [facility] [address] [address] 08/16/2024 Shanthi Perica [facility] [address] [address] 08/16/2024 Shanthi Perica [facility] [address] [address] 10/23/2024 Shanthi Perica [facility] [address] [address] 11/14/2024 Shanthi Perica [facility] [address] [address] 01/17/2025 Shanthi Perica [facility] [address] [address] 03/05/2025 Shanthi Perica [facility] [address] [address] 04/21/2025 Shanthi Perica [facility] [place] [address] [address] 05/27/2025 Shanthi Donovan Assessments Encounter Date Diagnosis (ICD [...] 04/21/2025 Plantar fasciitis, bilateral (ICD-10 - M72.2) 07/23/2025 Onychomycosis (ICD-10 - B35.1) 07/23/2025 Plantar fasciitis, bilateral (ICD-10 - M72.2) 07/23/2025 Calcaneal spur, left foot (ICD-10 - M77.32) 03/04/2025 Plantar fasciitis, bilateral (ICD-10 - M72.2) [...] 08/16/2024 Next Appt Details Provider Name:Shanthi peña, 08/18/2025 03:45:00 PM, [address] [facility], [place], [address], Insurance Providers Payer Name Payer Address Payer Phone Subscriber Number Group Number Insured Name Patient Relationship to Insured Coverage Start Date Coverage End Date [employer] Claims [address] [place] [id number] Dorina Holguin Self - patient is the [...]
--- OUTSIDE RECORDS SUMMARY | 2025-08-07 09:13 | XMS_ITS ---
Author Organization [facility] Address [address] [place] [address] Phone Care Team Providers Care Bass Mechanism Maker Name Role Phone Kevin Early NP Primary Care Provider Active Problems Problem Noted Date Diagnosed Date Malignant neoplasm of ascend ing colon ([facility] V24, [facility] V28) 08/26/2024 Current Treatment and Therapy Plans CENTRAL VENOUS ACCESS ( CVA ) MAINTENANCE / BLOOD DRAW / CATHETER CLEARANCE / DRESSING CHANGE / FLUSH* Plan Start Date:08/26/2024 Plan Provider:Kelly Siddiqi MD Linked Problems Malignant neoplasm of ascend ing colon ([facility] V24, [facility] V28) Treatment Medications No medications scheduled. Past Treatment and Therapy Plans No past plan information found. Lifetime Dose Tracking * Chemical Lifetime Dose Automatic Entry Manual Entr y Fluoro Time 1 minutes 1 minutes 0 minutes Air Kerma 0.2 mGy 0.2 mGy 0 mGy
--- OUTSIDE RECORDS SUMMARY | 2025-08-07 09:13 | XMS_ITS | Data Portability ---
Author Organization [place] [facility], Allergy Address [address] [address] Assessment Encounter Date Assessment Date Assessment LastModified [...] as tolerated. If nasal symptoms persist despite [id number] r allergy medication, patient will return for [...] fexofenadin e 180 mg tablet 2024 025 [facility] #[id number], [address] [facility] [place] [place], [address], 11:34:35 Patient TargetsNo targets recorded. Patient InstructionsNo instructions recorded. Reason for Referral None Reported. Problems Name Problem SNOMED Code Status Onset Date Resolution Date Notes Provider Name and Address Organization Details Recorded Time Bleeding from nose 777141784 Active 2024 DOUG SALINAS PA-C [address], [place], [address], [place] [facility] 13:36:41 Obstructive sleep apnea of adult 7239865446884 Active 2024 DOUG SALINAS PA-C [address], [place], [address], [place] [facility] [place] 13:36:47 Nasal congestion 91275512 Active 2024 DOUG SALINAS PA-C [address], [place], [address], [place] [facility] 13:36:57 Posterior rhinorrhea 45956505 Active 2024 DOUG SALINAS PA-C [address], [place], [address], [place] [facility] 11:34:04 Problem Notes None recorded. Procedures Surgical History Date Name Laterality Status Provider Name and Address Organization Details Recorded Time Nasal Endoscopy completed DOUG SALINAS PA-C [address] [address], [place], [address], [place] [facility] 12/03/2024 14:49:29 Imaging Results None recorded. Procedure [...] tacrolimus 0.1 % topical ointment APPLY TO ROMAN CATHOLIC AND AREAS ON FACE TWICE A DAY, [...] powder 238 G ORALLY ON[facility] 02/21 completed Not Available Not Available [...] Address Organization Details Last Updated DateTime 12/03/2024 82279.4 g 31.9 kg/m2 172.72 cm Izabela Haywood [place] [facility] 12/03/2024 13:06:04 Date Recorded Body height Body mass index (BMI) Body weight Provider Name and Address Organization Details Last Updated DateTime 02/25/2025 172.72 cm 32.7 kg/m2 72585.36 g Emily Rivas [place] - [facility] 02/25/2025 10:45:00 Social History Question Answer Notes LastModified by Organizat ion Details LastModified Time Tobacco Smoking Status Current Every Day Smoker Emily olivier [place] - [facility] 02/25/2025 10:45:17 What Type Of Sweat Box Attendant Do You Use? None Information not available [...] Infections N Migraines N Thyroid Problems N COPD N Depression N Developmental Delay N Glaucoma N Nasal or Sinus Problems Y Anemia N Immune System Disorder N Anesthesia Complications N Heart Attack (HI) N Other Skin Condition Y Diabetes N Rhinitis Y Bleeding Disorder N Food Allergy N Hearing Loss N Arthritis Y Hyperlipidemia Y Cancer Y Stroke N Dementia N Nasal polyps N Asthma Y Sleep Disorder Y High Cholesterol N GERD/Reflux Y Liver Disease N Headaches Y Fibromyalgia Y Hypertension N Speech Delay N Kidney Disease N Gynecological HistoryNo gynecological history recorded. Obstetrics History GPAL:G 0 P 0 0 0 0 Past Encounters Encounter ID Performer Location Encounter Start Date Encounter Closed Date Diagnosis/Indication Diagnosis SNOMED-CT Code Diagnosis ICD10 Code Diagnosis IMO Codes Diagnosis Note [id number] DOUG SALINAS PA-C [facility] [address] [place] [address] 12/03/2024 11:52:03 12/03/2024 13:39:12 Bleeding from nose 522943985 R04.0 Obstructiv e sleep apnea of adult 7415017502 103 G47.33 Nasal congestion 9894222 0 R09.81 [id number] DOUG SALINAS PA-C [facility] [address] [place] [address] 02/25/2025 10:20:03 02/25/2025 11:24:51 Posterior rhinorrhea 17852680 R09.82 293330 Nasal congestion 8897052 0 R09.81 Health Concerns Section Related Observation LastModified by Organization Detai ls LastModified Time None Recorded Concern Status LastModified by Organization Details LastModified Time None Recorded Advance Directives Directive None Recorded Payers Insurance Date Sequence Insurance Name Policy Number Policy Rodriguez Covered Member ID Rodriguez Member ID Guarantor Name 12/10/[address] [facility] (MEDICARE REPLACEMENT/ADV ANTAGE - HMO) Dorina Holguin [id number] Dorina Holguin 02/25/2025 1 [facility] - DOS ON OR AFTER 2022 - ONE CARE (MEDICARE REPLACEMENT/ADV ANTAGE - HMO) Dorina Holguin [id number] Dorina Holguin Notes Date Note Type Note [...] a blood thinner. DOUG SALINAS PA-C [address], [address], [place] [facility] 12/03/2024 14:52:47 02/25/2025 text/html ROS as noted in the HPI 54-year-old female presents for reevaluation of the nose. She reports improvement in nasal congestion with intranasal fluticasone. No recurrence of epistaxis. Endorses persistent postnasal drip. Denies facial pressure or anosmia. History of 2-3 sinus infections annually. No prior sinus surgery. MARCELINO RESENDIZ MD [address], [address], [place] [facility] 02/26/2025 15:35:26 OBGyn Episode No OBEpisode recorded.
--- OUTSIDE RECORDS SUMMARY | 2025-08-07 09:13 | XMS_ITS | Clinical Summary ---
Author Organization [facility] Address [address] [place] [address] Care Team Providers Care Auto Rebuilder Name Role Phone Kevin Early Primary Care Provider [phone] Allergies Active Allergy Reactions Criticality Noted Date [...] age to complete this topic Care Teams Auto Rebuilder Relationship Specialty Start Date End Date Kevin Early NPYunior: [phone] [address] [facility] [place] [address] PCP - General Family Medicine 02/28/24
--- OUTSIDE RECORDS SUMMARY | 2025-08-07 09:13 | XMS_ITS | Clinical Summary ---
Author Organization [facility] Address [address] [place] [address] Phone Care Team Providers Care Jd Edwards Consultant Name Role Phone Vannessa Rivas MD Primary Care Provider [phone] Allergies No known active allergies Medications No [...] patient's age to complete this topic IPV VACCINES Aged Out No longer eligi ble based on patient's age to complete this topic MENINGOCOCCAL VACCINES (ACWY) Aged Out No longer eligible based on patient's age to complete this topic MENINGOCOCCAL VACCINES (B) Aged Out N o longer eligible based on patient's age to complete this topic Medical Devices Not on file Insurance [facility] ONE CARE MEDICARE REPLACEMENT MEDICARE PART A & [place] [address] [place] [address] ONE CARE MEDICARE REPLACEMENT MEDICARE PART A & B [facility] ONE CARE MEDICARE REPLACEMENT MEDICARE PART A & B [facility] CARE MEDICARE REPLACEMENT MEDICARE PART A & B CARE MEDICARE REPLACEMENT MEDICARE PART A & B [facility] CARE MEDICARE REPLACEMENT MEDICARE PART A & B CARE MEDICARE REPLACEMENT Member Subscriber Plan / Payer ( fective 2021-Present) Name:Dorina Holguin Relation to Subscriber:Self Name:Dorina Holguin Payer ID:[id number] (NAIC) Group ID:[id number] Type:Medicare Address: [address] [facility] [place] [facility] MEDICARE PART A & B [facility] CARE MEDICARE REPLACEMENT MEDICARE PART A & B [facility] ONE CARE MEDICARE REPLACEMENT [place] [id number] MEDICARE PART A & B Care Teams Jd Edwards Consultant Relationship Specialty Start Date End Date Vannessa Rivas MD [address] [place] [address] PCP - General Internal Medicine 01/10/19 Additional Source Comments The information contained in this document represents components of the legal health record. It is not the complete legal health record.[facility]
--- OUTSIDE RECORDS SUMMARY | 2025-08-07 09:13 | XMS_ITS | Encounter Summary ---
Author Organization [facility] Address [address] [place] [address] Care Team Providers Care Accounts Specialist Name Role Phone Kevin Early Primary Care Provider [phone] Encounter Details Date Type Department Care Team Description 04/02/2024 Social Work [facility] Oncology Services [address] [place] [address] Vinny Young [facility] Social History Tobacco Use Types Packs/Day Years [...] on filedocumented in this encounter Care Teams Accounts Specialist Relationship Specialty Start Date End Date Kevin Early [address] [place] [address] PCP - General Family Medicine 02/28/24 documented as of this encounter
--- OUTSIDE RECORDS SUMMARY | 2025-08-07 09:14 | XMS_ITS | Clinical Summary ---
Author Organization [facility] Address [address] [place] [address] Phone Care Team Providers Care Second Worker Name Role Phone Kevin Early NP Primary Care Provider Allergies Active Allergy Reactions Criticality Noted Date Comments Moxifloxacin 06/12/2024 Citalopram Hives High 02/14/2024 Clarithromycin Diarrhea Low 02/14/2024 Biaxin Sulfa (Sulfonamide Antibiotics) 05/26 Medications albuterol HFA (PROVENTIL HFA;VENTOLIN HFA) 108 (90 Base) MCG/ACT inhaler Inhale by mouth. Active ezetimibe (ZETIA) 10 mg tablet Take 1 tablet (10 mg total) by mouth daily. - Oral Active montelukast (SINGULAIR) 10 mg tablet Take 1 tablet (10 mg total) by mouth 1 (one) time each day. Active docusate sodium (COLACE) 100 mg capsule Take 1 capsule (100 mg total) by mouth. at bedtime 07/21/20 24 Active hydroxychloroq uine (PLAQUENIL) 200 mg tablet Take 1 tablet (200 mg total) by mouth 1 (one) time each day. Active pregabalin (LYRICA) 100 mg capsule Twice A Day 025 Discontinued busPIRone (BUSPAR) 5 mg tablet Take 1 tablet (5 mg total) by mouth 2 (two) times a day. 025 Discontinued lidocaine-pril ocaine (EMLA) 2.5-2.5 % cream Apply topically. Apply topically as needed. - Topical 025 Discontinued mirabegron 25 mg tablet extended release 24 hr Take 1 tablet (25 mg total) by mouth daily. - Oral 025 Discontinued Active Problems Problem Noted Date Diagnosed Date Malignant neoplasm of ascend ing colon ([facility]/HCC V24, [facility] V28) 08/26/2024 Encounters Date Type Department Care Team Description 07/28/2025 8:30 AM EST Office Visit [facility] Hematology Oncology [address] [place] [phone] Kelly Siddiqi MD Malignant neoplasm of ascending colon ([facility] V24, [facility] V28) (Primary Dx) 07/18/2025 Telephone [facility] Hematology Oncology [address] [place] [phone] Kelly Siddiqi MD from Last 3 Months Surgical History Surgery Date Site/Laterality Comments CHOLECYSTECTOMY PROCEDURE:CHOLECYSTECTOMY COLON SURGERY PROCEDURE:COLON SURGERY Medical History Medical History Date Comments Colon cancer ([facility] V24, [facility] V28) DX:Colon cancer (HCC) Emphysema, unspecified ([facility]/ HCC V24, [facility] V28) DX:Emphysema, unspecified (H CC) Family History [...] Sign Reading Time Taken Comments Blood Pressure 131/83 07/28/2025 8:30 AM EST Pulse 88 07/28/2025 8:30 AM EST Temperature 36.8 C (98.2 F) 07/28/2025 8:30 AM EST Respiratory Rate - - Oxygen Saturation 100% 07/28/2025 8:30 AM EST Inhaled Oxygen Concentration - - Weight 103 kg (227 lb) 07/28/2025 8:30 AM EST Height 172.7 cm (5' 8 ) 03/01/2024 3:21 PM EDT Body Mass Index 34.52 03/01/2024 3:21 PM EDT Plan of Treatment Upcoming Encounters Date Type Department Care Team (Late st Contact Info) Description 01/28/2026 8:30 AM EDT Office Visit [facility] Hematology Oncology [address] [place] [phone] Kelly Siddiqi MD [address] [place] [address] Health Maintenance Due Date Last Done Comments [...] V24, CMS/HCC V28) COMPREHENSIVE METABOLIC PANEL Routine 07/14/2025 8:08 [...] K/mcL LAB HEM[facility]OLOGY [facility] RBC 4.90(H) 3.80 - 4.80 M/mcL LAB HEMETOLOGY METHOD 07/14/2025 [facility] Hemoglobin 14.0 11.5 - 16.0 g/dL LAB HEMETOLOGY METHOD 07/14/2025 1:03 PM [facility] Hematocrit 43.2 35.0 - 47.0 % LAB HEMETOLOGY METHOD 07/14/2025 1:03 PM [facility] MCV 88.2 79.0 - 98.0 FL LAB HEMETOLOGY METHOD 07/14/2025 1:03 PM EDT [facility] MCH 28.6 27.0 - 32.0 pcg LAB HEMETOLOGY METHOD 07/14/2025 1:03 PM [facility] MCHC 32.4 32.0 - 37.0 g/dL LAB HEMETOLOGY METHOD 07/14/2025 1:03 PM [facility] RDW 13.6 11.0 - 15.0 % LAB HEMETOLOGY METHOD 07/14/2025 1:03 PM [facility] Platelets 185 130 - 400 K/mcL LAB HEMETOLOGY METHOD 07/14/2025 1:03 PM [facility] MPV 10.3 7.0 - 11.0 FL LAB HEMETOLOGY METHOD 07/14/2025 1:03 PM [facility] NRBC 0.0 <1.0 % LAB HEMETOLOGY METHOD 07/14/2025 1:03 PM [facility] NRBC Absolute 0.00 <0.10 K/mcL LAB HEMETOLOGY METHOD 07/14/2025 1:03 PM [facility] Neutrophils Relative 49.7 % LAB HEMETOLOGY METHOD 07/14/2025 1:03 PM [facility] Lymphocytes Relative 36.6 % LAB HEMETOLOGY METHOD 07/14/2025 1:03 PM [facility] Monocytes Relative 6.5 % LAB HEMETOLOGY METHOD 07/14/2025 1:03 PM [facility] Eosinophils Relative 5.3 % LAB HEMETOLOGY METHOD 07/14/2025 1:03 PM [facility] Basophils Relative 1.7 % LAB HEMETOLOGY METHOD 07/14/2025 1:03 PM [facility] Immature Granulocytes Relative 0.2 % LAB HEMETOLOGY METHOD 07/14/2025 1:03 PM EDT [facility] Neutrophils Absolute 2.60 1.50 - 7.00 K/mcL LAB HEMETOLOGY METHOD 07/14/2025 1:03 PM EDT [facility] Lymphocytes Absolute 1.92 1.00 - 5.00 K/mcL LAB HEMETOLOGY METHOD 07/14/2025 1:03 PM EDT [facility] Monocytes Absolute 0.34 0.20 - 1.00 K/mcL LAB HEMETOLOGY METHOD 07/14/2025 1:03 PM EDT [facility] Eosinophils Absolute 0.28 0.00 - 0.50 K/mcL LAB HEMETOLOGY METHOD 07/14/2025 1:03 PM EDT [facility] Basophils Absolute 0.09 0.00 - 0.20 K/mcL LAB HEMETOLOGY METHOD 07/14/2025 1:03 PM EDT [facility] Immature Granulocytes Absolute 0.01 0.00 - 0.03 K/mcL LAB HEMETOLOGY METHOD 07/14/2025 1:03 PM EDT [facility] Blood Venous blood specimen / Unknown Venipuncture / Unknown 07/14/2025 8:08 AM EDT 07/14/2025 11:31 AM EDT Kelly Siddiqi MD LAB BLOOD ORDERABLES Final R esult [facility] [address] [place] [address], * CEA (07/14/2025 8:08 AM EDT) CEA 2.1 0.0 - 5.0 ng/mL LAB CHEMISTRY METHOD 07/14/2025 1:12 PM EDT [facility] Blood Venous blood specimen / Unknown Venipuncture / Unknown 07/14/2025 8:08 AM EDT 07/14/2025 11:30 AM EDT Narrative [facility] - 07/14/2025 1:12 PM EDT The Siemens Advia Centaur Chemiluminescent Immunoassay is used. Results obtained with different assay methods or kits cannot be used interchangeably. Results cannot be interpreted as absolute evidence of the presence or absence of malignant disease. Kelly Siddiqi MD LAB BLOOD ORDERABLES Final R esult [facility] [address] [place] [address], [place] [phone] * Comprehensive metabolic panel (07/14/2025 8:08 AM EDT) Sodium 141 133 - 145 mmol/L LAB CHEMISTRY METHOD 07/14/2025 11:58 AM [facility] Potassium 4.3 3.5 - 5.5 mmol/L LAB CHEMISTRY METHOD 07/14/2025 11:58 AM [facility] Chloride 107 96 - 110 mmol/L LAB CHEMISTRY METHOD 07/14/2025 11:58 AM [facility] CO2 29 21 - 32 mmol/L LAB CHEMISTRY METHOD 07/14/2025 11:58 AM [facility] Anion Gap 5 3 - 11 LAB CHEMISTRY METHOD 07/14/2025 11:58 AM [facility] Glucose 96 70 - 100 mg/dL LAB CHEMISTRY METHOD 07/14/2025 11:58 AM [facility] BUN 10 5 - 25 mg/dL LAB CHEMISTRY METHOD 07/14/2025 11:58 AM [facility] Creatinine 0.97 0.50 - 1.10 mg/dL LAB CHEMISTRY METHOD 07/14/2025 11:58 AM [facility] eGFR 70 >=60 mL/min/1. 73m2 LAB CHEMISTRY METHOD 07/14/2025 11:58 AM EDT [facility] Comment:Calculation based on the Chronic Kidney Disease Epidemiology Collaboration (CKD-EPI) equation refit without adjustment for race. BUN/Creatinine Ratio 10.3 LAB CHEMISTRY METHOD 07/14/2025 11:58 AM [facility] Calcium 9.3 8.5 - 10.5 mg/dL LAB CHEMISTRY METHOD 07/14/2025 11:58 AM [facility] AST (SGOT) 20 10 - 42 unit/L LAB CHEMISTRY METHOD 07/14/2025 11:58 AM [facility] ALT (SGPT) 36 10 - 60 unit/L LAB CHEMISTRY METHOD 07/14/2025 11:58 AM [facility] Alkaline Phosphatase 90 42 - 121 unit/L LAB CHEMISTRY METHOD 07/14/2025 11:58 AM [facility] Total Protein 6.5 6.0 - 8.0 g/dL LAB CHEMISTRY METHOD 07/14/2025 11:58 AM [facility] Albumin 3.5 3.2 - 5.0 g/dL LAB CHEMISTRY METHOD 07/14/2025 11:58 AM [facility] Total Bilirubin 0.3 0.0 - 1.4 mg/dL LAB CHEMISTRY METHOD 07/14/2025 11:58 AM [facility] Blood Venous blood specimen / Unknown Venipuncture / Unknown 07/14/2025 8:08 AM EDT 07/14/2025 11:30 AM EDT us Kelly Siddiqi MD LAB BLOOD ORDERABLES Final R esult [facility] [address] [place] [address], from Last 3 Months Insurance [facility] MEDICARE Member Subscriber Plan / Payer (Ef fective 2021-Present) Name:DORINA HOLGUIN Relation to Subscriber:Self Name:Dorina Holguin Payer ID:[id number] Group ID:[id number] Type:Not on file Address: [place] [address] [place] [address] Care Teams Second Worker Relationship Specialty Start Date End Date Kevin Early NP [address] [facility] [place] PCP - General 06/25/24
== END 2025-08-07 09:41 | disposition home or self-care (01) ==
LOC: HO.HMCC 08:48
PROVIDERS: PCP Nurse Practitioner Family; Visit Provider Nurse Practitioner Family
DX: M32.9 Systemic lupus erythematosus, unspecified (principal); Z98.890 Other specified postprocedural states; R76.89 Other specified abnormal immunological findings in serum; F41.9 Anxiety disorder, unspecified

== ENCOUNTER → 2025-08-07 08:47 | Outpatient (BNVA) | payer OTHER, SELFPAY | PROVIDERS: PCP Nurse Practitioner Family; Visit Provider Nurse Practitioner Family | DX: G47.33 Obstructive sleep apnea (adult) (pediatric) (principal); G56.20 Lesion of ulnar nerve, unspecified upper limb; F41.9 Anxiety disorder, unspecified; M32.9 Systemic lupus erythematosus, unspecified; R76.89 Other specified abnormal immunological findings in serum; J45.909 Unspecified asthma, uncomplicated; Z98.890 Other specified postprocedural states; Z99.89 Dependence on other enabling machines and devices | CPT/HCPCS: 96127; 99212 ==

== ENCOUNTER 2025-08-07 14:08 | Outpatient (AMB) | payer OTHER, SELFPAY ==
--- OUTSIDE RECORDS SUMMARY | 2024-06-25 07:05 | XMS_ITS | Encounter Summary ---
Author Organization [facility] Address [address] [place] [address] Care Team Providers Care Radiation Therapist Name Role Phone Kevin Early NP Primary Care Provider Encounter Details Date Type Department Care Team (Late st Contact Info) Description 06/25/2024 8:05 AM EDT Hospital Encounter TH HISTORIC ENCOUNTERS EASTERN CONVERSION ONLY Social History Tobacco Use Types Packs/Day Years Used Date Smoking Tobacco: Every Day Smokeless Tobacco: Never Comments Unknown Sex and Gender Information Value Date Recorded Sex Assigned at Female 06/30/2024 6:41 AM EDT Legal Sex Female 7:43 PM EST Gender Identity Female 06/30/2024 6:41 AM EDT Sexual Orientation Choose not to disclose 2024 7:53 AM EST documented as of this encounter Last Filed Vital Signs Vital Sign Reading Time Taken Comments Blood Pressure - - Pulse - - Temperature - - Respiratory Rate - - Oxygen Saturation - - Inhaled Oxygen Concentration - - Weight 92.9 kg (204 lb 12.8 oz) 06/25/2024 8:11 AM EDT Height 172.7 cm (5' 8 ) 03/01/2024 3:21 PM EDT Body Mass Index 31.14 03/01/2024 3:21 PM EDT documented in this encounter Progress Notes * Historical, Notes Results - 06/25/2024 8:00 AM EDT Patient arrives ambulatory for last FOLFOX treatment. Stable patient assessment, labs appropriate for treatment today. Dr. Siddiqi aware that patient being treated for persisted cold symptoms. Patient prescribed doxycycline yesterday at urgent care. Patient denies fevers or difficulty breathing. Patient's port accessed without difficulty. + blood return. Patient pre-medicated and resting comfortably in chair with call moon in reach. Patient rested during treatment, patient ambulated to the bathroom independently multiple times. Dr. Siddiqi questioned if he would like patient to receive Zarxio injections with this cycle of treatment. MD advised yes he would like Zarxio given and for patient to have 3 weekly lab draws (CBCd, CMP), after that port flushes per protocol. 1135-Patient completed treatment without incident. Positive blood return reconfirmed from patient'sport. 5-FU administered slow IVP. Patient's 5-FU pump connected to her and started, all connectionssecured and taped. Patient's appointments scheduled accordingly and provided to her. Patient stableupon discharge. documented in this encounter Plan of Treatment Upcoming Encounters Date Type Department Care Team (Late st Contact Info) Description 01/28/2026 8:30 AM EDT Office Visit [facility] Hematology Oncology [address] [place] [address] Kelly Siddiqi MD [address] [place] [address] documented as of this encounter Visit Diagnoses Not on filedocumented in this encounter Care Teams Radiation Therapist Relationship Specialty Start Date End Date Kevin Early NP [address] [place], [place] PCP - General 06/25/24 documented as of this encounter
--- OUTSIDE RECORDS SUMMARY | 2024-06-27 08:28 | XMS_ITS | Encounter Summary ---
Author Organization [facility] Address [address] [place] [address] Care Team Providers Care Front Line Leader Name Role Phone Kevin Early NP Primary [...] 01/28/2026 8:30 AM EDT Office Visit [facility] Hematology Oncology [address] [place] [address] Kelly Siddiqi MD [address] [place] [address] documented as of this encounter Visit Diagnoses Not on filedocumented in this encounter Care Teams Front Line Leader Relationship Specialty Start Date End Date Kevin Early NP [address] [place], [place] PCP - General 06/25/24 documented as of this encounter
--- OUTSIDE RECORDS SUMMARY | 2024-06-28 07:27 | XMS_ITS | Encounter Summary ---
Author Organization [facility] Address [address] [place] [address] Care Team Providers Care Supervisor Pyrotechnic Loading Name Role Phone Kevin Early NP Primary Care Provider Encounter Details Date Type Department Care Team (Late st Contact Info) Description 06/28/2024 8:27 AM EDT Hospital Encounter TH HISTORIC ENCOUNTERS [...] Progress Notes * Historical, Notes Results - 06/28/2024 8:30 AM EDT Patient arrives ambulatory for hydration and 2 of 2 Zarxio injections. Pt reports some diarrhea since being on doxycycline for URI/nasal infection. Pt drinking gatorades and probiotic yogurts. Pt resting with hydration infusing. ?? 0910-Zarxio injection administered in RIGHT posterior arm without incident. ?? 0940- Pt tolerated infusion without incident. Used BR prior to discharge, steady gait observed. Patient to return for labs via portacath per Dr Siddiqi instruction. documented in this encounter Plan of Treatment Upcoming Encounters Date Type Department Care Team (Late st Contact Info) Description 01/28/2026 8:30 AM EDT Office Visit [facility] Hematology Oncology [address] [place] [address] Kelly Siddiqi MD [address] [place] [address] documented as of this encounter Visit Diagnoses Not on filedocumented in this encounter Care Teams Supervisor Pyrotechnic Loading Relationship Specialty Start Date End Date Kevin Early NP [address] [place], [place] PCP - General 06/25/24 documented as of this encounter
--- OUTSIDE RECORDS SUMMARY | 2024-07-01 07:08 | XMS_ITS | Encounter Summary ---
Author Organization [facility] Address [address] [place] [address] Care Team Providers Care Circuit Board Drafter Name Role Phone Kevin Early NP Primary Care Provider [phone] Encounter Details Date Type Department Care Team (Late st Contact Info) Description 07/01/2024 8:08 AM EDT Hospital Encounter TH HISTORIC ENCOUNTERS [...] Progress Notes * Historical, Notes Results - 07/01/2024 8:00 AM EDT 0845 Patient arrives for routine labs for lab assessment. She received two doses of granix end of last week. She is feeling well. Labs drawn without incident. Left unit ambulatory. [address] Siddiqi and no need for additional doses of granix at this time. Next appointments in place. documented in this encounter Plan of Treatment Upcoming Encounters Date Type Department Care Team (Late st Contact Info) Description 01/28/2026 8:30 AM EDT Office Visit [facility] Hematology Oncology [address] [place] [address] Kelly Siddiqi MD [address] [place] [address] documented as of this encounter Visit Diagnoses Not on filedocumented in this encounter Care Teams Circuit Board Drafter Relationship Specialty Start Date End Date Kevin Early NP [address] [place], [place] PCP - General 06/25/24 documented as of this encounter
--- OUTSIDE RECORDS SUMMARY | 2024-07-08 08:47 | XMS_ITS | Encounter Summary ---
Author Organization [facility] Address [address] [place] [address] Care Team Providers Care Lead Pressman Roto Gravure Printing Name Role Phone Kevin Early NP Primary [...] Visit [facility] Hematology Oncology [address] [place] [address] Kelly Siddiqi MD [address] [place] [address] documented as of this encounter Visit Diagnoses Not on filedocumented in this encounter Care Teams Lead Pressman [employer] Printing Relationship Specialty Start Date End Date Kevin Early NP [address] [place], [place] PCP - General 06/25/24 documented as of this encounter
--- OUTSIDE RECORDS SUMMARY | 2024-07-15 06:52 | XMS_ITS | Encounter Summary ---
Author Organization [facility] Address [address] [place] [address] Care Team Providers Care Tie Tape Machine Operator Name Role Phone Kevin Early NP Primary Care Provider [phone] Encounter Details Date Type Department Care Team [...] Description 01/28/2026 8:30 AM EDT Office Visit [facility] Hematology Oncology [address] [place] [address] Kelly Siddiqi MD [address] [place] [address] documented as of this encounter Visit Diagnoses Not on filedocumented in this encounter Care Teams Tie Tape Machine Operator Relationship Specialty Start Date End Date Kevin Early NP [address] [place], [place] PCP - General 06/25/24 documented as of this encounter
--- NOTE | 2025-08-07 14:42 | HO.SPINEOV ---
Intake Visit Reasons: 1st post op Intake Note: Ms. Holguin is here today for her 1st post op. Mixer Runner Required: No Allergies citalopram (From CELEXA) Allergy (Unknown, Verified 08/07/25 09:06) PANIC ATTACK moxifloxacin (From AVELOX) Allergy (Unknown, Verified 08/07/25 09:06) RASH Sulfa (Sulfonamide Antibiotics) Allergy (Unknown, Verified 08/07/25 09:06) rash/joint pain clarithromycin (From BIAXIN) Adverse Reaction (Unknown, Verified 08/07/25 09:06) Diarrhea Assessment & Plan Assessment & Plan (1) Ulnar nerve entrapment: Code(s): G56.20 - Lesion of ulnar nerve, unspecified upper limb Category: Medical Plan Mrs Holguin is 2 weeks out from her left ulnar nerve decompression. She has seen improvement in the tingling and numbness of the hand. There is still some residual but it is better than it was before surgery. Her wound is healed up nicely. She is having some point tenderness on the elbow, especially if she is leaning on something in the elbow as pressure on it. I examined it, there some tenderness over the point of the elbow itself, maybe a little bit of swelling. I am wondering if it might not just be positioning from the surgery. I reassured her it will likely go away in time. I allowed her to increase her activities up to 8 lb of lifting, but she has to be on that restriction for another month. I will see her back in 6 weeks for final postoperative visit. Jose Linda MD, PhD [facility] Coding Level of Care Code Global (13972) Diagnoses Ulnar nerve entrapment G56.20
--- OUTSIDE RECORDS SUMMARY | 2025-08-07 17:32 | XMS_ITS | Clinical Summary ---
Author Organization [facility] Address [address] [place] [address] Phone Care Team Providers Care Circular Head Saw Operator Name Role Phone Vannessa Rivas MD Primary Care Provider Allergies No known active allergies Medications No [...] on file Insurance [facility] ONE CARE MEDICARE REPLACEMENT MEDICARE PART A & [place] [address] [address] [address] ONE CARE MEDICARE REPLACEMENT MEDICARE PART A & B [facility] ONE CARE MEDICARE REPLACEMENT MEDICARE PART A & B [facility] CARE MEDICARE REPLACEMENT MEDICARE PART A & B CARE MEDICARE REPLACEMENT MEDICARE PART A & B [facility] CARE MEDICARE REPLACEMENT MEDICARE PART A & B CARE MEDICARE REPLACEMENT Member Subscriber Plan / Payer ( fective 2021-Present) Name:Dorina Holguin Relation to Subscriber:Self Name:Dorina Holguin Payer ID:[id number] (NAIC) Group ID:[id number] Type:Medicare Address: [address] [facility] [place] [facility] MEDICARE PART A & B [facility] CARE MEDICARE REPLACEMENT MEDICARE PART A & B [facility] ONE CARE MEDICARE REPLACEMENT [place] [id number] MEDICARE PART A & B Care Teams Circular Head Saw Operator Relationship Specialty Start Date End Date Vannessa Rivas MD [address] [place] [address] PCP - General Internal Medicine 01/10/19 Additional Source Comments The information contained in this document represents components of the legal health record. It is not the complete legal health record.[facility]
--- OUTSIDE RECORDS SUMMARY | 2025-08-07 17:32 | XMS_ITS | Encounter Summary ---
Author Organization [facility] Address [address] [place] [address] Care Team Providers Care Editor Farm Journal Name Role Phone Kevin Early Primary Care Provider [phone] Encounter Details Date Type Department Care Team Description 04/02/2024 Social Work [facility] Oncology Services [address] [place] [address] Vinny Young [facility] Social History Tobacco Use [...] on filedocumented in this encounter Care Teams Editor Farm Journal Relationship Specialty Start Date End Date Kevin Early [address] [place] [address] PCP - General Family Medicine 02/28/24 documented as of this encounter
--- OUTSIDE RECORDS SUMMARY | 2025-08-07 17:33 | XMS_ITS ---
Author Organization [facility] Address [address] [place] [address] Care Team Providers Care Product Support Manager Name Role Phone Kevin Early Primary Care Provider [phone] Active Problems Problem Noted Date Diagnosed Date [...] treatments are documented for this patient in [facility]. Treatments may have been administered in another system.
--- OUTSIDE RECORDS SUMMARY | 2025-08-07 17:33 | XMS_ITS ---
Author Organization [facility] Address [address] [place] [address] Phone Care Team Providers Care Esthetics Instructor Name Role Phone Kevin Early NP Primary Care Provider Active Problems Problem Noted Date Diagnosed Date Malignant neoplasm of ascend ing colon ([facility] V24, [facility] V28) 08/26/2024 Current Treatment and Therapy Plans CENTRAL VENOUS ACCESS ( CVA ) MAINTENANCE / BLOOD DRAW / CATHETER CLEARANCE / DRESSING CHANGE / FLUSH* Plan Start Date:08/26/2024 Plan Provider:Kelly Siddiqi MD Linked Problems Malignant neoplasm of ascend ing colon ([facility] V24, [facility] V28) Treatment Medications No medications scheduled. Past Treatment and Therapy Plans No past plan information found. Lifetime Dose Tracking * Chemical Lifetime Dose Automatic Entry Manual Entr y Fluoro Time 1 minutes 1 minutes 0 minutes Air Kerma 0.2 mGy 0.2 mGy 0 mGy
--- OUTSIDE RECORDS SUMMARY | 2025-08-07 17:33 | XMS_ITS | Clinical Summary ---
Author Organization [facility] Address [address] [place] [address] Phone Care Team Providers Care Locator Name Role Phone Kevin Early NP Primary [...] Date Malignant neoplasm of ascend ing colon ([facility] V24, [facility] V28) 08/26/2024 Encounters Date Type Department Care Team Description 07/28/2025 8:30 AM EST Office Visit [facility] Hematology Oncology [address] [place] [phone] Kelly Siddiqi MD Malignant neoplasm of ascending colon ([facility] V24, [facility] V28) (Primary Dx) 07/18/2025 Telephone [facility] Hematology Oncology [address] [place] [phone] Kelly Siddiqi MD from Last 3 Months Surgical History Surgery Date Site/Laterality Comments CHOLECYSTECTOMY PROCEDURE:CHOLECYSTECTOMY COLON SURGERY PROCEDURE:COLON SURGERY Medical History Medical History Date Comments Colon cancer ([facility] V24, [facility] V28) DX:Colon cancer (HCC) Emphysema, unspecified ([facility]/ HCC V24, [facility] V28) DX:Emphysema, unspecified (H CC) Family History [...] Description 01/28/2026 8:30 AM EDT Office Visit [facility] Hematology Oncology [address] [place] [phone] Kelly Siddiqi MD [address] [place] [address] Health Maintenance Due Date Last Done Comments [...] K/mcL LAB H[facility] RBC 4.90(H) 3.80 - 4.80 M/mcL LAB HEMETOLOGY METHOD [facility]/14[facility]25 [facility] Hemoglobin 14.0 11.5 - 16.0 g/dL LAB HEMETOLOGY METHOD 07/14/2025 1:03 PM [facility] Hematocrit 43.2 35.0 - 47.0 % LAB HEMETOLOGY METHOD 07/14/2025 1:03 PM [facility] MCV 88.2 79.0 - 98.0 FL LAB HEMETOLOGY METHOD 07/14/2025 1:03 PM EDT [facility] MCH 28.6 27.0 - 32.0 pcg LAB HEMETOLOGY METHOD 07/14/2025 1:03 PM [facility] MCHC 32.4 32.0 - 37.0 g/dL LAB HEMETOLOGY METHOD 07/14/2025 1:03 PM [facility] RDW 13.6 11.0 - 15.0 % LAB HEMETOLOGY METHOD 07/14/2025 1:03 PM [facility] Platelets 185 130 - 400 K/mcL LAB HEMETOLOGY METHOD 07/14/2025 1:03 PM [facility] MPV 10.3 7.0 - 11.0 FL LAB HEMETOLOGY METHOD 07/14/2025 1:03 PM [facility] NRBC 0.0 <1.0 % LAB HEMETOLOGY METHOD 07/14/2025 1:03 PM [facility] NRBC Absolute 0.00 <0.10 K/mcL LAB HEMETOLOGY METHOD 07/14/2025 1:03 PM [facility] Neutrophils Relative 49.7 % LAB HEMETOLOGY METHOD 07/14/2025 1:03 PM [facility] Lymphocytes Relative 36.6 % LAB HEMETOLOGY METHOD 07/14/2025 1:03 PM [facility] Monocytes Relative 6.5 % LAB HEMETOLOGY METHOD 07/14/2025 1:03 PM [facility] Eosinophils Relative 5.3 % LAB HEMETOLOGY METHOD 07/14/2025 1:03 PM [facility] Basophils Relative 1.7 % LAB HEMETOLOGY METHOD 07/14/2025 1:03 PM [facility] Immature Granulocytes Relative 0.2 % LAB HEMETOLOGY METHOD 07/14/2025 1:03 PM EDT [facility] Neutrophils Absolute 2.60 1.50 - 7.00 K/mcL LAB HEMETOLOGY METHOD 07/14/2025 1:03 PM EDT [facility] Lymphocytes Absolute 1.92 1.00 - 5.00 K/mcL LAB HEMETOLOGY METHOD 07/14/2025 1:03 PM EDT [facility] Monocytes Absolute 0.34 0.20 - 1.00 K/mcL LAB HEMETOLOGY METHOD 07/14/2025 1:03 PM EDT [facility] Eosinophils Absolute 0.28 0.00 - 0.50 K/mcL LAB HEMETOLOGY METHOD 07/14/2025 1:03 PM EDT [facility] Basophils Absolute 0.09 0.00 - 0.20 K/mcL LAB HEMETOLOGY METHOD 07/14/2025 1:03 PM EDT [facility] Immature Granulocytes Absolute 0.01 0.00 - 0.03 K/mcL LAB HEMETOLOGY METHOD 07/14/2025 1:03 PM EDT [facility] Blood Venous blood specimen / Unknown Venipuncture / Unknown 07/14/2025 8:08 AM EDT 07/14/2025 11:31 AM EDT Kelly Siddiqi MD LAB BLOOD ORDERABLES Final R esult [facility] [address] [place] [address], * CEA (07/14/2025 8:08 AM EDT) CEA 2.1 0.0 - 5.0 ng/mL LAB CHEMISTRY METHOD 07/14/2025 1:12 PM EDT [facility] Blood Venous blood specimen / Unknown Venipuncture / Unknown 07/14/2025 8:08 AM EDT 07/14/2025 11:30 AM EDT Narrative [facility] - 07/14/2025 1:12 PM EDT The Siemens Advia Centaur Chemiluminescent Immunoassay is used. Results obtained with different assay methods or kits cannot be used interchangeably. Results cannot be interpreted as absolute evidence of the presence or absence of malignant disease. Kelly Siddiqi MD LAB BLOOD ORDERABLES Final R esult [facility] [address] [place] [address], [place] [phone] * Comprehensive metabolic panel (07/14/2025 8:08 AM EDT) Sodium 141 133 - 145 mmol/L LAB CHEMISTRY METHOD 07/14/2025 11:58 AM [facility] Potassium 4.3 3.5 - 5.5 mmol/L LAB CHEMISTRY METHOD 07/14/2025 11:58 AM [facility] Chloride 107 96 - 110 mmol/L LAB CHEMISTRY METHOD 07/14/2025 11:58 AM [facility] CO2 29 21 - 32 mmol/L LAB CHEMISTRY METHOD 07/14/2025 11:58 AM [facility] Anion Gap 5 3 - 11 LAB CHEMISTRY METHOD 07/14/2025 11:58 AM [facility] Glucose 96 70 - 100 mg/dL LAB CHEMISTRY METHOD 07/14/2025 11:58 AM [facility] BUN 10 5 - 25 mg/dL LAB CHEMISTRY METHOD 07/14/2025 11:58 AM [facility] Creatinine 0.97 0.50 - 1.10 mg/dL LAB CHEMISTRY METHOD 07/14/2025 11:58 AM [facility] eGFR 70 >=60 mL/min/1. 73m2 LAB CHEMISTRY METHOD 07/14/2025 11:58 AM EDT [facility] Comment:Calculation based on the Chronic Kidney Disease Epidemiology Collaboration (CKD-EPI) equation refit without adjustment for race. BUN/Creatinine Ratio 10.3 LAB CHEMISTRY METHOD 07/14/2025 11:58 AM [facility] Calcium 9.3 8.5 - 10.5 mg/dL LAB CHEMISTRY METHOD 07/14/2025 11:58 AM [facility] AST (SGOT) 20 10 - 42 unit/L LAB CHEMISTRY METHOD 07/14/2025 11:58 AM [facility] ALT (SGPT) 36 10 - 60 unit/L LAB CHEMISTRY METHOD 07/14/2025 11:58 AM [facility] Alkaline Phosphatase 90 42 - 121 unit/L LAB CHEMISTRY METHOD 07/14/2025 11:58 AM [facility] Total Protein 6.5 6.0 - 8.0 g/dL LAB CHEMISTRY METHOD 07/14/2025 11:58 AM [facility] Albumin 3.5 3.2 - 5.0 g/dL LAB CHEMISTRY METHOD 07/14/2025 11:58 AM [facility] Total Bilirubin 0.3 0.0 - 1.4 mg/dL LAB CHEMISTRY METHOD 07/14/2025 11:58 AM [facility] Blood Venous blood specimen / Unknown Venipuncture / Unknown 07/14/2025 8:08 AM EDT 07/14/2025 11:30 AM EDT us Kelly Siddiqi MD LAB BLOOD ORDERABLES Final R esult [facility] [address] [place] [address], from Last 3 Months Insurance [facility] MEDICARE Member Subscriber Plan / Payer (Ef fective 2021-Present) Name:DORINA HOLGUIN Relation to Subscriber:Self Name:Dorina Holguin Payer ID:[id number] Group ID:[id number] Type:Not on file Address: [place] [address] [address] [address] Care Teams Locator Relationship Specialty Start Date End Date [facility] [address] [facility] P[facility] - General 06/25/24
--- OUTSIDE RECORDS SUMMARY | 2025-08-07 17:33 | XMS_ITS | Clinical Summary ---
Author Organization [facility] Address [address] [place] [address] Care Team Providers Care Sustainable Agriculture Specialist Name Role Phone Kevin Early Primary Care Provider [phone] Allergies Active Allergy Reactions Criticality Noted Date [...] age to complete this topic Care Teams Sustainable Agriculture Specialist Relationship Specialty Start Date End Date Kevin Early NPYunior: [phone] [address] [facility] [place] [address] PCP - General Family Medicine 02/28/24
== END 2025-08-07 15:21 | disposition home or self-care (01) ==
LOC: HO.HNS 14:09
PROVIDERS: PCP Nurse Practitioner Family; Visit Provider Physician Assistant
DX: G56.20 Lesion of ulnar nerve, unspecified upper limb (principal)
CPT/HCPCS: 99024

== ENCOUNTER 2025-09-11 13:23 | Outpatient (AMB) | payer OTHER, SELFPAY ==
--- OUTSIDE RECORDS SUMMARY | 2024-06-25 07:05 | XMS_ITS | Encounter Summary ---
Author Organization [facility] Address [address] [place] [address] Care Team Providers Care Assembler Chassis Name Role Phone Kevin Early NP Primary [...] Description 01/28/2026 8:30 AM EDT Office Visit [facility] Hematology Oncology [address] [place] [address] Kelly Siddiqi MD [address] [place] [address] documented as of this encounter Visit Diagnoses Not on filedocumented in this encounter Care Teams Assembler Chassis Relationship Specialty Start Date End Date Kevin Early NP [address] [place], [place] PCP - General 06/25/24 documented as of this encounter
--- OUTSIDE RECORDS SUMMARY | 2024-06-27 08:28 | XMS_ITS | Encounter Summary ---
Author Organization [facility] Address [address] [place] [address] Care Team Providers Care Finishing Lab Technician Name Role Phone Kevin Early NP Primary Care Provider Encounter Details Date Type Department Care Team (Late st Contact Info) Description 06/27/2024 9:28 AM EDT Hospital Encounter TH HISTORIC ENCOUNTERS [...] Progress Notes * Historical, Notes Results - 06/27/2024 9:30 AM EDT Patient arrives ambulatory for pump take down and 1 of 2 Zarxio injections. Patient's 5FU pump fully infused 138mls. Patient's pump removed, port flushed and deaccessed per protocol. Patient offered hydration today but would prefer to receive IV hydration tomorrow. 0954-Zarxio injection administered in LEFT posterior arm without incident. Patient to return tomorrow for second Zarxio injection and hydration. Patient stable upon discharge. documented in this encounter Plan of Treatment Upcoming Encounters Date Type Department Care Team (Late st Contact Info) Description 01/28/2026 8:30 AM EDT Office Visit [facility] Hematology Oncology [address] [place] [address] Kelly Siddiqi MD [address] [place] [address] documented as of this encounter Visit Diagnoses Not on filedocumented in this encounter Care Teams Finishing Lab Technician Relationship Specialty Start Date End Date Kevin Early NP [address] [place], [place] PCP - General 06/25/24 documented as of this encounter
--- OUTSIDE RECORDS SUMMARY | 2024-06-28 07:27 | XMS_ITS | Encounter Summary ---
Author Organization [facility] Address [address] [place] [address] Care Team Providers Care Social Media Intern Name Role Phone Kevin Early NP Primary [...] Description 01/28/2026 8:30 AM EDT Office Visit [facility] Hematology Oncology [address] [place] [address] Kelly Siddiqi MD [address] [place] [address] documented as of this encounter Visit Diagnoses Not on filedocumented in this encounter Care Teams Social Media Intern Relationship Specialty Start Date End Date Kevin Early NP [address] [place], [place] PCP - General 06/25/24 documented as of this encounter
--- OUTSIDE RECORDS SUMMARY | 2024-07-01 07:08 | XMS_ITS | Encounter Summary ---
Author Organization [facility] Address [address] [place] [address] Care Team Providers Care Manager Stylist Name Role Phone Kevin Early NP Primary [...] Description 01/28/2026 8:30 AM EDT Office Visit [facility] Hematology Oncology [address] [place] [address] Kelly Siddiqi MD [address] [place] [address] documented as of this encounter Visit Diagnoses Not on filedocumented in this encounter Care Teams Manager Stylist Relationship Specialty Start Date End Date Kevin Early NP [address] [place], [place] PCP - General 06/25/24 documented as of this encounter
--- OUTSIDE RECORDS SUMMARY | 2024-07-08 08:47 | XMS_ITS | Encounter Summary ---
Author Organization [facility] Address [address] [place] [address] Care Team Providers Care Dairy Supplies Sales Representative Name Role Phone Kevin Early NP Primary [...] Description 01/28/2026 8:30 AM EDT Office Visit [facility] Hematology Oncology [address] [place] [address] Kelly Siddiqi MD [address] [place] [address] documented as of this encounter Visit Diagnoses Not on filedocumented in this encounter Care Teams Dairy Supplies Sales Representative Relationship Specialty Start Date End Date Kevin Early NP [address] [place], [place] PCP - General 06/25/24 documented as of this encounter
--- OUTSIDE RECORDS SUMMARY | 2024-07-15 06:52 | XMS_ITS | Encounter Summary ---
Author Organization [facility] Address [address] [place] [address] Care Team Providers Care Reverse Unit Operator Name Role Phone Kevin Early NP Primary Care Provider Encounter Details Date Type Department Care Team (Late st Contact Info) Description 07/15/2024 7:52 AM EDT Hospital Encounter TH HISTORIC ENCOUNTERS [...] Progress Notes * Historical, Notes Results - 07/15/2024 8:00 AM EDT Dorina arrives for routine lab draw to assess recovery from treatment. She is feeling well, but still fatigued. Labs drawn without incidetn, left unit ambulatory. * Historical, Notes Results - 07/15/2024 8:00 AM EDT Labs reviewed. Will come for port flushes onward. documented in this encounter Plan of Treatment Upcoming Encounters Date Type Department Care Team (Late st Contact Info) Description 01/28/2026 8:30 AM EDT Office Visit [facility] Hematology Oncology [address] [place] [address] Kelly Siddiqi MD [address] [place] [address] documented as of this encounter Visit Diagnoses Not on filedocumented in this encounter Care Teams Reverse Unit Operator Relationship Specialty Start Date End Date Kevin Early NP [address] [place], [place] PCP - General 06/25/24 documented as of this encounter
--- OUTSIDE RECORDS SUMMARY | 2025-01-31 04:00 | XMS_ITS ---
Author Organization [facility] Address [address] [place] [address] Care Team Providers Care Credit Card Control Clerk Name Role Phone Nneka PETTIT, Kevin Primary Care Provider Unav ailable Shanthi Donovan Unavailable [phone] Evelyn MELENDEZ, Vannessa Unavailable Unavailable Encounters Encounter Location Date Provider Diagnosis [address] [address] 01/31/2025 Shanthi Donovan Plan Of Treatment No Information Progress Notes * Federico HOLGUINOB:1970 (55 yo F)Acc No.[id number]:01/31/2025 Progress Notes Patient: Dorina PANDYA Provider: Stefany Donovan DPM :1970 A ge:54 Y S ex:Female Date:01/31/2025 Address:[address] [place], [place] [id number] Pcp:WILVER Ardon Subjective: * Chief Complaints: * * Medical History: Objective: * Vitals: Assessment: Plan: * Treatment: * Images: * The named appointment provid er may or may not be the originator of this progress note, and it is not deemed complete until electronically signed by the appointment provider. Sign off status: Pending * Provider: Stefany Donovan DPM Date: 0 01/31/2025 Generated for Marc stapleton/Sabra/Yumikoransmitting on: 11/12/2024 05:28 PM EST
--- OUTSIDE RECORDS SUMMARY | 2025-08-18 10:45 | XMS_ITS ---
[facility] Address [address] [facility] [place] [address] Care Team Providers Care Composing Room Machinist Apprentice Name Role Phone Kevin Chadwick Primary Care Provider Unav ailable Shanthi Donovan Unavailable [phone] Vannessa Rivas MD Unavailable Unavailable Medications Medication SIG (Take, Route, Frequency, Duration) Notes Start Date End Date Status Lynox Not-Taking Breo Ellipta Not-Papi ing Medrol 4 MG as directed Orally 11/18/2024 Not-Taking Myrbetriq Not-Taking Atorvastatin Calcium 10 MG 1 tablet Orally Once a day; Duration: 30 day(s) Not-Taking Nightsplint . . . AFO - L1930; Duration: . Active Medrol bakari 4mg as directed orally a s directed; Duration: 6 days 03/04/2025 Active Physical Therapy . . . 2-3x/week; Duration: 3-4 weeks 03/04/2025 Active Ibuprofen 600 MG 1 tablet as needed Orally every 6 hrs; Duration: 14 days 11/29/2024 Active Ciclopirox 0.77 % 1 application Externally Twice a day; Duration: 365 days Active Vitamin D Active ProAir HFA Active Lyrica 150mg Active Singulair 10 MG 1 tablet Orally Once a day; Duration: 30 day(s) Active busPIRone HCl 7.5 MG 1 tablet Orally Twi ce a day Active Zetia Active Ativan PRN Active Symbicort 80-4.5 MCG/ACT 1 puff as neede d Inhalation every 4 hrs Active Meclizine HCl 25 MG 1 tablet as needed Orally every 12 hrs Active predniSONE Active Plaquenil 200 MG as directed Orally daily Active Encounters Encounter Location Date Provider Diagnosis [facility] [place] [address] 08/18/2025 Shanthi Donovan Plan Of Treatment No Information Progress Notes * Federico HOLGUINOB:1970 (55 yo F)Acc No.[id number]:08/18/2025 Progress Notes Patient: Dorina PANDYA Provider: Stefany Donovan DPM :1970 A ge:55 Y S ex:Female Date:08/18/2025 Address:[address] [place] [address] [id number] Pcp:WILVER Ardon Subjective: * Chief Complaints: * * Medical History: * Medications: T aking Plaquenil 200 MG Tablet as directed Orally daily , Taking predniSONE , Taking Meclizine HCl 25 MG Tablet Chewable 1 tablet as needed Orally every 12 hrs , Taking Symbicort 80-4.5 MCG/ACT Aerosol 1 puff as needed Inhalation every 4 hrs , Taking Ativan , Notes to Pharmacist: PRN, Taking Zetia , Taking Vitamin D , Taking ProAir HFA , Taking busPIRone HCl 7.5 MG Tablet 1 tablet Orally Twice a day , Taking Singulair 10 MG Tablet 1 tablet Orally Once a day , Taking Lyrica , Notes to Pharmacist: 150mg, Taking Nightsplint . . . . AFO - L1930 , Taking Ciclopirox 0.77 % Gel 1 application Externally Twice a day , Taking Ibuprofen 600 MG Tablet 1 tablet as needed Orally every 6 hrs , Taking Physical Therapy . . . . 2-3x/week , Taking Medrol bakari 4mg Tablet Therapy Pack as directed orally as directed , Not-Taking/PRN Myrbetriq , Not-Taking/PRN Medrol 4 MG Tablet Therapy Pack as directed Orally , Not- Taking/PRN Breo Ellipta , Not-Taking/PRN Lynox , Not-Taking/PRN Atorvastatin Calcium 10 MG Tablet 1 tablet Orally Once a day Objective: * Vitals: Assessment: Plan: * Treatment: * Images: * The named appointment provid er may or may not be the originator of this progress note, and it is not deemed complete until electronically signed by the appointment provider. Sign off status: Pending * Provider: Stefany Donovan DPM Date: 10/18/2024 Generated for Marc Esquivel on: 11/12/2024 05:28 PM EST
--- NOTE | 2025-09-11 13:26 | HO.SPINEOV ---
Intake Visit Reasons: 2nd post op Intake Note: Ms. Holguin is here today for her 2nd post op. C Architect Required: No Allergies citalopram (From CELEXA) Allergy (Unknown, Verified 09/11/25 13:26) PANIC ATTACK moxifloxacin (From AVELOX) Allergy (Unknown, Verified 09/11/25 13:26) RASH Sulfa (Sulfonamide Antibiotics) Allergy (Unknown, Verified 09/11/25 13:26) rash/joint pain clarithromycin (From BIAXIN) Adverse Reaction (Unknown, Verified 09/11/25 13:26) Diarrhea Assessment & Plan Assessment & Plan (1) Ulnar nerve entrapment: Code(s): G56.20 - Lesion of ulnar nerve, unspecified upper limb Category: Medical Plan Mrs Holguin is once out from her left ulnar nerve decompression. She has been doing well. She has had return of sensation in her ring finger, but her pinky finger still has numbness and loss of sensation. 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 There some atrophy of the hand so I suspect this is a chronic situation. Her wound is healed up beautifully. We discussed activity guidelines, restrictions and expectations after ulnar nerve release. The left arm pain that she was having at our initial visit is gone so for now it looks like we will not need to do the C8 foraminotomy. At this point she has no restrictions and can follow up as needed. Jose Linda MD,PhD [facility] Coding Level of Care Code Global (43240) Diagnoses Ulnar nerve entrapment G56.20
--- OUTSIDE RECORDS SUMMARY | 2025-09-11 17:28 | XMS_ITS | Clinical Summary ---
Author Organization [facility] Address [address] [place] [address] Phone Care Team Providers Care Patrol Deputy Sheriff Name Role Phone Vannessa Rivas MD Primary Care Provider [phone] Allergies No known active allergies Medications No [...] topic Medical Devices Not on file Insurance [facility] ONE CARE MEDICARE REPLACEMENT MEDICARE PART A & B [facility] MEDICARE [facility]PLACEMENT MEDICARE PART A & B [facility] ONE CARE MEDICARE REPLACEMENT MEDICARE PART A & B [facility] CARE MEDICARE REPLACEMENT MEDICARE PART A & B CARE MEDICARE REPLACEMENT Member Subscriber Plan / Payer ( fective 2021-Present) Name:Doirna Holguin Relation to Subscriber:Self Name:Dorina Holguin Payer ID:[id number] (NAIC) Group ID:[id number] Type:Medicare Address: [address] [facility] MEDICARE PART A & B [facility] CARE MEDICARE REPLACEMENT Member Subscriber Plan / Payer ( fective 2021-) Name:Dorina Holguin Relation to Subscriber:Self Name:Dorina Holguin Payer ID:[id number] (NAIC) Group ID:[id number] Type:Medicare Address: [address] [facility] MEDICARE PART A & B CARE MEDICARE REPLACEMENT MEDICARE PART A & B [facility] CARE MEDICARE REPLACEMENT MEDICARE PART A & [place] [address] [place] [address] [place] [address] MEDICARE PART A & B Care Teams Patrol Deputy Sheriff Relationship Specialty Start Date End Date Vannessa Rivas MD [address] [place] [address] PCP - General Internal Medicine 01/10/19 Additional Source Comments The information contained in this document represents components of the legal health record. It is not the complete legal health record.[facility]
--- OUTSIDE RECORDS SUMMARY | 2025-09-11 17:28 | XMS_ITS | Encounter Summary ---
Author Organization [facility] Prior to 02/22/[address] [place] [address] Care Team Providers Care Supreme Court Justice Name Role Phone Kevin Early Primary Care Provider [phone] Encounter Details Date Type Department Care Team Description 04/02/2024 Social Work [facility] [address] [place] [address] Vinny Young [facility] Social History Tobacco Use Types Packs/Day Years [...] on filedocumented in this encounter Care Teams Supreme Court Justice Relationship Specialty Start Date End Date Kevin Early [address] [facility] [place] [address] PCP - General Family Medicine 02/28/24 documented as of this encounter
--- OUTSIDE RECORDS SUMMARY | 2025-09-11 17:28 | XMS_ITS | Clinical Summary ---
Author Organization [facility] Prior to 02/22/25 Address [address] [place] [address] Care Team Providers Care Oven Loader Name Role Phone Kevin Early Primary Care Provider [phone] Allergies Active Allergy Reactions Criticality Noted Date [...] age to complete this topic Care Teams Oven Loader Relationship Specialty Start Date End Date Kevin Early [address] [place] [address] PCP - General Family Medicine 02/28/24
--- OUTSIDE RECORDS SUMMARY | 2025-09-11 17:28 | XMS_ITS | Patient Health Record ---
Author Organization [facility] Address [address] [facility] [place] [address] Care Team Providers Care Elevator Adjuster Name Role Phone Kevin Chadwick Primary Care Provider Unav ailYobani Odomen Unavailable [phone] Vannessa Rivas MD Unavailable Unavailable Allergies Allergen [...] Duration) Notes Start Date End Date Status Zetia Active Trelegy Ellipta 200-62.5-25 MCG/ACT INHALE 1 PUFF DAILY Inhalation; Duration: 30 Days Active Vitamin D Active Plaquenil 200 MG as directed Orally daily Active Ciclopirox 0.77 % 1 application Externally Twice a day; Duration: 365 days Active predniSONE Active Ibuprofen 600 MG 1 tablet as needed Orally every 6 hrs; Duration: 14 days 11/29/2024 Active Meclizine HCl 25 MG 1 tablet as needed Orally every 12 hrs Active Physical Therapy . . . 2-3x/week; Duration: 3-4 weeks 03/04/2025 Active Ativan PRN Active Medrol bakari 4mg as directed orally a s directed; Duration: 6 days 03/04/2025 Active busPIRone HCl 7.5 MG 1 tablet Orally Twi ce a day Active Medrol 4 MG as directed Orally 11/18/2024 Not-Taking Singulair 10 MG 1 tablet Orally Once a day; Duration: 30 day(s) Active Breo Ellipta Not-Papi ing Lyrica 150mg Active Lynox Not-Taking Nightsplint . . . AFO - L1930; Duration: . 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) Active confirmed Problem Localized, primary osteoarthritis of the ankle and/or foot (163027407) 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.072) Active confirmed Problem Plantar fascial fibromatosis (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) Plantar fasciitis, bilateral (M72.2) Active confirmed Vital Signs Heart Rate 81 /min 11/29/2024 Blood pressure diastolic 70 mm Hg 08/19/2025 Height 5ft8in in 08/19/2025 Blood pressure systolic 127 mm Hg 08/19/2025 Weight 215 lbs 08/19/2025 BMI 32.69 kg/m2 08/19/2025 Encounters Encounter Location Date Provider Diagnosis [address] [address] 10/04/2024 Shanthi Marrufoa Osteoarthritis of right ankle or foot M19.071 ; Plantar fasciitis, bilateral M72.2 ; Arthralgia of right ankle M25.571 ; Arthralgia of left ankle M25.572 ; Osteoarthritis of left ankle or foot M19.072 ; Onychomycosis B35.1 ; Calcaneal spur, left foot M77.32 ; Interstitial myositis of left foot M60.172 and Bursitis of left foot M77.[address] [address] 11/29/2024 Shanthi Perica Onychomycosis B35.1 ; Plantar fasciitis, bilateral M72.2 ; Calcaneal spur, left foot M77.32 ; Interstitial myositis of left foot M60.172 and Bursitis of left foot M77.[address] [address] 03/04/2025 Shanthi Marrufoa Onychomycosis B35.1 ; Plantar fasciitis, bilateral M72.2 ; Calcaneal spur, left foot M77.32 ; Interstitial myositis of left foot M60.172 ; Bursitis of left foot M77.52 ; Pain in right foot M79.671 ; Pain in right ankle and joints of right foot M25.571 ; Bursitis of intermetatarsal bursa of right foot M77.51 and Metatarsalgia, right foot M77.[address] [address] 04/21/2025 Shanthi Marrufoa Onychomycosis B35.1 ; Plantar fasciitis, bilateral M72.2 ; Calcaneal spur, left foot M77.32 ; Pain in right ankle and joints of right foot M25.571 and Pain of joint of left ankle and foot M25.[address] [address] 07/23/2025 Shanthi Perica Onychomycosis B35.1 ; Plantar fasciitis, bilateral M72.2 and Calcaneal spur, left foot M77.32 [facility] [address] [address] 08/19/2025 Shanthi Perica Onychomycosis B35.1 ; Plantar fasciitis, bilateral M72.2 and Calcaneal spur, left foot M77.32 [facility] [address] [address] 08/19/2025 Shanthi Perica [facility] [address] [address] 10/23/2024 Shanthi Perica [facility] [address] [address] 11/14/2024 Shanthi Perica [facility] [address] [address] 01/17/2025 Shanthi Perica [facility] [address] [address] 03/05/2025 Shanthi Perica [facility] [address] [address] 04/21/2025 Shanthi Perica [facility] [place] [address] [place] [address] 05/27/2025 Shanthi Perica [facility] [address] [address] 07/23/2025 Shanthi Perica [facility] [address] [address] 08/18/2025 Shanthi Donovan Assessments Encounter Date Diagnosis (ICD [...] 07/23/2025 Plantar fasciitis, bilateral (ICD-10 - M72.2) 08/19/2025 Onychomycosis (ICD-10 - B35.1) 08/19/2025 Plantar fasciitis, bilateral (ICD-10 - M72.2) 07/23/2025 [...] myositis of left foot (ICD-10 - M60.172) 08/19/2025 Calcaneal spur, left foot (ICD-10 - M77.32) 04/21/2025 Pain of joint of left ankle and foot (ICD-10 - M25.572) 03/04/2025 Bursitis of left foot (ICD-10 - M77.52) 11/29/2024 Bursitis of left foot (ICD-10 - [...] X ray : Ankle, right 3V 08/16/2024 Insurance Providers Payer Name Payer Address Payer Phone Subscriber Number Group Number Insured Name Patient Relationship to Insured Coverage Start Date Coverage End Date [facility] [employer] Claims [address] [place] [address] [id number] Dorina Holguin Self - patient is the [...]
--- OUTSIDE RECORDS SUMMARY | 2025-09-11 17:29 | XMS_ITS ---
Author Organization [facility] Prior to 02/22/[address] [place] [id number] Care Team Providers Care Customer Success Advocate Name Role Phone Kevin Early Primary Care Provider [phone] Active Problems Problem Noted Date Diagnosed Date Malignant neoplasm of ascending colon 03/01/2024 Current Oncology Plans No current plan information found. Past Plans ONCOLOGY TREATMENT Plan Name Start Date Discontinue Date Treatment Medications Discontinue Reason Plan Provider Cycles [facility] BCN OP FOLFOX 6 (MODIFIED) - OXALIPLATIN [...] treatments are documented for this patient in [facility]. Treatments may have been administered in another system.
--- OUTSIDE RECORDS SUMMARY | 2025-09-11 17:29 | XMS_ITS ---
Author Organization [facility] Address [address] [place] [address] Phone Care Team Providers Care Entry Level Machine Operator Name Role Phone Kevin Early NP Primary Care Provider Active Problems Problem Noted Date Diagnosed Date Malignant neoplasm of ascending colon 08/26/2024 Current Treatment and Therapy Plans CENTRAL VENOUS ACCESS ( CVA ) MAINTENANCE / BLOOD DRAW / CATHETER CLEARANCE / DRESSING CHANGE / FLUSH* Plan Start Date:08/26/2024 Plan Provider:Kelly Siddiqi MD Linked Problems Malignant neoplasm of ascend ing colon (CMS/HCC V24, CMS/HCC V28) Treatment Medications No medications scheduled. Past Treatment and Therapy Plans No past plan information found. Lifetime Dose Tracking * Chemical Lifetime Dose Automatic Entry Manual Entr y Fluoro Time 1 minutes 1 minutes 0 minutes Air Kerma 0.2 mGy 0.2 mGy 0 mGy
--- OUTSIDE RECORDS SUMMARY | 2025-09-11 17:29 | XMS_ITS | Data Portability ---
Author Organization [place] [facility], Allergy Address [address] [address] Assessment Encounter Date Assessment Date Assessment LastModified [...] as tolerated. If nasal symptoms persist despite [id number] r allergy medication, patient will return for [...] fexofenadin e 180 mg tablet 2024 025 [facility] #[id number], [address] [facility] [place], [address], 11:34:35 Patient TargetsNo targets recorded. Patient InstructionsNo instructions recorded. Reason for Referral None Reported. Problems Name Problem SNOMED Code Status Onset Date Resolution Date Notes Provider Name and Address Organization Details Recorded Time Bleeding from nose 447908909 Active 2024 DOUG SALINAS PA-C [address], [place], [address], [place] [facility] 13:36:41 Obstructive sleep apnea of adult 7552994782241 Active 2024 DOUG SALINAS PA-C [address], [place], [address], [place] [facility] 13:36:47 Nasal congestion 58521803 Active 2024 DOUG SALINAS PA-C [address], [place], [address], [place] [facility] 13:36:57 Posterior rhinorrhea 69465160 Active 2024 DOUG SALINAS PA-C [address], [place], [address], [place] [facility] 11:34:04 Problem Notes None recorded. Procedures Surgical History Date Name Laterality Status Provider Name and Address Organization Details Recorded Time Nasal Endoscopy completed DOUG SALINAS PA-C [address] [address], [place], [address], [place] [facility] 12/03/2024 14:49:29 Imaging Results None recorded. Procedure [...] tacrolimus 0.1 % topical ointment APPLY TO AMISH AND AREAS ON FACE TWICE A DAY, [...] powder 238 G ORALLY ONCE [facility]ED [facility] 02/21 completed Not Available Not Available [...] Address Organization Details Last Updated DateTime 12/03/2024 36869.4 g 31.9 kg/m2 172.72 cm Izabela Haywood [place] - [facility] 12/03/2024 13:06:04 Date Recorded Body height Body mass index (BMI) Body weight Provider Name and Address Organization Details Last Updated DateTime 02/25/2025 172.72 cm 32.7 kg/m2 22400.36 g Emily Rivas [place] - [facility] 02/25/2025 10:45:00 Social History Question Answer Notes LastModified by Organizat ion Details LastModified Time Tobacco Smoking Status Current Every Day Smoker Emily olivier [place] - [facility] 02/25/2025 10:45:17 What Type Of Burr Grinder Do You Use? None Information not available [...] Migraines N Thyroid Problems N Glaucoma N Developmental Delay N Depression N COPD N Nasal or Sinus Problems Y Anemia N Immune System Disorder N Anesthesia Complications N Heart Attack (MO) N Other Skin Condition Y Diabetes N [...] ICD10 Code Diagnosis IMO Codes Diagnosis Note [id number] DOUG SALINAS PA-C [facility] [address] [place] [address] 12/03/2024 11:52:03 12/03/2024 13:39:12 Bleeding from nose 132707350 R04.0 Obstructiv e sleep apnea of adult 7923576088 103 G47.33 Nasal congestion 5781905 0 R09.81 [id number] DOUG SALINAS PA-C [facility] [address] [place] [address] 02/25/2025 10:20:03 02/25/2025 11:24:51 Posterior rhinorrhea 38510990 R09.82 [id number] Nasal congestion 9518662 0 R09.81 Health Concerns Section Related Observation LastModified by Organization Detai ls LastModified Time None Recorded Concern Status LastModified by Organization Details LastModified Time None Recorded Advance Directives Directive None Recorded Payers Insurance Date Sequence Insurance Name Policy Number Policy Rodriguez Covered Member ID Rodriguez Member ID Guarantor Name 12/10/2024 2 [facility] (MEDICARE REPLACEMENT/ADV ANTAGE - HMO) Dorina Holguin [id number] Dorina Holguin 02/25/2025 1 [facility] - DOS ON OR AFTER 2022 - ONE [employer] (MEDICARE REPLACEMENT/ADV ANTAGE - HMO) Dorina Holguin [id number] Dorina Holguin Notes Date Note Type Note [...] a blood thinner. DOUG SALINAS PA-C [address], [address], [place] - [facility] 12/03/2024 14:52:47 02/25/2025 text/html ROS as noted in the HPI 54-year-old female presents for reevaluation of the nose. She reports improvement in nasal congestion with intranasal fluticasone. No recurrence of epistaxis. Endorses persistent postnasal drip. Denies facial pressure or anosmia. History of 2-3 sinus infections annually. No prior sinus surgery. MARCELINO RESENDIZ MD [address], [address], [place] - [facility] 02/26/2025 15:35:26 OBGyn Episode No OBEpisode recorded.
--- OUTSIDE RECORDS SUMMARY | 2025-09-11 17:29 | XMS_ITS | Clinical Summary ---
Author Organization [facility] Address [address] [place] [address] Phone Care Team Providers Care Air Conditioning Unit Assembler Name Role Phone Kevin Early NP Primary [...] total) by mouth. at bedtime 07/21/2024 Active hydroxychloroqu ine (PLAQUENIL) 200 mg tablet Take 1 tablet (200 mg total) by mouth 1 (one) time each day. Active Active Problems Problem Noted Date Diagnosed Date Malignant neoplasm of ascending colon 08/26/2024 Encounters Date Type Department Care Team Description 07/28/2025 8:30 AM EST Office Visit [facility] Hematology Oncology [address] [place] [address] Kelly Siddiqi MD Malignant neoplasm of ascending colon (CMS/HCC V24, CMS/HCC V28) (Primary Dx) 07/18/2025 Telephone [facility] Hematology Oncology [address] [place] [address] Kelly Siddiqi MD from Last 3 Months Surgical History Surgery Date Site/Laterality Comments CHOLECYSTECTOMY PROCEDURE:CHOLECYSTECTOMY COLON SURGERY PROCEDURE:COLON SURGERY Medical History Medical History Date Comments Colon cancer ([facility]/HCC V24, [facility]/HCC V28) DX:Colon cancer (HCC) Emphysema, unspecified (CMS/ [...] not to disclose 2024 7:53 AM EST Last Filed Vital Signs Vital Sign Reading [...] Description 01/28/2026 8:30 AM EDT Office Visit [facility] Hematology Oncology [address] [place] [phone] Kelly Siddiqi MD [address] [place] [address] Health Maintenance Due Date Last Done Comments [...] K/mcL LAB HEMETOLOGY METHOD 07/14/2025 1:03 PM [facility] RBC 4.90(H) 3.80 - 4.80 M/mcL LAB HEMETOLOGY METHOD 07/14/2025 1:03 PM [facility] Hemoglobin 14.0 11.5 - 16.0 g/dL LAB HEMETOLOGY METHOD 07/14/2025 1:03 PM [facility] Hematocrit 43.2 35.0 - 47.0 % LAB HEMETOLOGY METHOD 07/14/2025 1:03 PM [facility] MCV 88.2 79.0 - 98.0 FL LAB HEMETOLOGY METHOD 07/14/2025 1:03 PM [facility] MCH 28.6 27.0 - 32.0 pcg LAB HEMETOLOGY METHOD 07/14/2025 1:03 PM [facility] MCHC 32.4 32.0 - 37.0 g/dL LAB HEMETOLOGY METHOD 07/14/2025 1:03 PM [facility] RDW 13.6 11.0 - 15.0 % LAB HEMETOLOGY METHOD 07/14/2025 1:03 PM [facility] Platelets 185 130 - 400 K/mcL LAB HEMETOLOGY METHOD 07/14/2025 1:03 PM EDT [facility] MPV 10.3 7.0 - 11.0 FL LAB HEMETOLOGY METHOD [facility]14[facility] NRBC 0.0 <1.0 % LAB HEMETOLOGY METHOD 07/14/2025 1:03 PM EDT [facility] NRBC Absolute 0.00 <0.10 K/mcL LAB HEMETOLOGY METHOD 07/14/2025 1:[facility] Neutrophils Relative 49.7 % LAB HEMETOLOGY METHOD 07/14/2025 1:03 PM [facility] Lymphocytes Relative 36.6 % LAB HEMETOLOGY METHOD 07/14/2025 1:[facility] Monocytes Relative 6.5 % LAB HEMETOLOGY METHOD 07/14/2025 1:03 PM [facility] Eosinophils Relative 5.3 % LAB HEMETOLOGY METHOD 07/14/2025 1:03 PM [facility] Basophils Relative 1.7 % LAB HEMETOLOGY METHOD 07/14/2025 1:03 PM [facility] Immature Granulocytes Relative 0.2 % LAB HEMETOLOGY METHOD 07/14/2025 1:03 PM EDT [facility] Neutrophils Absolute 2.60 1.50 - 7.00 K/mcL LAB HEMETOLOGY METHOD 07/14/2025 1:03 PM EDT [facility] Lymphocytes Absolute 1.92 1.00 - 5.00 K/mcL LAB HEMETOLOGY METHOD 07/14/2025 1:[facility] Monocytes Absolute 0.34 0.20 - 1.00 K/mcL LAB HEMETOLOGY METHOD 07/14/2025 1:03 PM EDT [facility] Eosinophils Absolute 0.28 0.00 - 0.50 K/mcL LAB HEMETOLOGY METHOD 07/14/2025 1:03 PM EDT [facility] Basophils Absolute 0.09 0.00 - 0.20 K/mcL LAB HEMETOLOGY METHOD 07/14/2025 1:03 PM EDT [facility] Immature Granulocytes Absolute 0.01 0.00 - 0.03 K/mcL LAB HEMETOLOGY METHOD 07/14/2025 1:03 PM EDT [facility] Blood Venous blood specimen / Unknown Venipuncture / Unknown 07/14/2025 8:08 AM EDT 07/14/2025 11:31 AM EDT Kelly Siddiqi MD LAB BLOOD ORDERABLES Final R esult Performing Organization Address [facility] Co de Phone Number [facility] [address] [place] [address], * CEA (07/14/2025 8:08 AM EDT) CEA 2.1 0.0 - 5.0 ng/mL LAB CHEMISTRY METHOD 07/14/2025 1:12 PM EDT [facility] Blood Venous blood specimen / Unknown Venipuncture / Unknown 07/14/2025 8:08 AM EDT 07/14/2025 11:30 AM EDT Narrative [facility] - 07/14/2025 1:12 PM EDT The Siemens Advia Centaur Chemiluminescent Immunoassay is used. Results obtained with different assay methods or kits cannot be used interchangeably. Results cannot be interpreted as absolute evidence of the presence or absence of malignant disease. Kelly Siddiqi MD LAB BLOOD ORDERABLES Final R esult Performing Organization Address City/[facility]/ZIP Co de Phone Number [facility] [address] [place] [address], * Comprehensive metabolic panel (07/14/2025 8:08 AM EDT) Sodium 141 133 - 145 mmol/L LAB CHEMISTRY METHOD 07/14/2025 11:58 AM [facility] Potassium 4.3 3.5 - 5.5 mmol/L LAB CHEMISTRY METHOD 07/14/2025 11:58 AM [facility] Chloride 107 96 - 110 mmol/L LAB CHEMISTRY METHOD 07/14/2025 11:58 AM [facility] CO2 29 21 - 32 mmol/L LAB CHEMISTRY METHOD 07/14/2025 11:58 AM [facility] Anion Gap 5 3 - 11 LAB CHEMISTRY METHOD 07/14/2025 11:58 AM [facility] Glucose 96 70 - 100 mg/dL LAB CHEMISTRY METHOD 07/14/2025 11:58 AM [facility] BUN 10 5 - 25 mg/dL LAB CHEMISTRY METHOD 07/14/2025 11:58 AM [facility] Creatinine 0.97 0.50 - 1.10 mg/dL LAB CHEMISTRY METHOD 07/14/2025 11:58 AM [facility] eGFR 70 >=60 mL/min/1. 73m2 LAB CHEMISTRY METHOD 07/14/2025 11:58 AM [facility] Comment:Calculation based on the Chronic Kidney Disease Epidemiology Collaboration (CKD-EPI) equation refit without adjustment for race. BUN/Creatinine Ratio 10.3 LAB CHEMISTRY METHOD 07/14/2025 11:58 AM [facility] Calcium 9.3 8.5 - 10.5 mg/dL LAB CHEMISTRY METHOD 07/14/2025 11:58 AM [facility] AST (SGOT) 20 10 - 42 unit/L LAB CHEMISTRY METHOD 07/14/2025 11:58 AM [facility] ALT (SGPT) 36 10 - 60 unit/L LAB CHEMISTRY METHOD 07/14/2025 11:58 AM EDT [facility] Alkaline Phosphatase 90 42 - 121 unit/L LAB CHEMISTRY METHOD 07/14/2025 11:58 AM EDT [facility] Total Protein 6.5 6.0 - 8.0 g/dL LAB CHEMISTRY METHOD 07/14/2025 11:58 AM EDT [facility] Albumin 3.5 3.2 - 5.0 g/dL LAB CHEMISTRY METHOD 07/14/2025 11:58 AM EDT [facility] Total Bilirubin 0.3 0.0 - 1.4 mg/dL LAB CHEMISTRY METHOD 07/14/2025 11:58 AM EDT [facility] Blood Venous blood specimen / Unknown Venipuncture / Unknown 07/14/2025 8:08 AM EDT 07/14/2025 11:30 AM EDT us Kelly Siddiqi MD LAB BLOOD ORDERABLES Final R esult [facility] [address] [place] [address], from Last [address] [facility] MEDICARE Member Subscriber Plan / Payer (Ef fective 2021-Present) Name:DORINA HOLGUIN Relation to Subscriber:Self Name:Dorina Holguin Payer ID:[id number] Group ID:[id number] Type:Not on file Address: [place] [address] [address] [id number] Care Teams Air Conditioning Unit Assembler Relationship Specialty Start Date End Date Kevin Early NP [address] [facility] LUCIO Lua PCP - General 06/25/24
== END 2025-09-11 14:18 | disposition home or self-care (01) ==
LOC: HO.HNS 13:24
PROVIDERS: PCP Nurse Practitioner Family; Visit Provider Physician Assistant
DX: G56.20 Lesion of ulnar nerve, unspecified upper limb (principal)
CPT/HCPCS: 99024

== ENCOUNTER → 2025-09-11 13:23 | Outpatient (BNVA) | payer OTHER, SELFPAY | PROVIDERS: PCP Nurse Practitioner Family; Visit Provider Physician Assistant | DX: G56.22 Lesion of ulnar nerve, left upper limb (principal) | CPT/HCPCS: 99212 ==